=== PATIENT | female | born 1965 | race Caucasian/White ===

== ENCOUNTER 2020-09-04 15:30 | Outpatient (RCR) | payer BC, SELFPAY ==
--- NOTE | 2020-08-20 17:59 | HP.OTEVAL_ITS ---
Patient's Visit Information JO VALENCIA is a 55 year old F, referred to Occupational Therapy by Bud Finch PA-C, with a diagnosis of left distal phalanx fx. Date of Evaluation: 08/20/20 Occupational Therapist: Bindu Orlando, SHIRA/Dm, CHT - Subjective This 55-year-old female was seen for OT eval with dx of left thumb displaced fx of distal phalanx of left thumb. pt states she broke it while opening a container in February 2020, pt states she found a thumb brace- for three weeks- pt states she was in cast for three weeks- and was released to use it. 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 pt states the limited ROM and strength has decreased her IND. with work and other daily tasks. pt would like to know what she can do to return her strength and ROM. 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 Pt will demo an increase in lateral and tripod pinch by 2# to increase pts independent with opening baggies, containers at PLOF by D/C. Goal:: Pt will demo an increase in left IP ROM equal to unaffected right IP to return pt to PLOF with grooming, dressing and home mtg tasks by D/C. Goal:: pt will report the ability to use left thumb for pinch/grasp objects with pain no greater than 1/10 by d/c - Rehabilitation General Assessment: pt demo a decline in right IP flex of right thumb and pain with use. this has limited pt with her ADLS, IADLs and work tasks- pt would benefit from skilled OT services 1x week for 3-4 weeks to return pt to PLOF. To day therapist ed. pt on IP blocking ex, PROM and pinch strengthening- pt demo understanding of ex and agree to POC. Rehabilitation Potential: Good - Anticipated Interventions A/AAROM/PROM, Strengthening, Triggerpoint Release, Modalities, Orthoses, Joint Protection/Energy Conservation, Ergonomic Education - Visit Plan Frequency: 1x/Week Duration: 4 Weeks TEXT: Thank you for the opportunity to evaluate your patient. For Medicare and Medicare HMO plans, please review the plan of care and approve it. It will need to be FAXED BACK to us at [phone] for Medicare purposes. Please let me know if there are questions or concerns regarding this plan of care. Physician Signature: Date:
--- NOTE | 2020-12-11 14:54 | HP.OT.NRP ---
JO VALENCIA was seen in my office for initial evaluation on 08/20/20. The following Plan of Care was established for this patient: Initial Frequency: 1x/Week Initial Duration: 4 Weeks Plan: cont POC , 1 more visit Anticipated Interventions: A/AAROM/PROM, Strengthening, Triggerpoint Release, Modalities, Orthoses, Joint Protection/Energy Conservation, Ergonomic Education This patient was last seen in our office 09/04/20. Pertinent comments regarding their Occupational therapy will appear below: pt seen 3 OT visits making great gains with ROM and strength. pt was to return for one more visit but did not schedule that apt. due to time lapse in services pt d/c at this time. At this point I will be discontinuing this patient from occupational therapy. I would be happy to see this patient again in the future if found appropriate by the physician. Thank you! Bindu Orlando, OTR/L, CHT
== END 2020-09-04 19:00 | disposition home or self-care (01) ==
LOC: OT 15:30
PROVIDERS: PCP Internal Medicine; Referring Provider Physician Assistant Surgical; Visit Provider Physician Assistant Surgical
DX: S62.522D Displaced fracture of distal phalanx of left thumb, subsequent encounter for fracture with routine healing (principal)
CPT/HCPCS: 97110; 97166

== ENCOUNTER → 2022-08-12 | Outpatient (CLI) | payer BC, SELFPAY ==
[2022-08-12 12:42] LABS: Hemoglobin A1c 5.7 % (3.8-5.6)
[2022-08-12 12:54] LABS: Insulin 3.4 mU/L (2.6-37.6); T3 Total - Triiodothyronine 1.29 ng/mL (0.6-1.81); Vitamin B12 644 pg/mL (211-911); Vitamin D,25 Hydroxy 49.2 ng/mL
[2022-08-12 13:14] LABS: Absolute Lymphocyte Count 1.38 X10^3/uL (0.83-4.51); Absolute Neutrophil Count 2.8 X10^3/uL (2.0-7.7); Basophil# 0.03 X10^3/uL; Basophil% 0.6 % (0-1); Eosinophil# 0.16 X10^3/uL; Eosinophils% 3.4 % (0-5); Hematocrit 40.9 % (37-47); Hemoglobin 13.6 g/dL (12.0-15.0); Lymphocyte # 1.38 X10^3/ul (0.83-4.51); Lymphocyte % 29.2 % (19-41); Mean Corp Hgb Conc 33.3 g/dL (32-36); Mean Corpuscular Hgb 31.2 pg (27.0-32.0); Mean Corpuscular Volume 93.8 fL (81-99); Mean Platelet Vol. 11.3 fl (6.2-12.0); Monocyte# 0.33 X10^3/uL; NRBC Flagged by Analyzer 0 % (0-5); Neutrophil # 2.81 X10^3/uL (2.7-7.7); Neutrophil % 59.6 % (47-70); Platelet Count 198 K/mm3 (150-450); RBC Distribution Width CV 12.4 % (11.6-14.6); RBC Distribution Width SD 42.9 fl (35.1-43.9); Red Blood Count 4.36 M/mm3 (4.2-5.4); White Blood Count 4.7 K/mm3 (4.4-11.0)
[2022-08-12 13:23] LABS: Erythrocyte Sedimentation Rate 7 mm/hr (0-30)
[2022-08-12 13:33] LABS: ALB/GLOB Ratio 1.2 RATIO (0.9-2.4); AST(SGOT) 14 U/L (15-37); Alanine Aminotransfer ALT/SGPT 21 U/L (13-56); Albumin, Serum 4.1 g/dL (3.2-5.0); Alkaline Phosphatase 52 U/L (45-117); Anion Gap 4 (5-15); BUN 19 mg/dL (7-18); BUN/Creat Ratio 19.1 RATIO (10-20); CRP < 2.90 mg/L (0.0-3.0); Calcium,Total 9.5 mg/dL (8.5-10.1); Chloride 105 mmol/L (98-107); Cholesterol 278 mg/dL (200); EST Glomerular Filtration Rate 61 mL/min (>60); Est Glom Filt Rate - Afr Amer 74 mL/min (>60); Ferritin 97 ng/mL (8-252); Free T3 3.1 pg/mL (2.18-3.98); Globulin 3.4 g/dL (2.2-4.2); Glucose 92 mg/dL (74-106); High Density Lipoprotein 101 mg/dL; Iron 106 ug/dL (50-170); Iron Binding Capacity,Total 321 ug/dL (250-450); LDH 156 U/L (84-246); Potassium 3.7 mmol/L (3.5-5.1); Protein, Total 7.5 g/dL (6.4-8.2); Sodium Level 139 mmol/L (136-145); T4 Free Direct 0.78 ng/dL (0.76-1.46); T4 Total, Thyroxin 6.3 ug/dL (4.8-13.9); Thyroid Stim Hormone (TSH) 5.59 uIU/mL (0.358-3.74); Triglycerides 40 mg/dL; Very Low Density Lipoprotein 8 mg/dL (5-40)
[2022-08-15 15:27] LABS: T3 Reverse 9.4 ng/dL (9.2-24.1); Thyroglobulin Antibody 2.6 IU/mL (0.0-0.9); Thyroid Peroxidase AB 381 IU/mL (0-34)
== END | disposition home or self-care (01) ==
PROVIDERS: PCP Internal Medicine
DX: E07.9 Disorder of thyroid, unspecified (principal); E55.9 Vitamin D deficiency, unspecified; R53.82 Chronic fatigue, unspecified; K90.9 Intestinal malabsorption, unspecified; F41.8 Other specified anxiety disorders; K58.0 Irritable bowel syndrome with diarrhea
CPT/HCPCS: 36415; 80053; 80061; 82306; 82607; 82728; 82746; 83036; 83525; 83540; 83550; 83615; 84436; 84439; 84443; 84480; 84481; 84482; 85025; 85652; 86038; 86140; 86376; 86800

== ENCOUNTER → 2023-01-05 | Outpatient (CLI) | payer BC, SELFPAY ==
[2023-01-05 15:49] LABS: ALB/GLOB Ratio 1.2 RATIO (0.9-2.4); AST(SGOT) 20 U/L (15-37); Alanine Aminotransfer ALT/SGPT 27 U/L (13-56); Alkaline Phosphatase 52 U/L (45-117); Anion Gap 4 (5-15); BUN 21 mg/dL (7-18); BUN/Creat Ratio 18.4 RATIO (10-20); Calcium,Total 8.9 mg/dL (8.5-10.1); Chloride 107 mmol/L (98-107); Cholesterol 210 mg/dL (200); Creatinine, Serum 1.14 mg/dL (0.55-1.02); EST Glomerular Filtration Rate 52 mL/min (>60); Est Glom Filt Rate - Afr Amer 63 mL/min (>60); Free T3 3.4 pg/mL (2.18-3.98); Globulin 3.4 g/dL (2.2-4.2); Glucose 89 mg/dL (74-106); High Density Lipoprotein 80 mg/dL; Potassium 4.3 mmol/L (3.5-5.1); Protein, Total 7.4 g/dL (6.4-8.2); Sodium Level 140 mmol/L (136-145); T4 Free Direct 0.77 ng/dL (0.76-1.46); T4 Total, Thyroxin 6.6 ug/dL (4.8-13.9); Triglycerides 115 mg/dL; Very Low Density Lipoprotein 23 mg/dL (5-40)
[2023-01-05 16:29] LABS: T3 Total - Triiodothyronine 1.19 ng/mL (0.6-1.81); Vitamin D,25 Hydroxy 50.6 ng/mL
[2023-01-07 15:08] LABS: Thyroid Peroxidase AB 451 IU/mL (0-34)
[2023-01-08 14:19] LABS: Thyroglobulin Antibody 2.6 IU/mL (0.0-0.9)
== END | disposition home or self-care (01) ==
LOC: MTLAB 11:40
PROVIDERS: PCP Internal Medicine
DX: R53.83 Other fatigue (principal); E55.9 Vitamin D deficiency, unspecified; E53.8 Deficiency of other specified B group vitamins; K58.0 Irritable bowel syndrome with diarrhea; F41.8 Other specified anxiety disorders; K59.00 Constipation, unspecified; E07.9 Disorder of thyroid, unspecified; E88.81 Metabolic syndrome and other insulin resistance
CPT/HCPCS: 36415; 80053; 80061; 82306; 84436; 84439; 84443; 84480; 84481; 86376; 86800

== ENCOUNTER → 2023-01-21 | Outpatient (CLI) | payer BC, SELFPAY ==
[2023-01-21 18:03] LABS: Vitamin B12 781 pg/mL (211-911)
[2023-01-21 18:04] LABS: Homocysteine 7.7 umol/L (3.2-10.7)
== END | disposition home or self-care (01) ==
LOC: MTLAB 16:20
PROVIDERS: PCP Internal Medicine
DX: E53.8 Deficiency of other specified B group vitamins (principal); R53.82 Chronic fatigue, unspecified
CPT/HCPCS: 36415; 82607; 82746; 83090

== ENCOUNTER → 2023-06-23 | Outpatient (CLI) | payer BC, SELFPAY ==
[2023-06-23 15:34] LABS: Absolute Lymphocyte Count 1.17 X10^3/uL (0.83-4.51); Absolute Neutrophil Count 2.5 X10^3/uL (2.0-7.7); Basophil# 0.02 X10^3/uL; Basophil% 0.5 % (0-1); Eosinophil# 0.16 X10^3/uL; Eosinophils% 3.8 % (0-5); Hematocrit 40.9 % (37-47); Lymphocyte # 1.17 X10^3/ul (0.83-4.51); Lymphocyte % 28.1 % (19-41); Mean Corp Hgb Conc 31.8 g/dL (32-36); Mean Corpuscular Hgb 30.1 pg (27.0-32.0); Mean Corpuscular Volume 94.7 fL (81-99); Mean Platelet Vol. 11.4 fl (6.2-12.0); Monocyte# 0.33 X10^3/uL; Monocyte% 7.9 % (0-10); NRBC Flagged by Analyzer 0 % (0-5); Neutrophil # 2.48 X10^3/uL (2.7-7.7); Neutrophil % 59.5 % (47-70); Platelet Count 167 K/mm3 (150-450); RBC Distribution Width CV 12.6 % (11.6-14.6); RBC Distribution Width SD 43.8 fl (35.1-43.9); Red Blood Count 4.32 M/mm3 (4.2-5.4); White Blood Count 4.2 K/mm3 (4.4-11.0)
[2023-06-23 16:03] LABS: T3 Total - Triiodothyronine 1.52 ng/mL (0.6-1.81); Vitamin D,25 Hydroxy 47.2 ng/mL
[2023-06-23 16:11] LABS: ALB/GLOB Ratio 1.1 RATIO (0.9-2.4); AST(SGOT) 17 U/L (15-37); Alanine Aminotransfer ALT/SGPT 21 U/L (13-56); Albumin, Serum 3.9 g/dL (3.2-5.0); Alkaline Phosphatase 51 U/L (45-117); Anion Gap 5 (5-15); BUN 17 mg/dL (7-18); BUN/Creat Ratio 12.8 RATIO (10-20); Calcium,Total 9.1 mg/dL (8.5-10.1); Chloride 106 mmol/L (98-107); Creatinine, Serum 1.33 mg/dL (0.55-1.02); EST Glomerular Filtration Rate 44 mL/min (>60); Est Glom Filt Rate - Afr Amer 53 mL/min (>60); Ferritin 126 ng/mL (8-252); Globulin 3.4 g/dL (2.2-4.2); Glucose 87 mg/dL (74-106); Iron 101 ug/dL (50-170); Iron Binding Capacity,Total 276 ug/dL (250-450); PERCENT IRON SATURATION 36.6 % (15.0-55.0); Potassium 3.9 mmol/L (3.5-5.1); Protein, Total 7.3 g/dL (6.4-8.2); Sodium Level 140 mmol/L (136-145); T4 Total, Thyroxin 7.3 ug/dL (4.8-13.9)
[2023-06-28 14:07] LABS: T3 Reverse 13.9 ng/dL (9.2-24.1); Thyroglobulin Antibody 6.2 IU/mL (0.0-0.9); Thyroid Peroxidase AB 397 IU/mL (0-34)
== END | disposition home or self-care (01) ==
PROVIDERS: PCP Internal Medicine
DX: R53.82 Chronic fatigue, unspecified (principal); E07.9 Disorder of thyroid, unspecified; F41.8 Other specified anxiety disorders
CPT/HCPCS: 36415; 80053; 82306; 82728; 83540; 83550; 84436; 84439; 84443; 84480; 84481; 84482; 85025; 86376; 86800

== ENCOUNTER 2023-07-08 10:21 | Outpatient (CLI) | payer BC, SELFPAY ==
[2023-07-08 10:24] LABS: Bacteria 0 SEEN /hpf (None Seen); Mucous, Urine 0 SEEN /hpf (<or=2+); Red Blood Cells-Urine 0 SEEN /hpf (0-5)
[2023-07-08 12:30] LABS: Color, Urine Yellow (Yellow); Glucose, Dipstick Normal (Normal); Ketone-Dipstick Negative (Negative); Leukocyte Esterase-Dipstick 25 /ul (Negative); Nitrite-Dipstick Negative (Negative); Occult Blood-Urine Negative /ul (Negative); Protein-Dipstick Negative (Negative); Specific Gravity, Urine 1.015 (1.002-1.030); Urine Bilirubin Dipstick Negative (Negative); Urine Clarity Sl. Cloudy (Clear); Urine Urobilinogen Normal (Normal); Urine pH 6.5 (5.0 - 8.0)
[2023-07-08 12:36] LABS: Squamous Epithelial Cells - UA 0-5 SEEN /hpf (5-10); White Blood Cells 0-5 SEEN /hpf (0-5)
== END 2023-07-08 23:59 | disposition home or self-care (01) ==
LOC: MTLAB 10:23
PROVIDERS: PCP Internal Medicine
DX: R94.4 Abnormal results of kidney function studies (principal)
CPT/HCPCS: 81001

== ENCOUNTER 2023-08-09 23:48 | Emergency (ER) | payer BC, SELFPAY ==
[2023-08-09 23:51] VITALS: PULSE 69; RESP 18; TEMP 36.8; O2SAT 99
--- NOTE | 2023-08-09 23:52 | EX.ED.DYSGE1 ---
HPI History of Present Illness Chief Complaint: Lower Extremity Injury PFSH PFSH Allergy/AdvReac Type Severity Reaction Status Date / Time almond oil Allergy Unknown Verified 08/09/23 23:49 clotrimazole Allergy Hives Verified 08/09/23 23:50 coconut Allergy NEEDS Verified 08/09/23 23:49 FOLLOW-UP egg Allergy Unknown Verified 08/09/23 23:49 gluten Allergy Unknown Verified 08/09/23 23:49 Milk Containing Products Allergy NEEDS Verified 08/09/23 23:49 (Dairy) FOLLOW-UP [Milk Containing Products] sesame seed Allergy Unknown Verified 08/09/23 23:49 Sugars, Metabolically Active Allergy NEEDS Verified 08/09/23 23:49 FOLLOW-UP Social History Smoking Status: Never smoker EXAM Physical Exam Const Vital Signs: 08/09/23 23:51 08/09/23 23:56 Temperature 98.3 F Temperature Source Oral Pulse Rate 69 Respiratory Rate 18 Blood Pressure 118/75 Blood Pressure Mean 89 Pulse Ox 99 Oxygen Delivery Method Room Air MDM MDM MDM Narrative Medical decision making narrative: HISTORY OF PRESENT ILLNESS: 57-year-old female here with concern for leg pain, left foot injury. The patient states she missed a step and now has pain with ambulation. Patient states she was walking to the doctor attempted to step down when she injured her left foot. REVIEW OF SYSTEMS: Pertinent positives: Left foot pain Pertinent negatives: Numbness, tingling PHYSICAL EXAM: Nursing triage notes reviewed, Vital signs reviewed Constitutional: please see mdm Extremities: No tenderness over either malleoli or fifth digit. There is slight swelling but no ecchymosis noted over the fourth metatarsal bone. Neuro: Intact sensation L1-S1 dermatomal distributions. Intact 5/5 strength in hip flexion (T12-L3). Knee extension (L2-L4). Ankle dorsiflexion (L4-L5). Ankle plantar flexion (S1). Great toe extension (L5). 2+ patellar and Achilles DTRs. Skin: No rash or lesions noted, no evidence of open fracture MEDICAL DECISION MAKING: Chief Complaint: Left foot pain External records reviewed: No recent advanced imaging of the involved extremity Factors affecting care:no documented past medical history MDM Narrative: Patient was hemodynamically stable, afebrile, nontoxic-appearing I considered the following differential diagnosis: Foot fracture, dislocation, contusion or sprain ALL IMAGES (IF OBTAINED) HAVE BEEN PERSONALLY REVIEWED AND INTERPRETED BY MYSELF. X-ray of the left foot (was read and reviewed personally by myself) was obtained and shows evidence of a fracture of the distal tip of the proximal phalanx of the left toe. Darnell taping applied. Postop shoe applied. Ortho instructions were given. Compartment syndrome return precautions were given. Pain instructions were given. Return to work instructions were given. The patient and/or family, caregivers express understanding. The patient and/or family, caregivers agrees with the plan. Shared decision making: I will have a discussion with the patient and or visitors regarding risk/benefits of further testing or admission. They will be made aware of of the risk/benefits inherent in this decision they will be given the opportunity to voice understanding. Total critical care time today provided was at least 0 minutes. This excludes separately billable procedures. Critical care time (if documented) is secondary to the patient having high probability of clinically significant/life threatening deterioration in the patient's condition which required my urgent intervention. Impression: 1. Acute displaced intra-articular fracture of the head of the proximal phalanx of the fourth digit Dispo: Discharge home Radiography Diagnostic Testing: Clinical Impression(s) from Imaging Studies Foot X-Ray 08/10/23 00:04 IMPRESSION: Minimally displaced intra-articular fracture of the head of the proximal phalanx of the fourth digit. Electronically Signed: Ryan Quintero MD at 0:22 EST , Discharge Plan Triage Chief Complaint: Lower Extremity Injury ED Provider: Tomer King Dx/Rx/DC Orders Instructions: ED Fracture, Toe, Closed Stand Alone Forms: ED Work / School Excuse Primary Care Provider: Rina De La Vega Referrals: Jorge Rose MD [Non-Staff] - Activity Restrictions/Additional Instructions: Thank you for trusting us with your care today! Please take Tylenol (2 pills, 650 mg), ibuprofen (2 pills, 400 mg) every 6 hours as needed for pain and fever control. Please return to the emergency department if your symptoms change or worsen. Please follow with your Orthopedic surgery (Dr. Rose) for further outpatient evaluation and management. Disposition Disposition: Home, Self Care Discharge Date/Time: 08/10/23 00:52
[2023-08-09 23:56] VITALS: BP 118/75
--- NOTE | 2023-08-10 00:04 | RAD_ITS ---
EXAM: XR Foot Min 3 Views INDICATION: Female, 57 years old. Left fourth digit pain TECHNIQUE: AP and lateral views COMPARISON: None FINDINGS: There is an acute fracture of the head of the proximal phalanx of the fourth digit with extension of the fracture lines into the proximal interphalangeal joint.. Minimal lateral distraction of the fracture fragment is noted joints are normal alignment. No periarticular degenerative or inflammatory change. There is mild soft tissue swelling of the fourth digit. RAD/Foot min 3 Views IMPRESSION: Minimally displaced intra-articular fracture of the head of the proximal phalanx of the fourth digit. Electronically Signed: Ryan Quintero MD at 0:22 EST ,
[2023-08-10 00:51] VITALS: PULSE 63; RESP 17; O2SAT 97
== END 2023-08-10 00:52 | disposition home or self-care (01) ==
PROVIDERS: Emergency Provider Emergency Medicine; PCP Internal Medicine; Visit Provider Emergency Medicine
DX: S92.512A Displaced fracture of proximal phalanx of left lesser toe(s), initial encounter for closed fracture (principal); X58.XXXA Exposure to other specified factors, initial encounter
CPT/HCPCS: 73630; 99283

== ENCOUNTER 2023-12-07 14:02 | Emergency (ER) | payer BC, SELFPAY ==
[2023-12-07] VITALS (10 sets, daily range): BP systolic 84–126; BP diastolic 54–95; PULSE 54–86; RESP 10–18; TEMP 36.4–36.5; O2SAT 98–100
--- NOTE | 2023-12-07 14:10 | EDS_ITS ---
HPI History of Present Illness Chief Complaint: Chest Pain PFSH PFSH Allergy/AdvReac Type Severity Reaction Status Date / Time almond oil Allergy Unknown Verified 12/07/23 14:05 clotrimazole Allergy Hives Verified 12/07/23 14:05 coconut Allergy NEEDS Verified 12/07/23 14:05 FOLLOW-UP egg Allergy Unknown Verified 12/07/23 14:05 gluten Allergy Unknown Verified 12/07/23 14:05 Milk Containing Products Allergy NEEDS Verified 12/07/23 14:05 (Dairy) FOLLOW-UP [Milk Containing Products] sesame seed Allergy Unknown Verified 12/07/23 14:05 Sugars, Metabolically Active Allergy NEEDS Verified 12/07/23 14:05 FOLLOW-UP Social History Smoking Status: Never smoker EXAM Physical Exam Const Vital Signs: 12/07/23 14:05 12/07/23 14:13 12/07/23 14:30 Temperature 97.6 F L Temperature Source Temporal Pulse Rate 58 L 54 L Respiratory Rate 18 11 L Blood Pressure 114/76 99/55 L Blood Pressure Mean 88 70 Pulse Ox 100 Oxygen Delivery Method Room Air Room Air 12/07/23 14:45 12/07/23 15:00 12/07/23 15:15 Temperature Temperature Source Pulse Rate 62 60 54 L Respiratory Rate 18 16 10 L Blood Pressure 100/63 84/55 L 90/57 L Blood Pressure Mean 75 65 68 Pulse Ox Oxygen Delivery Method 12/07/23 16:00 12/07/23 17:00 12/07/23 18:16 Temperature 97.7 F L Temperature Source Pulse Rate 81 75 76 Respiratory Rate 14 14 13 Blood Pressure 97/54 L 102/57 L 114/68 Blood Pressure Mean 67 71 83 Pulse Ox 98 Oxygen Delivery Method 12/07/23 17:15 12/07/23 18:00 Temperature 97.7 F L Temperature Source Temporal Pulse Rate 86 76 Respiratory Rate 17 13 Blood Pressure 126/95 H 114/68 Blood Pressure Mean 104 82 Pulse Ox Oxygen Delivery Method Room Air MDM MDM MDM Narrative Medical decision making narrative: HISTORY OF PRESENT ILLNESS: 58-year-old presents with chest pain. She states she developed acute midsternal chest pain radiating to the jaw prior to arrival as she was exerting herself. Denies history of heart attacks. Denies any recent bleeding diathesis. Denies any vomiting. Denies any cough fever or chills. Denies any lower extremity edema. Denies family history of early cardiac . Denies history of type 2 diabetes, hyperlipidemia or hypertension. Denies loss of consciousness Patient denies sudden onset of pain, no tearing sensation, no migratory symptoms, no new numbness, weakness or loss of sensation. Patient denies family history or personal history of Marfan syndrome or Kelly-Danlos. The patient denies recent surgery in the last 4 weeks or immobilization in the last 3 days, denies previous diagnosis of DVT or PE, hemoptysis, unilateral leg swelling or malignancy with treatment the last 6 months. No estrogen use noted. REVIEW OF SYSTEMS: All other systems reviewed and are negative except as noted in the history of present illness. At least 10 review of systems reviewed and are negative except as noted in history of present illness. PHYSICAL EXAM: Nursing triage notes reviewed, Vital signs reviewed Constitutional: please see [facility] HENT: MMM Eyes: Pupils equal round and reactive to light, Extraocular muscles intact Neck: No stridor, no JVD, full neck ROM Lungs: Clear to auscultation, No wheezing or rales. No increased work of breathing, no conversational dyspnea, no accessory muscle use, no nasal flaring. No respiratory distress noted Heart: Regular rate and rhythm, No murmurs, No rubs and No gallops, 2+ distal pulses (radial, femoral, posterior tibial) in all extremities Abdomen: Soft, there is no tenderness, rigidity, rebound or guarding, no obvious peritoneal signs, no palpable pulsatile abdominal masses, no auscultated abdominal bruit : No CVAT Extremities: No edema Neuro: No focal neurological deficits, cranial nerves II through XII intact, 5/5 strength in all extremities. Intact sensation to light touch in all extremities, 2+ reflexes bilateral patella tendons. Normal gait. No ataxia. Skin: No rash or lesions noted MEDICAL DECISION MAKING: Chief Complaint: Chest pain External records reviewed: No recent cardiac catheterizations, stress test or echocardiograms noted in the chart Factors affecting care:No reported past medical history in [facility] Social determinants of health: None History obtained from others: None Consults: none [facility] Narrative: Patient was hemodynamically stable, afebrile, nontoxic-appearing. Exam without focal cardiopulmonary normalities. During the patient's ED course he became hypotensive. She noted increasing pain with hypotension. This was resuscitated with 2 L normal saline. I considered the following differential diagnosis: ACS, arrhythmia, anemia, electrolyte abnormality, pneumonia, pneumothorax, GI etiology, PE ALL IMAGES (IF OBTAINED) HAVE BEEN PERSONALLY REVIEWED AND INTERPRETED BY MYSELF. EKG with sinus bradycardia, normal axis, normal intervals, no STEMI I have personally reviewed the patient's chest x-ray. Chest x-ray is unremarkable for pulmonary edema, pneumothorax, pneumonia or focal cardiopulmonary abnormality. Magnesium within normal limits CBC without leukocytosis, severe anemia, no thrombocytopenia. High-sensitivity troponin is negative, no evidence of myocardial ischemiax2 BMP with mild hypokalemia, no anion gap to suggest endorgan hypoperfusion, no evidence of metabolic acidosis, stable kidney function I also considered the following differential without there were less likely. PE less likely given low risk Wells score. Aortic dissection is thought to be less likely given no sudden ripping or tearing pain, migratory pain, palpable pulse inequalities, no focal neurologic deficits concurrent with chest pain. Chance of dissection less than 10/1999. Pericarditis less likely given no pathognomonic EKG changes (no diffuse ST elevations, CT depressions). GI etiology (i.e. Boerhaave syndrome) less likely given no chest or neck crepitus, no vomiting or forced retching. I completed a HEART Score to screen for Major Adverse Cardiac Event (MACE) in this patient. The evidence indicates that the patient is very low risk for MACE and this is consistent with my clinical intuition. The risk of further workup or hospitalization for MACE is likely higher than the risk of the patient having a MACE. It is, therefore, in the patient?s best interest not to do additional emergent testing or to be hospitalized for MACE at this time. Shared Decision-Making No hospitalization indicated I have discussed with the patient my clinical impression and the result of the HEART Score to screen for MACE, as well as the risks of further testing and hospitalization. The HEART Score shows that the risk for MACE is less than 1%. Although the risk of MACE has not been completely eliminated, the risks of further testing or hospitalization for MACE likely exceed any potential benefit, and the patient agrees with not pursuing further emergent evaluation or hospitalization for MACE at this time. The synthesis of the patient's history, physical exam, labs images suggest no acute life-limiting pathology. She is low risk heart score is appropriate discharge home with close outpatient follow-up. Suspect the patient was dehydrated given response to fluids. Complete resolution of symptoms. The patient and/or family, caregivers express understanding. The patient and/or family, caregivers agrees with the plan. Total critical care time today provided was at least 0 minutes. This excludes separately billable procedures. Critical care time (if documented) is secondary to the patient having high probability of clinically significant/life threatening deterioration in the patient's condition which required my urgent intervention. Impression: 1. Dehydration 2. Chest pain 3. Hypokalemia Disposition: Discharge home Tomer King, Lab Data Labs: Laboratory Results - last 24 hr 12/07/23 12/07/23 13:45 16:25 WBC 6.3 RBC 4.32 Hgb 12.7 Hct 39.7 MCV 91.9 MCH 29.4 MCHC 32.0 RDW Std Deviation 44.6 H RDW Coeff of Forrest 13.2 Plt Count 204 MPV 11.6 Immature Gran % (Auto) 0.300 Neut % (Auto) 54.0 Lymph % (Auto) 34.7 [place] % (Auto) 7.3 Eos % (Auto) 3.2 Baso % (Auto) 0.5 Absolute Neuts (auto) 3.4 Absolute Lymphs (auto) 2.18 Nucleated RBC % 0 Sodium 141 Potassium 3.4 L Chloride 109 H Carbon Dioxide 25.0 Anion Gap 7 BUN 17 Creatinine 1.31 H Est GFR (MDRD) Af Amer 54 L Est GFR (MDRD) Non-Af 44 L BUN/Creatinine Ratio 13.0 Glucose 151 H Calcium 8.9 Magnesium 2.2 Troponin I High Sens 5 4 Radiography Diagnostic Testing: Clinical Impression(s) from Imaging Studies Chest X-Ray 12/07/23 14:30 IMPRESSION: No radiographic evidence of acute cardiopulmonary disease. Electronically Signed: Subhash Curtis MD at 15:01 EST , Discharge Plan Triage Chief Complaint: Chest Pain ED Provider: Tomer King Dx/Rx/DC Orders Primary Care Provider: Rina De La Vega Referrals: Rina De La Vega MD [Primary Care Provider] -
--- NOTE | 2023-12-07 14:11 | EKG12_ITS ---
Test Reason : CP Blood Pressure : / mmHG Vent. Rate : 057 BPM Atrial Rate : 057 BPM P-R Int : 170 ms QRS Dur : 080 ms QT Int : 452 ms P-R-T Axes : 063 072 063 degrees QTc Int : 439 ms Sinus bradycardia Otherwise Normal Confirmed by Guy Roca ([id number]), video editor PAM ARENAS ([id number]) on 12/09/2023 9:34:07 AM Referred By: GRETA Confirmed By:Guy Roca
--- NOTE | 2023-12-07 14:30 | RAD_ITS ---
INDICATION: chest pain EXAMINATION/TECHNIQUE: X-RAY - XR Chest 1 View COMPARISON: No relevant prior comparison study available FINDINGS: LINES/DEVICES: None. LUNGS: No consolidation, edema or effusion. No pneumothorax. MEDIASTINUM AND CARDIOVASCULAR STRUCTURES: Cardiac silhouette not enlarged. Central airways and mediastinal contour are unremarkable. BONES AND SOFT TISSUES: Unremarkable. RAD/Chest 1 View (Portable) IMPRESSION: No radiographic evidence of acute cardiopulmonary disease. Electronically Signed: Subhash Curtis MD at 15:01 EST ,
[2023-12-07 14:37] LABS: Absolute Lymphocyte Count 2.18 X10^3/uL (0.83-4.51); Absolute Neutrophil Count 3.4 X10^3/uL (2.0-7.7); Basophil# 0.03 X10^3/uL; Basophil% 0.5 % (0-1); Eosinophils% 3.2 % (0-5); Hematocrit 39.7 % (37-47); Hemoglobin 12.7 g/dL (12.0-15.0); Lymphocyte # 2.18 X10^3/ul (0.83-4.51); Lymphocyte % 34.7 % (19-41); Mean Corpuscular Hgb 29.4 pg (27.0-32.0); Mean Corpuscular Volume 91.9 fL (81-99); Mean Platelet Vol. 11.6 fl (6.2-12.0); Monocyte# 0.46 X10^3/uL; Monocyte% 7.3 % (0-10); NRBC Flagged by Analyzer 0 % (0-5); Platelet Count 204 K/mm3 (150-450); RBC Distribution Width CV 13.2 % (11.6-14.6); RBC Distribution Width SD 44.6 fl (35.1-43.9); Red Blood Count 4.32 M/mm3 (4.2-5.4); White Blood Count 6.3 K/mm3 (4.4-11.0)
[2023-12-07 14:50] LABS: Anion Gap 7 (5-15); BUN 17 mg/dL (7-18); Calcium,Total 8.9 mg/dL (8.5-10.1); Chloride 109 mmol/L (98-107); Creatinine, Serum 1.31 mg/dL (0.55-1.02); EST Glomerular Filtration Rate 44 mL/min (>60); Est Glom Filt Rate - Afr Amer 54 mL/min (>60); Glucose 151 mg/dL (74-106); Potassium 3.4 mmol/L (3.5-5.1); Sodium Level 141 mmol/L (136-145); Troponin-I HS (w/2H Reflex) 5 pg/mL (3.0-54.0)
--- NOTE | 2023-12-07 14:58 | EKG12_ITS ---
Test Reason : REPREAT Blood Pressure : / mmHG Vent. Rate : 054 BPM Atrial Rate : 054 BPM P-R Int : 148 ms QRS Dur : 084 ms QT Int : 478 ms P-R-T Axes : 050 076 066 degrees QTc Int : 453 ms Sinus bradycardia Otherwise normal ECG Confirmed by Guy Roca ([id number]), school photograph editor PAM ARENAS ([id number]) on 12/09/2023 9:34:16 AM Referred By: Confirmed By:Guy Roca
[2023-12-07] MEDS: 0.9% Normal Saline (1000mL) 1,000 ML 999 ML IV ×2 (15:15→16:28)
[2023-12-07 15:50] LABS: Magnesium 2.2 mg/dL (1.6-2.6)
[2023-12-07 16:23] LABS: Reflex Troponin-HS? (from REC) Y
[2023-12-07 16:50] LABS: Troponin-I HS 4 pg/mL (3.0-54.0)
--- OUTSIDE RECORDS SUMMARY | 2023-12-07 17:43 | XMS RPT_ITS | CCD ---
Author Name Unknown Address [id number] [place] [address] Organization [facility] Care Team Providers Care Area Operations Manager Name Role Phone Ceferino FARRIS, Murphy D Primary Care Provider TALAMPAS, MURPHY D Referring Unavailable CECILY PERALTA Attending Unavailable TALAMPAS, MURPHY D Primary Care Unavailable TALAMPAS, MURPHY D Referring Unavailable TALAMPAS, MURPHY D Primary Care Unavailable TALAMPAS, MURPHY D Referring Unavailable TALAMPAS, MURPHY D Primary Care Unavailable TALAMPAS, MURPHY D Referring Unavailable TALAMPAS, MURPHY D Primary Care Unavailable TALAMPAS, MURPHY D Attending Unavailable TALAMPAS, MURPHY D Primary Care Unavailable TALAMPAS, MURPHY D Primary Care Unavailable TALAMPAS, MURPHY D Referring Unavailable TALAMPAS, MURPHY D Referring Unavailable TALAMPAS, MURPHY D Primary Care Unavailable TALAMPAS, MURPHY D Attending Unavailable TALAMPAS, MURPHY D Primary Care Unavailable CECILY PERALTA Referring Unavailable TALAMPAS, MURPHY D Primary Care Unavailable CECILY PERALTA Referring Unavailable TALAMPAS, MURPHY D Primary Care Unavailable Allergies Allergy Classification Reported Allergen(s) Allergy Type Date of Onset Reaction(s) Facility (20 sources) almond allergenic extract; Translations: [ALMOND] Drug Allergy 0 Other: See Comments [facility] (20 sources) ciclopirox; Translations: [CICLOPIROX] Drug Allergy [address] [facility] (20 sources) egg extract; Translations: [EGG] Drug Allergy 0 Other: See Comments [facility] (20 sources) sesame seed extract; Translations: [SESAME SEED] Drug Allergy 0 Other: See Comments [facility] (20 sources) Wheat gluten extract; Translations: [GLUTEN] Drug Allergy 0 Other: See Comments [facility] (19 sources) dairy products [Other] Propensity to adverse reactions 0 Other: See Comments [facility] (20 sources) Sugar Cane; Translations: [SUGAR CANE] Food Allergy 0 Other: See Comments [facility] (1 source) OTHER; Translations: [OTHER] Propensity to adverse reactions (disorder) 0 [facility] Medications Completed/Discontinued Medications Medication Drug Class(es) Dates Sig (Normalized) Sig (Original) ascorbic acid 500 mg oral tablet (9 sources) Vitamin C End: 10-03-2022 take 1 tablet by mouth once daily ascorbic acid (VITAMIN C) 500 mg tablet Take 500 mg by mouth once daily. 0 10/03/2022 Discontinued Problems Active Problems Problem Classification Problem Date Documented Da te Episodic/Chronic Anxiety disorders (19 sources) Mixed anxiety and depressive disorder; Translations: [Other specified anxiety disorders] Onset: 6 11-10-2015 Chronic Chronic kidney disease (7 sources) Chronic kidney disease stage 3A ; Translations: [Stage 3a chronic kidney disease (HCC)] Onset: 3 07-10-2023 Chronic Chronic kidney disease (1 source) Chronic kidney disease; Translations: [Stage 3a chronic kidney disease (HCC)] Onset: 3 Diseases of mouth; excluding dental (1 source) Disorder of lip; Translations: [Diseases of lips] Episodic Essential hypertension (1 source) Essential hypertension; Translations: [Essential (primary) hypertension] Chronic Headache; including migraine (19 sources) Migraine with aura; Translations: [Migraine with aura, not intractable, without status migrainosus] 11-04-2016 Chronic Immunizations and screening for infectious disease (1 source) Raised antinuclear antibody; Translations: [Other specified abnormal immunological findings in serum] 09-13-2022 Episodic Menopausal disorders (1 source) Vaginal dryness; Translations: [Menopausal and female climacteric states] Chronic Nutritional deficiencies (20 sources) Vitamin D deficiency; Translations: [Vitamin D deficiency, unspecified] Onset: 8 10-23-2015 Chronic Other aftercare (7 sources) Patient encounter status; Translations: [Other senior care (current) drug therapy] Episodic Other circulatory disease (19 sources) History of hypotension; Translations: [Personal history of other diseases of the circulatory system] 11-15-2020 Episodic Other connective tissue disease (1 source) Adhesive capsulitis of left shoulder; Translations: [Adhesive capsulitis of left shoulder] Episodic Other connective tissue disease (2 sources) Pain in right hand; Translations: [Pain in right hand] Episodic Other connective tissue disease (2 sources) Pain in left arm; Translations: [Pain in left arm] Episodic Other gastrointestinal disorders (20 sources) Celiac disease; Translations: [Celiac disease] 02-21-2008 Chronic Other nervous system disorders (2 sources) Carpal tunnel syndrome of left wrist; Translations: [Carpal tunnel syndrome, left upper limb] Chronic Other nervous system disorders (1 source) Carpal tunnel syndrome, left upper limb; Translations: [Carpal tunnel syndrome of left wrist] Onset: Chronic Other nervous system disorders (1 source) Paresthesia; Translations: [Paresthesia of skin] Episodic Other non-traumatic joint disorders (1 source) Chronic pain of left upper limb; Translations: [Pain in left shoulder] Episodic Other non-traumatic joint disorders (2 sources) Bilateral hand joint stiffness; Translations: [Stiffness of right hand, not elsewhere classified] Episodic Other nutritional; endocrine; and metabolic disorders (1 source) Hypervitaminosis D; Translations: [Hypervitaminosis D] Chronic Other upper respiratory disease (4 sources) Nasal congestion; Translations: [Nasal congestion] Episodic Spondylosis; intervertebral disc disorders; other back problems (1 source) Degeneration of cervical intervertebral disc; Translations: [Other cervical disc degeneration, unspecified cervical region] Chronic Thyroid disorders (20 sources) Acquired hypothyroidism; Translations: [Hypothyroidism, unspecified] Onset: 07-29-2015 Chronic Past or Other Problems Problem Classification Problem Date Documented Da te Episodic/Chronic Deficiency and other anemia (20 sources) Iron deficiency anemia; Translations: [Iron deficiency anemia, unspecified] Onset: 07-29-2015 07-29-2015 Episodic Deficiency and other anemia (1 source) Iron deficiency anemia, unspecified; Translations: [Iron deficiency anemia, unspecified iron deficiency anemia type] Onset: 07-29-2015 Episodic Other aftercare (1 source) Other senior care (current) drug therapy; Translations: [Encounter for long-term current use of medication] Onset: 10-27-2022 Episodic Other connective tissue disease (1 source) Pain in right hand; Translations: [Right hand pain] Onset: 04-10-2023 Episodic Other connective tissue disease (1 source) Pain in left arm; Translations: [Left arm pain] Onset: 04-10-2023 Episodic Other nervous system disorders (1 source) Paresthesia of skin; Translations: [Paresthesia of skin] Onset: 04-10-2023 Episodic Other non-traumatic joint disorders (1 source) Stiffness of right hand, not elsewhere classified; Translations: [Stiffness of joints of both hands] Onset: 04-10-2023 Episodic Other non-traumatic joint disorders (1 source) Stiffness of left hand, not elsewhere classified; Translations: [Stiffness of joints of both hands] Onset: 04-10-2023 Episodic Other screening for suspected conditions (not mental disorders or infectious disease) (5 sources) Serum creatinine raised; Translations: [Other specified abnormal findings of blood chemistry] Onset: 03-27-2023 Episodic Results Test Name Value Interpretation Reference Range Facil ity Vital Signs Date Time Vital Sign Value Performing Clinician Minnie cox branson 07-28-2023 07:50-0400 Body weight 65.36 kg Cecily Peralta PA-C Work Phone: [facility] 07-28-2023 07:50-0400 Diastolic blood pressure 70 mm[Hg] Cecily Yarbroughs PA-C Work Phone: [facility] 07-28-2023 07:50-0400 Heart rate 58 /min Cecily Peralta PA-C Work Phone: [facility] 07-28-2023 07:50-0400 Systolic blood pressure 111 mm[Hg] Cecily Yarbroughs PA-C Work Phone: [facility] 03-10-2023 16:20-0400 Body temperature 97.59 [degF] Murphy De La Vega MD Work Phone: [facility] 03-10-2023 16:20-0400 Body weight 63.96 kg Murphy De La Vega MD Work Phone: [facility] 03-10-2023 16:20-0400 Diastolic blood pressure 72 mm[Hg] Murphy De La Vega MD Work Phone: [facility] 03-10-2023 16:20-0400 Heart rate 77 /min Murphy De La Vega MD Work Phone: [facility] 03-10-2023 16:20-0400 Respiratory rate 18 /min Murphy De La Vega MD Work Phone: [facility] 03-10-2023 16:20-0400 SaO2% (BldA) [Mass fraction] 98 % Murphy De La Vega MD Work Phone: [facility] 03-10-2023 16:20-0400 Systolic blood pressure 126 mm[Hg] Murphy De La Vega MD Work Phone: [facility] 04-14-2022 16:15-0400 Body weight 62.14 kg Murphy De La Vega MD Work Phone: [facility] 04-14-2022 16:15-0400 Diastolic blood pressure 70 mm[Hg] Murphy De La Vega MD Work Phone: [facility] 04-14-2022 16:15-0400 Heart rate 65 /min Murphy De La Vega MD Work Phone: [facility] 04-14-2022 16:15-0400 SaO2% (BldA) [Mass fraction] 97 % Murphy De La Vega MD Work Phone: [facility] 04-14-2022 16:15-0400 Systolic blood pressure 104 mm[Hg] Murphy De La Vega MD Work Phone: [facility] 02-05-2022 09:04-0400 Body weight 63.5 kg Murphy De La Vega MD Work Phone: [facility] 02-05-2022 09:04-0400 Diastolic blood pressure 60 mm[Hg] Murphy De La Vega MD Work Phone: [facility] 02-05-2022 09:04-0400 Heart rate 76 /min Murphy De La Vega MD Work Phone: [facility] 02-05-2022 09:04-0400 Respiratory rate 16 /min Murphy De La Vega MD Work Phone: [facility] 02-05-2022 09:04-0400 Systolic blood pressure 94 mm[Hg] Murphy De La Vega MD Work Phone: [facility] Encounters Encounter Date Encounter Type Care Provider Facility Start: 09-01-2023 End: 09-02-2023 ambulatory MURPHY DE LA VEGA Facility:[facility] Start: 08-03-2023 End: 08-03-2023 ambulatory CECILY PERALTA Facility:[facility] Start: 08-03-2023 End: 08-03-2023 Subsequent hospital visit by physician [facility] Work Phone: Radiology Procedures Date Procedure Procedure Detail Performing Clinician Start: 08-03-2023 Us retroperitoneal r eal time w/image complete Cecily Peralta PA-C Work Phone: Start: 07-28-2023 Urnls dip stick/tabl et rgnt auto w/o microscopy Cecily Peralta PA-C Work Phone: Start: 04-10-2023 Nerve conduction niya dies 5-6 studies Murphy De La Vega MD Work Phone: Start: 03-27-2023 End: 03-27-2023 Mammography Murphy De La Vega MD Work Phone: Start: 01-05-2023 Lipid 1996 panel - S sherri or Plasma Murphy De La Vega MD Work Phone: Start: 02-17-2022 Mammography Murphy agrawal MD Work Phone: Start: 01-07-2021 Mammography Murphy agrawal MD Work Phone: Start: 11-19-2020 Colonoscopy Murphy agrawal MD Work Phone: Plan of Treatment Date Care Activity Detail Author Start: 01-06-2028 Lipid 1996 panel - S sherri or Plasma Lipid Screening [facility] Start: 01-06-2028 L[address]ID SCREEN LIPID SCREEN [facility] Start: 02-05-2027 L[address]ID SCREEN LIPID SCREEN [facility] Start: 11-19-[address] [facility] Start: 11-19-2025 COLORECTAL CANCER SCREENING COLORECTAL CANCER SCREENING [facility] Start: 10-01-2025 DIABETES SCREEN DIABETES SCREEN [facility] Start: 10-01-2025 Diabetes Screening Diabetes Screenin g [facility] Start: 08-12-2025 DIABETES SCREEN DIABETES SCREEN [facility] Start: 06-02-2025 DIABETES SCREEN DIABETES SCREEN [facility] Start: 02-05-2025 DIABETES SCREEN DIABETES SCREEN [facility] Start: 07-28-2024 Serum Creatinine Serum Creatinine Cl [facility] Start: 03-27-[address] [facility] Start: 03-18-2024 Hemoglobin/Hematocrit Hemoglobin/Hem atocrit 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 Start: 03-10-2024 COVID-19 VACCINE (#1) COVID-19 VACCI NE (#1) [facility] Payers Date Payer Category Payer Unknown [id number] 2021 Unknown [id number] 2012 Unknown [id number] Social History Date Type Detail [facility] Start: 09-13-2021 End: 03-10-2023 Alcohol intake Current non-drinker of alcohol (finding) [facility] Start: 09-12-2020 End: 09-26-2022 History SDOH Alcohol Binge 1 [facility] Start: 09-12-2020 End: 09-26-2022 History SDOH Social Connections Phone 3 [facility] Start: 09-12-2020 End: 09-26-2022 History SDOH Social Connections Get Together 2 [facility] Start: 09-12-2020 History SDOH Physica l Activity DPW 5 [facility] Start: 09-12-2020 End: 12-23-2022 History SDOH Physical Activity MPS 4 [facility] Start: 09-12-[address] [facility] Start: 1965 Sex Assigned At Female C [facility] Start: 01-03-2022 End: 04-14-2022 Exposure to SARS-CoV-2 (event) Not sure [facility] Start: 09-26-2022 History SDOH Alcohol Std Drinks 0 [facility] Start: 09-26-2022 End: 03-10-2023 History of Social function [facility] Start: 09-26-2022 End: 03-10-2023 Social connection and isolation panel [facility] Active Member of [facility] bs or Organizations Not on file [facility] Are you now , , , , never or living with a partner? [facility] How often do you hav e 6 or more drinks on 1 occasion? Never [facility] Do you feel stress - tense, restless, nervous, or anxious, or unable to sleep at night because your mind is troubled all the time - these days [OSQ] Only a little [facility] (I/We) worried wheth er (my/our) food would run out before (I/we) got money to buy more. Never true [facility] In the past 12 month s, was there a time when you were not able to pay the mortgage or rent on time? No [facility] Start: 09-12-2020 Gender identity Identifies as female gender (finding) [facility] Start: 09-12-2020 Sexual orientation Heterosexual (ernst negron) [facility] Clinical Notes 06-28-2013 to 09-01-2023 Note Date & Type Note Facility 09-01-2023 Note HNO ID: [id number] Author: Murphy De La Vega MD Service: ? Author Type: Physician Type: Progress Notes Filed: 10/03/2023 8:22 PM Note Text: This note was created using Keyprriter. Subjective Glo Valencia is a 58 year old female. HISTORY Glo Valencia is a 58 year old lady here for yearly exam and follow up appointment. Due for PAP. Stable overall. Drinking more water every day now. 72 ounces of water per day from jug. Fatigue is better if follows what her system tells her is enough and not too much. PAST MEDICAL HISTORY Diagnosis Date Anemia 02/03/2012 Bilateral carpal tunnel syndrome Chronic fatigue Fibromyalgia History of orthostatic hypotension Had work up for POTS; tilt test was negative. Had worse symptoms when was anemic.Symptoms responded to same measures as for treating POTS (fluids with electrolytes) Migraine with aura and without status migrainosus, not intractable Unspecified hypothyroidism Unspecified vitamin D deficiency 03/06/2008 Current Outpatient Medications Medication Sig thyroid, pork, (ARMOUR THYROID) 60 mg tablet Take 1 tablet by mouth once daily. Lactobac no.41/Bifidobact no.7 (PROBIOTIC-10 ORAL) Take by mouth once daily. Ipratropium [place] (ATROVENT) 21 mcg (0.03 %) nasal spray Use 2 Sprays in the nose every 12 hours as needed. Miscellaneous Medical Supply Khu-Kfj-Pvjcciy D capsules--takes several per day to get adequate calcium and magnesium dose high enough to control leg cramps clonazePAM orally disintegrating (KLONOPIN WAFER) 0.125 mg disintegrating tablet Take 1 tablet by mouth once daily as needed for up to 14 days. B Complex Vitamins capsule Take 1 capsule by mouth once daily. No current facility-administered medications for this visit. ALLERGIES Allergen Reactions [place] Other: See Comments migraine Ciclopirox Hives Hives Dairy Products [Oth* Other: See Comments Egg Other: See Comments Gluten Other: See Comments Sesame Seed Other: See Comments Sugar Cane Other: See Comments FAMILY HISTORY Problem Relation Age of Onset Heart Mother on coumidin,272.4 Heart Father other (Other) Sister chronic fatique syndrome,multiple chemical sensitivities Thyroid Sister other (Environmental Illiness) Sister Twin Colon Cancer Maternal Grandmother Social History Tobacco Use Smoking status: Never Smokeless tobacco: Never Substance Use Topics Alcohol use: No Drug use: No Review of Systems Objective BP 102/64 (BP Site: Left Arm, BP Position: Sitting, BP Cuff Size: Regular Adult) Pulse 68 Wt 64.9 kg (143 lb) LMP 07/03/2022 (Approximate) BMI 21.43 kg/m? Physical Exam Vitals reviewed. Constitutional: Appearance: She is well-developed. HENT: Head: Normocephalic and atraumatic. Right Ear: External ear normal. Left Ear: External ear normal. Nose: Nose normal. Eyes: Conjunctiva/sclera: Conjunctivae normal. Neck: Thyroid: No thyromegaly. Cardiovascular: Rate and Rhythm: Normal rate and regular rhythm. Pulses: Normal pulses. Heart sounds: Normal heart sounds. No murmur heard. No friction rub. No gallop. Pulmonary: Effort: Pulmonary effort is normal. Breath sounds: Normal breath sounds. Abdominal: General: Bowel sounds are normal. There is no distension. Palpations: Abdomen is soft. There is no mass. Tenderness: There is no abdominal tenderness. Genitourinary: General: Normal vulva. Pubic Area: No rash. Labia: Right: No rash, tenderness or lesion. Left: No rash, tenderness or lesion. Urethra: No prolapse. Vagina: No vaginal discharge. Comments: PAP done Musculoskeletal: General: No deformity. Normal range of motion. Lymphadenopathy: Cervical: No cervical adenopathy. Skin: General: Skin is warm and dry. Coloration: Skin is not jaundiced or pale. Findings: No rash. Neurological: General: No focal deficit present. Mental Status: She is alert and oriented to person, place, and time. Cranial Nerves: No cranial nerve deficit. Sensory: No sensory deficit. Motor: No abnormal muscle tone. Coordination: Coordination normal. Deep Tendon Reflexes: Reflexes normal. Psychiatric: Mood and Affect: Mood normal. Behavior: Behavior normal. Thought Content: Thought content normal. Judgment: Judgment normal. Component Latest Ref Rng AND Units 10/01/2022 03/18/2023 07/28/2023 Albumin 3.9 - 4.9 g/dL 4.7 Calcium 8.5 - 10.2 mg/dL 9.6 9.8 Phosphorus 2.7 - 4.8 mg/dL 3.7 Glucose 74 - 99 mg/dL 103 (H) 93 BUN 7 - 21 mg/dL 14 17 Creatinine 0.58 - 0.96 mg/dL 1.18 (H) 1.11 (H) Sodium 136 - 144 mmol/L 140 141 Potassium 3.7 - 5.1 mmol/L 4.3 4.2 Chloride 97 - 105 mmol/L 103 103 CO2 22 - 30 mmol/L 30 29 Anion Gap 9 - 18 mmol/L 7 (L) 9 eGFR >=60 mL/min/1.73mA? 54 (L) 58 (L) WBC 3.70 - 11.00 k/uL 6.00 4.84 RBC 3.90 - 5.20 m/uL 4.27 4.46 Hemoglobin 11.5 - 15.5 g/dL 12.9 13.5 Hematocrit 36.0 - 46.0 % 40.6 41.5 MCV 80.0 - 100.0 fL 95.1 93 (more content not included)... [facility] documented in this encounter [facility]11-05-2023 Reason for referral (narrative)* Diagnostic Procedure Only (Routine) - Closed Specialty Diagnoses / Procedures Referred By Contac t Referred To Contact US IMAGING Diagnoses Stage 3a chronic kidney disease (HCC) Procedures US KIDNEY/BLADDER US RETROPERITONEAL REAL TIME W/IMAGE COMPLETE Cecily Peralta PA-C [address] [place] [address] [place] [id number] Referral ID Status Reason Start Date Expiration Date V isits Requested Visits Authorized [id number] Closed Auto-Generate d Referral 07/28/2023 08/26/[address] [facility]10-30-2023 NoteHNO ID: [id number] Author: Padmaja Núñez RDMS Service: ? Author Type: Manager Ship Type: Progress Notes Filed: 08/03/2023 1:34 PM Note Text: Radiology Service Progress Note PATIENT NAME: Glo Valencia DATE OF SERVICE: August 03, 2023 TIME: 1:33 PM PATIENT IDENTITY VERIFICATION COMPLETED USING TWO (2) IDENTIFIERS: Name and Date of confirmed by patient verbally. FALL SCREENING: Has the patient had 2 falls in the last year or 1 fall with injury or currently using an Ambulatory Assistive Device (Walker, Cane, Wheelchair, Crutches, etc.)? No PATIENT GENDER DATA: Female. status: : No status: NO. PATIENT RELEVANT IMPLANT DATA REVIEWED: Not Applicable RADIOLOGY DEPARTMENT: Ultrasound PERIPHERAL IV DATA: Not applicable SIGNED BY: Padmaja Núñez RDMS August 03, 2023 1:33 [facility]10-30-2023 History of Present illness Narrative* Padmaja Núñez RDMS - 08/03/2023 10:00 AM EDT Radiology Service Progress Note PATIENT NAME: Glo Valencia DATE OF SERVICE: August 03, 2023 TIME: 1:33 PM PATIENT IDENTITY VERIFICATION COMPLETED USING TWO (2) IDENTIFIERS: Name and Date of confirmedby patient verbally. FALL SCREENING: Has the patient had 2 falls in the last year or 1 fall with injury or currently using an Ambulatory Assistive Device (Walker, Cane, Wheelchair, Crutches, etc.)? No PATIENT GENDER DATA: Female. status: : No status: NO. PATIENT RELEVANT IMPLANT DATA REVIEWED: Not Applicable RADIOLOGY DEPARTMENT: Ultrasound PERIPHERAL IV DATA: Not applicable SIGNED BY: Padmaja Núñez RDMS August 03, 2023 1:33 PM [facility] Evaluation note* Diagnosis Stage 3a chronic kidney disease (HCC)- Primary documented in this encounter [facility]10-24-2023 NoteHNO ID: [id number] Author: Cecily Peralta PA-C Service: ? Author Type: Physician Chaplaincy Type: Progress Notes Filed: 07/28/2023 9:59 AM Note Text: 57-yo woman seen in consultation at the request of Dr. De La Vega regarding CKD. My thoughts and recommendations will be communicated via the shared electronic medical record. HPI: Review of [facility] records which date back to 2012 indicates that her serum creatinine has fluctuated in the of 0.9 to 1.1mg/dl for the past 10+ years. On June 23 2023 her serum creatinine, performed at a non [facility] lab, was noted to be 1.3mg/dl. She denies having hypertension, diabetes, NSAID exposure, episodes of dehydration. Her alb/creat ratio in October 2022 indicated no albuminuria. Her urinalysis performed on July 09 was negative for blood and protein. Her urinalysis today is negative for protein and blood. There are no kidney imaging studies for review at this time. As of In December 2016 her serum creatinine increased to 1.4mg/dl. in setting of possible dehydration and hypotension. Her serum creatinine returned to baseline by repeat labs. CONCOMITANT MEDICAL PROBLEMS: Hypothyroidism, S/P Molly's thyroiditis. Currently taking thyroid replacement. Migraines. Degenerative disc disease Anxiety Hypoglycemia , not documented. Sinus and nasal congestion PAST MEDICAL HISTORY: She reports that for many years she did not feel well . Her symptoms were characterized by headaches, fatigue, weakness, dizziness, irritable bowel, decreased concentration, palpitations, and nausea (denies vomiting). She reports that she feels much better now that she is being followed in functional medicine and is receiving accupuncture. SURGERY: [place] teeth extraction FAMILY HISTORY: negative for kidney disease, diabetes. SOCIAL HISTORY: she is with 2 children. 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 ROS: SKIN: denies rash, lesions EYES: denies decreased, blurred vision HENT: see PI. Denies hearing loss RESPIRATORY: denies SOB, PND, orthopnea, cough CARDIAC: ECHO performed in 2017 - normal. See PMH GI: See PMH. Denies history of GI bleeding. : denies stones, gross hematuria ENDO: see PI. Denies diabetes MUSCULOSKELETAL: see PI NEURO: denies seizures, CVA EXAM: pleasant, thin, White woman in no distress BP 111/70 Pulse (!) 58 Wt 65.4 kg (144 lb 1.6 oz) LMP 07/03/2022 (Approximate) BMI 21.59 kg/m? SKIN: warm, dry, intact EYES: EOM, perrla NECK: No mass, no bruits THYROID: not enlarged LUNGS: clear HEART: RRR, no rub, no gallop ABDOMEN: soft, flat, non tender, no mass, no organomegaly LOWER EXTREMITIES: no edema MUSCULOSKELETAL: no deformities NEURO; no obvious abnormalities ASSESSMENT: The etiology of long standing, non proteinuric, (>10 years), stage 3 CKD is unclear. It is not clear at this time if the recent increase in her serum creatinine to 1.3mg/dl. indicates progression of her CKD vs. mild ABSSAM. RECOMMEND: Repeat renal function panel Random urine for prot/creat ratio and monoclonal protein. Kidney ultrasound Discussion regarding the importance of maintaining ideal BP control, ie, <130/80. Discussion regarding the importance of maintaining ideal glycemic control. Discussion regarding the importance of adherence to medications. Avoid NSAID's and other nephrotoxic medications. Maintain adequate hydration. Weight control encouraged. RTC prn. Once I review her test results, we will decide if additional tests or treatment is warranted.[facility]10-24-2023 History of Present illness Narrative* Cecily Peralta PA-C - 07/28/2023 8:00 AM EDT 57-yo woman seen in consultation at the request of Dr. De La Vega regarding CKD. My thoughts and recommendations will be communicated via the shared electronic medical record. HPI: Review of [facility] records which date back to 2012 indicates that her serum creatininehas fluctuated in the of 0.9 to 1.1mg/dl for the past 10+ years. On June 23 2023 her serum creatinine, performed at a non [facility] lab, was noted to be 1.3mg/dl. She denies having hypertension, diabetes, NSAID exposure, episodes of dehydration. Her alb/creat ratio in October 2022 indicated no albuminuria. Her urinalysis performed on July 09 was negative for blood and protein. Her urinalysis today is negative for protein and blood. There are no kidney imaging studies for review at this time. As of In December 2016 her serum creatinine increased to 1.4mg/dl. in setting of possible dehydration and hypotension. Her serum creatinine returned to baseline by repeat labs. CONCOMITANT MEDICAL PROBLEMS: Hypothyroidism, S/P Molly's thyroiditis. Currently taking thyroid replacement. Migraines. Degenerative disc disease Anxiety Hypoglycemia , not documented. Sinus and nasal congestion PAST MEDICAL HISTORY: She reports that for many years she did not feel well . Her symptoms were characterized by headaches, fatigue, weakness, dizziness, irritable bowel, decreased concentration, palpitations, and nausea(denies vomiting). She reports that she feels much better now that she is being followed in functional medicine and is receiving accupuncture. SURGERY: [place] teeth extraction FAMILY HISTORY: negative for kidney disease, diabetes. SOCIAL HISTORY: she is with 2 children. 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 Non smoker. ROS: SKIN: denies rash, lesions EYES: denies decreased, blurred vision HENT: see PI. Denies hearing loss RESPIRATORY: denies SOB, PND, orthopnea, cough CARDIAC: ECHO performed in 2017 - normal. See PMH GI: See PMH. Denies history of GI bleeding. : denies stones, gross hematuria ENDO: see PI. Denies diabetes MUSCULOSKELETAL: see PI NEURO: denies seizures, CVA EXAM: pleasant, thin, White woman in no distress BP 111/70 Pulse (!) 58 Wt 65.4 kg (144 lb 1.6 oz) LMP 07/03/2022 (Approximate) BMI 21.59 kg/m SKIN: warm, dry, intact EYES: EOM, perrla NECK: No mass, no bruits THYROID: not enlarged LUNGS: clear HEART: RRR, no rub, no gallop ABDOMEN: soft, flat, non tender, no mass, no organomegaly LOWER EXTREMITIES: no edema MUSCULOSKELETAL: no deformities NEURO; no obvious abnormalities ASSESSMENT: The etiology of long standing, non proteinuric, (>10 years), stage 3 CKD is unclear. It is not clear at this time if the recent increase in her serum creatinine to 1.3mg/dl. indicates progression of her CKD vs. mild BASSAM. RECOMMEND: Repeat renal function panel Random urine for prot/creat ratio and monoclonal protein. Kidney ultrasound Discussion regarding the importance of maintaining ideal BP control, ie, <130/80. Discussion regarding the importance of maintaining ideal glycemic control. Discussion regarding the importance of adherence to medications. Avoid NSAID's and other nephrotoxic medications. Maintain adequate hydration. Weight control encouraged. RTC prn. Once I review her test results, we will decide if additional tests or treatment is warranted. documented [facility]* Diagnosis Acquired hypothyroidism- Primary Unspecified hypothyroidism Stage 3a chronic kidney disease (HCC) documented in this encounter [facility]10-24-2023 Reason for referral (narrative)* Diagnostic Procedure Only (Routine) - Authorized Specialty Diagnoses / Procedures Referred By Harika t Referred To Contact US IMAGING Diagnoses Stage 3a chronic kidney disease (HCC) Procedures US KIDNEY/BLADDER US RETROPERITONEAL REAL TIME W/IMAGE COMPLETE Cecily Peralta PA-C [id number] [place] [address] [place] [id number] Referral ID Status Reason Start Date Expiration Date Visits Requested Visits Authorized [id number] Authorized Auto-Generat ed Referral 3 08/26/[address] [facility]10-11-2023 Miscellaneous Notes* Telephone Encounter - Murphy De La Vega MD - 07/15/2023 8:55 PM EDT Order filed. See if has a preferred site for seeing development officer Found the June labs she was referring to with the higher Cr and lower eGFR. * Telephone Encounter - Yolanda River MA - 07/09/2023 9:22 AM EDT Spoke to patient. Advised patient PCP was referring to previous labs completed on 01/05/23. Patient would like a referral for nephrology. Asking on any [facility] recommendations as she does not want to establish with any development officer locally. Patient would like PCP to review UA completed 07/08/23 & advise on results & if patient should see urology. Provided results below via blue link. Please review & advise. View External Labs - Cytology [ID [id number]] * Telephone Encounter - Murphy De La Vega MD - 07/05/2023 4:45 PM EDT Reviewed results of labs from [facility] and prior labs done here at [facility]. See MyChart reply Over the past years, eGFR has been up and down but most in CKD3 level. Sometimes would be over 60 but usually in CKD3 range. Will await her reply regarding which kidney specialist she wants to see. documented in this encounterSt[facility] Evaluation note* Diagnosis Stage 3a chronic kidney disease (HCC)- Primary documented in this [facility]10-06-2023 Miscellaneous Notes* Telephone Encounter - Romi Sterling RN - 07/10/2023 10:53 AM EDT Appt 07/28 with nephrology in [place]. * Telephone Encounter - Romi Sterling RN - 07/10/2023 8:51 AM EDT Pt given below information from Dr. De La Vega. Note to scheduling to set up appt for a development officer as close to [place] as possible. * Telephone Encounter - Murphy De La Vega MD - 07/10/2023 8:23 AM EDT Filed consult order. See if has a preference for site UA was unremarkable. Though leuk esterase was 25, there were no significant numbers of WBC on microscopic. Cloudy is a nonspecific finding. If develops symptoms, would repeat UAWMIC and do a culture. I reviewed her labs done here in [facility] lab over the past several years. * Telephone Encounter - Romi Sterling RN - 07/09/2023 8:37 AM EDT Pt calling to follow up with Dr. De La Vega on her recent lab results as well as update her on a urinalysis she had done yesterday ordered by her functional doctor. Pt states her leukocytes esterase was abnormal on the urinalysis and states her urine is cloudy and has an odor to it. Pt denies any symptoms of a UTI. States the doctor ordered the urinalysis because of pt's most recent CMP results of 06/23. Pt is also concerned as Dr. De La Vega sent pt a Clctin msg saying the following: Glo Lopez, Saw lab results--they were scanned in from [facility]. Noted BUN 21 and Cr 1.14 with eGFR 52. She is confused where Dr. De La Vega got those #'s. She states her results were BUN of 17, creatinine1.33 and GFR non AA was 44 (which matches labwork scanned in on 06/23) Pt would like a referral to a [facility] development officer and is aware she will have to go out of town for this. Unless Dr. De La Vega feels she should see a urologist instead of a development officer. documented in this encounterSt. [facility]07-[facility]-2023 NoteHNO ID: [id number] Author: Belen Peralta MD Service: ? Author Type: Physician Type: Progress Notes Filed: 04/10/2023 4:08 PM Note Text: UNIVERSAL PROTOCOL / SAFETY CHECKLIST Procedure to be Performed: EMG Sign In: A Moment of CARE was completed. Personnel directly involved with the procedure wore the appropriate PPE (Personal Protective Equipment). Patient/Surrogate Stated/Verified: PATIENT VERIFIED(optional for EMERGENT procedures): Patient name, Date of , Relevant allergies, and The intended procedure Time Out Communication: Intended patient and procedure match the source documents. Correct side/site marked and visible. Sign Out: Patient left without being seen by Physician. Laura Duarte c2 tactical analysis technician Belen Peralta MD Staff, [facility] Electronically signed April 10, 2023 4:07 [facility]07-07-2023 History of Present illness Narrative* Belen Peralta MD - 04/10/2023 4:04 PM EDT UNIVERSAL PROTOCOL / SAFETY CHECKLIST Procedure to be Performed: EMG Sign In: A Moment of CARE was completed. Personnel directly involved with the procedure wore the appropriate PPE (Personal Protective Equipment). Patient/Surrogate Stated/Verified: PATIENT VERIFIED(optional for EMERGENT procedures): Patient name, Date of , Relevant allergies, and The intended procedure Time Out Communication: Intended patient and procedure match the source documents. Correct side/site marked and visible. Sign Out: Patient left without being seen by Physician. Laura Duarte c2 tactical analysis technician Belen Peralta MD Staff, [facility] Electronically signed April 10, 2023 4:07 PM documented in this encounterSt. [facility]06-26-2023 Miscellaneous Notes* Letter - Mammography Coordinator - 03/30/2023 7:49 AM EDT March 30, 2023 PID: [id number] Glo Valencia [address] [place] [address] Dear Ms. Valencia, We are pleased to inform you that the results of your recent breast imaging exam on 03/27/2023 are normal. Your mammogram demonstrates that you have dense breast tissue, which could hide abnormalities. Dense breast tissue, in and of itself, is a relatively common condition. Therefore, this information is not provided to cause undue concern; rather, it is to raise your awareness and promote discussion with your health care provider regarding the presence of dense breast tissue in addition to other riskfactors. Early detection of cancer is very important. We also understand recommendations regarding breast cancer screening are controversial. Please discuss with your primary care provider which strategy is best for you and whether a mammogram is right for you. Your imaging studies and report will be kept on file at [facility] as part of your permanent medical record and are available for your continuing care. Thank you for allowing us to help in meeting your health care needs. Sincerely, Dr. Cr Interpreting Radiologist [facility] (Normal over 40) documented in this encounterSt. Mary'[facility]06-23-2023 Miscellaneous Notes* Result Encounter Note - Rosa Ponce APRN.CNS - 03/27/2023 1:30 PM EDT Negative. 1 year screening advised documented in this encounterSt. Mary[facility]06-06-2023 NoteHNO ID: [id number] Author: Murphy De La Vega MD Service: ? Author Type: Physician Type: Progress Notes Filed: 04/07/2023 11:09 PM Note Text: This note was created using Keyprriter. Subjective Glo Valencia is a 57 year old female. Patient presents with: Follow Up SUBJECTIVE: Glo Valencia is a 57 year old year old lady here today for follow up appointment for review of medical conditions. Hands hurting Worse in AM Left with CTS symptoms. Also radiculopathy symptoms. Right wakes up and is like a claw with stiffness. Has to use other hand to get fingers tostraighen. No CTS in right hand. Hands hurting for years. Comes and goes. Writing messy unless walks really slowly. Not triggering. Noted that continues to work with Functional Medicine provider . Last labs January--scanned in. Some IBS acting up. PAST MEDICAL HISTORY Diagnosis Date Anemia 02/03/2012 Bilateral carpal tunnel syndrome Chronic fatigue Fibromyalgia History of orthostatic hypotension Had work up for POTS; tilt test was negative. Had worse symptoms when was anemic.Symptoms responded to same measures as for treating POTS (fluids with electrolytes) Migraine with aura and without status migrainosus, not intractable Unspecified hypothyroidism Unspecified vitamin D deficiency 03/06/2008 Current Outpatient Medications Medication Sig thyroid, pork, (ARMOUR THYROID) 60 mg tablet Take 1 tablet by mouth once daily. Ipratropium [place] (ATROVENT) 21 mcg (0.03 %) nasal spray Use 2 Sprays in the nose every 12 hours as needed. Miscellaneous Medical Supply Gdy-Qmy-Tcapshf D capsules--takes several per day to get adequate calcium and magnesium dose high enough to control leg cramps B Complex Vitamins capsule Take 1 capsule by mouth once daily. estradiol (ESTRACE) 0.01 % (0.1 mg/gram) vaginal cream 0.5 g of cream intravaginally administered daily for 2 weeks, then reduce to twice weekly ketoconazole (NIZORAL) 2 % cream Apply 1 application to affected area once daily. Apply to corners of lips once daily (Patient not taking: Reported on 10/03/2022) clonazePAM orally disintegrating (KLONOPIN WAFER) 0.125 mg disintegrating tablet Take 1 tablet by mouth once daily as needed for up to 14 days. No current facility-administered medications for this visit. Review of Systems Objective BP 126/72 Pulse 77 Temp 36.4 ?C (97.6 ?F) Resp 18 Wt 64 kg (141 lb) LMP 07/03/2022 (Approximate) SpO2 98% BMI 21.13 kg/m? Physical Exam Constitutional: Appearance: Normal appearance. HENT: Head: Normocephalic. Eyes: Conjunctiva/sclera: Conjunctivae normal. Cardiovascular: Rate and Rhythm: Normal rate and regular rhythm. Heart sounds: Normal heart sounds. Pulmonary: Effort: Pulmonary effort is normal. Breath sounds: Normal breath sounds. Skin: General: Skin is warm and dry. Neurological: General: No focal deficit present. Mental Status: She is alert and oriented to person, place, and time. Psychiatric: Mood and Affect: Mood normal. Behavior: Behavior normal. Thought Content: Thought content normal. Judgment: Judgment normal. Prior labs reviewed. Assessment and Plan Encounter Diagnosis ICD-10-CM 1. Iron deficiency anemia, unspecified iron deficiency anemia type D50.9 CBC Last CBC in August at [facility] were good. 2. Carpal tunnel syndrome of left wrist G56.02 EMG(NEURO/NI) COCK-UP WRIST SPLINT 3. Right hand pain M79.641 EMG(NEURO/NI) 4. Left arm pain M79.602 EMG(NEURO/NI) 5. Stiffness of joints of both hands M25.641 EMG(NEURO/NI) M25.642 6. Breast cancer screening by mammogram Z12.31 LUANA SCREENING W MO 7. Dense breasts R92.2 LUANA SCREENING W MO Above issues addressed with patient. Patient involved in shared decision making for management of medical issues. History and medications reviewed. Epic updated as needed Refills and/or prescriptions taken care of and meds adjusted as indicated after reviewed history, exam and labs. Health Maintenance reviewed. Updated record and/or ordered tests as recorded. Encouraged on efforts at healthy diet and regular exercise and adequate sleep. Murphy De La Vega [facility]06-06-2023 History of Present illness Narrative* Murphy De La Vega MD - 03/10/2023 5:02 PM EDT This note was created using Keyprriter. Subjective Glo Valencia is a 57 year old female. Patient presents with: Follow Up SUBJECTIVE: Glo Valencia is a 57 year old year old lady here today for follow up appointment for review of medical conditions. Hands hurting Worse in AM Left with CTS symptoms. Also radiculopathy symptoms. Right wakes up and is like a claw with stiffness. Has to use other hand to get fingers tostraighen.No CTS in right hand. Hands hurting for years. Comes and goes. Writing messy unless walks really slowly. Not triggering. Noted that continues to work with Functional Medicine provider . Last labs January--scanned in. Some IBS acting up. PAST MEDICAL HISTORY Diagnosis Date Anemia 02/03/2012 Bilateral carpal tunnel syndrome Chronic fatigue Fibromyalgia History of orthostatic hypotension Had work up for POTS; tilt test was negative. Had worse symptoms when was anemic.Symptoms respondedto same measures as for treating POTS (fluids with electrolytes) Migraine with aura and without status migrainosus, not intractable Unspecified hypothyroidism Unspecified vitamin D deficiency 03/06/2008 Current Outpatient Medications Medication Sig thyroid, pork, (ARMOUR THYROID) 60 mg tablet Take 1 tablet by mouth once daily. Ipratropium [place] (ATROVENT) 21 mcg (0.03 %) nasal spray Use 2 Sprays in the nose every 12 hours as needed. Miscellaneous Medical Supply Rol-Nml-Depeith D capsules--takes several per day to get adequate calcium and magnesium dose high enough to control leg cramps B Complex Vitamins capsule Take 1 capsule by mouth once daily. estradiol (ESTRACE) 0.01 % (0.1 mg/gram) vaginal cream 0.5 g of cream intravaginally administered daily for 2 weeks, then reduce to twice weekly ketoconazole (NIZORAL) 2 % cream Apply 1 application to affected area once daily. Apply to corners of lips once daily (Patient not taking: Reported on 10/03/2022) clonazePAM orally disintegrating (KLONOPIN WAFER) 0.125 mg disintegrating tablet Take 1 tablet by mouth once daily as needed for up to 14 days. No current facility-administered medications for this visit. Review of Systems Objective BP 126/72 Pulse 77 Temp 36.4 C (97.6 F) Resp 18 Wt 64 kg (141 lb) LMP 07/03/2022 (Approximate) SpO2 98% BMI 21.13 kg/m Physical Exam Constitutional: Appearance: Normal appearance. HENT: Head: Normocephalic. Eyes: Conjunctiva/sclera: Conjunctivae normal. Cardiovascular: Rate and Rhythm: Normal rate and regular rhythm. Heart sounds: Normal heart sounds. Pulmonary: Effort: Pulmonary effort is normal. Breath sounds: Normal breath sounds. Skin: General: Skin is warm and dry. Neurological: General: No focal deficit present. Mental Status: She is alert and oriented to person, place, and time. Psychiatric: Mood and Affect: Mood normal. Behavior: Behavior normal. Thought Content: Thought content normal. Judgment: Judgment normal. Prior labs reviewed. Assessment and Plan Encounter Diagnosis ICD-10-CM 1. Iron deficiency anemia, unspecified iron deficiency anemia type D50.9 CBC Last CBC in August at [facility] were good. 2. Carpal tunnel syndrome of left wrist G56.02 EMG(NEURO/NI) COCK-UP WRIST SPLINT 3. Right hand pain M79.641 EMG(NEURO/NI) 4. Left arm pain M79.602 EMG(NEURO/NI) 5. Stiffness of joints of both hands M25.641 EMG(NEURO/NI) M25.642 6. Breast cancer screening by mammogram Z12.31 LUANA SCREENING W MO 7. Dense breasts R92.2 LUANA SCREENING W MO Above issues addressed with patient. Patient involved in shared decision making for management of medical issues. History and medications reviewed. Epic updated as needed Refills and/or prescriptions taken care of and meds adjusted as indicated after reviewed history, exam and labs. Health Maintenance reviewed. Updated record and/or ordered tests as recorded. Encouraged on efforts at healthy diet and regular exercise and adequate sleep. Murphy De La Vega MD documented in this encounterSt. [facility]05-15-2023 Miscellaneous Notes* Telephone Encounter - Murphy De La Vega MD - 02/16/2023 1:01 PM EDT The following approved medication requests have been transmitted electronically. Requested Prescriptions Signed Prescriptions Disp Refills thyroid, pork, (ARMOUR THYROID) 60 mg tablet 90 tablet 1 Sig: Take 1 tablet by mouth once daily. Authorizing Provider: MURPHY DE LA VEGA Ipratropium [place] (ATROVENT) 21 mcg (0.03 %) nasal spray 30 mL 2 Sig: Use 2 Sprays in the nose every 12 hours as needed. Authorizing Provider: MURPHY DE LA VEGA MD * Telephone Encounter - Martha Huitron LPN - 02/16/2023 12:12 PM EDT Patient has been identified by name and date of : Yes, Provider Ceferino Date 02/16/23 Time 12:13PM Patient phones for refill(s): Requested Prescriptions Pending Prescriptions Disp Refills thyroid, pork, (ARMOUR THYROID) 60 mg tablet 90 tablet 1 Sig: Take 1 tablet by mouth once daily. Ipratropium [place] (ATROVENT) 21 mcg (0.03 %) nasal spray 30 mL 2 Sig: Use 2 Sprays in the nose every 12 hours as needed. Date of last office visit in primary care: 10/03/22 Last 2 Encounter Wt Readings: Date: Wt: 10/03/2022 64.4 kg (142 lb) 04/14/2022 62.1 kg (137 lb) Previous labs/tests for medication: Thyroid: TSH Date Value 10/01/2022 2.590 mIU/L 08/05/2021 4.260 uU/mL Please advise. Thank you. Martha Huitron LPN documented in this encounterSt. [facility]12-10-2022 Miscellaneous Notes* Telephone Encounter - Murphy De La Vega MD - 09/13/2022 1:37 AM EST See MyChart reply Pended order for rheumatology evaluation Await reply to file if wants to pursue. documented in this encounterSt. [facility]07-11-2022 History of Present illness Narrative* Murphy De La Vega MD - 04/14/2022 4:10 PM EDT This note was created using Keyprriter. Subjective Glo Valencia is a 56 year old female. Patient presents with: F/U 6 months SUBJECTIVE: Glo Valencia is a 56 year old year old lady here today for follow up appointment for review of medical conditions. Doing better with staying hydrated Trouble with urinary incontinence so had cut back on fluids. Bladder issues addressed in the past. Found proper way to do Kegel's online--doing better so can drink more water. Urine looking better. Some nausea noted but better if drinks fluids. ?coconut oil for vaginal dryness? Still has not gone for a year without periods. 3 months without periods then will have a light period. Very light to scant amount of bleeding except more after son's wedding. Shoulder better with PT. Sleeping better. PAST MEDICAL HISTORY Diagnosis Date Anemia 02/03/2012 Bilateral carpal tunnel syndrome Chronic fatigue Fibromyalgia History of orthostatic hypotension Had work up for POTS; tilt test was negative. Had worse symptoms when was anemic.Symptoms respondedto same measures as for treating POTS (fluids with electrolytes) Migraine with aura and without status migrainosus, not intractable Unspecified hypothyroidism Unspecified vitamin D deficiency 03/06/2008 Current Outpatient Medications Medication Sig diclofenac (VOLTAREN) 1 % topical gel Apply 2 g to affected area four times daily as needed (shoulder and neck pain). Max 32 grams per 24 hours tiZANidine (ZANAFLEX) 4 mg tablet Take 1 tablet by mouth every 8 hours as needed (muscle spasms). Ipratropium [place] (ATROVENT) 21 mcg (0.03 %) nasal spray Use 2 Sprays in the nose every 12 hours as needed. ketoconazole (NIZORAL) 2 % cream Apply 1 application to affected area once daily. Apply to corners of lips once daily thyroid (ARMOUR THYROID) 30 mg tablet Take 1 tablet by mouth once daily. loperamide (IMODIUM A-D) 2 mg cap(s) Take 1 capsule by mouth as needed. thyroid (ARMOUR THYROID) 15 mg tablet Take one tablet by mouth Sat, Thu, Thu, , Thu. Take two tablets on & Thursday. peg 3350-Electrolytes (GAVILYTE-G) 236-22.74-6.74 -5.86 gram suspension As directed for colonoscopy. Lemon flavor clonazePAM orally disintegrating (KLONOPIN WAFER) 0.125 mg disintegrating tablet Take 1 tablet by mouth once daily as needed for up to 14 days. B Complex Vitamins capsule Take 1 capsule by mouth once daily. VITAMIN E ORAL Take by mouth. VITAMIN A ORAL Take by mouth. Cholecalciferol, Vitamin D3, 5,000 unit cap Take 1 capsule by mouth once daily. ascorbic acid (VITAMIN C) 500 mg tablet Take 500 mg by mouth once daily. ACIDOPHILUS-SPOROGENES 35 MILLION-25 MILLION CELL TAB states called probiotic diffent strains one capsule daily (Patient not taking: ) calcium/magnesium(CALCIUM AND MAGNESIUM 750 MG-465 MG TAB) dosage once a day at bedtime 1000mg/500mg No current facility-administered medications for this visit. Review of Systems Objective BP 104/70 Pulse 65 Wt 62.1 kg (137 lb) LMP 04/27/2018 SpO2 97% BMI 20.53 kg/m Last 5 Encounter Wt Readings: Date: Wt: 04/14/2022 62.1 kg (137 lb) 02/05/2022 63.5 kg (140 lb) 09/13/2021 65.8 kg (145 lb) 03/05/2021 69.4 kg (153 lb) 09/17/2020 69.4 kg (153 lb) No waist measurement recorded Estimated body mass index is 20.53 kg/m as calculated from the following: Height as of 09/13/21: 174 cm (5' 8.5 ). Weight as of this encounter: 62.1 kg (137 lb). Last 5 Encounter BP Readings: Date: BP: 04/14/2022 104/70 02/05/2022 94/60 09/13/2021 100/70 03/05/2021 132/82 09/17/2020 111/61 Physical Exam Component Latest Ref Rng & Units 02/05/2022 04/09/2022 Protein, Total 6.3 - 8.0 g/dL 7.2 Albumin 3.9 - 4.9 g/dL 4.7 Calcium 8.5 - 10.2 mg/dL 9.7 9.6 Bilirubin, Total 0.2 - 1.3 mg/dL 0.4 Alkaline Phosphatase 34 - 123 U/L 48 AST 13 - 35 U/L 21 ALT 7 - 38 U/L 13 Glucose 74 - 99 mg/dL 92 96 BUN 7 - 21 mg/dL 16 23 (H) Creatinine 0.58 - 0.96 mg/dL 1.14 (H) 1.11 (H) Sodium 136 - 144 mmol/L 138 141 Potassium 3.7 - 5.1 mmol/L 4.2 4.2 Chloride 97 - 105 mmol/L 101 101 CO2 22 - 30 mmol/L 30 26 Anion Gap 9 - 18 mmol/L 7 (L) 14 eGFR >=60 mL/min/1.73m 57 (L) 58 (L) WBC 3.70 - 11.00 k/uL 5.04 RBC 3.90 - 5.20 m/uL 4.40 Hemoglobin 11.5 - 15.5 g/dL 13.4 13.6 Hematocrit 36.0 - 46.0 % 42.1 MCV 80.0 - 100.0 fL 95.7 MCH 26.0 - 34.0 pg 30.5 MCHC 30.5 - 36.0 g/dL 31.8 RDW-CV 11.5 - 15.0 % 12.7 Platelet Count 150 - 400 k/uL 166 MPV 9.0 - 12.7 fL 11.3 Absolute nRBC <0.01 k/uL <0.01 Total Cholesterol, Nonfasting <200 mg/dL 225 (H) Triglycerides, Nonfasting <150 mg/dL 79 HDL Cholesterol, Nonfasting >39 mg/dL 82 LDL Cholesterol, Nonfasting <100 mg/dL 127 (H) Non HDL Cholesterol, Nonfasting <130 mg/dL 143 (H) VLDL Cholesterol, Nonfasting <30 mg/dL 16 Total Chol/HDL Ratio, Nonfasting <5.10 mg/dL 2.74 LDL/HDL Ratio, Nonfasting <2.54 mg/dL 1.55 Free T3 2.3 - 4.1 pg/mL 3.6 Vitamin D 25 Hydroxy 31.0 - 80.0 ng/mL 100.0 (H) 61.9 TSH 0.270 - 4.200 mIU/L 3.560 2.220 Free T4 0.9 - 1.7 ng/dL 0.9 T3 79 - 165 ng/dL 130 Assessment and Plan ASSESSMENT/PLAN: 1. Vitamin D deficiency - ICD9: 268.9, ICD10: E55.9 (primary diagnosis) Level back down to normal range. Adjust replacement as indicated - VITAMIN D 25 HYDROXY 2. Nasal congestion - ICD9: 478.19, ICD10: R09.81 - IPRATROPIUM BROMIDE 21 MCG (0.03 %) NASAL SPRAY 3. Acquired hypothyroidism - ICD9: 244.9, ICD10: E03.9 - Instructed patient on importance of taking on an empty stomach either first thing in the morning or at bedtime. Clinically euthyroid. TSH fine. Continue to adjust dose of replacement as indicated based on symptoms and labs. - TSH BLD - T4 FREE/FREE THYROX - T3 FREE BLD 4. Vaginal dryness, menopausal - ICD9: 627.2, ICD10: N95.1 Check if postmenopausal as wanted - FSH BLD 5. Encounter for long-term current use of medication - ICD9: V58.69, ICD10: Z79.899 - FSH BLD - BASIC METABOLIC PNL 6. Iron deficiency anemia, unspecified iron deficiency anemia type - ICD9: 280.9, ICD10: D50.9 Appears resolved. Continue present management. - CBC Murphy De La Vega MD documented in this encounterSt. [facility] Miscellaneous Notes* Telephone Encounter - Olinda Malcolm Ma - 04/09/2022 2:26 PM EDT Left detailed message on [employer]. * Telephone Encounter - Ricky He RN - 04/09/2022 10:10 AM EDT Patient asking pcp to add lab orders for TSH and hgb. Reports she is on a specialized diet and has noticed symptoms that may be related to overactive thyroid: weight loss- more than wanted and hot flashes, and her thyroid tends to fluctuate. Pended. Please advise patient. documented in this encounterSt. [facility]06-29-2022 Miscellaneous Notes* Telephone Encounter - Ana Paula Tavares APRN.CNP - 04/02/2022 3:02 PM EDT Answered in telephone encounter Ana Paula Tavares APRN.CNP documented in this encounterSt. [facility]06-[facility]-2022 Miscellaneous Notes* Telephone Encounter - Carolyn Packer Ma - 03/17/2022 1:37 PM EDT Addressed in 03/04 phone encounter documented in this encounterSt. [facility]06-[facility]-2022 Miscellaneous Notes* Telephone Encounter - Marla Ariza RN - 03/06/2022 8:25 AM EDT Pt reports she hadn't looked she was just looking at all the supplements she already had at home. She states if the provider reports it exists and she can find a good source she will get it, otherwise she will take what she already had at home with the Vit D no higher than 400 units. * Telephone Encounter - Murphy De La Vega MD - 03/05/2022 7:30 PM EDT Okay to take Calcium with Vitamin D at a low dose like 400 units if not able to find plain Vitamin D and needs the calcium supplement because not able to get enough calcium in diet.. I have seen plain calcium but wonder if she is having trouble finding a supplement that is gluten free. * Telephone Encounter - Carolyn Packer Ma - 03/05/2022 4:32 PM EDT Spoke to patient, she is not sure how much total vitamin D she was taking, she threw it out once she saw her level was elevated so she cannot say for sure how much. She is not able to find a calcium without vitamin D, current calcium supplement has 400 international unit(s) of vitamin D and asking if she needs to hold this or okay to take at a low dose? * Telephone Encounter - Murphy De La Vega MD - 03/05/2022 1:16 AM EDT I added a result note and should be visible on MyChart,. Make sure she can see it. Noted that even though Vitamin D level was high, calcium level was still within normal limits. Cr was up some but was this high in the past and improved to within normal limits. Should stay hydrated to keep creatinine down. Calcium intake total should still be 1000 to 1200 mg per day (diet and supplements combined--ideally if from diet) Should hold Vitamin D level till recheck in about 1 month. Reviewed that prior Vitamin D level was stable in 6 range but last check was 2019. Verify what her total dose of Vitamin D has been and for how long. Our med list only has plain Vitamin D 5000 units daily listed, but note below states she was taking a combination Vitamin D and calcium pill. Ordered BMP and Vitamin D level for about 1 month from now but could check sooner if wanted to check a month after holding Vitamin D. * Telephone Encounter - Sophia Hilton RN - 03/04/2022 3:55 PM EDT Patient calls and asking about lab results that were done on 02/05/2022. Patient's vitamin D level was 100. Patient had stopped taking Vitamin due to this, however now her muscles are starting to hurt because she is not taking the calcium as well due to vitamin D being in her calcium medication. Patient asking what would safe dosage of Vitamin D be? Patient also worried about kidney function and cholesterol results. Patient asking if related to vitamin D. Please review and advise, Sophia Hilton RN documented in this encounterSt. Mary[facility]05-05-2022 Miscellaneous Notes* Telephone Encounter - Marielle Yi LPN - 02/06/2022 2:17 PM EDT Electronic PA completed and denied. diclofenac (VOLTAREN) 1 % topical gel 200 g 1 02/05/2022 Sig: Apply 2 g to affected area four times daily as needed (shoulder and neck pain). Max 32 grams per 24 hours Sent to pharmacy as: diclofenac (VOLTAREN) 1 % topical gel Class: Normal Route: TOPICAL Order: [id number] E-Prescribing Status: Receipt confirmed by pharmacy (02/05/2022 10:10 AM EDT) Prior authorization: Denied Message left to pt with this info. documented in this encounterSt. Mary[facility]05-04-2022 History of Present illness Narrative* Murphy De La Vega MD - 02/05/2022 9:34 AM EDT This note was created using Keyprriter. Subjective Glo Valencia is a 56 year old female. Patient presents with: Recheck: Follow up, lab work SUBJECTIVE: Glo Valencia is a 56 year old year old lady here today for follow up appointment for review of medical conditions. Doing well on low FODMAP diet. Really helping bowels and anxiety associated symptoms. Did lose weight. Slowly trying to add another food. No problems IBS-D Wonders aout possiblity of SIBO. Bulging discs in cervical spine and left frozen shoulder. Doing better with stretching exercises. Went to chiropractor. Going to [facility]. Trying lidocaine and Icy Hot spray. Sleep had been bad. PAST MEDICAL HISTORY Diagnosis Date Anemia 02/03/2012 Bilateral carpal tunnel syndrome Chronic fatigue Fibromyalgia History of orthostatic hypotension Had work up for POTS; tilt test was negative. Had worse symptoms when was anemic.Symptoms respondedto same measures as for treating POTS (fluids with electrolytes) Migraine with aura and without status migrainosus, not intractable Unspecified hypothyroidism Unspecified vitamin D deficiency 03/06/2008 Current Outpatient Medications Medication Sig Ipratropium [place] (ATROVENT) 21 mcg (0.03 %) nasal spray Use 2 Sprays in the nose every 12 hours as needed. ketoconazole (NIZORAL) 2 % cream Apply 1 application to affected area once daily. Apply to corners of lips once daily thyroid (ARMOUR THYROID) 30 mg tablet Take 1 tablet by mouth once daily. loperamide (IMODIUM A-D) 2 mg cap(s) Take 1 capsule by mouth as needed. thyroid (ARMOUR THYROID) 15 mg tablet Take one tablet by mouth Sat, Sun, Mon, , Thu. Take two tablets on & Thursday. peg 3350-Electrolytes (GAVILYTE-G) 236-22.74-6.74 -5.86 gram suspension As directed for colonoscopy. Lemon flavor clonazePAM orally disintegrating (KLONOPIN WAFER) 0.125 mg disintegrating tablet Take 1 tablet by mouth once daily as needed for up to 14 days. B Complex Vitamins capsule Take 1 capsule by mouth once daily. VITAMIN E ORAL Take by mouth. VITAMIN A ORAL Take by mouth. Cholecalciferol, Vitamin D3, 5,000 unit cap Take 1 capsule by mouth once daily. ascorbic acid (VITAMIN C) 500 mg tablet Take 500 mg by mouth once daily. ACIDOPHILUS-SPOROGENES 35 MILLION-25 MILLION CELL TAB states called probiotic diffent strains one capsule daily (Patient not taking: ) calcium/magnesium(CALCIUM AND MAGNESIUM 750 MG-465 MG TAB) dosage once a day at bedtime 1000mg/500mg No current facility-administered medications for this visit. Review of Systems Objective BP 94/60 Pulse 76 Resp 16 Wt 63.5 kg (140 lb) LMP 04/27/2018 BMI 20.98 kg/m Physical Exam Assessment and Plan Encounter Diagnosis ICD-10-CM 1. Acquired hypothyroidism E03.9 TSH BLD T4 FREE/FREE THYROX T3 FREE BLD 2. Vitamin D deficiency E55.9 VITAMIN D 25 HYDROXY 3. Iron deficiency anemia, unspecified iron deficiency anemia type D50.9 4. Celiac disease K90.0 5. Screening for lipid disorders Z13.220 LIPID PANEL, NONFASTING 6. Encounter for screening for diabetes mellitus Z13.1 COMP METABOLIC PANEL 7. Encounter for long-term current use of medication Z79.899 COMP METABOLIC PANEL CBC 8. DDD (degenerative disc disease), cervical M50.30 9. Chronic left shoulder pain M25.512 G89.29 10. Adhesive capsulitis of left shoulder M75.02 ASSESSMENT/PLAN: 1. Acquired hypothyroidism - ICD9: 244.9, ICD10: E03.9 (primary diagnosis) - Instructed patient on importance of taking on an empty stomach either first thing in the morning or at bedtime.- TSH BLD - T4 FREE/FREE THYROX - T3 FREE BLD 2. Vitamin D deficiency - ICD9: 268.9, ICD10: E55.9 - VITAMIN D 25 HYDROXY 3. Iron deficiency anemia, unspecified iron deficiency anemia type - ICD9: 280.9, ICD10: D50.9 Continue present management. 4. Celiac disease - ICD9: 579.0, ICD10: K90.0 Continue present management. 5. Screening for lipid disorders - ICD9: V77.91, ICD10: Z13.220 - LIPID PANEL, NONFASTING 6. Encounter for screening for diabetes mellitus - ICD9: V77.1, ICD10: Z13.1 - COMP METABOLIC PANEL 7. Encounter for long-term current use of medication - ICD9: V58.69, ICD10: Z79.899 - COMP METABOLIC PANEL - CBC 8. DDD (degenerative disc disease), cervical - ICD9: 722.4, ICD10: M50.30 Continue present management. 9. Chronic left shoulder pain - ICD9: 719.41, 338.29, ICD10: M25.512, G89.29 Continue present management. 10. Adhesive capsulitis of left shoulder - ICD9: 726.0, ICD10: M75.02 Continue present management. Murphy De La Vega MD documented in this encounterSt. [facility]09-24-[facility] History of Past illness Narrative* Problem Noted Date Resolved Date POTS (postural orthostatic tachycardia syndrome) 06/28/2013 11/15/2020 Thickened endometrium 06/22/2012 08/19/2016 Menorrhagia 02/03/2012 08/19/2016 Orthostatic hypotension 09/14/2009 08/19/20 16 documented as of this encounter (statuses as of 12/23/2021) [facility] of [facility] Narrative* Problem Noted Date Resolved Date POTS (postural orthostatic tachycardia syndrome) 06/28/2013 11/15/2020 Thickened endometrium 06/22/2012 08/19/2016 Menorrhagia 02/03/2012 08/19/2016 Orthostatic hypotension 09/14/2009 08/19/20 16 documented as of this encounter (statuses as of 02/06/2022) [facility] Narrative* Problem Noted Date Resolved Date POTS (postural orthostatic tachycardia syndrome) 06/28/2013 11/15/2020 Thickened endometrium 06/22/2012 08/19/2016 Menorrhagia 02/03/2012 08/19/2016 Orthostatic hypotension 09/14/2009 08/19/20 16 documented as of this encounter (statuses as of 03/06/2022) [facility] Narrative* Problem Noted Date Resolved Date POTS (postural orthostatic tachycardia syndrome) 06/28/2013 11/15/2020 Thickened endometrium 06/22/2012 08/19/2016 Menorrhagia 02/03/2012 08/19/2016 Orthostatic hypotension 09/14/2009 08/19/20 16 documented as of this encounter (statuses as of 03/17/2022) [facility] Narrative* Problem Noted Date Resolved Date POTS (postural orthostatic tachycardia syndrome) 06/28/2013 11/15/2020 Thickened endometrium 06/22/2012 08/19/2016 Menorrhagia 02/03/2012 08/19/2016 Orthostatic hypotension 09/14/2009 08/19/20 16 documented as of this encounter (statuses as of 04/02/2022) [facility] Narrative* Problem Noted Date Resolved Date POTS (postural orthostatic tachycardia syndrome) 06/28/2013 11/15/2020 Thickened endometrium 06/22/2012 08/19/2016 Menorrhagia 02/03/2012 08/19/2016 Orthostatic hypotension 09/14/2009 08/19/20 16 documented as of this encounter (statuses as of 04/03/2022) [facility] Narrative* Problem Noted Date Resolved Date POTS (postural orthostatic tachycardia syndrome) 06/28/2013 11/15/2020 Thickened endometrium 06/22/2012 08/19/2016 Menorrhagia 02/03/2012 08/19/2016 Orthostatic hypotension 09/14/2009 08/19/20 16 documented as of this encounter (statuses as of 06/13/2022) [facility] Narrative* Problem Noted Date Resolved Date POTS (postural orthostatic tachycardia syndrome) 06/28/2013 11/15/2020 Thickened endometrium 06/22/2012 08/19/2016 Menorrhagia 02/03/2012 08/19/2016 Orthostatic hypotension 09/14/2009 08/19/20 16 documented as of this encounter (statuses as of 08/13/2022) [facility] Narrative* Problem Noted Date Resolved Date POTS (postural orthostatic tachycardia syndrome) 06/28/2013 11/15/2020 Thickened endometrium 06/22/2012 08/19/2016 Menorrhagia 02/03/2012 08/19/2016 Orthostatic hypotension 09/14/2009 08/19/20 16 documented as of this encounter (statuses as of 02/16/2023) [facility] Narrative* Problem Noted Date Resolved Date POTS (postural orthostatic tachycardia syndrome) 06/28/2013 11/15/2020 Thickened endometrium 06/22/2012 08/19/2016 Menorrhagia 02/03/2012 08/19/2016 Orthostatic hypotension 09/14/2009 08/19/20 16 documented as of this encounter (statuses as of 02/17/2023) [facility] N[facility]* Problem Noted Date Resolved Date POTS (postural orthostatic tachycardia syndrome) 06/28/2013 11/15/2020 Thickened endometrium 06/22/2012 08/19/2016 Menorrhagia 02/03/2012 08/19/2016 Orthostatic hypotension 09/14/2009 08/19/20 16 documented as of this encounter (statuses as of 04/01/2023) [facility]ative* Problem Noted Date Resolved Date POTS (postural orthostatic tachycardia syndrome) 06/28/2013 11/15/2020 Thickened endometrium 06/22/2012 08/19/2016 Menorrhagia 02/03/2012 08/19/2016 Orthostatic hypotension 09/14/2009 08/19/20 16 documented as of this encounter (statuses as of 04/08/2023) [facility] Narrative* Problem Noted Date Resolved Date POTS (postural orthostatic tachycardia syndrome) 06/28/2013 11/15/2020 Thickened endometrium 06/22/2012 08/19/2016 Menorrhagia 02/03/2012 08/19/2016 Orthostatic hypotension 09/14/2009 08/19/20 16 documented as of this encounter (statuses as of 04/11/2023) [facility]* Problem Noted Date Diagnosed Date Resolved Date POTS (postural orthostatic t achycardia syndrome) 06/28/2013 11/15/2020 Thickened endometrium 06/22/20122015 Menorrhagia 02/03/2012 08/19/2016 Orthostatic hypotension 09/14/200908/05 documented as of this encounter (statuses as of 04/27/2023) [facility]* Problem Noted Date Diagnosed Date Resolved Date POTS (postural orthostatic t achycardia syndrome) 06/28/2013 11/15/2020 Thickened endometrium 06/22/20122015 Menorrhagia 02/03/2012 08/19/2016 Orthostatic hypotension 09/14/200908/05 documented as of this encounter (statuses as of 07/11/2023) [facility]* Problem Noted Date Diagnosed Date Resolved Date POTS (postural orthostatic t achycardia syndrome) 06/28/2013 11/15/2020 Thickened endometrium 06/22/20122015 Menorrhagia 02/03/2012 08/19/2016 Orthostatic hypotension 09/14/200908/05 documented as of this encounter (statuses as of 07/28/2023) [facility]* Problem Noted Date Diagnosed Date Resolved Date POTS (postural orthostatic t achycardia syndrome) 06/28/2013 11/15/2020 Thickened endometrium 06/22/20122015 Menorrhagia 02/03/2012 08/19/2016 Orthostatic hypotension 09/14/200908/05 documented as of this encounter (statuses as of 08/02/2023) [facility]arrative* Problem Noted Date Diagnosed Date Resolved Date POTS (postural orthostatic t achycardia syndrome) 06/28/2013 11/15/2020 Thickened endometrium 06/22/20122015 Menorrhagia 02/03/2012 08/19/2016 Orthostatic hypotension 09/14/200908/05 documented as of this encounter (statuses as of 08/09/2023) [facility]arrative* Problem Noted Date Diagnosed Date Resolved Date POTS (postural orthostatic t achycardia syndrome) 06/28/2013 11/15/2020 Thickened endometrium 06/22/20122015 Menorrhagia 02/03/2012 08/19/2016 Orthostatic hypotension 09/14/200908/05 documented as of this encounter (statuses as of 08/09/2023) [facility] Diagnosis Nasal congestion Other diseases of nasal cavity and sinuses Angular cheilitis/perleche Diseases of lips documented in this encounter [facility] note* Diagnosis Vitamin D deficiency- Primary Unspecified vitamin D deficiency Hypervitaminosis D Elevated serum creatinine Other nonspecific findings on examination of blood Encounter for long-term current use of medication documented in this encounter [facility] note* Diagnosis Acquired hypothyroidism- Primary Unspecified hypothyroidism Vitamin D deficiency Unspecified vitamin D deficiency Iron deficiency anemia, unspecified iron deficiency anemia type Celiac disease Screening for lipid disorders Encounter for screening for diabetes mellitus Screening for diabetes mellitus Encounter for long-term current use of medication DDD (degenerative disc disease), cervical Degeneration of cervical intervertebral disc Chronic left shoulder pain Pain in joint, shoulder region Adhesive capsulitis of left shoulder Adhesive capsulitis of shoulder documented in this encounter [facility] note* Diagnosis Vitamin D deficiency- Primary Unspecified vitamin D deficiency Nasal congestion Other diseases of nasal cavity and sinuses Acquired hypothyroidism Unspecified hypothyroidism Vaginal dryness, menopausal Symptomatic menopausal or female climacteric states Encounter for long-term current use of medication Iron deficiency anemia, unspecified iron deficiency anemia type documented in this encounter [facility] note* Diagnosis Acquired hypothyroidism- Primary Unspecified hypothyroidism Primary hypertension Unspecified essential hypertension [facility] this [facility] Diagnosis Nasal congestion Other diseases of nasal cavity and sinuses documented in this [facility]* Diagnosis Acquired hypothyroidism Unspecified hypothyroidism Nasal congestion Other diseases of nasal cavity and sinuses documented in this encounter [facility] note* Diagnosis Iron deficiency anemia, unspecified iron deficiency anemia type- Primary Carpal tunnel syndrome of left wrist Carpal tunnel syndrome Right hand pain Pain in limb Left arm pain Pain in limb Stiffness of joints of both hands Breast cancer screening by mammogram Dense breasts Inconclusive mammogram documented in this encounter [facility] note* Diagnosis Paresthesia of skin- Primary Disturbance of skin sensation Carpal tunnel syndrome of left wrist Carpal tunnel syndrome Right hand pain Pain in limb Left arm pain Pain in limb Stiffness of joints of both hands [facility] this [facility]* Diagnosis Elevated antinuclear antibody (HARVINDER) level- Primary Other and unspecified nonspecific immunological findings [facility] Diagnosis Breast cancer screening by mammogram Dense breasts Inconclusive mammogram documented in this encounter [facility] for referral (narrative)* Diagnostic Procedure Only (Routine) - Closed Specialty Diagnoses / Procedures Referred By Harika t Referred To Contact [facility] Diagnoses Breast cancer screening by mammogram Dense breasts Procedures LUANA SCREENING W MO SCREENING DIGITAL BREAST TOMOSYNTHESIS BI SCREENING MAMMOGRAPHY BI 2-VIEW BREAST INC Murphy Massey MD [address] [place] [address] [facility] [address] [place] [address] Referral ID Status Reason Start Date Expiration Date V isits Requested Visits Authorized [id number] Closed Auto-Generate d Referral 03/10/2023 04/08/2024 1 1 * Outpatient Procedure (Routine) - Authorized Specialty Diagnoses / Procedures Referred By Harika taylor Referred To Contact [facility] Diagnoses Carpal tunnel syndrome of left wrist Right hand pain Left arm pain Stiffness of joints of both hands Procedures EMG(NEURO/NI) NERVE CONDUCTION STUDIES 9-10 STUDIES Murphy De La Vega MD [address] [place] [address] [facility] [place] [address] [place] [id number] Referral ID Status Reason Start Date Expiration Date Visits Requested Visits Authorized [id number] Authorized Auto-Generat ed Referral 04/01/2023 10/04/2023 1 1 [facility] for referral (narrative)* Diagnostic Procedure Only (Routine) - Closed Specialty Diagnoses / Procedures Referred By Harika taylor Referred To Contact [facility] Diagnoses Breast cancer screening by mammogram Dense breasts Procedures LUANA SCREENING W MO SCREENING DIGITAL BREAST TOMOSYNTHESIS BI SCREENING MAMMOGRAPHY BI 2-VIEW BREAST INC Murphy Massey MD [address] [place] [address] [facility] [address] [place] [address] Referral ID Status Reason Start Date Expiration Date V isits Requested Visits Authorized [id number] Closed Auto-Generate d Referral 03/10/2023 04/08/2024 1 1 [facility] for visit Narrative* Diagnostic Procedure Only (Routine) - Closed Specialty Diagnoses / Procedures Referred By Harika taylor Referred To Contact [facility] Diagnoses Breast cancer screening by mammogram Dense breasts Procedures LUANA SCREENING W MO SCREENING DIGITAL BREAST TOMOSYNTHESIS BI SCREENING MAMMOGRAPHY BI 2-VIEW BREAST INC CAD Murphy De La Vega MD [address] [place] [address] [facility] [address] [place] [address] Referral ID Status Reason Start Date Expiration Date V isits Requested Visits Authorized [id number] Closed Auto-Generate d Referral 03/10/2023 04/08/[address] 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 Advance Directive(s) 11/19/2020 7:50 AM Advance Directive(s) 10/24/2020 10:50 AM Reason for Referral Specialty Diagnoses / Procedures Referred By Harika taylor Referred To Contact Murphy De La Vega MD [address] [place] [address] Referral ID Status Reason Start Date Expiration Date Visits Re quested Visits Authorized [id number] Denied 1 1 Specialty Diagnoses / Procedures Referred By Harika t Referred To Contact Rheumatology Diagnoses Elevated antinuclear antibody (HARVINDER) level Procedures CONSULT TO RHEUM/IMMUN DISEASE OFFICE/OUTPATIENT [facility] 60-74 MINUTES Mara Escobedo APRN.MANAGER [employer] [address] [place] [address] [place] [address] [place] [address] Referral ID Status Reason Start Date Expiration Date Visits Requested Visits Authorized [id number] Authorized PCP Requested Referral 04/27/2023 09/13/2023 1 1 Specialty Diagnoses / Procedures Referred By Harika t Referred To Contact Nephrology Diagnoses Stage 3a chronic kidney disease (HCC) Procedures CONSULT TO NEPHROLOGY OFFICE/OUTPATIENT [facility] 60-74 MINUTES Murphy De La Vega MD [address] [place] [address] Referral ID Status Reason Start Date Expiration Date Visits Requested Visits Authorized [id number] Authorized PCP Requested Referral 07/10/2023 07/09/2024 1 1 Referral ID Status Reason Start Date Expiration Date Visits Requested Visits Authorized [id number] Authorized PCP Requested Referral 3 07/14/2024 1 1 Summary Purpose Family History No Family History Records Found Additional Source Comments Source Comments (unrecognize d section and content) In the event this informatio n is protected by the Federal Confidentiality of Alcohol and Drug Abuse Patient Records regulations: The Federal rules restrict any use of the information to criminally investigate or prosecute any alcohol or drug abuse patient.[facility] the event this information is protected by the Federal Confidentiality of Alcohol and Drug Abuse Patient Records regulations: The Federal rules restrict any use of the information to criminally investigate or prosecute any alcohol or drug abuse patient.[facility] the event this information is protected by the Federal Confidentiality of Alcohol and Drug Abuse Patient Records regulations: The Federal rules restrict any use of the information to criminally investigate or prosecute any alcohol or drug abuse patient.[facility] the event this information is protected by the Federal Confidentiality of Alcohol and Drug Abuse Patient Records regulations: The Federal rules restrict any use of the information to criminally investigate or prosecute any alcohol or drug abuse patient.[facility] the event this information is protected by the Federal Confidentiality of Alcohol and Drug Abuse Patient Records regulations: The Federal rules restrict any use of the information to criminally investigate or prosecute any alcohol or drug abuse patient.[facility] the event this information is protected by the Federal Confidentiality of Alcohol and Drug Abuse Patient Records regulations: The Federal rules restrict any use of the information to criminally investigate or prosecute any alcohol or drug abuse patient.[facility] the event this information is protected by the Federal Confidentiality of Alcohol and Drug Abuse Patient Records regulations: The Federal rules restrict any use of the information to criminally investigate or prosecute any alcohol or drug abuse patient.[facility] the event this information is protected by the Federal Confidentiality of Alcohol and Drug Abuse Patient Records regulations: The Federal rules restrict any use of the information to criminally investigate or prosecute any alcohol or drug abuse patient.[facility] the event this information is protected by the Federal Confidentiality of Alcohol and Drug Abuse Patient Records regulations: The Federal rules restrict any use of the information to criminally investigate or prosecute any alcohol or drug abuse patient.[facility] the event this information is protected by the Federal Confidentiality of Alcohol and Drug Abuse Patient Records regulations: The Federal rules restrict any use of the information to criminally investigate or prosecute any alcohol or drug abuse patient.[facility] the event this information is protected by the Federal Confidentiality of Alcohol and Drug Abuse Patient Records regulations: The Federal rules restrict any use of the information to criminally investigate or prosecute any alcohol or drug abuse patient.[facility] the event this information is protected by the Federal Confidentiality of Alcohol and Drug Abuse Patient Records regulations: The Federal rules restrict any use of the information to criminally investigate or prosecute any alcohol or drug abuse patient.[facility] the event this information is protected by the Federal Confidentiality of Alcohol and Drug Abuse Patient Records regulations: The Federal rules restrict any use of the information to criminally investigate or prosecute any alcohol or drug abuse patient.[facility] the event this information is protected by the Federal Confidentiality of Alcohol and Drug Abuse Patient Records regulations: The Federal rules restrict any use of the information to criminally investigate or prosecute any alcohol or drug abuse patient.[facility] Center[facility] the event this information is protected by the Federal Confidentiality of Alcohol and Drug Abuse Patient Records regulations: The Federal rules restrict any use of the information to criminally investigate or prosecute any alcohol or drug abuse patient.[facility] Center[facility] the event this information is protected by the Federal Confidentiality of Alcohol and Drug Abuse Patient Records regulations: The Federal rules restrict any use of the information to criminally investigate or prosecute any alcohol or drug abuse patient.[facility] Center[facility] the event this information is protected by the Federal Confidentiality of Alcohol and Drug Abuse Patient Records regulations: The Federal rules restrict any use of the information to criminally investigate or prosecute any alcohol or drug abuse patient.[facility] Center[facility] the event this information is protected by the Federal Confidentiality of Alcohol and Drug Abuse Patient Records regulations: The Federal rules restrict any use of the information to criminally investigate or prosecute any alcohol or drug abuse patient.[facility] Center[facility] the event this information is protected by the Federal Confidentiality of Alcohol and Drug Abuse Patient Records regulations: The Federal rules restrict any use of the information to criminally investigate or prosecute any alcohol or drug abuse patient.[facility] Care Teams (unrecognized sec tion and content) Area Operations Manager Relationship Specialty Start Date End Date Murphy De La Vega MD [address] [place] [address] PCP - General 02/21/08 Area Operations Manager Relationship Specialty Start Date End Date Murphy De La Vega MD [address] [place] [address] [place] [address] PCP - General 02/21/08 Area Operations Manager Relationship Specialty Start Date End Date Murphy De La Vega MD [address] [place] [address] [place] [address] PCP - General 02/21/08 Area Operations Manager Relationship Specialty Start Date End Date Murphy De La Vega MD [address] [place] [address] [place] [address] PCP - General 02/21/08 Area Operations Manager Relationship Specialty Start Date End Date Murphy De La Vega MD [address] [place] [address] [place] [address] PCP - General 02/21/08 Area Operations Manager Relationship Specialty Start Date End Date Murphy De La Vega MD [address] [place] [address], [place] [address] PCP - General 02/21/08 Area Operations Manager Relationship Specialty Start Date End Date Murphy De La Vega MD [address] [place] [address] [place] [address] PCP - General 02/21/08 Area Operations Manager Relationship Specialty Start Date End Date Murphy De La Vega MD [address] [place] [address] PCP - General 02/21/08 Area Operations Manager Relationship Specialty Start Date End Date Murphy De La Vega MD [address] [place] [address] PCP - General 02/21/08 Area Operations Manager Relationship Specialty Start Date End Date Murphy De La Vega MD [address] [place] [address] PCP - General 02/21/08 Area Operations Manager Relationship Specialty Start Date End Date Murphy De La Vega MD [address] [place] [address] PCP - General 02/21/08 Area Operations Manager Relationship Specialty Start Date End Date Murphy De La Vega MD [address] [place] [address] PCP - General 02/21/08 Area Operations Manager Relationship Specialty Start Date End Date Murphy De La Vega MD [address] [place] [address] PCP - General 02/21/08 Area Operations Manager Relationship Specialty Start Date End Date Murphy De La Vega MD [address] [place] [address] PCP - General 02/21/08 Area Operations Manager Relationship Specialty Start Date End Date Murphy De La Vega MD [address] [place] [address] PCP - General 02/21/08 Area Operations Manager Relationship Specialty Start Date End Date Murphy De La Vega MD [address] [place] [address] PCP - General 02/21/08 Area Operations Manager Relationship Specialty Start Date End Date Murphy De La Vega MD [address] [place], [place] [id number] PCP - General 02/21/08 Reason for Visit (unrecogniz ed section and content) Reason Comments Results Reason Comments Recheck Follow up, lab work Reason Comments F/U 6 months Reason Comments Lab order request Reason Onset Date Comments Refill Request 02/15/2023 Reason Comments Follow Up Reason Onset Date Comments EMG 04/10/2023 Specialty Diagnoses / Procedures Referred By Contac t Referred To Contact [facility] Diagnoses Carpal tunnel syndrome of left wrist Right hand pain Left arm pain Stiffness of joints of both hands Procedures EMG(NEURO/NI) NERVE CONDUCTION STUDIES 9-10 STUDIES Murphy De La Vega MD [address] [place] [address] [facility] [place] [address] [place] [address] Referral ID Status Reason Start Date Expiration Date V isits Requested Visits Authorized [id number] Closed Auto-Generate d Referral 04/01/2023 10/04/2023 1 1 Reason Comments Results Consult Reason Comments Consult Specialty Diagnoses / Procedures Referred By Contac t Referred To Contact Nephrology Diagnoses Stage 3a chronic kidney disease (HCC) Procedures CONSULT TO NEPHROLOGY OFFICE/OUTPATIENT [facility] 60-74 MINUTES Murphy De La Vega MD [address] [place] [address] Referral ID Status Reason Start Date Expiration Date V isits Requested Visits Authorized [id number] Closed PCP Requested Referral 07/10/2023 07/09/2024 1 1 Reason Comments Radiology US Specialty Diagnoses / Procedures Referred By Contac t Referred To Contact [facility] Diagnoses Stage 3a chronic kidney disease (HCC) Procedures US KIDNEY/BLADDER US RETROPERITONEAL REAL TIME W/IMAGE COMPLETE Cecily Peralta, RANDI [address] [place] [address] [place] [address] Referral ID Status Reason Start Date Expiration Date V isits Requested Visits Authorized [id number] Closed Auto-Generate d Referral 07/28/2023 08/26/2024 1 1 INFORMATION SOURCE (unrecogn ized section and content) FOR RECORDS PERTAINING TO PATIENTS WHO ARE OR HAVE BEEN ENROLLED IN A CHEMICAL DEPENDENCY/SUBSTANCEABUSE PROGRAM, SOME INFORMATION MAY BE OMITTED. This clinical summary was aggregated from multiple sources. Caution should be exercised in using it in the provision of clinical care. This summary normalizes information from multiple sources, and as a consequence, information in this document may materially change the coding, format and clinical context of patient data. In addition, data may be omitted in some cases. CLINICAL DECISIONS SHOULD BE BASED ON THE PRIMARY CLINICAL RECORDS. [employer] [facility]. provides no warranty or guarantee of the accuracy or completeness of information in this document.
== END 2023-12-07 19:17 | disposition home or self-care (01) ==
PROVIDERS: Emergency Provider Emergency Medicine; PCP Internal Medicine; Visit Provider Emergency Medicine
DX: R07.9 Chest pain, unspecified (principal); E86.0 Dehydration; I95.9 Hypotension, unspecified; E87.6 Hypokalemia
CPT/HCPCS: 71045; 80048; 83735; 84484; 85025; 93005; 96360; 96361; 99284; J7030; A4216

== ENCOUNTER → 2023-12-28 | Outpatient (CLI) | payer BC, SELFPAY ==
[2023-12-28 17:41] LABS: Absolute Lymphocyte Count 1.03 X10^3/uL (0.83-4.51); Basophil# 0.03 X10^3/uL; Basophil% 0.7 % (0-1); Eosinophil# 0.16 X10^3/uL; Eosinophils% 3.6 % (0-5); Hemoglobin 12.9 g/dL (12.0-15.0); Lymphocyte # 1.03 X10^3/ul (0.83-4.51); Lymphocyte % 22.9 % (19-41); Mean Corp Hgb Conc 33.1 g/dL (32-36); Mean Corpuscular Hgb 30.6 pg (27.0-32.0); Mean Corpuscular Volume 92.4 fL (81-99); Mean Platelet Vol. 11.7 fl (6.2-12.0); Monocyte# 0.31 X10^3/uL; Monocyte% 6.9 % (0-10); NRBC Flagged by Analyzer 0 % (0-5); Neutrophil # 2.96 X10^3/uL (2.7-7.7); Neutrophil % 65.9 % (47-70); Platelet Count 179 K/mm3 (150-450); RBC Distribution Width CV 12.8 % (11.6-14.6); RBC Distribution Width SD 43.3 fl (35.1-43.9); Red Blood Count 4.22 M/mm3 (4.2-5.4); White Blood Count 4.5 K/mm3 (4.4-11.0)
[2023-12-28 17:54] LABS: T3 Total - Triiodothyronine 1.11 ng/mL (0.6-1.81); Vitamin D,25 Hydroxy 49.7 ng/mL
[2023-12-28 18:10] LABS: ALB/GLOB Ratio 1.3 RATIO (0.9-2.4); AST(SGOT) 17 U/L (15-37); Alanine Aminotransfer ALT/SGPT 43 U/L (13-56); Alkaline Phosphatase 61 U/L (45-117); Anion Gap 5 (5-15); BUN 13 mg/dL (7-18); BUN/Creat Ratio 11.4 RATIO (10-20); Calcium,Total 8.6 mg/dL (8.5-10.1); Chloride 103 mmol/L (98-107); Cholesterol 220 mg/dL (200); Creatinine, Serum 1.14 mg/dL (0.55-1.02); EST Glomerular Filtration Rate 52 mL/min (>60); Est Glom Filt Rate - Afr Amer 63 mL/min (>60); Ferritin 107 ng/mL (8-252); Free T3 2.8 pg/mL (2.18-3.98); Globulin 3.1 g/dL (2.2-4.2); Glucose 113 mg/dL (74-106); High Density Lipoprotein 74 mg/dL; Iron 113 ug/dL (50-170); Iron Binding Capacity,Total 274 ug/dL (250-450); Potassium 3.7 mmol/L (3.5-5.1); Protein, Total 7.1 g/dL (6.4-8.2); Sodium Level 134 mmol/L (136-145); T4 Free Direct 0.84 ng/dL (0.76-1.46); T4 Total, Thyroxin 7.3 ug/dL (4.8-13.9); Thyroid Stim Hormone (TSH) 1.35 uIU/mL (0.358-3.74); Triglycerides 123 mg/dL; Very Low Density Lipoprotein 25 mg/dL (5-40)
[2023-12-31 08:11] LABS: Anti-Nuclear Antibody Test Positive (.)
[2023-12-31 17:07] LABS: Thyroglobulin Antibody 4.1 IU/mL (0.0-0.9); Thyroid Peroxidase AB 390 IU/mL (0-34)
== END | disposition home or self-care (01) ==
LOC: MTLAB 14:34
PROVIDERS: PCP Internal Medicine
DX: R53.83 Other fatigue (principal); F41.8 Other specified anxiety disorders; E07.9 Disorder of thyroid, unspecified
CPT/HCPCS: 36415; 80053; 80061; 82306; 82728; 83540; 83550; 84432; 84436; 84439; 84443; 84480; 84481; 85025; 86038; 86376; 86800

== ENCOUNTER → 2024-05-20 | Outpatient (CLI) | payer BC, SELFPAY ==
[2024-05-20 15:45] LABS: T3 Total - Triiodothyronine 1.27 ng/mL (0.6-1.81)
[2024-05-20 19:50] LABS: Cholesterol 240 mg/dL (200); Free T3 3.2 pg/mL (2.18-3.98); High Density Lipoprotein 90 mg/dL; T4 Free Direct 0.73 ng/dL (0.76-1.46); T4 Total, Thyroxin 7.4 ug/dL (4.8-13.9); Triglycerides 60 mg/dL; Very Low Density Lipoprotein 12 mg/dL (5-40)
[2024-05-30 04:07] LABS: Anti-Thyroglobulin AB 2.8 IU/mL (0.0-0.9); Thyroglobulin RIA 18 ng/mL (.); Thyroid Peroxidase AB 581 IU/mL (0-34)
== END | disposition home or self-care (01) ==
LOC: MTLAB 11:40
PROVIDERS: PCP Internal Medicine
DX: R53.82 Chronic fatigue, unspecified (principal); F41.8 Other specified anxiety disorders; E07.9 Disorder of thyroid, unspecified
CPT/HCPCS: 36415; 80061; 82306; 84432; 84436; 84439; 84443; 84480; 84481; 86376; 86800

== ENCOUNTER → 2025-02-22 | Outpatient (CLI) | payer BC, SELFPAY ==
[2025-02-22 15:50] LABS: Absolute Lymphocyte Count 1.37 X10^3/uL (0.83-4.51); Basophil# 0.02 X10^3/uL; Basophil% 0.4 % (0-1); Eosinophil# 0.09 X10^3/uL; Eosinophils% 1.8 % (0-5); Hematocrit 40.8 % (37-47); Hemoglobin 13.3 g/dL (12.0-15.0); Lymphocyte # 1.37 X10^3/ul (0.83-4.51); Lymphocyte % 28.1 % (19-41); Mean Corp Hgb Conc 32.6 g/dL (32-36); Mean Corpuscular Hgb 30.4 pg (27.0-32.0); Mean Corpuscular Volume 93.2 fL (81-99); Mean Platelet Vol. 11.2 fl (6.2-12.0); Monocyte# 0.39 X10^3/uL; NRBC Flagged by Analyzer 0 % (0-5); Neutrophil % 61.5 % (47-70); Platelet Count 192 K/mm3 (150-450); RBC Distribution Width CV 12.9 % (11.6-14.6); RBC Distribution Width SD 44.2 fl (35.1-43.9); Red Blood Count 4.38 M/mm3 (4.2-5.4); White Blood Count 4.9 K/mm3 (4.4-11.0)
[2025-02-23 11:12] LABS: Anion Gap 9 (5-15); BUN 16 mg/dL (4-19); BUN/Creat Ratio 13.5 RATIO (10-20); Calcium,Total 9.5 mg/dL (7.6-11.0); Carbon Dioxide 28.3 mmol/L (21.0-32.0); Chloride 101 mmol/L (98-108); EST Glomerular Filtration Rate 52 (>60); Glucose 103 mg/dL (70-99); Magnesium 2.4 mg/dL (1.5-2.2); Potassium 4.3 mmol/L (3.3-5.1); Sodium Level 139 mmol/L (133-145); Thyroid Stim Hormone (TSH) 0.976 uIU/mL (0.300-4.200)
== END | disposition home or self-care (01) ==
LOC: LAB 14:00
PROVIDERS: PCP Internal Medicine; Referring Provider Internal Medicine Cardiovascular Disease; Visit Provider Internal Medicine Cardiovascular Disease
DX: R00.2 Palpitations (principal)
CPT/HCPCS: 36415; 80048; 83735; 84443; 85025

== ENCOUNTER → 2025-03-17 | Outpatient (CLI) | payer BC, SELFPAY ==
--- OUTSIDE RECORDS SUMMARY | 2025-03-17 19:58 | XMS RPT_ITS | CCD ---
Author Organization [facility] Care Team Providers Care Cutter Machine Tender Name Role Phone Murphy Henley MD Primary Care Provider STUART PONCE Referring Unavailable ADEOLAAMPMICKEY, MURPHY D Primary Care Unavailable Murphy Henley MD Primary Care Provider Murphy Henley MD Primary Care Provider Kris SUPERVISORY TRAINING SPECIALIST.RESEARCH ENGINEER, Stuart Unavailable Diaz SUPERVISORY TRAINING SPECIALIST.CRAYON MOLDING MACHINE OPERATOR, Kevin Unavailable Diza SUPERVISORY TRAINING SPECIALIST.CRAYON MOLDING MACHINE OPERATOR, Kevin Unavailable Dr. Murphy Henley MD Primary Care Provider Dr. Murphy Henley MD Referring Provider Dr. Manan Brown MD Attending Provider Manan Brown MD Attending Provider Unavailable Dr. Manan Brown MD Referring Provider Kris SUPERVISORY TRAINING SPECIALIST.RESEARCH ENGINEER, Stuart Unavailable PONCE, STUART Referring Unavailable TALAMPAS, MURPHY D Primary Care Unavailable KEVIN PERALES Attending Unavailable TALAMPAS, MURPHY D Primary Care Unavailable PONCE, STUART Attending Unavailable TALAMPAS, MURPHY D Primary Care Unavailable TALAMPAS, MURPHY D Attending Unavailable TALAMPAS, MURPHY D Primary Care Unavailable PONCE, STUART Referring Unavailable VARUN JHAVERI Attending Unavailable TALAMPAS, MURPHY D Primary Care Unavailable PONCE, STUART Referring Unavailable TALAMPAS, MURPHY D Primary Care Unavailable TALAMPAS, MURPHY D Primary Care Unavailable TALAMPAS, MURPHY D Attending Unavailable TALAMPAS, MURPHY D Primary Care Unavailable TALAMPAS, MURPHY D Referring Unavailable TALAMPAS, MURPHY D Primary Care Unavailable PONCE, STUART Referring Unavailable PEUGH, BROOK Attending Unavailable PONCE, STUART Attending Unavailable TALAMPAS, MURPHY D Primary Care Unavailable PONCE, STUART Referring Unavailable TALAMPAS, MURPHY D Primary Care Unavailable TALAMPAS, MURPHY D Primary Care Unavailable CRISSY BOWSER Attending Unavailable PONCE, STUART Referring Unavailable PEUGH, BROOK Referring Unavailable TALAMPAS, MURPHY D Primary Care Unavailable PEUGH, BROOK Referring Unavailable TALAMPAS, MURPHY D Primary Care Unavailable PEUGH, BROOK Referring Unavailable TALAMPAS, MURPHY D Primary Care Unavailable PEUGH, BROOK Attending Unavailable TALAMPAS, MURPHY D Primary Care Unavailable TALAMPAS, MURPHY D Referring Unavailable TALAMPAS, MURPHY D Primary Care Unavailable Kevin, [place] Attending Unavailable Kevin, Manan Referring Unavailable Talampas, Murphy D Primary Care Unavailable Kevin, [place] Attending Unavailable Talampas, Murphy D Primary Care Unavailable Talampas, Murphy D Referring Unavailable OOTDR PULL Referring Unavailable Talampas, Murphy D Primary Care Unavailable OOTDR PULL Attending Unavailable Kevin, Manan Referring Unavailable Kevin OLS, Manan Attending Unavailable Talampas, Murphy D Primary Care Unavailable Kevin, Manan Referring Unavailable Kevin, Manan Attending Unavailable Talampas, Murphy D Primary Care Unavailable Kevin, Manan Attending Unavailable Kevin, Manan Referring Unavailable Talampas, Murphy D Primary Care Unavailable Allergies Allergy Classification Reported Allergen(s) Allergy Type Date of Onset Reaction(s) Facility (20 sources) almond allergenic extract; Translations: [ALMOND] Drug Allergy 0 Other: See Comments [facility] (20 sources) ciclopirox; Translations: [CICLOPIROX] Drug Allergy 6 Hives [facility] (20 sources) egg extract Drug Allergy 0 Other: See Comments [facility] (20 sources) sesame seed extract Drug Allergy 0 Other: See Comments [facility] (20 sources) Wheat gluten extract Drug Allergy 0 Other: See Comments [facility] (19 sources) dairy products [Other] Propensity to adverse reactions 0 Other: See Comments [facility] (19 sources) Sugar Cane Food Allergy 0 Other: See Comments [facility] (7 sources) Coconut extract Drug Allergy [address] [facility] (7 sources) almond oil Allergy to substance [address] [facility] (9 sources) Milk Containing Products Allergy to substance [address] [facility] (8 sources) Sugars, Metabolically Active; Translations: [Sugars, Metabolically Active] Allergy to substance [address] [facility] (5 sources) Clotrimazole Drug Allergy [address] [facility] (1 source) almond allergenic extract Drug Allergy 4 [facility] (1 source) Clotrimazole Drug Allergy 4 [facility] (1 source) Coconut extract Drug Allergy 4 [facility] (1 source) egg extract Drug Allergy 4 [facility] (1 source) Gluten Drug allergy (disorder) 4 [facility] (1 source) sesame seed extract Drug Allergy 4 [facility] (1 source) Milk Containing Products (Dairy) Drug allergy (disorder) 4 [facility] Medications Current Medications Medication Drug Class(es) Dates Sig (Normalized) Sig (Original) azelastine hydrochloride 0.137 mg/actuat metered dose nasal spray (9 sources) Histamine-1 Receptor Antagonist Start: 01-23-2025 take 1 spray(s) nasal route twice daily azelastine 0.1% nasal spray Use 1 spray in each nostril two times a day. 60 mL 3 01/23/2025 Active B Complex Vitamins capsule (20 sources) take 1 capsule by mouth once daily B Complex Vitamins capsule Take 1 capsule by mouth once daily. Active take 1 capsule by mouth once alivia ly B Complex Vitamins capsule Take 1 capsule by mouth once daily. 0 Active Comment on above: Take 1 capsule by [facility] once daily. cholecalciferol 0.025 mg oral capsule (10 sources) Vitamin D Start: 02-23-20 25 take 1 capsule by mouth once daily Cholecalciferol (Vitamin D3) 25 mcg (1,000 unit) capsule Active 25 ug PO daily February 22, 2025 12:00am Start: 03-12-2016 End: 04-14-2022 take 1 capsule by mouth once daily Cholecalciferol, Vitamin D3, 5,000 unit cap Indications: Vitamin D deficiency Take 1 capsule by mouth once daily. 03/12/2016 04/14/2022 Discontinued Comment on above: Take 1 capsule by mo [facility] once daily. clonazePAM 0.125 mg disintegrating oral tablet (20 sources) Benzodiazepine Start: 019 take 1 tablet by mouth once daily as needed clonazePAM orally disintegrating (KLONOPIN WAFER) 0.125 mg disintegrating tablet Indications: Anxiety attack Take 1 tablet by mouth once daily as needed for up to 14 days. 5 tablet 05/17/2019 Active Comment on above: Take 1 tablet by [facility] once daily as needed for up to 14 days. fluticasone propionate 0.05 mg/actuat metered dose nasal spray (9 sources) Corticosteroid Start: 025 take 1 spray(s) nasal route twice daily fluticasone (FLONASE) 50 mcg/actuation nasal spray Use 1 spray in each nostril two times a day. 48 g 3 01/23/2025 Active Lactobac no.41/Bifidobact no.7 (PROBIOTIC-10 ORAL) (20 sources) Lactobac no.41/Bifidobact no.7 (PROBIOTIC-10 ORAL) Take by mouth once daily. Active Lactobac no.41/B ifidobact no.7 (PROBIOTIC-10 ORAL) Take by mouth once daily. 0 Active Comment on above: Take by mouth once d aily. Lactobacillus Combination No.9 (Adult 50 Plus Probiotic) 4 billion cell capsule (2 sources) Start: 5 take 4 capsules by mouth once daily Lactobacillus Combination No.9 (Adult 50 Plus Probiotic) 4 billion cell capsule Active 4000 NMA PO daily January 27, 2025 12:00am administer with a meal linseed oil 1000 mg oral capsule (2 sources) Start: 5 take 1 capsule by mouth once daily Flaxseed Oil 1,000 mg capsule Active 1000 mg PO daily February 22, 2025 12:00am administer with a meal Magnesium (2 sources) Start: 5 take 1 tablet by mouth once daily Magnesium 200 mg tablet Active 200 mg PO daily February 22, 2025 12:00am Mecobalamin (Vitamin B12) 1,000 mcg lozenge (2 sources) Start: 5 take 1000 ug by mouth once daily Mecobalamin (Vitamin B12) 1,000 mcg lozenge Active 1000 ug PO daily January 27, 2025 12:00am allow to dissolve in mouth OR may chew lightly before swallowing 24 hr metoprolol succinate 25 mg extended release oral tablet (1 source) beta-Adrenergic Jolie Start: 5 take 1 tablet by mouth once daily Metoprolol Succinate (Toprol Xl) 25 mg tablet extended release 24 hr Active 25 mg PO daily February 22, 2025 12:00am Miscellaneous Medical Supply (20 sources) Start: Miscellaneous Medical Supply Lzm-Voj-Gybynly D capsules--takes several per day to get adequate calcium and magnesium dose high enough to control leg cramps 04/14/2022 Active Start: 04-14-2022 Miscellaneous Medical Supply Gcd-Hdl-Vitlkwe D capsules--takes several per day to get adequate calcium and magnesium dose high enough to control leg cramps 0 04/14/2022 Active Comment on above: Mng-Dsa-Dtjtnyt D ca psules--takes several per day to get adequate calcium and magnesium dose high enough to control leg cramps Nuun (2 sources) Start: 5 Nuun Active PO February 22, 2025 12:00am electolytes Thyroid (Pork) ([place] Thyroid) 15 mg tablet (4 sources) Start: 5 take 1 tablet by mouth once daily Thyroid (Pork) ([place] Thyroid) 15 mg tablet Active 15 mg PO daily February 22, 2025 1:07pm Start: 01-27-2025 End: 02-22-2025 take 1 tablet by mouth three times weekly Thyroid (Pork) ([place] Thyroid) 15 mg tablet Discontinued 15 mg PO 3 TIMES A WEEK January 27, 2025 12:00am February 22, 2025 1:10pm thyroid (fdc) 15 mg oral tablet (20 sources) Start: 03-22-2024 End: 03-09-2025 take 1 tablet by mouth three times weekly thyroid (ARMOUR THYROID) 15 mg tablet Take 1 tablet by mouth three times a week. Take this in additon to the 60 mg daily. 90 tablet 2 03/10/2025 Active Start: 01-12-2024 End: 03-22-2024 thyroid (ARMOUR THYROID) 15 mg tablet Take this once daily per week. Take this in additon to the 60 mg daily. Self decreased. 30 tablet 1 01/12/2024 03/22/2024 Discontinued Start: 12-22-2023 End: 10-07-2024 take 1 tablet by mouth once daily thyroid, pork, (ARMOUR THYROID) 60 mg tablet Indications: Acquired hypothyroidism Take 1 tablet by mouth once daily. 90 tablet 3 10/07/2024 Active Start: 12-22-2023 End: 01-12-2024 thyroid (ARMOUR THYROID) 15 mg tablet Take this once daily two days per week. Take this in additon to the 60 mg daily 30 tablet 1 12/22/2023 01/12/2024 Discontinued (Adjust Sig - Block E-Cancel) Start: 12-15-2023 End: 12-22-2023 take 1 tablet by mouth once daily Thyroid, Pork, 65 mg tab Indications: Acquired hypothyroidism Take 65 mg by mouth once daily. 90 tablet 3 12/15/2023 12/22/2023 Discontinued Start: 12-14-2023 End: 12-14-2023 thyroid, pork, 65 mg tab Ind ications: Acquired hypothyroidism Take 60 mg by mouth once daily. 90 tablet 3 12/14/2023 12/14/2023 Discontinued Start: 08-17-2023 End: 12-14-2023 take 1 tablet by mouth once daily thyroid, pork, (ARMOUR THYROID) 60 mg tablet Indications: Acquired hypothyroidism Take 1 tablet by mouth once daily. 90 tablet 1 08/17/2023 12/14/2023 Discontinued Start: 08-20-2022 End: 02-15-2023 take 1 tablet by mouth once daily thyroid, pork, (ARMOUR THYROID) 60 mg tablet Indications: Acquired hypothyroidism Take 1 tablet by mouth once daily. 90 tablet 1 02/16/2023 Active Start: 12-07-2020 End: 12-03-2021 take 1 tablet by mouth once daily thyroid (ARMOUR THYROID) 30 mg tablet Take 1 tablet by mouth once daily. 90 tablet 3 12/03/2021 Active Start: 08-01-2020 End: 08-26-2021 thyroid (ARMOUR THYROID) 15 mg tablet Indications: Acquired hypothyroidism Take one tablet by mouth Sat, Sun, Thu, , Thu. Take two tablets on & Thursday. 108 tablet 3 08/27/2021 Active Comment on above: Take one tablet by m outh Sat, Sun, Thu, , Thu. Take two tablets on & Thursday. Take 1 tablet by isabella th once daily. Take 60 mg by mouth once daily. Take 65 mg by mouth once daily. Take 1 tablet by isabella th once daily. 5 days per week, take one and one half tablet Thursday and Thursday Take this once daily two days per week. Take this in additon to the 60 mg daily Take this once daily per week. Take this in additon to the 60 mg daily. Self decreased. ubidecarenone 100 mg oral tablet (2 sources) Start: 01-27-2025 take 10 tablets by mouth once daily Coenzyme Q10 100 mg tablet Active 100 mg PO daily January 27, 2025 12:00am ubiquinol 100 mg oral capsule (12 sources) Start: 10-07-2024 coQ10, ubiquinol, (QUNOL GINI COQ10) 100 mg cap Taking CoQ10 200mg capsule one three times weekly 10/07/2024 Active End: 10-07-2024 take 1 capsule by mouth once daily coQ10, ubiquinol, (QUNOL GINI COQ10) 100 mg cap Take 1 capsule by mouth once daily. 10/07/2024 Discontinued Vitamin B Complex tablet (2 sources) Start: 02-22-2025 Vitamin B Comp robbie tablet Active 1 {tbl} PO daily February 22, 2025 12:00am vitamin e 90 mg oral capsule (2 sources) Start: 02-22-2025 take 1 capsule by mouth once daily Vitamin E (Dl, Acetate) 90 mg (200 unit) capsule Active 90 mg PO daily February 22, 2025 12:00am Completed/Discontinued Medications Medication Drug Class(es) Dates Sig (Normalized) Sig (Original) ascorbic acid 500 mg oral tablet (10 sources) Vitamin C End: 10-03-2022 take 1 tablet by mouth once daily ascorbic acid (VITAMIN C) 500 mg tablet Take 500 mg by mouth once daily. 10/03/2022 Discontinued Comment on above: Take 500 mg by mouth once daily. bacillus coagulans [id number] unt / lactobacillus acidophilus [id number] unt oral tablet (10 sources) Start: 02-21-2008 End: 10-03-2022 ACIDOPHILUS-SPOROG SARKIS 35 MILLION-25 MILLION CELL TAB Take by mouth. 0 02/21/2008 10/03/2022 Discontinued Start: 02-21-2008 ACIDOPHILUS-SP OROGENES 35 MILLION-25 MILLION CELL TAB states called probiotic diffent strains one capsule daily 0 02/21/2008 Active Comment on above: states called probio tic diffent strains one capsule daily Take by mouth. Zucbmkp-Mznchpvjb-Autli in D2 500-50-100 mg-mg-unit tablet,chewable (2 sources) Start: 01-27-2025 End: 02-22-2025 Lwwxocm-Folwuqmje-Ouzseqx D2 500-50-100 mg-mg-unit tablet,chewable Discontinued {tbl} PO January 27, 2025 12:00am February 22, 2025 1:08pm calcium/magnesium(CALCI UM AND MAGNESIUM 750 MG-465 MG TAB) (8 sources) Start: 02-21-2008 End: 04-14-2022 calcium/magnesium(CALCIUM AND MAGNESIUM 750 MG-465 MG TAB) dosage once a day at bedtime 1000mg/500mg 0 02/21/2008 04/14/2022 Discontinued Start: 02-21-2008 calcium/magnes ium(CALCIUM AND MAGNESIUM 750 MG-465 MG TAB) dosage once a day at bedtime 1000mg/500mg 0 02/21/2008 Active Comment on above: dosage once a day at bedtime 1000mg/500mg diclofenac sodium 0.01 mg/mg topical gel (8 sources) Nonsteroidal Anti-inflammatory Drug Start: End: apply 2 g topically every six hours as needed diclofenac (VOLTAREN) 1 % topical gel Apply 2 g to affected area four times daily as needed (shoulder and neck pain). Max 32 grams per 24 hours 200 g 1 02/05/2022 10/03/2022 Discontinued Comment on above: Apply 2 g to affecte d area four times daily as needed (shoulder and neck pain). Max 32 grams per 24 hours estradiol 0.1 mg/ml vaginal cream (6 sources) Estrogen Start: End: 023 estradiol (ESTRACE) 0.01 % (0.1 mg/gram) vaginal cream 0.5 g of cream intravaginally administered daily for 2 weeks, then reduce to twice weekly 42.5 g 1 04/14/2022 04/07/2023 Discontinued Comment on above: 0.5 g of cream intra vaginally administered daily for 2 weeks, then reduce to twice weekly ipratropium bromide 0.021 mg/actuat metered dose nasal spray (20 sources) Anticholinergic Start: 025 End: 025 Ipratropium [place] 21 mcg (0.03 %) spray,non-aerosol Discontinued 2 NMA INTRANASAL 2 to 3 times per day as needed January 27, 2025 12:00am February 22, 2025 1:18pm administer into each nostril Start: 12-23-2021 End: 02-16-2023 Ipratropium [place] (ATROVEN T) 21 mcg (0.03 %) nasal spray Indications: Nasal congestion Use 2 Sprays in the nose every 12 hours as needed. 30 mL 2 02/16/2023 Active Start: 06-22-2019 End: 12-23-2021 Ipratropium [place] (ATROVEN T) 0.03 % nasal spray Indications: Nasal congestion Use 2 Sprays in the nose every 12 hours as needed. 3 Bottle 1 06/22/2019 12/23/2021 Discontinued Comment on above: Use 2 Sprays in the nose every 12 hours as needed. ketoconazole 20 mg/ml topical cream (15 sources) Azole Antifungal Start: 04-22-20 End: 04-07-20 ketoconazole (NIZORAL) 2 % cream Indications: Diseases of lips Apply 1 application to affected area once daily. Apply to corners of lips once daily 30 g 1 04/22/2018 12/23/2021 Discontinued Comment on above: Apply 1 application to affected area once daily. Apply to corners of lips once daily loperamide hydrochloride 2 mg oral capsule (7 sources) Opioid Agonist Start: 09-19-20 End: 10-03-20 take 1 capsule by mouth once as needed loperamide (IMODIUM A-D) 2 mg cap(s) Take 1 capsule by mouth as needed. 30 capsule 0 09/19/2021 10/03/2022 Discontinued Comment on above: Take 1 capsule by mo [facility] as needed. OMEGA-3/DHA/EPA/FISH OIL (OMEGA-3 FISH OIL ORAL) (1 source) End: 09-13-20 OMEGA-3/DHA/EPA/FISH OIL (OMEGA-3 FISH OIL ORAL) Take by mouth. 09/13/2021 Discontinued polyethylene glycol 3350 [id number] mg / potassium chloride 2970 mg / sodium bicarbonate 6740 mg / sodium chloride 5860 mg / sodium sulfate 82634 mg powder for oral solution (10 sources) Osmotic Laxative Start: 10-26-19 End: 10-03-20 peg 3350-Electrolytes (GAVILYTE-G) 236-22.74-6.74 -5.86 gram suspension As directed for colonoscopy. Lemon flavor 4000 mL 10/26/2020 10/03/2022 Discontinued Comment on above: As directed for colo noscopy. Lemon flavor tiZANidine 4 mg oral tablet (8 sources) Central alpha-2 Adrenergic Agonist Start: 02-06-20 End: 10-03-20 take 1 tablet by mouth every eight hours as needed tiZANidine (ZANAFLEX) 4 mg tablet Take 1 tablet by mouth every 8 hours as needed (muscle spasms). 24 tablet 1 02/05/2022 10/03/2022 Discontinued Comment on above: Take 1 tablet by [facility] every 8 hours as needed (muscle spasms). VITAMIN A ORAL (10 sources) End: 10-03-20 VITAMIN A ORAL Take by mouth. 10/03/2022 Discontinued End: 10-03-2022 VITAMIN A ORAL Take by mouth . 0 10/03/2022 Discontinued VITAMIN A ORAL T hilario by mouth. 0 Active Comment on above: Take by mouth. VITAMIN E ORAL (10 sources) End: 10-03-2022 VITAMIN E ORAL Take by mouth . 10/03/2022 Discontinued End: 10-03-2022 VITAMIN E ORAL Take by mouth . 0 10/03/2022 Discontinued VITAMIN E ORAL T hilario by mouth. 0 Active Comment on above: Take by mouth. Problems Active Problems Problem Classification Problem Date Documented Da te Episodic/Chronic Anxiety disorders (20 sources) Mixed anxiety and depressive disorder; Translations: [Other specified anxiety disorders] Onset: 6 11-10-2015 Chronic Cardiac dysrhythmias (10 sources) Palpitations; Translations: [Palpitations] Onset: 5 01-04-2025 Episodic Chronic kidney disease (20 sources) Chronic kidney disease stage 3A ; Translations: [Stage 3a chronic kidney disease (HCC)] Onset: 3 07-10-2023 Chronic Diabetes mellitus without complication (1 source) Increased glucose level; Translations: [Other abnormal glucose] 12-10-2023 Episodic Diseases of mouth; excluding dental (1 source) Disorder of lip; Translations: [Diseases of lips] Episodic Essential hypertension (1 source) Essential hypertension; Translations: [Essential (primary) hypertension] Chronic Headache; including migraine (20 sources) Migraine with aura; Translations: [Migraine with aura, not intractable, without status migrainosus] 11-04-2016 Chronic Malaise and fatigue (1 source) Chronic fatigue, unspecified; Translations: [Chronic fatigue, unspecified] Onset: 4 Chronic Malaise and fatigue (15 sources) Malaise and fatigue; Translations: [Other malaise] Onset: 4 07-05-2024 Episodic Menopausal disorders (1 source) Vaginal dryness; Translations: [Menopausal and female climacteric states] Chronic Nonspecific chest pain (14 sources) Chest pain on exertion; Translations: [Chest pain, unspecified] Onset: 4 12-10-2023 Episodic Nutritional deficiencies (20 sources) Vitamin D deficiency; Translations: [Vitamin D deficiency, unspecified] Onset: 8 10-23-2015 Chronic Osteoarthritis (1 source) Bilateral osteoarthritis of feet; Translations: [Primary osteoarthritis, right ankle and foot] 11-13-2024 Chronic Other acquired deformities (1 source) Incompetence of nasal valve; Translations: [Nasal valve collapse] 01-23-2025 Episodic Other aftercare (11 sources) Patient encounter status; Translations: [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] Episodic Other circulatory disease (20 sources) History of hypotension; Translations: [Personal history [...] Translations: [Pain in left arm] Episodic Other connective tissue disease (4 sources) Pain of bilateral hands; Translations: [Pain in right hand] 01-12-2024 Episodic Other connective tissue disease (2 sources) Fibromyalgia; Translations: [Fibromyalgia] 01-27-2025 Episodic Other diseases of kidney and ureters (1 source) Renal insufficiency; Translations: [Disorder of kidney and ureter, unspecified] 11-13-2024 Episodic Other gastrointestinal disorders (20 sources) Celiac disease; Translations: [Celiac disease] 02-21-2008 Chronic Other lower respiratory disease (6 sources) Snoring; Translations: [Snoring] 01-13-2025 Episodic Other lower respiratory disease (1 source) Dyspnea on exertion; Translations: [Shortness of breath] 01-19-2025 Episodic Other lower respiratory disease (3 sources) Dyspnea; Translations: [Shortness of breath] 01-27-2025 Episodic Other lower respiratory disease (2 sources) Snoring; Translations: [Snoring] Onset: Episodic Other lower respiratory disease (2 sources) Shortness of breath; Translations: [SOBOE (shortness of breath on exertion)] Onset: Episodic Other male genital disorders (1 source) Postorgasmic illness syndrome; Translations: [Other specified disorders of the male genital organs] 11-13-2024 Episodic Other nervous system disorders (2 sources) Carpal tunnel syndrome of left wrist; Translations: [Carpal tunnel syndrome, left upper limb] Chronic Other nervous system disorders (2 sources) Carpal tunnel syndrome; Translations: [Carpal tunnel syndrome, bilateral upper limbs] 01-27-2025 Chronic Other nervous system disorders (1 source) Paresthesia; Translations: [Paresthesia of skin] Episodic Other non-traumatic joint disorders (1 source) Chronic pain of left upper limb; Translations: [Pain in left shoulder] Episodic Other non-traumatic joint disorders (2 sources) Bilateral hand joint stiffness; Translations: [Stiffness of right hand, not elsewhere classified] Episodic Other non-traumatic joint disorders (2 sources) Multiple joint pain; Translations: [Pain in unspecified joint] 05-13-2024 Episodic Other nutritional; endocrine; and metabolic disorders (1 source) Hypervitaminosis D; Translations: [Hypervitaminosis D] Chronic Other upper respiratory disease (1 source) Allergic disposition; Translations: [Other allergic rhinitis] 01-23-2025 Chronic Other upper respiratory disease (1 source) Other allergic rhinitis; Translations: [Environmental and seasonal allergies] Onset: 5 Chronic Other upper respiratory disease (8 sources) Nasal congestion; Translations: [Nasal congestion] Episodic Other upper respiratory disease (2 sources) Nasal congestion; Translations: [Nasal congestion] Onset: 5 Episodic Residual codes; unclassified (9 sources) Disturbance in sleep behavior; Translations: [Sleep disorder, unspecified] 01-13-2025 Episodic Residual codes; unclassified (1 source) At risk of apnea; Translations: [Other specified personal risk factors, not elsewhere classified] 02-07-2025 Episodic Residual codes; unclassified (1 source) Other specified personal risk factors, not elsewhere classified; Translations: [At risk for obstructive sleep apnea] Onset: 5 Episodic Residual codes; unclassified (1 source) Sleep disorder, unspecified; Translations: [Sleep disturbance] Onset: 5 Episodic Spondylosis; intervertebral disc disorders; other back problems (1 source) Degeneration of cervical intervertebral disc; Translations: [Other cervical disc degeneration, unspecified cervical region] Chronic Systemic lupus erythematosus and connective tissue disorders (3 sources) Mucous membrane dryness; Translations: [Sicca syndrome, unspecified] Onset: 4 05-13-2024 Chronic Thyroid disorders (20 sources) Acquired hypothyroidism; Translations: [Hypothyroidism, unspecified] Onset: 5 07-29-2015 Chronic Unclassified (1 source) Nasal valve collapse; Translations: [Nasal valve collapse] Onset: 5 Past or Other Problems Problem Classification Problem Date Documented Date Episodic/Chronic Cardiac dysrhythmias (20 sources) Postural orthostatic tachycardia syndrome ; Translations: [POTS (postural orthostatic tachycardia syndrome)] Onset: 06-28-2013 Resolved: 11-15-2020 11-15-2020 Chronic Deficiency and other anemia (20 sources) Iron deficiency anemia; Translations: [Iron deficiency anemia, unspecified] Onset: 07-29-2015 07-29-2015 Episodic Deficiency and other anemia (1 source) Iron deficiency anemia, unspecified; Translations: [Iron deficiency anemia, unspecified iron deficiency anemia type] Onset: 07-29-2015 Episodic Immunizations and screening for infectious disease (7 sources) Raised antinuclear antibody; Translations: [Other specified abnormal immunological findings in serum] Onset: 05-13-2024 09-13-2022 Episodic Menstrual disorders (20 sources) Menorrhagia; Translations: [Excessive and frequent menstruation with regular cycle] Onset: 02-03-2012 Resolved: 08-19-2016 08-19-2016 Chronic Other aftercare (1 source) 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; Translations: [Encounter for long-term current use of medication] Onset: 09-19-2024 Episodic Other circulatory disease (20 sources) Orthostatic hypotension; Translations: [Orthostatic hypotension] Onset: 09-14-2009 Resolved: 08-19-2016 08-19-2016 Episodic Other connective tissue disease (1 source) Pain in right hand; Translations: [Bilateral hand pain] Onset: 05-13-2024 Episodic Other connective tissue disease (1 source) Pain in left hand; Translations: [Bilateral hand pain] Onset: 05-13-2024 Episodic Other non-traumatic joint disorders (1 source) Pain in unspecified joint; Translations: [Polyarthralgia] Onset: 05-13-2024 Episodic Other screening for suspected conditions (not mental disorders or infectious disease) (20 sources) Endometrium thickened; Translations: [Abnormal findings on diagnostic imaging of other specified body structures] Onset: 06-22-2012 Resolved: 08-19-2016 08-19-2016 Chronic Other screening for suspected conditions (not mental disorders or infectious disease) (5 sources) Serum creatinine raised; Translations: [Other specified abnormal findings of blood chemistry] Onset: 05-05-2024 Episodic Spondylosis; intervertebral disc disorders; other back problems (3 sources) Backache; Translations: [Other dorsalgia] Onset: 07-05-2024 05-13-2024 Episodic Unclassified (1 source) Patient encounter status 11-13-2024 Results Test Name Value Interpretation Reference Range Facility [facility] 03-03-2025 [facility] Telephone ([facility]) JO VALENCIA ([id number]) 1965 F Date Time Provider Department 03/03/25 CRISSY BOWSER During your visit today, we recorded the following information about you: Ericka Blackmon 03/03/2025 1:05 PM Signed Received fax from [facility] requesting signature for split sleep study. Indexed to the chart Aria Carter RN 03/03/2025 4:36 PM Signed RN sent the form to the admin team for formatting for docusign. Allergies As of Date: 03/03/2025 Noted Allergy Reaction ALMOND 07/19/2010 14 - Other: See Comments Comments: migraine CICLOPIROX 03/12/2016 4 - Hives Comments: Hives Date Reviewed: 01/23/2025 Reviewed by: Carly Magallanes MA - Fully Assessed Reason for Visit: Received Outside Medical Records [[id number]] Prescriptions as of 03/03/2025 - fluticasone (FLONASE) 50 mcg/actuation nasal spray Use 1 spray in each nostril two times a day. - azelastine 0.1% nasal spray Use 1 spray in each nostril two times a day. - thyroid, pork, (ARMOUR THYROID) 60 mg tablet Take 1 tablet by mouth once daily. - coQ10, ubiquinol, (QUNOL GINI COQ10) 100 mg cap Taking CoQ10 200mg capsule one three times weekly - thyroid (ARMOUR THYROID) 15 mg tablet Take 1 tablet by mouth three times a week. Take this in additon to the 60 mg daily. - Lactobac no.41/Bifidobact no.7 (PROBIOTIC-10 ORAL) Take by mouth once daily. - Ipratropium [place] (ATROVENT) 21 mcg (0.03 %) nasal spray Use 2 Sprays in the nose every 12 hours as needed. - Miscellaneous Medical Supply Hve-Ljo-Wievmrj D capsules--takes several per day to get adequate calcium and magnesium dose high enough to control leg cramps - clonazePAM orally disintegrating (KLONOPIN WAFER) 0.125 mg disintegrating tablet Take 1 tablet by mouth once daily as needed for up to 14 days. - B Complex Vitamins capsule Take 1 capsule by mouth once daily. Problem List As Of Date 03/03/2025 Noted Resolved CELIAC DISEASE [K90.0] Vitamin D deficiency [E55.9] 03/06/2008 Orthostatic hypotension [I95.1] 09/14/2009 08/19/2016 Menorrhagia [N92.0] 02/03/2012 08/19/2016 Thickened endometrium [R93.89] 06/22/2012 08/19/2016 POTS (postural orthostatic tachycardia syndrome*06/28/2013 11/15/2020 Acquired hypothyroidism [E03.9] 07/29/2015 Iron deficiency anemia [D50.9] 07/29/2015 Depression with anxiety [F41.8] 11/10/2015 Migraine with aura and without status migrainos* History of orthostatic hypotension [Z86.79] Stage 3a chronic kidney disease (HCC) [N18.31] 07/28/2023 Encounter Status:Closed by ARIA CARTER on 03/03/25 [facility]20[facility] JO VALENCIA ([id number]) 1965 F Date Time Provider Department 03/02/25 [facility] H[facility] INTMWS During your visit today, we recorded the following information about you: Marla Ariza, RN 03/02/2025 9:57 AM Signed Marilia with [facility] Sleep Lab called in and reports she needed the Home sleep lab stiudy and the OV note for the faxed over. Faced OV note from 01/19/25 and home sleep lab to fax # [phone]. She will also be send a script to Dr Crissy Bowser for an order for Sonata as the Pt is not able to self medicate. She said this provider said the Pt could use this for the sleep lab test. DANIEL Monsalve Sunjeet, MD 03/06/2025 11:36 AM Signed Addended by: CRISSY BOWSER on: 03/06/2025 11:36 AM Modules accepted: Orders Aria Carter RN 03/10/2025 5:17 PM Signed DAYSI notes, HSAT results and signed order for sonata faxed to [facility] at [phone] via right fax. Allergies As of Date: 03/02/2025 Noted Allergy Reaction ALMOND 07/19/2010 14 - Other: See Comments Comments: migraine CICLOPIROX 03/12/2016 4 - Hives Comments: Hives Date Reviewed: 01/23/2025 Reviewed by: Carly Magallanes MA - Fully Assessed Reason for Visit: Fax over OV notes Home Sleep Test [Other] Primary Visit Diagnosis:Insomnia, unspecified type [G47.00] Order(s):[] zaleplon (SONATA) 5 mg capsuleTake 1 capsule by mouth at bedtime as needed (For trouble sleeping on night of sleep study) for up to 1 day.Disp: 1 capsuleRfl: 0 Prescriptions as of 03/10/2025 - thyroid (ARMOUR THYROID) 15 mg tablet Take 1 tablet by mouth three times a week. Take this in additon to the 60 mg daily. - fluticasone (FLONASE) 50 mcg/actuation nasal spray Use 1 spray in each nostril two times a day. - azelastine 0.1% nasal spray Use 1 spray in each nostril two times a day. - thyroid, pork, (ARMOUR THYROID) 60 mg tablet Take 1 tablet by mouth once daily. - coQ10, ubiquinol, (QUNOL GINI COQ10) 100 mg cap Taking CoQ10 200mg capsule one three times weekly - Lactobac no.41/Bifidobact no.7 (PROBIOTIC-10 ORAL) Take by mouth once daily. - Ipratropium [place] (ATROVENT) 21 mcg (0.03 %) nasal spray Use 2 Sprays in the nose every 12 hours as needed. - Miscellaneous Medical Supply Kqf-Ozm-Mcbmtch D capsules--takes several per day to get adequate calcium and magnesium dose high enough to control leg cramps - clonazePAM orally disintegrating (KLONOPIN WAFER) 0.125 mg disintegrating tablet Take 1 tablet by mouth once daily as needed for up to 14 days. - B Complex Vitamins capsule Take 1 capsule by mouth once daily. Problem List As Of Date 03/02/2025 Noted Resolved CELIAC DISEASE [K90.0] Vitamin D deficiency [E55.9] 03/06/2008 Orthostatic hypotension [I95.1] 09/14/2009 08/19/2016 Menorrhagia [N92.0] 02/03/2012 08/19/2016 Thickened endometrium [R93.89] 06/22/2012 08/19/2016 POTS (postural orthostatic tachycardia syndrome*06/28/2013 11/15/2020 Acquired hypothyroidism [E03.9] 07/29/2015 Iron deficiency anemia [D50.9] 07/29/2015 Depression with anxiety [F41.8] 11/10/2015 Migraine with aura and without status migrainos* History of orthostatic hypotension [Z86.79] Stage 3a chronic kidney disease (HCC) [N18.31] 07/28/2023 Prescriptions ordered this encounter Disp Refills Start End ZALEPLON 5 MG CAPSULE 1 ca* 0 03/06/2025 03/07/2025 Route: PO Sig: Take 1 capsule by mouth at bedtime as needed (For trouble sleeping on night of sleep study) for up to 1 day. Encounter Status:Closed by MARLA ARIZA on 03/02/25 Normal [facility] Basic Metabolic Profile (BMP )on 02-23-2025 BUN/CRE 13.5 RATIO Normal 10-20 [facility] Comment on above: Performed By: #### L 100.0100, L501.9520, L500.2500, L501.5200 #### [facility] [address] [place], [place], [id number] Calcium [Mass/Vol] 9.5 mg/dL Normal 7.6-11.0 [facility] Comment on above: Performed By: #### L 100.0100, L501.9520, L500.2500, L501.5200 #### [facility] [address] [place], [address] Chloride [Moles/Vol] 101 mmol/L Normal 98-108 [facility] Comment on above: Performed By: #### L 100.0100, L501.9520, L500.2500, L501.5200 #### [facility] [address] [place], [address] CO2 [Moles/Vol] 28.3 mmol/L Normal 21.0-32.0 [facility] Comment on above: Performed By: #### L 100.0100, L501.9520, L500.2500, L501.5200 #### [facility] [address] [place], [address] Creatinine [Mass/Vol] 1.20 mg/dL Normal 0.70-1.20 [facility] Comment on above: Performed By: #### L 100.0100, L501.9520, L500.2500, L501.5200 #### [facility] [address] [place], [address] GAP 9 Normal 5-15 [facility] Comment on above: Performed By: #### L 100.0100, L501.9520, L500.2500, L501.5200 #### [facility] [address] [place], [address] GFR/1.73 sq M.predicted among non-blacks MDRD (S/P/Bld) [Vol rate/Area] 52 mL/min/{1.73_m2} Low >60 [facility] Comment on above: Result Comment: mL/m in/1.73m2 CKD-EPI Creatinine Equation (2020) Performed By: #### L 100.0100, L501.9520, L500.2500, L501.5200 #### [facility] [address] [place], [address] Glucose [Mass/Vol] 103 mg/dL High 70-99 [facility] Comment on above: Performed By: #### L 100.0100, L501.9520, L500.2500, L501.5200 #### [facility] [address] [place], [address] Potassium [Moles/Vol] 4.3 mmol/L Normal 3.3-5.1 [facility] Comment on above: Performed By: #### L 100.0100, L501.9520, L500.2500, L501.5200 #### [facility] [address] [place], [address] Sodium [Moles/Vol] 139 mmol/L Normal 133-145 [facility] Comment on above: Performed By: #### L 100.0100, L501.9520, L500.2500, L501.5200 #### [facility] [address] [place], [address] Urea nitrogen [Mass/Vol] 16 mg/dL Normal 4-19 [facility] Comment on above: Performed By: #### L 100.0100, L501.9520, L500.2500, L501.5200 #### [facility] [address] [place], [address] [facility] Telephone ([facility]) JO VALENCIA ([id number]) 1965 F Date Time Provider Department 02/23/25 [facility] INTWS During your visit today, we recorded the following information about you: Destiny Mcintyre RN 02/23/2025 4:32 PM Signed Patient requesting recent OV note from ordering provider of polysomnogram to be faxed to [facility] for insurance purposes. Faxed to [facility] Sleep Lab and to [facility] Central Scheduling. Pt aware request has been completed and she will follow up with [facility]. Destiny Mcintyre RN Allergies As of Date: 02/23/2025 Noted Allergy Reaction ALMOND 07/19/2010 14 - Other: See Comments Comments: migraine CICLOPIROX 03/12/2016 4 - Hives Comments: Hives Date Reviewed: 01/23/2025 Reviewed by: Carly Magallanes MA - Fully Assessed Reason for Visit: Patient Request [0262] Prescriptions as of 02/23/2025 - fluticasone (FLONASE) 50 mcg/actuation nasal spray Use 1 spray in each nostril two times a day. - azelastine 0.1% nasal spray Use 1 spray in each nostril two times a day. - thyroid, pork, (ARMOUR THYROID) 60 mg tablet Take 1 tablet by mouth once daily. - coQ10, ubiquinol, (QUNOL GINI COQ10) 100 mg cap Taking CoQ10 200mg capsule one three times weekly - thyroid (ARMOUR THYROID) 15 mg tablet Take 1 tablet by mouth three times a week. Take this in additon to the 60 mg daily. - Lactobac no.41/Bifidobact no.7 (PROBIOTIC-10 ORAL) Take by mouth once daily. - Ipratropium [place] (ATROVENT) 21 mcg (0.03 %) nasal spray Use 2 Sprays in the nose every 12 hours as needed. - Miscellaneous Medical Supply Xvb-Wfc-Jvndxhs D capsules--takes several per day to get adequate calcium and magnesium dose high enough to control leg cramps - clonazePAM orally disintegrating (KLONOPIN WAFER) 0.125 mg disintegrating tablet Take 1 tablet by mouth once daily as needed for up to 14 days. - B Complex Vitamins capsule Take 1 capsule by mouth once daily. Problem List As Of Date 02/23/2025 Noted Resolved CELIAC DISEASE [K90.0] Vitamin D deficiency [E55.9] 03/06/2008 Orthostatic hypotension [I95.1] 09/14/2009 08/19/2016 Menorrhagia [N92.0] 02/03/2012 08/19/2016 Thickened endometrium [R93.89] 06/22/2012 08/19/2016 POTS (postural orthostatic tachycardia syndrome*06/28/2013 11/15/2020 Acquired hypothyroidism [E03.9] 07/29/2015 Iron deficiency anemia [D50.9] 07/29/2015 Depression with anxiety [F41.8] 11/10/2015 Migraine with aura and without status migrainos* History of orthostatic hypotension [Z86.79] Stage 3a chronic kidney disease (HCC) [N18.31] 07/28/2023 Encounter Status:Closed by DESTINY MCINTYRE on 02/23/25 Normal [facility] Magnesiumon 02-23-2025 Magnesium [Mass/Vol] 2.4 mg/dL High 1.5-2.2 [facility] Comment on above: Performed By: #### L 100.0100, L501.9520, L500.2500, L501.5200 #### [facility] [address] [place], [address] Thyroid Stim Hormone (TSH)on 02-23-2025 TSH 0.976 uIU/mL Normal 0.300-4.200 [facility] Comment on above: Performed By: #### L 100.0100, L501.9520, L500.2500, L501.5200 #### [facility] [address] [place], [address] 12 Lead EKG performed by [facility] [place] [place] on 02-22-2025 12 Lead EKG performed by [facility] [address] [place] [address] 12 Lead EKG performed by [facility] [place] 02/22/25 1256 MR#: [id number] Acct: [id number] Name: JO VALENCIA TRAVIS Rep #: [id number] : 1965 59 From: Manan Brown MD Attending Dr: Dr. Manan Brown MD Status: DEP A ELDER Ordering Dr: Manan Brown MD Date: 02/22/25 Location: [facility] Sex: F C Admitted: BMS/12 Lead EKG performed by [facility] [place] ECG Report Interpretation Si nus Rhythm -RSR(V1) -nondiagnostic. PROBABLY NORMALElectronically signed on 02/22/2025 at 16:08 by Manan Brownwood Software Version [id number] 02/22/25 1613 Date Manan Brown MD CC: Dr. Murphy Henley MD Date Dictated: 02/22/25 1256 Date Transcribed: 02/22/25 125 Medical Artist: CO Signed Normal [facility] Absolute lymphocyte countOrd ered By: Manan Brown on 02-22-2025 Lymphocytes Auto (Unsp spec) [#/Vol] 1.37 10*3/uL 0.83-4.51 [facility] Absolute neutrophil countOrd ered By: Manan Brown on 02-22-2025 Neutrophils (Bld) [#/Vol] 3.0 10*3/uL 2.0-7.7 [facility] Anion gap in Serum or Plasma Ordered By: Manan Brown on 02-22-2025 Anion gap [Moles/Vol] 9 mmol/L 5-15 [facility] Automated lymphocyte count a s percentage of total leukocytesOrdered By: Manan Brown on 02-22-2025 Lymphocytes/100 WBC Auto (Unsp spec) 28.1 % - [facility] BUN/creatinine ratioOrdered By: Manan Brown on 02-22-2025 Urea nitrogen/Creatinine [Mass ratio] 13.5 mg/mg 10-20 [facility] Basophil percentageOrdered B y: Manan Brown on 02-22-2025 Basophils/100 WBC (Bld) 0.4 % 0-1 [facility] CBC W/Diff, Automatedon 02-03 Absolute Lymph 1.37 X10 3/uL Normal 0.83-4.51 [facility] Comment on above: Performed By: #### L 100.0100, L501.9520, L500.2500, L501.5200 #### [facility] [address] [place], [address] Absolute Neut 3.0 X10 3/uL Normal 2.0-7.7 [facility] Comment on above: Performed By: #### L 100.0100, L501.9520, L500.2500, L501.5200 #### [facility] [address] [place], [address] Basophils/100 WBC (Bld) 0.4 % Normal 0-1 [facility] Comment on above: Performed By: #### L 100.0100, L501.9520, L500.2500, L501.5200 #### [facility] [address] [place], [address] Eosinophils/100 WBC (Bld) 1.8 % Normal 0-5 [facility] Comment on above: Performed By: #### L 100.0100, L501.9520, L500.2500, L501.5200 #### [facility] [address] [place], [address] Erythrocyte distribution width (RBC) [Ratio] 12.9 % Normal 11.6-14.6 [facility] Comment on above: Performed By: #### L 100.0100, L501.9520, L500.2500, L501.5200 #### [facility] [address] [place], [address] Hematocrit (Bld) [Volume fraction] 40.8 % Normal 37-47 [facility] Comment on above: Performed By: #### L 100.0100, L501.9520, L500.2500, L501.5200 #### [facility] [address] [place], [address] Hemoglobin (Bld) [Mass/Vol] 13.3 g/dL Normal 12.0-15.0 [facility] Comment on above: Performed By: #### L 100.0100, L501.9520, L500.2500, L501.5200 #### [facility] [address] [place], [address] IG% 0.200 Normal 0.0-0.9 [facility] Comment on above: Result Comment: IG% - Immature Granulocytes (promyelocytes, myelocytes and metamyelocytes) > 1% indicates that a LEFT SHIFT is Present. Performed By: #### L 100.0100, L501.9520, L500.2500, L501.5200 #### [facility] [address] [place], [address] Lymphocytes/100 WBC (Bld) 28.1 % Normal 19-41 [facility] Comment on above: Performed By: #### L 100.0100, L501.9520, L500.2500, L501.5200 #### [facility] [address] [place], [address] MCH (RBC) [Entitic mass] 30.4 pg Normal 27.0-32.0 [facility] Comment on above: Performed By: #### L 100.0100, L501.9520, L500.2500, L501.5200 #### [facility] [address] [place], [address] MCHC (RBC) [Mass/Vol] 32.6 g/dL Normal 32-36 [facility] Comment on above: Performed By: #### L 100.0100, L501.9520, L500.2500, L501.5200 #### [facility] [address] [place], [address] MCV (RBC) [Entitic vol] 93.2 fL Normal 81-99 [facility] Comment on above: Performed By: #### L 100.0100, L501.9520, L500.2500, L501.5200 #### [facility] [address] [place], [address] Monocytes/100 WBC (Bld) 8.0 % Normal 0-10 [facility] Comment on above: Performed By: #### L 100.0100, L501.9520, L500.2500, L501.5200 #### [facility] [address] [place], [address] Neutrophils/100 WBC (Bld) 61.5 % Normal 47-70 [facility] Comment on above: Performed By: #### L 100.0100, L501.9520, L500.2500, L501.5200 #### [facility] [address] [place], [address] Nucleated RBC (Bld) [#/Vol] 0 10*3/uL Normal 0-5 [facility] Comment on above: Performed By: #### L 100.0100, L501.9520, L500.2500, L501.5200 #### [facility] [address] [place], [address] Platelet mean volume (Bld) [Entitic vol] 11.2 fL Normal 6.2-12.0 [facility] Comment on above: Performed By: #### L 100.0100, L501.9520, L500.2500, L501.5200 #### [facility] [address] [place], [address] Platelets (Bld) [#/Vol] 192 10*3/uL Normal 150-450 [facility] Comment on above: Performed By: #### L 100.0100, L501.9520, L500.2500, L501.5200 #### [facility] [address] [place], [address] RBC (Bld) [#/Vol] 4.38 10*6/uL Normal 4.2-5.4 [facility] Comment on above: Performed By: #### L 100.0100, L501.9520, L500.2500, L501.5200 #### [facility] [address] [place], [address] RDW SD 44.2 fl High 35.1-43.9 [facility] Comment on above: Performed By: #### L 100.0100, L501.9520, L500.2500, L501.5200 #### [facility] [address] [place], [address] WBC (Bld) [#/Vol] 4.9 10*3/uL Normal 4.4-11.0 [facility] Comment on above: Performed By: #### L 100.0100, L501.9520, L500.2500, L501.5200 #### [facility] [address] [place], [address] Carbon dioxide, total [Moles /volume] in Central venous bloodOrdered By: Manan Brown on 02-22-2025 CO2 [Moles/Vol] 28.3 mmol/L 21.0-32.0 [facility] Cardiology Visit Reporton Cardiology Visit Report [facility] [address] [place] [address] OFFICE VISIT Date of Service: 02/22/25 MR#: [id number] Acct: [id number] Name: JO VALENCIA TRAVIS Rep #: [id number] : 1965 Provider: Dr. Manan Brown MD Age/Sex: 59/F Location: [facility] Status: Signed HPI HPI History of Present Illness Details: 59-year-old lady who presents for evaluation of palpitations. 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 She says that she has been having some palpitations as well as chest tightness and shoulder discomfort and shortness of breath in the morning as well as palpitations and fatigue. She started taking electrolyte water and this improved some of her symptomatology. She also thinks that she got some relief from coenzyme Q 10. As part of her workup she had a lipid profile performed with demonstrated total cholesterol 240 HDL of 90 LDL of 138. Stress echo performed a year ago demonstrated no evidence of ischemia at 8.3 metabolic equivalents. More importantly she had a 13-day Zio patch which demonstrated a minimum heart rate of 47 bpm and average of 71 bpm predominantly sinus rhythm occasional runs of supraventricular tachyarrhythmia the fastest lasting 6 beats at 138 bpm and the longest was an average rate of 99 bpm. Rare supraventricular and ventricular ectopic beats were noted. I did review the tracings with the patient and her . I did assure her that all the necessary beats were captured. Her physical exam was unremarkable her electrocardiogram demonstrates sinus rhythm with a rate of 75 bpm. Intake Vital Signs 12/07/23 14:05 02/22/25 12:56 Height 5 ft 8 in 5 ft 8 in Weight: 139 lb BMI 21.1 BP 107/63 Blood Pressure Location Lt brachial Position Sitting Respiration 16 Pulse 72 Pulse Source Monitor Intake Visit Reasons: CP/PALPS (DIAZ) Neonatal Doctor Required: No Accompanied by: Significant Other Is patient in pain?: No Allergies clotrimazole Allergy (Verified 12/07/23 14:05) Hives gluten Allergy (Verified 12/07/23 14:05) Unknown Milk Containing Products (Dairy) (Milk Containing Products) Allergy (Verified 12/07/23 14:05) NEEDS FOLLOW-UP Medications ???Medication ???Instructions ???Recorded ???Confirmed ???Type coenzyme Q10 100 mg tablet 100 mg PO QDAY 01/27/25 02/22/25 H istory lactobacillus combination no.9 4 4,000 mmu cells PO QDAY 01/27/25 0 02/22/25 History billion cell capsule (Adult 50 Plus Probiotic) mecobalamin (vitamin B12) 1,000 1,000 mcg PO QDAY 01/27/25 5 History mcg lozenges thyroid (pork) 60 mg tablet 60 mg PO QDAY 01/27/25 02/22/25 Hi story ([place] Thyroid) Nuun PO 02/22/25 History azelastine 137 mcg (0.1 %) nasal intranasal 02/22/25 02/22/25 Histo ry spray cholecalciferol (vitamin D3) 25 25 mcg PO QDAY 02/22/25 02/22/25 H istory mcg (1,000 unit) capsule flaxseed oil 1,000 mg capsule 1,000 mg PO QDAY 02/22/25 02/22/25 History fluticasone propionate 50 1 spray intranasal BID 02/22/25 History mcg/actuation nasal spray,suspension magnesium 200 mg tablet 200 mg PO QDAY 02/22/25 02/22/25 H istory metoprolol succinate 25 mg 25 mg PO QDAY #90 tabs 02/22/25 Rx tablet,extended release 24 hr (Toprol XL) thyroid (pork) 15 mg tablet 15 mg PO QDAY 02/22/25 02/22/25 Hi story ([place] Thyroid) vitamin B complex 1 tab PO QDAY 02/22/25 02/22/25 Hi story vitamin E (dl, acetate) 90 mg (200 90 mg PO QDAY 02/22/25 02/22/25 History unit) capsule PFSH Medical History Fibromyalgia Bilateral carpal tunnel syndrome Sleep disturbances SOB (shortness of breath) Stage 3a chronic kidney disease (CKD) Migraines Depression with anxiety Iron deficiency anemia Hypothyroidism Vitamin D deficiency Celiac disease Chest tightness Fatigue Palpitations Chest pain Surgical History Hx of wisdom tooth extraction Family History Mother Afib Father CHF (congestive heart failure) Social History Smoking Status: Never smoker alcohol intake: never substance use type: does not use ROS Const Const: Positive for fatigue; Negative for weakness, headache(s), daytime sleepiness or difficulty sleeping ENT ENT: Negative for headache(s), dizziness or Nosebleed/epistaxis Cardio Chest Pain: Yes Character: tightness Location: mid sternal and left chest Palpitations: Yes feels like its: fast and pounding Edema: None Resp Respiratory: Positive for SOB with activity (gordon in the AM); Negative for SOB at rest, SOB orthopne (more content not included)... Normal [facility] Chloride assayOrdered By: Justin Brown on 02-22-2025 Chloride [Moles/Vol] 101 mmol/L 98-108 [facility] Eosinophil percentageOrdered By: Manan Brown on 02-22-2025 Eosinophils/100 WBC (Bld) 1.8 % 0-5 [facility] Erythrocyte distribution wid th ratioOrdered By: Manan Brown on 02-22-2025 Erythrocyte distribution width (RBC) [Ratio] 12.9 % 11.6-14.6 [facility] Erythrocyte distribution wid th standard deviationOrdered By: Manan Brown on 02-22-2025 Erythrocyte distribution width (RBC) [Ratio] 44.2 fl High 35.1-43.9 [facility] Glomerular filtration rate ( GFR) estimation/1.73 sq m using serum, plasma, or whole bOrdered By: Manan Brown on 02-22-2025 GFR/1.73 sq M.predicted among non-blacks MDRD (S/P/Bld) [Vol rate/Area] 52 mL/min/{1.73_m2} Low >60 [facility] Comment on above: mL/min/1.73m2 CKD-EP I Creatinine Equation (2020) Hematocrit Auto (Bld) [Volum e fraction]Ordered By: Manan Brown on 02-22-2025 Hematocrit (Bld) [Volume fraction] 40.8 % 37-47 [facility] Hemoglobin measurementOrdere d By: Manan Brown on 02-22-2025 Hemoglobin (Bld) [Mass/Vol] 13.3 g/dL 12.0-15.0 [facility] Immature granulocytes/100 WB C Auto (Bld)Ordered By: Manan Brown on 02-22-2025 Immature granulocytes/100 WBC (Bld) 0.200 % 0.0-0.9 [facility] Comment on above: IG% - Immature Granu locytes (promyelocytes, myelocytes and metamyelocytes) > 1% indicates that a LEFT SHIFT is Present. MCV (mean corpuscular volume ) determinationOrdered By: Manan Kevni on 02-22-2025 MCV (RBC) [Entitic vol] 93.2 fL 81-99 [facility] Magnesium measurement (mass/ volume)Ordered By: [place] Kevin on 02-22-2025 Magnesium (Unsp spec) [Mass/Vol] 2.4 mg/dL High 1.5-2.2 [facility] Mean corpuscular hemoglobin (MCH) determinationOrdered By: Manan Kevin on 02-22-2025 MCH (RBC) [Entitic mass] 30.4 pg 27.0-32.0 [facility] Mean corpuscular hemoglobin concentration (MCHC) determinationOrdered By: [place] Kevin on 02-22-2025 MCHC (RBC) [Mass/Vol] 32.6 g/dL 32-36 [facility] Mean platelet volume determi nationOrdered By: Manan Kevin on 02-22-2025 Platelet mean volume (Bld) [Entitic vol] 11.2 fL 6.2-12.0 [facility] Monocyte percentageOrdered B y: Manan Kevin on 02-22-2025 Monocytes/100 WBC (Bld) 8.0 % 0-10 [facility] Neutrophil percentageOrdered By: Manan Kevin on 02-22-2025 Neutrophils/100 WBC (Bld) 61.5 % 47-70 [facility] Nucleated red blood cell per centageOrdered By: Manan Kevin on 02-22-2025 Nucleated RBC/100 WBC (Bld) [Ratio] 0 % 0-5 [facility] Platelet countOrdered By: Cy ril Kevin on 02-22-2025 Platelets (Bld) [#/Vol] 192 10*3/uL 150-450 [facility] Potassium measurement (mass/ volume)Ordered By: Manan Kevin on 02-22-2025 Potassium (Unsp spec) [Mass/Vol] 4.3 mmol/L 3.3-5.1 [facility] RBC Auto (Bld) [#/Vol]Ordere d By: [place] Kevin on 02-22-2025 RBC (Bld) [#/Vol] 4.38 10*6/uL 4.2-5.4 [facility] Serum creatinine measurement (mass/volume)Ordered By: Manan Brown on 02-22-2025 Creatinine [Mass/Vol] 1.20 mg/dL 0.70-1.20 [facility] Serum glucose measurement (m ass/volume)Ordered By: Manan Brown on 02-22-2025 Glucose [Mass/Vol] 103 mg/dL High 70-99 [facility] Serum or plasma calcium latonya urement (mass/volume)Ordered By: Manan Brown on 02-22-2025 Calcium [Mass/Vol] 9.5 mg/dL 7.6-11.0 [facility] Serum or plasma urea nitroge n measurement (mass/volume)Ordered By: Manan Brown on 02-22-2025 Urea nitrogen [Mass/Vol] 16 mg/dL 4-19 [facility] Sodium levelOrdered By: Cora Brown on 02-22-2025 Sodium [Moles/Vol] 139 mmol/L 133-145 [facility] TSH DL <= 0.005 mIU/L QnOrde red By: Manan Brown on 02-22-2025 TSH Qn 0.976 uIU/mL 0.300-4.200 [facility] White blood cell (WBC) count Ordered By: Manan Brown on 02-22-2025 WBC (Bld) [#/Vol] 4.9 10*3/uL 4.4-11.0 [facility] POLYSOMNOGRAM (PSG)/HOME SLE EP APNEA TEST (HSAT)on 02-01-2025 POLYSOMNOGRAM (PSG)/HOME SLEEP APNEA TEST (HSAT) [facility] at [address], [address], [place] [address] ; Home Sleep Apnea Test (HSAT) Study Report Name: JO VALENCIA Date of Study: 02/01/2025 CCF#: [id number] Age: 59 (: 1965) ESS: 07/28 Neck Circ. (cm): 32.0 Height (cm): 172.0 Weight (kg): 65.0 BMI: 22.0 Referring Provider: STUART PONCE Mailcode: Sleep history: The patient is a 59 year old female with a history of daytime sleepiness, fatigue, snoring, gasping, waking up with dry mouth/sore throat, difficulty maintaining sleep, and mouth breathing. The patient is here for assessment of obstructive sleep apnea. The patient is a side sleeper. Pertinent medical history: Allergies, Anxiety, Depression, Headaches, Hypothyroidism Medications: [place] thyroid, Azelastine, Fluticasone Sleep procedure: PSG unattended Type III, minimum of 4 parameters (28504) Procedure: This study was performed using a Type III ambulatory PSG device and was unattended. The patient was instructed on proper use of the device by a registered nuclear technologist. The monitored parameters included heart rate, oxygen saturation, continuous airflow with thermistor and nasal pressure transducer, snoring via nasal pressure transducer, chest and abdominal effort, and body position. ARMEN definition: Respiratory event index (ARMEN), calculated as respiratory events x 60 / TRT (total recording time in minutes). Note: the apnea hypopnea index has been replaced by the respiratory event index for home sleep apnea test. Since the home sleep apnea test does not measure sleep, the ARMEN is most accurate index of respiratory events. The ARMEN is a surrogate of the AHI per the AASM Manual for Scoring of Sleep and Associated Events version 3. Apnea definition: The peak signal excursions drop by >90% of pre-event baseline using an oronasal thermal sensor (diagnostic study), PAP device flow (titration study) or an alternative apnea sensor (diagnostic study). The duration of the >90% drop in signal excursion is >=10 seconds. Hypopnea definition: The peak signal excursions drop by >= 30% of pre-event baseline using nasal pressure (diagnostic study), PAP device flow (titration study) or an alternative hypopnea sensor (diagnostic study). The duration of the >= 30% drop in signal excursion is >=10 seconds. There is a greater than or equal to 3% oxygen desaturation from pre-event baseline. RESPIRATORY DATA: The study started at 22:23:57 and ended at 05:05:33 and the total recording time was 401 minutes. By convention, sleep is assumed for the whole recording. Snoring was noted. There was a total of 28 respiratory events. Of these events, the total number of apneas was 19 (14 obstructive, 0 mixed, and 5 central (17.9%)) and 9 hypopneas. The central apnea index (RAINE) was 0.7. The respiratory event index (ARMEN) was 4.2 events per hour of study time. The mean oxygen saturation during the study was 96.0%, with a minimum oxygen saturation of 92.0%. The patient spent 0.5 minutes at oxygen saturation measured less than 90% (0.2% of recording time) and 0.5 minutes at oxygen saturation measured at or less than 88% (0.1% of recording time). Time ARMEN/AHI Supine 104.5 min 4.0 Off-Supine 297.0 min 4.2 Total 401.5 min 4.2 ECG DATA: The average heart rate was 61 bpm with a range of 51 bpm to 91 bpm. ICSD DIAGNOSIS: Primary Snoring [R06.83] Sleep Disorder, Unspecified [G47.9] IMPRESSION/RECOMMENDATIONS: 1. This study neither confirms nor refutes a diagnosis of obstructive sleep apnea as HSAT does not measure certain types of respiratory events that can only be measured on an in-laboratory polysomnogram 2. Recommend an in-laboratory polysomnogram if sleep apnea remains highly suspected. INTERPRETING PHYSICIAN: Nory Weiss MD,[facility] I attest that I have performed epoch by epoch review of the entire raw data and find this study to be technically adequate. Report Digitally Signed By: NORY WEISS (02/07/2025 10:31:43 PM) Normal [facility] CNOVon 01-23-2025 CNOV Office Visit (OTOLST ) JO VALENCIA ([id number]) 1965 F Date Time Provider Department 01/23/25 10:55 AM VARUN JHAVERI During your visit today, we recorded the following information about you: Varun Jhaveri PA-C 01/23/2025 11:59 AM Signed [facility] NOTE CC: Jo Valencia is a 59 year old female who is seen at the request of Stuart Ponce APRN, CNP for evaluation of Nasal congestion. My findings and recommendations will be communicated to the referring provider via the shared electronic medical record. ASSESSMENT: Nasal congestion Environmental and seasonal allergies Nasal valve collapse Chronic nasal congestion (primary encounter diagnosis) PLAN: - Trial of Flonase, add Astelin and nasal saline irrigations; instructed patient on appropriate use, side effects and need for daily adherence to realize benefits - Aggressive allergy management, avoidance of allergic triggers, daily oral antihistamine, nasal saline rinses - HSAT ordered by PCP team scheduled 02/01/2025 and Sleep Medicine 02/07/2025; will follow results - Discussed consult to ENT physician for nasal valve, sleep anatomy evaluation and procedure-based options; patient wishes to trial nasal sprays at this time - Advised patient on red flag warning signs, symptoms that warrant immediate evaluation in ER - Follow up in 6-8 weeks; sooner if clinically indicated Varun Jhaveri PA-C [facility] HPI: 59 year old female presents to clinic for evaluation of Nasal congestion. Patient endorses longstanding sinus issues characterized by nasal congestion, rhinitis which has worsened since onset of menopause. Patient reports she does not feel like she can breathe well through her nose, reports mouth breathing and sensation of throat closing when she cannot breathe through nose. Patient endorses ipratropium bromide and nasal strips for a year with relief of migraines. Patient endorses mouth-breathing, fatigue, snoring which worsens when laying supine, endorses witnessed apneic episodes feels like I can't breath. Other patient-reported interventions include Benadryl. Patient endorses history of seasonal and environmental allergies, no interventions at this time due to side effects. Patient endorses bilateral tinnitus, masks with sound generator. Patient denies history of sinus disease, sinus surgery. Patient denies history of nasal or facial trauma. Patient accompanied by spouse during duration of visit today. Past medical history: PAST MEDICAL HISTORY Diagnosis Date Anemia 02/03/2012 Bilateral carpal tunnel syndrome Chronic fatigue Fibromyalgia History of orthostatic hypotension Had work up for POTS; tilt test was negative. Had worse symptoms when was anemic.Symptoms responded to same measures as for treating POTS (fluids with electrolytes) Migraine with aura and without status migrainosus, not intractable Unspecified hypothyroidism Unspecified vitamin D deficiency 03/06/2008 Past surgical history: PAST SURGICAL HISTORY Procedure Laterality Date COLONOSCOPY FLX DX W/COLLJ SPEC WHEN PFRMD 08/17/2013 Colonoscopy COLONOSCOPY GEN ANES 11/19/2020 Repeat in 5 years ESOPHAGOGASTRODUODENOSCOPY TRANSORAL DIAGNOSTIC 08/17/2013 EGD PAST SURGICAL HISTORY OF wisdom teeth SKIN BX, 1 LESION Mole removed from chest Current medication(s): Current Outpatient Medications Medication Sig thyroid, pork, (ARMOUR THYROID) 60 mg tablet Take 1 tablet by mouth once daily. coQ10, ubiquinol, (QUNOL GINI COQ10) 100 mg cap Taking CoQ10 200mg capsule one three times weekly thyroid (ARMOUR THYROID) 15 mg tablet Take 1 tablet by mouth three times a week. Take this in additon to the 60 mg daily. Lactobac no.41/Bifidobact no.7 (PROBIOTIC-10 ORAL) Take by mouth once daily. Ipratropium [place] (ATROVENT) 21 mcg (0.03 %) nasal spray Use 2 Sprays in the nose every 12 hours as needed. M[employer]ellaneous [employer] Hti-Jbe-Stpdlzg D capsules--takes several per day to get adequate calcium and magnesium dose high enough to control leg cramps clonazePAM orally disintegrating (KLONOPIN WAFER) 0.125 mg disintegrating tablet Take 1 tablet by mouth once daily as needed for up to 14 days. B Complex Vitamins capsule Take 1 capsule by mouth once daily. fluticasone (FLONASE) 50 mcg/actuation nasal spray Use 1 spray in each nostril two times a day. azelastine 0.1% nasal spray Use 1 spray in each nostril two times a day. No current facility-administered medications for this visit. Allergies: ALLERGIES Allergen Reactions Flat Top Other: See Comments migraine Ciclopirox Hives Hives Social history: Social History Tobacco Use Smoking status: Never Smokeless tobacco: Never Substance Use Topics Alcohol use: No Drug use: No Family history: FAMILY HISTORY Problem Relation Age (more content not included)... Normal [facility] CBC W Auto Differential pane l (Bld)on 01-19-2025 Basophils (Bld) [#/Vol] 0.03 10*3/uL NINF [facility] Basophils/100 WBC (Bld) 0.6 % [facility] Differential cell count method Nom (Bld) Auto [facility] Eosinophils (Bld) [#/Vol] 0.12 10*3/uL [facility] Eosinophils/100 WBC (Bld) 2.3 % [facility] Erythrocyte distribution width (RBC) [Ratio] 13.1 % 11.5 - 15.0 % [facility] Hematocrit (Bld) [Volume fraction] 43 % 36.0 - 46.0 % [facility] Hemoglobin (Bld) [Mass/Vol] 14 g/dL 11.5 - 15.5 g/dL [facility] Immature granulocytes (Bld) [#/Vol] [facility] Immature granulocytes/100 WBC (Bld) 0 % [facility] Lymphocytes (Bld) [#/Vol] 1.42 10*3/uL [facility] Lymphocytes/100 WBC (Bld) 27.5 % [facility] MCH (RBC) [Entitic mass] 30.4 pg 26.0 - 34.0 pg [facility] MCHC (RBC) [Mass/Vol] 32.6 g/dL 30.5 - 36.0 g/dL [facility] MCV (RBC) [Entitic vol] 93.5 fL 80.0 - 100.0 fL [facility] Monocytes (Bld) [#/Vol] 0.36 10*3/uL [facility] Monocytes/100 WBC (Bld) 7 % [facility] Neutrophils (Bld) [#/Vol] 3.24 10*3/uL [facility] Neutrophils/100 WBC (Bld) 62.6 % [facility] Nucleated RBC (Bld) [#/Vol] [facility] Nucleated RBC/100 WBC (Bld) [Ratio] 0 % /100 WBC [facility] Platelet mean volume (Bld) [Entitic vol] 10.8 fL 9.0 - 12.7 fL [facility] Platelets (Bld) [#/Vol] 172 10*3/uL [facility] RBC (Bld) [#/Vol] 4.6 10*6/uL 3.90 - 5.2 0 m/uL [facility] WBC (Bld) [#/Vol] 5.17 10*3/uL [facility] Basophils (Bld) [#/Vol] 0.03 10*3/uL Normal <0.11 [facility] Comment on above: Order Comment: Speci men Type: BLOOD SPECIMEN Ordering Facility: [facility] Address: [address] [place] [address] Performed By: #### 1 989-3 #### [facility] CLIA [id number] [address] [place] [address] [place] Basophils/100 WBC (Bld) 0.6 % Normal [facility] Comment on above: Order Comment: Speci men Type: BLOOD SPECIMEN Ordering Facility: [facility] Address: [address] [place] [address] Performed By: #### 1 989-3 #### [facility] CLIA [id number] [address] [place] [address] [place] Differential cell count method Nom (Bld) Auto Normal [facility] Comment on above: Order Comment: Speci men Type: BLOOD SPECIMEN Ordering Facility: [facility] Address: [address] [place] [address] Performed By: #### 1 989-3 #### [facility] CLIA [id number] [address] [place] [address] [place] Eosinophils (Bld) [#/Vol] 0.12 10*3/uL Normal <0.46 [facility] Comment on above: Order Comment: Speci men Type: BLOOD SPECIMEN Ordering Facility: [facility] Address: [address] [place] [address] Performed By: #### 1 989-3 #### [facility] CLIA [id number] [address] [place] [address] [place] Eosinophils/100 WBC (Bld) 2.3 % Normal [facility] Comment on above: Order Comment: Speci men Type: BLOOD SPECIMEN Ordering Facility: [facility] Address: [address] [place] [address] Performed By: #### 1 989-3 #### [facility] CLIA [id number] [address] [place] [address] [place] Erythrocyte distribution width (RBC) [Ratio] 13.1 % Normal 11.5-15.0 [facility] Comment on above: Order Comment: Speci men Type: BLOOD SPECIMEN Ordering Facility: [facility] Address: [address] [place] [address] Performed By: #### 1 989-3 #### [facility] CLIA [id number] [address] [place] [address] [place] Hematocrit (Bld) [Volume fraction] 43.0 % Normal 36.0-46.0 [facility] Comment on above: Order Comment: Speci men Type: BLOOD SPECIMEN Ordering Facility: [facility] Address: [address] [place] [address] Performed By: #### 1 989-3 #### [facility] CLIA [id number] [address] [place] [address] [place] Hemoglobin (Bld) [Mass/Vol] 14.0 g/dL Normal 11.5-15.5 [facility] Comment on above: Order Comment: Speci men Type: BLOOD SPECIMEN Ordering Facility: [facility] Address: [address] [place] [address] Performed By: #### 1 989-3 #### [facility] CLIA [id number] [address] [place] [address] [place] Immature granulocytes (Bld) [#/Vol] 10*3/uL Normal <0.10 [facility] Comment on above: Order Comment: Speci men Type: BLOOD SPECIMEN Ordering Facility: [facility] Address: [address] [place] [address] Performed By: #### 1 989-3 #### [facility] CLIA [id number] [address] [place] [address] [place] Immature granulocytes/100 WBC (Bld) 0.0 % Normal [facility] Comment on above: Order Comment: Speci men Type: BLOOD SPECIMEN Ordering Facility: [facility] Address: [address] [place] [address] Performed By: #### 1 989-3 #### [facility] CLIA [id number] [address] [place] [address] [place] Lymphocytes (Bld) [#/Vol] 1.42 10*3/uL Normal 1.00-4.00 [facility] Comment on above: Order Comment: Speci men Type: BLOOD SPECIMEN Ordering Facility: [facility] Address: [address] [place] [address] Performed By: #### 1 989-3 #### [facility] CLIA [id number] [address] [place] [address] [place] Lymphocytes/100 WBC (Bld) 27.5 % Normal [facility] Comment on above: Order Comment: Speci men Type: BLOOD SPECIMEN Ordering Facility: [facility] Address: [address] [place] [address] Performed By: #### 1 989-3 #### [facility] CLIA [id number] [address] [place] [address] [place] MCH (RBC) [Entitic mass] 30.4 pg Normal 26.0-34.0 [facility] Comment on above: Order Comment: Speci men Type: BLOOD SPECIMEN Ordering Facility: [facility] Address: [address] [place] [address] Performed By: #### 1 989-3 #### [facility] CLIA [id number] [address] [place] [address] [place] MCHC (RBC) [Mass/Vol] 32.6 g/dL Normal 30.5-36.0 [facility] Comment on above: Order Comment: Speci men Type: BLOOD SPECIMEN Ordering Facility: [facility] Address: [address] [place] [address] Performed By: #### 1 989-3 #### [facility] CLIA [id number] [address] [place] [address] [place] MCV (RBC) [Entitic vol] 93.5 fL Normal 80.0-100.0 [facility] Comment on above: Order Comment: Speci men Type: BLOOD SPECIMEN Ordering Facility: [facility] Address: [address] [place] [address] Performed By: #### 1 989-3 #### [facility] CLIA [id number] [address] [place] [address] [place] Monocytes (Bld) [#/Vol] 0.36 10*3/uL Normal <0.87 [facility] Comment on above: Order Comment: Speci men Type: BLOOD SPECIMEN Ordering Facility: [facility] Address: [address] [place] [address] Performed By: #### 1 989-3 #### [facility] CLIA [id number] [address] [place] [address] [place] Monocytes/100 WBC (Bld) 7.0 % Normal [facility] Comment on above: Order Comment: Speci men Type: BLOOD SPECIMEN Ordering Facility: [facility] Address: [address] [place] [address] Performed By: #### 1 989-3 #### [facility] CLIA [id number] [address] [place] [address] [place] Neutrophils (Bld) [#/Vol] 3.24 10*3/uL Normal 1.45-7.50 [facility] Comment on above: Order Comment: Speci men Type: BLOOD SPECIMEN Ordering Facility: [facility] Address: [address] [place] [address] Performed By: #### 1 989-3 #### [facility] CLIA [id number] [address] [place] [address] [place] Neutrophils/100 WBC (Bld) 62.6 % Normal [facility] Comment on above: Order Comment: Speci men Type: BLOOD SPECIMEN Ordering Facility: [facility] Address: [address] [place] [address] Performed By: #### 1 989-3 #### [facility] CLIA [id number] [address] [place] [address] [place] Nucleated RBC (Bld) [#/Vol] 10*3/uL Normal <0.01 [facility] Comment on above: Order Comment: Speci men Type: BLOOD SPECIMEN Ordering Facility: [facility] Address: [address] [place] [address] Performed By: #### 1 989-3 #### [facility] CLIA [id number] [address] [place] [address] [place] Nucleated RBC/100 WBC (Bld) [Ratio] 0.0 /100 WBC Normal [facility] Comment on above: Order Comment: Speci men Type: BLOOD SPECIMEN Ordering Facility: [facility] Address: [address] [place] [address] Performed By: #### 1 989-3 #### [facility] CLIA [id number] [address] [place] [address] [place] Platelet mean volume (Bld) [Entitic vol] 10.8 fL Normal 9.0-12.7 [facility] Comment on above: Order Comment: Speci men Type: BLOOD SPECIMEN Ordering Facility: [facility] Address: [address] [place] [address] Performed By: #### 1 989-3 #### [facility] CLIA [id number] [address] [place] [address] [place] Platelets (Bld) [#/Vol] 172 10*3/uL Normal 150-400 [facility] Comment on above: Order Comment: Speci men Type: BLOOD SPECIMEN Ordering Facility: [facility] Address: [address] [place] [address] Performed By: #### 1 989-3 #### [facility] CLIA [id number] [address] [place] [address] [place] RBC (Bld) [#/Vol] 4.60 10*6/uL Normal 3.90-5.20 [facility] Comment on above: Order Comment: Speci men Type: BLOOD SPECIMEN Ordering Facility: [facility] Address: [address] [place] [address] Performed By: #### 1 989-3 #### [facility] CLIA [id number] [address] [place] [address] [place] WBC (Bld) [#/Vol] 5.17 10*3/uL Normal 3.70-11.00 [facility] Comment on above: Order Comment: Speci men Type: BLOOD SPECIMEN Ordering Facility: [facility] Address: [address] [place] [address] Performed By: #### 1 989-3 #### [facility] CLIA [id number] [address] [place] [address] [place] CNOVon 01-19-2025 CNOV Office Visit (INTMWS ) JO VALENCIA ([id number]) 1965 F Date Time Provider Department 01/19/25 9:40 AM STUART PONCE INTMWS During your visit today, we recorded the following information about you: Pulse Respiration Blood pressure Weight 67/minute 16/minute 110/70 65 kg Stuart Ponce APRN.RESEARCH ENGINEER 01/19/2025 10:22 AM Signed SUBJECTIVE: Mammogram Screening due on 05/05/2025 HPI Jo Valencia is a 59 year old female. PMH significant for ACTIVE PROBLEM LIST Celiac Disease (Hcc) Vitamin D Deficiency Acquired Hypothyroidism Iron Deficiency Anemia Depression With Anxiety Migraine With Aura and Without Status Migrainosus, Not Intractable History of Orthostatic Hypotension Stage 3a Chronic Kidney Disease (Hcc) Dyspnea and Palpitations: - Dyspnea and palpitations, described as heart racing and squeezing sensation, worsening over time, present at night awakening her from sleep and also noting at work with stress. - Symptoms exacerbated by physical exertion and stress, particularly at work. - Denies known trauma or injury. - Drinking electrolyte water provides some relief. - Scheduled to see cardiology on February 22. Sleep Disturbances: - Chronic sleep disturbances, with frequent awakenings due to dyspnea and palpitations. - Reports waking up gasping for air and unable to breathe through mouth due to throat obstruction. - Longstanding difficulty breathing through nose; uses nasal strips and spray. - Scheduled for home sleep apnea test on February 01 and sleep specialist appointment on February 06 or . - Experiencing fatigue due to poor sleep quality. Allergies: - Reports sinus stuff and allergies, particularly severe in spring. - Uses nasal spray to manage symptoms and prevent migraines. Migraines: - Migraines triggered by various factors, including certain foods, sinus issues, and weather changes. - Improved with dietary modifications and nasal spray use. Anxiety: - Experiences anxiety, particularly in stressful work situations, leading to nausea, lightheadedness, and feeling sick. - Describes anxiety as rational due to perceived lack of safety at work. - Denies anxiety at home. Work-Related Stress: - Significant stress at work, contributing to worsening symptoms. - Describes job as killing me due to high-stress environment and lack of safety measures. - Considering leaving current job; has been looking for new employment opportunities. - Requests medical leave until March 13 to manage symptoms and complete medical evaluations. ROS Constitutional: (+) fatigue, (+) chills, (+) sleep disturbance Ears/Nose/Mouth/Throat: (+) congestion Cardiovascular: (+) chest pain, (+) chest tightness, (+) palpitations Respiratory: (+) shortness of breath Gastrointestinal: (+) nausea Neurological: (+) lightheadedness Psychiatric: (+) anxiety Objective BP 110/70 Pulse 67 Resp 16 Wt 65 kg (143 lb 4.8 oz) LMP 07/03/2022 (Approximate) BMI 21.79 kg/m? Physical Exam Vitals and nursing note reviewed. Constitutional: Appearance: Normal appearance. HENT: Head: Normocephalic and atraumatic. Nose: Mucosal edema (mild left nares) and rhinorrhea present. Eyes: Conjunctiva/sclera: Conjunctivae normal. Cardiovascular: Rate and Rhythm: Normal rate and regular rhythm. Heart sounds: Normal heart sounds. Pulmonary: Effort: Pulmonary effort is normal. Breath sounds: Normal breath sounds. Abdominal: General: Bowel sounds are normal. Palpations: Abdomen is soft. Musculoskeletal: Right lower leg: Edema (scant swelling at ankles) present. Left lower leg: Edema (scant swelling at ankles) present. Skin: General: Skin is warm. Neurological: General: No focal deficit present. Mental Status: She is alert and oriented to person, place, and time. ALLERGIES Allergen Reactions Flat Top Other: See Comments migraine Ciclopirox Hives Hives MEDICATIONS thyroid, pork, (ARMOUR THYROID) 60 mg tablet Take 1 tablet by mouth once daily. coQ10, ubiquinol, (QUNOL GINI COQ10) 100 mg cap Taking CoQ10 200mg capsule one three times weekly thyroid (ARMOUR THYROID) 15 mg tablet Take 1 tablet by mouth three times a week. Take this in additon to the 60 mg daily. Lactobac no.41/Bifidobact no.7 (PROBIOTIC-10 ORAL) Take by mouth once daily. Ipratropium [place] (ATROVENT) 21 mcg (0.03 %) nasal spray Use 2 Sprays in the nose every 12 hours as needed. Miscellaneous Medical Supply Kyy-Onj-Jamncfz D capsules--takes several per day to get adequate calcium and magnesium dose high enough to control leg cramps B Complex Vitamins capsule Take 1 capsule by mouth once daily. clonazePAM orally disintegrating (KLONOPIN WAFER) 0.125 mg disintegrating tablet Take 1 tablet by mouth once daily as needed for up to 14 days. PAST MEDICAL HISTORY Diagnosis Date Anemia 02/03/2012 Bi (more content not included)... Normal [facility] Comprehensive metabolic 2000 panelon 01-19-2025 Albumin [Mass/Vol] 4.8 g/dL Normal 3.9-4.9 [facility] Comment on above: Order Comment: Speci men Type: BLOOD SPECIMENOrdering Facility: [facility] Address: [address] [place], [place] [address] Performed By: #### T TOR, 3024-04, ####[facility] [id number] [address] [address] [place] ALP [Catalytic activity/Vol] 59 U/L Normal 34-123 [facility] Comment on above: Order Comment: Speci men Type: BLOOD SPECIMENOrdering Facility: [facility] Address: [address] [place] [address] Performed By: #### T TOR, 3024-04, ####[facility] [id number] [place] [id number] [place] ALT [Catalytic activity/Vol] 19 U/L Normal 7-38 [facility] Comment on above: Order Comment: Speci men Type: BLOOD SPECIMENOrdering Facility: [facility] Address: [address] [place] [address] Performed By: #### T TOR, 3024-04, ####[facility]IA [id number] [place] [id number] [place] Anion gap [Moles/Vol] 12 mmol/L Normal 8-15 [facility] Comment on above: Order Comment: Speci men Type: BLOOD SPECIMENOrdering Facility: [facility] Address: [address] [place] [address] Performed By: #### T TOR, 3024-04, ####[facility]IA [id number] [address] [address] [place] AST [Catalytic activity/Vol] 26 U/L Normal 13-35 [facility] Comment on above: Order Comment: Speci men Type: BLOOD SPECIMENOrdering Facility: [facility] Address: [address] [place], [place] [address] Performed By: #### T TOR, 3024-04, ####[facility] [id number] [address] [place] [address] [place] Bilirubin [Mass/Vol] 0.5 mg/dL Normal 0.2-1.3 [facility] Comment on above: Order Comment: Speci men Type: BLOOD SPECIMENOrdering Facility: [facility] Address: [address] [place] [address] Performed By: #### T TOR, 3024-04, ####[facility] [id number] [address] [place] [address] [place] Calcium [Mass/Vol] 9.9 mg/dL Normal 8.5-10.2 [facility] Comment on above: Order Comment: Speci men Type: BLOOD SPECIMENOrdering Facility: [facility] Address: [address] [place] [address] Performed By: #### T TOR, 3024-04, ####[facility] [id number] [address] [address] [place] Chloride [Moles/Vol] 103 mmol/L Normal 98-107 [facility] Comment on above: Order Comment: Speci men Type: BLOOD SPECIMENOrdering Facility: [facility] Address: [address] [place] [address] Performed By: #### T TOR, 3024-04, ####[facility] [id number] [address] [place] [address] [place] CO2 [Moles/Vol] 26 mmol/L Normal 22-30 [facility] Comment on above: Order Comment: Speci men Type: BLOOD SPECIMENOrdering Facility: [facility] Address: [address] [place] [address] Performed By: #### T TOR, 3024-04, ####[facility] [id number] [address] [address] [place] Creatinine [Mass/Vol] 1.32 mg/dL High 0.58-0.96 [facility] Comment on above: Order Comment: Dominick cowan Type: BLOOD SPECIMENOrdering Facility: [facility] Address: [address] [place] [address] Performed By: #### T [facility], 3024-7, 79167-8 ####[facility]IA [id number] [address] [facility] Creatinine and Glomerular filtration rate.predicted panel (S/P/Bld) 47 mL/min/1.73m??? Low >=60 [facility] Comment on above: Order Comment: Dominick cowan Type: BLOOD SPECIMENOrdering Facility: [facility] Address: [address] [place] [address] Result Comment: Britta mated Glomerular Filtration Rate (eGFR) is calculated using the 2020 CKD-EPI creatinine equation. This equation utilizes serum creatinine, sex, and age as parameters. The creatinine assay has traceable calibration to isotope dilution-mass spectrometry. Refer to KDIGO guidelines for clinical interpretation. In patients with unstable renal function, e.g. those with acute kidney injury, the eGFR may not accurately reflect actual GFR. Performed By: #### T [facility], 3024-7, 83725-2 ####[facility]IA [id number] [place] [id number] [place] Glucose [Mass/Vol] 78 mg/dL Normal 74-99 [facility] Comment on above: Order Comment: Dominick cowan Type: BLOOD SPECIMENOrdering Facility: [facility] Address: [address] [place] [address] Result Comment: The [place] Diabetes Association (ADA) provides guidance for cutoff values for fasting glucose and random glucose. The ADA defines fasting as no caloric intake for at least 8 hours. Fasting plasma glucose results between 100 to 125 mg/dL indicate increased risk for diabetes (prediabetes). Fasting plasma glucose results greater than or equal to 126 mg/dL meet the criteria for diagnosis of diabetes. In the absence of unequivocal hyperglycemia, results should be confirmed by repeat testing. In a patient with classic symptoms of hyperglycemia or hyperglycemic crisis, random plasma glucose results greater than or equal to 200 mg/dL meet the criteria for diagnosis of diabetes. Reference: Standards of Medical Care in Diabetes 2016, [place] [employer]. Diabetes Care. 2016.39(Suppl 1). Performed By: #### T TOR, 3024-04, ####[facility] [id number] [address] [address] [place] Potassium [Moles/Vol] 4.2 mmol/L Normal 3.7-5.1 [facility] Comment on above: Order Comment: Speci men Type: BLOOD SPECIMENOrdering Facility: [facility] Address: [address] [place] [address] Performed By: #### T TOR, 3024-04, ####[facility] [id number] [address] [address] [place] Protein [Mass/Vol] 7.6 g/dL Normal 6.3-8.0 [facility] Comment on above: Order Comment: Speci men Type: BLOOD SPECIMENOrdering Facility: [facility] Address: [address] [place] [address] Performed By: #### T TOR, 3024-04, ####[facility] [id number] [address] [address] [place] Sodium [Moles/Vol] 141 mmol/L Normal 136-144 [facility] Comment on above: Order Comment: Speci men Type: BLOOD SPECIMENOrdering Facility: [facility] Address: [address] [place], [place] [address] Performed By: #### T TOR, 3024-04, ####[facility] [id number] [address] [address] [place] Urea nitrogen [Mass/Vol] 19 mg/dL Normal 7-21 [facility] Comment on above: Order Comment: Speci men Type: BLOOD SPECIMENOrdering Facility: [facility] Address: [address] [place] [address] Performed By: #### T TOR, 7, 58951-9 ####[facility] [id number] [address] [place] T4 Free SerPl-mCncon 025 Free T4 [Mass/Vol] 0.9 ng/dL Normal 0.9-1.7 [facility] Comment on above: Order Comment: Speci men Type: BLOOD SPECIMENOrdering Facility: [facility] Address: [address] [place] [address] Performed By: #### T TOR, 3024-04, ####[facility]IA [id number] [address] [place] TSH W/REFLEX FT4on 5 TSH Qn 4.390 m[IU]/L High 0.270-4.200 [facility] Comment on above: Order Comment: Speci men Type: BLOOD SPECIMENOrdering Facility: [facility] Address: [address] [place] [address] Performed By: #### Leticia LENTZ, 3024, 99[address]-6 ####[facility]IA [id number] [address] [place] CNOVon 01-13-2025 CNOV Office Visit (INTMWS ) JO VALENCIA ([id number]) 1965 F Date Time Provider Department 01/13/25 2:00 PM STUART PONCE INTMWS During your visit today, we recorded the following information about you: Pulse Respiration Blood pressure Weight 78/minute 16/minute 112/70 64.9 kg Stuart Ponce APRN.RESEARCH ENGINEER 01/13/2025 2:33 PM Signed SUBJECTIVE: Mammogram Screening due on 05/05/2025 HPI Jo Valencia is a 58 year old female. PMH significant for ACTIVE PROBLEM LIST Celiac Disease (Hcc) Vitamin D Deficiency Acquired Hypothyroidism Iron Deficiency Anemia Depression With Anxiety Migraine With Aura and Without Status Migrainosus, Not Intractable History of Orthostatic Hypotension Stage 3a Chronic Kidney Disease (Hcc) Presents today regarding a sleep problem, concern for sleep apnea.Incomplete sleep study 2016. Reports feeling short of breath at night, wears strips on her nose. Notes sinus congestion. Uses nose spray. Dyspnea: - Chronic dyspnea, worsening over time. - Experiences dyspnea at night and in the mornings, often accompanied by palpitations. - Uses nasal strips and bromide nasal spray nightly for relief. - Denies known asthma or wheezing. - Denies use of supplemental oxygen. Palpitations: - Reports episodes of tachycardia, particularly at night and upon waking. - No known history of arrhythmias. - Denies use of a smartwatch or other heart rate monitoring devices. Sleep Disturbances: - Chronic difficulty breathing at night, feels blocked when lying on back. - Wakes up multiple times per night due to dyspnea and palpitations. - Reports snoring, but has not observed apneic episodes. - Feels exhausted every morning; sleep described as an ordeal. - Previous sleep studies were inconclusive due to insufficient sleep duration. - Denies current use of sleep aids; occasional difficulty falling asleep due to anxiety. Chest Pain: - History of severe chest pain approximately one year ago, with symptoms mimicking a myocardial infarction. - Symptoms included chest pain, neck pain, nausea, back pain, jaw pain, arm pain, diaphoresis, and lightheadedness. - Blood tests in the ER were negative for myocardial infarction. - Blood pressure dropped to 88/50 mmHg during the episode; resolved after two bags of saline. - Recommended to undergo an echocardiogram and stress test, which showed no abnormalities. - Two additional episodes of chest pain managed at home with electrolyte tablets and water. - Currently taking CoQ10 as recommended by a functional medicine doctor, reports improvement in symptoms. Lifestyle: - Follows a functional medicine diet, drinks 8+ cups of spring water daily. - Exercises regularly. - Denies caffeine consumption. STOP BANG Questionnaire 1. Snoring Do you snore loudly (louder than talking or loud enough to be heard through closed doors)? YES 2. Tired Do you often feel tired, fatigued, or sleepy during daytime? YES 3. Observed Has anyone observed you stop breathing during your sleep? NO 4. Blood Pressure Do you have or are you being treated for high blood pressure? NO 5. BMI BMI more than 35 kg/m2? NO 6. Age Age over 50 yr old? YES 7. Neck circumference Neck circumference greater than 40 cm? NO 8. Gender Gender male? NO * Neck circumference is measured by staff High risk of JUNIOR: answering yes to three or more items Low risk of JUNIOR: answering yes to less than three items ROS Constitutional: (+) fatigue, (+) sleep disturbance Ears/Nose/Mouth/Throat: (+) tinnitus, (+) nasal congestion, (+) snoring Cardiovascular: (+) palpitations, (-) chest pain, (-) edema Respiratory: (+) dyspnea, (-) wheezing Objective BP 112/70 Pulse 78 Resp 16 Wt 64.9 kg (143 lb 1.3 oz) LMP 07/03/2022 (Approximate) BMI 21.76 kg/m? Physical Exam Vitals and nursing note reviewed. Constitutional: Appearance: Normal appearance. HENT: Head: Normocephalic and atraumatic. Nose: Mucosal edema (mild left nares) and rhinorrhea present. Eyes: Conjunctiva/sclera: Conjunctivae normal. Cardiovascular: Rate and Rhythm: Normal rate and regular rhythm. Heart sounds: Normal heart sounds. Pulmonary: Effort: Pulmonary effort is normal. Breath sounds: Normal breath sounds. Abdominal: General: Bowel sounds are normal. Palpations: Abdomen is soft. Musculoskeletal: Right lower leg: Edema (scant swelling at ankles) present. Left lower leg: Edema (scant swelling at ankles) present. Skin: General: Skin is warm. Neurological: General: No focal deficit present. Mental Status: She is alert and oriented to person, place, and time. ALLERGIES Allergen Reactions Flat Top Other: See Comments migraine Ciclopirox Hives Hives MEDICATIONS thyroid, pork, (ARMOUR THYROID) 60 mg tablet Take 1 tablet by mouth once daily. c (more content not included)... [facility] JO VALENCIA ([id number]) 1965 F Date Time Provider Department 01/04/25 11:00 AM KEVIN PERALES INTMWS During your visit today, we recorded the following information about you: Pulse Blood pressure Weight 76/minute 111/69 64.4 kg Kevin Perales APRN.CRAYON MOLDING MACHINE OPERATOR 01/04/2025 12:52 PM Signed SUBJECTIVE Jo Valencia is a 59 year old female here today for a check up on her medical problems. Chief Complaint Patient presents with: chest tightness: has had 3 episodes the first episode did go to [facility] ER and cardiac was ruled out states she does drink about 8 or more glasses of water a day and did take two electrolyte tablet and glasses of water which did help Not sure if symptoms are related to thyroid or muscle strain from working out with weight twice a week. HPI Jo Valencia is a 59 year old female.She is an established patient of Murphy Henley MD. Here today for some concerns of chest tightness. Started post-menopausal. Issues with a chest pain/tightness. Had some prior anemia and had chest pains with that. Onset was about a year ago. She was out hiking and had chest pain, back pain, nausea. Concerned about cardiac event. Seen in [facility], blood pressure was low, cardiac workup was negative. She was given x2 L and improved. She had a stress ECHO about a year ago, mild tricuspid regurg. Since she has tried to stay well hydrated, pushing fluids and taking an electrolyte tablet daily. CoQ10 has been helpful. Still getting intermittent chest tightness, shortness of breath, palpitations. Prior EKG stable, prior tilt table test stable. Dealing too with tiredness and fatigue. Also follows with rheumatology. She has had extensive labs with them. Does not recall ever feeling her heart jump, skip or miss a beat, feels bounding of her heart at times. Her medications were reviewed today and her list is now up to date. Medications Current Outpatient Medications Medication Sig thyroid, pork, (ARMOUR THYROID) 60 mg tablet Take 1 tablet by mouth once daily. coQ10, ubiquinol, (QUNOL GINI COQ10) 100 mg cap Taking CoQ10 200mg capsule one three times weekly thyroid (ARMOUR THYROID) 15 mg tablet Take 1 tablet by mouth three times a week. Take this in additon to the 60 mg daily. Lactobac no.41/Bifidobact no.7 (PROBIOTIC-10 ORAL) Take by mouth once daily. Ipratropium [place] (ATROVENT) 21 mcg (0.03 %) nasal spray Use 2 Sprays in the nose every 12 hours as needed. B Complex Vitamins capsule Take 1 capsule by mouth once daily. Miscellaneous Medical Supply Nqy-Qtr-Xwgscgt D capsules--takes several per day to get adequate calcium and magnesium dose high enough to control leg cramps clonazePAM orally disintegrating (KLONOPIN WAFER) 0.125 mg disintegrating tablet Take 1 tablet by mouth once daily as needed for up to 14 days. No current facility-administered medications for this visit. ALLERGIES Allergen Reactions Flat Top Other: See Comments migraine Ciclopirox Hives Hives ACTIVE PROBLEM LIST Stage 3a Chronic Kidney Disease (Hcc) - 07/28/2023 History of Orthostatic Hypotension Comment: Had work up for POTS; tilt test was negative. Had worse symptoms when was anemic.Symptoms responded to same measures as for treating POTS (fluids with electrolytes) Migraine With Aura and Without Status Migrainosus, Not Intractable Depression With Anxiety - 11/10/2015 Acquired Hypothyroidism - 07/29/2015 Iron Deficiency Anemia - 07/29/2015 Vitamin D Deficiency - 03/06/2008 Celiac Disease ([facility]) Social History Tobacco Use Smoking status: Never Smokeless tobacco: Never Substance Use Topics Alcohol use: No Drug use: No Review of Systems Constitutional: Positive for fatigue. Respiratory: Positive for chest tightness and shortness of breath. Negative for cough, choking and wheezing. Cardiovascular: Positive for chest pain. Negative for leg swelling. OBJECTIVE BP 111/69 Pulse 76 Wt 141 lb 15.6 oz (64.4kg) SpO2 97% LMP 07/03/2022 Physical Exam Vitals and nursing note reviewed. Constitutional: General: She is awake. She is not in acute distress. Appearance: Normal appearance. She is well-developed and well-groomed. She is not ill-appearing, toxic-appearing or diaphoretic. HENT: Head: Normocephalic. Right Ear: External ear normal. Left Ear: External ear normal. Nose: Nose normal. Eyes: General: Vision grossly intact. Conjunctiva/sclera: Conjunctivae normal. Pupils: Pupils are equal, round, and reactive to light. Neck: Vascular: No carotid bruit or JVD. Trachea: Trachea normal. Cardiovascular: Rate and Rhythm: Normal rate and regular rhythm. Pulses: Normal pulses. Heart sounds: Normal heart sounds. No murmur heard. Pulmonary: Effort: Pulmonary effort is normal. No accessory muscle usage, prolonged expiration or respiratory distress. Breath sounds: No (more content not included)... Normal [facility] CNOVon 10-07-2024 CNOV Office Visit (INTMWS ) JO VALENCIA ([id number]) 1965 F Date Time Provider Department 10/07/24 3:00 PM MURPHY HENLEY INTMWS During your visit today, we recorded the following information about you: Temperature Pulse Respiration Blood pressure 98.1 degrees 61/minute 16/minute 106/66 Weight 64.9 kg Murphy Henley MD 11/13/2024 12:28 AM Signed This note was created using Tucker Blair[employer]. Subjective Jo Valencia is a 59 year old female. Patient presents with: F/U 6 months: Labs prior SUBJECTIVE: Jo Valencia is a 59 year old year old lady here today for 6 month follow up appointment for review of medical conditions. Jo Valencia is a 59-year-old female with a history of hypothyroidism, arthritis, and post-orgasmic illness syndrome (POIS), presenting for a 6-month follow-up. Jo reports that her recent lab results were generally good, except for concerns regarding kidney function. Her creatinine level was 1.16 mg/dL, and she acknowledges not drinking enough water before the test, which she did while fasting. She has been trying to increase her water intake. She requests a refill for her [place] Thyroid 60 mg, which is due to run out by January. She has enough of her 15 mg dose and does not need a refill for that. She denies needing a refill for Atrovent nasal spray, as she has a backup supply. She mentions that her recent rheumatology workup was unremarkable, except for an elevated light chain ratio, which was attributed to her elevated thyroid antibodies. She was also diagnosed with arthritis in her feet and hands based on recent x-rays. She inquires about a bone density test, noting that her last one was quite a while ago. She has gone through menopause and is unsure about her family history of osteoporosis, but mentions that her mother was on hormone replacement therapy (HRT) for a long time. Jo continues to experience symptoms of POIS, which have improved with the use of CoQ10 200 mg, taken three times a week or every other day. She initially took it daily but experienced side effects, including hypertension and dizziness, which led her to reduce the dosage. She also takes an electrolyte tablet daily to prevent symptoms. She reports that her POIS symptoms, including chest pain, back pain, nausea, neck pain, and headaches, are triggered after orgasm and are alleviated by saline or electrolyte tablets. She has had two episodes of chest pain and other symptoms after orgasm, one of which required hospitalization and treatment with saline. She notes that her blood pressure was very low during these episodes, and her thyroid function was slightly low at the time. She has been trying to balance her thyroid medication and CoQ10 dosage to manage her symptoms and improve her sleep. She inquires about HRT, noting that her symptoms started after menopause and wondering if they are related to low testosterone levels. She mentions that her functional medicine doctor had previously tested her testosterone levels, which were low. She is interested in exploring HRT but is concerned about the cost and insurance coverage. She also reports memory issues and forgetfulness since menopause, which she attributes to hormonal changes. Jo follows a healthy diet, including protein and bone broth, and engages in regular exercise, including hiking and light weightlifting. She takes vitamin D but has stopped taking calcium supplements, as her calcium levels are now normal. She is not interested in vaccines due to concerns about side effects. She gets regular mammograms and is up to date on colon cancer screening. PAST MEDICAL HISTORY Diagnosis Date Anemia 02/03/2012 [...] deficiency 03/06/2008 Current Outpatient Medications Medication Sig coQ10, ubiquinol, (QUNOL GINI COQ10) 100 mg cap Take 1 capsule by mouth once daily. thyroid (ARMOUR THYROID) 15 mg tablet Take 1 tablet by mouth three times a week. Take this in additon to the 60 mg daily. thyroid, pork, (ARMOUR THYROID) 60 mg tablet Take 1 tablet by mouth once daily. Lactobac no.41/Bifidobact no.7 (PROBIOTIC-10 ORAL) Take by mouth once daily. Ipratropium [place] (ATROVENT) 21 mcg (0.03 %) nasal spray Use 2 Sprays in the nose every 12 hours as needed. [employer] Vdo-Rkr-Kgjdisd D capsules--takes several per day to get adequate calcium and magnesium dose high enough to control leg cramps B Complex Vitamins capsule Take 1 capsule by mouth once daily. (more content not included)... Normal [facility] 25(OH)D3 [facility] 25-hydroxyvitamin D3 [Mass/Vol] 37.0 ng/mL Normal 31.0-80.0 [facility] Comment on above: Order Comment: Dominick cowan Type: BLOOD SPECIMEN Ordering Facility: [facility] Address: [address] [place] [address] Performed By: #### 1 989-3 #### [facility] CLIA [id number] [address] [place] [address] [place] [address] [place] CBC panel Auto (Bld)on 09-19 Erythrocyte distribution width (RBC) [Ratio] 12.9 % Normal 11.5-15.0 [facility] Comment on above: Order Comment: Dominick cowan Type: BLOOD SPECIMENOrdering Facility: [facility] Address: [address] [place] [address] Performed By: #### 5 8410-2 ####[facility] [id number] [place] [address] [place] Hematocrit (Bld) [Volume fraction] 41.7 % Normal 36.0-46.0 [facility] Comment on above: Order Comment: Speci men Type: BLOOD SPECIMENOrdering Facility: [facility] Address: [address] [place] [address] Performed By: #### 5 8410-2 ####[facility] [id number] [place] [address] [place] Hemoglobin (Bld) [Mass/Vol] 13.6 g/dL Normal 11.5-15.5 [facility] Comment on above: Order Comment: Speci men Type: BLOOD SPECIMENOrdering Facility: [facility] Address: [address] [place] [address] Performed By: #### 5 8410-2 ####[facility] [id number] [place] [address] [place] MCH (RBC) [Entitic mass] 30.6 pg Normal 26.0-34.0 [facility] Comment on above: Order Comment: Speci men Type: BLOOD SPECIMENOrdering Facility: [facility] Address: [address] [place] [address] Performed By: #### 5 8410-2 ####[facility] [id number] [place] [address] [place] MCHC (RBC) [Mass/Vol] 32.6 g/dL Normal 30.5-36.0 [facility] Comment on above: Order Comment: Speci men Type: BLOOD SPECIMENOrdering Facility: [facility] Address: [address] [place] [address] Performed By: #### 5 8410-2 ####[facility] [id number] [place] [address] [place] MCV (RBC) [Entitic vol] 93.7 fL Normal 80.0-100.0 [facility] Comment on above: Order Comment: Speci men Type: BLOOD SPECIMENOrdering Facility: [facility] Address: [address] [place] [address] Performed By: #### 5 8410-2 ####[facility]IA [id number] [place] [address] [place] Nucleated RBC (Bld) [#/Vol] 10*3/uL Normal <0.01 [facility] Comment on above: Order Comment: Speci men Type: BLOOD SPECIMENOrdering Facility: [facility] Address: [address] [place] [address] Performed By: #### 5 8410-2 ####[facility]IA [id number] [place] [address] [place] Platelet mean volume (Bld) [Entitic vol] 11.4 fL Normal 9.0-12.7 [facility] Comment on above: Order Comment: Speci men Type: BLOOD SPECIMENOrdering Facility: [facility] Address: [address] [place] [address] Performed By: #### 5 8410-2 ####[facility]IA [id number] [place] [address] [place] Platelets (Bld) [#/Vol] 191 10*3/uL Normal 150-400 [facility] Comment on above: Order Comment: Speci men Type: BLOOD SPECIMENOrdering Facility: [facility] Address: [address] [place] [address] Performed By: #### 5 8410-2 ####[facility] [id number] [place] [address] [place] RBC (Bld) [#/Vol] 4.45 10*6/uL Normal 3.90-5.20 [facility] Comment on above: Order Comment: Speci men Type: BLOOD SPECIMENOrdering Facility: [facility] Address: [address] [place] [address] Performed By: #### 5 8410-2 ####[facility] [id number] [address] [address] [place] WBC (Bld) [#/Vol] 4.56 10*3/uL Normal 3.70-11.00 [facility] Comment on above: Order Comment: Speci men Type: BLOOD SPECIMENOrdering Facility: [facility] Address: [address] [place] [address] Performed By: #### 5 8410-2 ####[facility] [id number] [place] [id number] [place] Comprehensive metabolic 2000 panelon 09-19-2024 Albumin [Mass/Vol] 4.6 g/dL Normal 3.9-4.9 [facility] Comment on above: Order Comment: Speci men Type: BLOOD SPECIMENOrdering Facility: [facility] Address: [address] [place] [address] Performed By: #### 2 4323-8, 3051-0, 3016-3, 3024-7 ####[facility] [id number] [place] [id number] [place] ALP [Catalytic activity/Vol] 56 U/L Normal 34-123 [facility] Comment on above: Order Comment: Speci men Type: BLOOD SPECIMENOrdering Facility: [facility] Address: [address] [place] [address] Performed By: #### 2 4323-8, 3051-0, 3016-3, 3024-7 ####[facility] [id number] [address] [address] [place] ALT [Catalytic activity/Vol] 11 U/L Normal 7-38 [facility] Comment on above: Order Comment: Speci men Type: BLOOD SPECIMENOrdering Facility: [facility] Address: [address] [place] [address] Performed By: #### 2 4323-8, 3051-0, 3016-3, 3024-7 ####[facility] [id number] [place] [id number] [place] Anion gap [Moles/Vol] 12 mmol/L Normal 8-15 [facility] Comment on above: Order Comment: Speci men Type: BLOOD SPECIMENOrdering Facility: [facility] Address: [address] [place] [address] [place] [address] Performed By: #### 2 4323-8, 3051-0, 3015-3, 302-7 ####[facility] [id number] [place] [address] [place] AST [Catalytic activity/Vol] 22 U/L Normal 13-35 [facility] Comment on above: Order Comment: Speci men Type: BLOOD SPECIMENOrdering Facility: [facility] Address: [facility] [place] [address] Performed By: #### 2 4323-8, 3051-0, 6-3, 3024-7 ####[facility] [id number] [place] [address] [place] Bilirubin [Mass/Vol] 0.5 mg/dL Normal 0.2-1.3 [facility] Comment on above: Order Comment: Speci men Type: BLOOD SPECIMENOrdering Facility: [facility] Address: [address] [place] [address] Performed By: #### 2 4323-8, 305-0, 3015-3, 302-7 ####[facility] [id number] [place] [id number] [place] Calcium [Mass/Vol] 9.8 mg/dL Normal 8.5-10.2 [facility] Comment on above: Order Comment: Speci men Type: BLOOD SPECIMENOrdering Facility: [facility] Address: [facility] [place] [address] Performed By: #### 2 4323-8, 3051-0, 3016-3, 3024-7 ####[facility] [id number] [place] [address] [place] Chloride [Moles/Vol] 103 mmol/L Normal 98-107 [facility] Comment on above: Order Comment: Speci men Type: BLOOD SPECIMENOrdering Facility: [facility] Address: [address] [place] [address] Performed By: #### 2 4323-8, 3051-0, 3015-3, 7 ####[facility] [id number] [place] [address] [place] CO2 [Moles/Vol] 26 mmol/L Normal 22-30 [facility] Comment on above: Order Comment: Speci men Type: BLOOD SPECIMENOrdering Facility: [facility] Address: [facility] [place] [address] Performed By: #### 2 4323-8, 3051-0, 3015-3, 30247 ####[facility]IA [id number] [place] [address] [place] Creatinine [Mass/Vol] 1.16 mg/dL High 0.58-0.96 [facility] Comment on above: Order Comment: Speci men Type: BLOOD SPECIMENOrdering Facility: [facility] Address: [address] [place] [address] [place] [address] Performed By: #### 2 4323-8, 3051-0, 3015-3, 3027 ####[facility] [id number] [place] [address] [place] Creatinine and Glomerular filtration rate.predicted panel (S/P/Bld) 54 mL/min/1.73m??? Low >=60 [facility] Comment on above: Order Comment: Dominick cowan Type: BLOOD SPECIMENOrdering Facility: [facility] Address: [address] [place] [address] Result Comment: Britta mated Glomerular Filtration Rate (eGFR) is calculated using the 2020 CKD-EPI creatinine equation. This equation utilizes serum creatinine, sex, and age as parameters. The creatinine assay has traceable calibration to isotope dilution-mass spectrometry. Refer to KDIGO guidelines for clinical interpretation. In patients with unstable renal function, e.g. those with acute kidney injury, the eGFR may not accurately reflect actual GFR. Performed By: #### 2 4323-8, 3051-0, 6-3, 3023-7 ####[facility] [id number] [place] [address] [place] Glucose [Mass/Vol] 91 mg/dL Normal 74-99 [facility] Comment on above: Order Comment: Dominick cowan Type: BLOOD SPECIMENOrdering Facility: [facility] Address: [address] [place] [address] Result Comment: The [place] Diabetes Association (ADA) provides guidance for cutoff values for fasting glucose and random glucose. The ADA defines fasting as no caloric intake for at least 8 hours. Fasting plasma glucose results between 100 to 125 mg/dL indicate increased risk for diabetes (prediabetes). Fasting plasma glucose results greater than or equal to 126 mg/dL meet the criteria for diagnosis of diabetes. In the absence of unequivocal hyperglycemia, results should be confirmed by repeat testing. In a patient with classic symptoms of hyperglycemia or hyperglycemic crisis, random plasma glucose results greater than or equal to 200 mg/dL meet the criteria for diagnosis of diabetes. Reference: Standards of Medical Care in Diabetes 2016, [place] Diabetes Association. Diabetes Care. 2016.39(Suppl 1). Performed By: #### 2 4323-8, 3051-0, 3016-3, 3024-7 ####[facility] [id number] [address] [address] [place] Potassium [Moles/Vol] 3.9 mmol/L Normal 3.7-5.1 [facility] Comment on above: Order Comment: Speci men Type: BLOOD SPECIMENOrdering Facility: [facility] Address: [address] [place] [address] Performed By: #### 2 4323-8, 3051-0, 3016-3, 302-7 ####[facility] [id number] [place] [id number] [place] Protein [Mass/Vol] 7.0 g/dL Normal 6.3-8.0 [facility] Comment on above: Order Comment: Speci men Type: BLOOD SPECIMENOrdering Facility: [facility] Address: [address] [place] [address] Performed By: #### 2 4323-8, 3051-0, 3015-3, 7 ####[facility] [id number] [place] [address] [place] Sodium [Moles/Vol] 141 mmol/L Normal 136-144 [facility] Comment on above: Order Comment: Speci men Type: BLOOD SPECIMENOrdering Facility: [facility] Address: [address] [place] [address] Performed By: #### 2 4323-8, 3051-0, 3015-3, 7 ####[facility] [id number] [place] [id number] [place] Urea nitrogen [Mass/Vol] 20 mg/dL Normal 7-21 [facility] Comment on above: Order Comment: Speci men Type: BLOOD SPECIMENOrdering Facility: [facility] Address: [address] [place] [address] Performed By: #### 2 4323-8, 3051-0, 3016-3, 302-7 ####[facility] [id number] [address] [address] [place] T3Free SerPl-mCncon 09-19-20 24 Free T3 [Mass/Vol] 2.9 pg/mL Normal 2.3-4.1 [facility] Comment on above: Order Comment: Speci men Type: BLOOD SPECIMENOrdering Facility: [facility] Address: [address] [place] [address] Performed By: #### 2 4323-8, 3051-0, 3016-3, 3024-7 ####[facility]IA [id number] [place] [address] [place] T4 Free SerPl-mCncon 024 Free T4 [Mass/Vol] 0.8 ng/dL Low 0.9-1.7 [facility] Comment on above: Order Comment: Speci men Type: BLOOD SPECIMENOrdering Facility: [facility] Address: [address] [place] [address] Performed By: #### 2 4323-8, 3051-0, 3016-3, 3024-7 ####[facility] [id number] [place] [address] [place] TSH SerPl-aCncon 09-19-2024 TSH Qn 3.990 m[IU]/L Normal 0.270-4.200 [facility] Comment on above: Order Comment: Speci men Type: BLOOD SPECIMENOrdering Facility: [facility] Address: [address] [place] [address] Performed By: #### 2 4323-8, 3051-0, 3016-3, 3024-7 ####[facility] [id number] [place] [address] [place] Cortis SerPl-mCncon 07-05-20 24 Cortisol [Mass/Vol] 17.7 ug/dL Normal 4.8-19.5 [facility] Comment on above: Order Comment: Speci men Type: BLOOD SPECIMENOrdering Facility: [facility] Address: [address] [place] [address] Result Comment: Prov ided reference range is from 6-10 AM sample collection time. Cortisol Reference Range: 6-10 AM = 4.8-19.5 ug/dL, 4-8 PM = 2.5-11.9 ug/dL Performed By: #### 2 284-8, 2132-06, 2143-03 ####[facility] [id number] [place] [address] [place] Folate [facility]Pl[facility]20 24 Folate [Mass/Vol] 11.3 ng/mL Normal >4.7 [facility] Comment on above: Order Comment: Speci men Type: BLOOD SPECIMENOrdering Facility: [facility] Address: [address] [place] [address] Performed By: #### 2 284-8, 2132-06, 2143-03 ####[facility] [id number] [place] [address] [place] Vit B12 SerP-[facility] 024 Cobalamin (Vitamin B12) [Mass/Vol] 683 pg/mL Normal 232-1245 [facility] Comment on above: Order Comment: Speci men Type: BLOOD SPECIMENOrdering Facility: [facility] Address: [address] [place] [address] Performed By: #### 2 284-8, 2132-06, 2143-03 ####[facility] [id number] [place] [address] [place] Zinc SerPl-ncon 07-05-2024 Zinc [Mass/Vol] 61 ug/dL Normal 60-120 [facility] Comment on above: Order Comment: Speci men Type: BLOOD SPECIMENOrdering Facility: [facility] Address: [address] [place] [address] Result Comment: This test was developed, and its performance characteristics determined by the [facility] Department of Pathology and Laboratory Medicine. It has not been cleared or approved by the FDA. The [facility] Department of Pathology and Laboratory Medicine is regulated under CLIA as qualified to perform high-complexity testing. This test is used for clinical purposes. It should not be regarded as investigational or for research. Performed By: #### 5 763-8 ####[facility] [id number] [facility] [id number] [place] [address] [place] Thyroglobulin w/Anti-TG ABon 05-30-2024 Anti-TG AB 2.8 IU/mL High 0.0-0.9 [facility] Comment on above: Order Comment: PT DE CLINED IBC/FERRFAX RESULTS TO [phone] Result Comment: Thyr oglobulin Antibody measured by [employer] It should be noted that the presence of thyroglobulin antibodies may not be pathogenic nor diagnostic, especially at very low levels. The assay meteorology professor has found that four percent of individuals without evidence of thyroid disease or autoimmunity will have positive TgAb levels up to 4 IU/mL. Performed By: #### L 100.0100, L501.9520, L500.2500, L501.5200 #### [facility] [address] [place], [address] TG-ALEXEY 18 ng/mL Normal . [facility] Comment on above: Order Comment: PT DE CLINED IBC/FERRFAX RESULTS TO [phone] Result Comment: This test was developed and its performance characteristics determined by [employer]. It has not been cleared or approved by the Food and Drug Administration. Reference Range: Pubertal Children and Adults: <40 According to the National Academy of Clinical Biochemistry, the reference interval for Thyroglobulin (TG) should be related to euthyroid patients and not for patients who underwent thyroidectomy. TG reference intervals for these patients depend on the residual mass of the thyroid tissue left after surgery. Establishing a post-operative baseline is recommended. The assay quantitation limit is 2.0 ng/mL. Performed By: #### L 100.0100, L501.9520, L500.2500, L501.5200 #### [facility] [address] [place], [address] Thyroid Peroxidase ABon 05-06 THYR PEROX AB 581 IU/mL High 0-34 [facility] Comment on above: Order Comment: PT DE CLINED IBC/FERRFAX RESULTS TO [phone] Result Comment: Perf ormed at: CB - [facility] 91 [address] [id number] [employer] Operator: Man Lombardo PhD, Phone: [phone] Performed at: [facility] [address] [place] [id number] [employer] Operator: Abram Thurston MD, Phone: [phone] Performed By: #### L 100.0100, L501.9520, L500.2500, L501.5200 #### [facility] [address] [place], [place], [id number] Free T3on 05-20-2024 Free T3 [Mass/Vol] 3.2 pg/mL Normal 2.18-3.98 [facility] Comment on above: Order Comment: PT DE CLINED IBC/FERR Performed By: #### L 501.51077, L3300.6900, L500.4100, L506.0400, L3300.6820, L506.1000, L501.9520, L501.9310, L501.9186 #### [facility] [address] [place], [place], [id number] Lipid Profileon 05-20-2024 Cholesterol [Mass/Vol] 240 mg/dL High 200 [facility] Comment on above: Order Comment: PT DE CLINED IBC/FERR Result Comment: <200 mg/dL Desirable 200-240 mg/dL Borderline >240 mg/dL High Risk Performed By: #### L 501.81649, L3300.6900, L500.4100, L506.0400, L3300.6820, L506.1000, L501.9520, L501.9310, L501.9186 #### [facility] [address] [place], [place], [id number] Cholesterol in HDL [Mass/Vol] 90 mg/dL Normal [facility] Comment on above: Order Comment: PT DE CLINED IBC/FERR Result Comment: The drugs N-Acetylcysteine and Metamizole may falsely depress this assay. Reference Range HDL <40 mg/dL Low HDL Cholesterol HDL >or= 60 mg/dL High HDL Cholesterol Performed By: #### L 501.24546, L3300.6900, L500.4100, L506.0400, L3300.6820, L506.1000, L501.9520, L501.9310, L501.9186 #### [facility] [address] [place], [address] Cholesterol in LDL [Mass/Vol] 138 mg/dL High 0-130 [facility] Comment on above: Order Comment: PT DE CLINED IBC/FERR Performed By: #### L 501.96659, L3300.6900, L500.4100, L506.0400, L3300.6820, L506.1000, L501.9520, L501.9310, L501.9186 #### [facility] [address] [place], [place], [id number] (474) Cholesterol in VLDL [Mass/Vol] 12 mg/dL Normal 5-40 [facility] Comment on above: Order Comment: PT DE CLINED IBC/FERR Performed By: #### L 501.43888, L3300.6900, L500.4100, L506.0400, L3300.6820, L506.1000, L501.9520, L501.9310, L501.9186 #### [facility] [address] [place], [place], [id number] (575) Triglyceride [Mass/Vol] 60 mg/dL Normal [facility] Comment on above: Order Comment: PT DE CLINED IBC/FERR Result Comment: The drugs N-Acetylcysteine and Metamizole may falsely depress this assay. Serum Triglycerides Reference Interval Normal <150 mg/dL Borderline high 150 - 199 mg/dL High 200 - 499 mg/dL Very High > or = 500 mg/dL Performed By: #### L 501.04574, L3300.6900, L500.4100, L506.0400, L3300.6820, L506.1000, L501.9520, L501.9310, L501.9186 #### [facility] [address] [place], [address] T3 Total - Triiodothyronineo n 05-20-2024 T3 Total 1.27 ng/mL Normal 0.6-1.81 [facility] Comment on above: Order Comment: PT DE CLINED IBC/FERR Performed By: #### L 501.34054, L3300.6900, L500.4100, L506.0400, L3300.6820, L506.1000, L501.9520, L501.9310, L501.9186 #### [facility] [address] [place], [address] T4 Free Directon 05-20-2024 T4 FREE DIRECT 0.73 ng/dL Low 0.76-1.46 [facility] Comment on above: Order Comment: PT DE CLINED IBC/FERR Performed By: #### L 100.0100, L501.9520, L500.2500, L501.5200 #### [facility] [address] [place], [address] T4 Total, Thyroxinon 024 T4 [Mass/Vol] 7.4 ug/dL Normal 4.8-13.9 [facility] Comment on above: Order Comment: PT DE CLINED IBC/FERR Performed By: #### L 100.0100, L501.9520, L500.2500, L501.5200 #### [facility] [address] [place], [address] Thyroid Stim Hormone (TSH)on 05-20-2024 TSH 1.830 uIU/mL Normal 0.358-3.740 [facility] Comment on above: Order Comment: PT DE CLINED IBC/FERR Performed By: #### L 100.0100, L501.9520, L500.2500, L501.5200 #### [facility] [address] [place], [address] Vitamin D,25 Hydroxyon 05-20 Vitamin D 25-OH 49.0 ng/mL Normal [facility] Comment on above: Order Comment: PT DE CLINED IBC/FERR Result Comment: Lindy min D 25(OH) Status Range Deficiency <20 ng/mL (50nmol/L) Insufficiency 20 - 30 ng/mL (50 - 75 nmol/L) Sufficiency 30 - 100 ng/mL (75 - 250 nmol/L) Toxicity >100 ng/mL (>250 nmol/L) Performed By: #### L 501.21116, L3300.6900, L500.4100, L506.0400, L3300.6820, L506.1000, L501.9520, L501.9310, L501.9186 #### [facility] [address] [place], [address] XR Foot - bilateral AP and L ateral and obliqueon 05-16-2024 IMPRESSION: 1. 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 Medical Artist: [facility] Transcribe Date/Time: May 16 2024 7:39A Dictated by : VARUN NUGENT MD This examination was interpreted and the report reviewed and electronically signed by: VARUN NUGENT MD on May 16 2024 7:40AM [facility] DIVISION OF RADIOLOGY * * *Final Report* * * DATE OF EXAM: May 13 2024 4:04PM STX 5555 - XR FOOT 3V AP/LAT/OBL LIAM / PROCEDURE REASON: multiple diagnoses * * * * Physician Interpretation * * * * Bilateral foot x-rays: HISTORY: Pain TECHNIQUE: 3 views of both feet are reviewed. COMPARISON: None RESULT: Osseous structures are intact, without evidence of an acute fracture. On the RIGHT, hallux valgus deformity is present. Mild osteophyte formation is present at the first metatarsal head. The remaining joint spaces are preserved. No osseous erosions are demonstrated. On the LEFT, mild hallux valgus deformity is present. Mild osteophytosis is present at the first metatarsophalangeal joint. The remaining joint spaces are preserved. No osseous erosions are demonstrated. DIVISION OF RADIOLOGY Provider, [facility] - 05/16/2024 * * *Final Report* * * DATE OF EXAM: May 13 2024 4:04PM STX 5555 - XR FOOT 3V AP/LAT/OBL LIAM / PROCEDURE REASON: multiple diagnoses * * * * Physician Interpretation * * * * Bilateral foot x-rays: HISTORY: Pain TECHNIQUE: 3 views of both feet are reviewed. COMPARISON: None RESULT: Osseous structures are intact, without evidence of an acute fracture. On the RIGHT, hallux valgus deformity is present. Mild osteophyte formation is present at the first metatarsal head. The remaining joint spaces are preserved. No osseous erosions are demonstrated. On the LEFT, mild hallux valgus deformity is present. Mild osteophytosis is present at the first metatarsophalangeal joint. The remaining joint spaces are preserved. No osseous erosions are demonstrated. IMPRESSION IMPRESSION: 1. 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 Medical Artist: [facility] Transcribe Date/Time: May 16 2024 7:39A Dictated by : VARUN NUGENT MD This examination was interpreted and the report reviewed and electronically signed by: VARUN NUGENT MD on May 16 2024 7:40AM EST [facility] XR Hand - bilateral PA and L ateral and Obliqueon 05-16-2024 IMPRESSION: 1. No significant arthropathy demonstrated. Medical Artist: [facility] Transcribe Date/Time: May 16 2024 7:38A Dictated by : VARUN NUGENT MD This examination was interpreted and the report reviewed and electronically signed by: VARUN NUGENT MD on May 16 2024 7:39AM EST DIVISION OF RADIOLOGY * * *Final Report* * * DATE OF EXAM: May 13 2024 4:05PM STX 5556 - XR HAND 3V PA/LAT/OBL LIAM / PROCEDURE REASON: multiple diagnoses * * * * Physician Interpretation * * * * Bilateral hand x-rays: HISTORY: Pain TECHNIQUE: 3 views of both hands were performed. RESULT: Osseous structures are intact, without evidence of an acute fracture. On the RIGHT, joint spaces are preserved. No osseous erosions are demonstrated. On the LEFT, joint spaces are preserved. No osseous erosions are demonstrated. DIVISION OF RADIOLOGY Provider, [facility] - 05/16/2024 * * *Final Report* * * DATE OF EXAM: May 13 2024 4:05PM STX 5556 - XR HAND 3V PA/LAT/OBL LIAM / PROCEDURE REASON: multiple diagnoses * * * * Physician Interpretation * * * * Bilateral hand x-rays: HISTORY: Pain TECHNIQUE: 3 views of both hands were performed. RESULT: Osseous structures are intact, without evidence of an acute fracture. On the RIGHT, joint spaces are preserved. No osseous erosions are demonstrated. On the LEFT, joint spaces are preserved. No osseous erosions are demonstrated. IMPRESSION IMPRESSION: 1. No significant arthropathy demonstrated. Medical Artist: [facility] Transcribe Date/Time: May 16 2024 7:38A Dictated by : VARUN NUGENT MD This examination was interpreted and the report reviewed and electronically signed by: VARUN NUGENT MD on May 16 2024 7:39AM EST [facility] XR Knee - bilateral 4 Viewso n 05-16-2024 IMPRESSION: 1. No significant arthropathy demonstrated. Medical Artist: [employer] Transcribe Date/Time: May 16 2024 7:41A Dictated by : VARUN NUGENT MD This examination was interpreted and the report reviewed and electronically signed by: VARUN NUGENT MD on May 16 2024 7:42AM [facility] DIVISION OF RADIOLOGY * * *Final Report* * * DATE OF EXAM: May 13 2024 4:04PM STX 5618 - XR KNEE 4V AP/PA/LAT/MERCH LIAM / PROCEDURE REASON: Polyarthralgia * * * * Physician Interpretation * * * * Bilateral knee x-rays: HISTORY: Pain TECHNIQUE: 4 views of both knees were performed. COMPARISON: None RESULT: Osseous structures are intact, without evidence of an acute fracture. On the RIGHT, joint spaces are preserved. There is no evidence of a joint effusion. On the LEFT, joint spaces are preserved. There is no evidence of a joint effusion. DIVISION OF RADIOLOGY Provider, [facility] - 05/16/2024 * * *Final Report* * * DATE OF EXAM: May 13 2024 4:04PM STX 5618 - XR KNEE 4V AP/PA/LAT/MERCH LIAM / PROCEDURE REASON: Polyarthralgia * * * * Physician Interpretation * * * * Bilateral knee x-rays: HISTORY: Pain TECHNIQUE: 4 views of both knees were performed. COMPARISON: None RESULT: Osseous structures are intact, without evidence of an acute fracture. On the RIGHT, joint spaces are preserved. There is no evidence of a joint effusion. On the LEFT, joint spaces are preserved. There is no evidence of a joint effusion. IMPRESSION IMPRESSION: 1. No significant arthropathy demonstrated. Medical Artist: [facility] Transcribe Date/Time: May 16 2024 7:41A Dictated by : VARUN NUGENT MD This examination was interpreted and the report reviewed and electronically signed by: VARUN NUGENT MD on May 16 2024 7:42AM EST [facility] XR Knee - bilateral 4 ViewsO rdered By: [facility] Provider on 05-16-2024 [facility] XR Sacroiliac Joint Viewson 05-16-2024 IMPRESSION: 1. No evidence of sacroiliitis. Medical Artist: [facility] Transcribe Date/Time: May 16 2024 7:38A Dictated by : VARUN NUGENT MD This examination was interpreted and the report reviewed and electronically signed by: VARUN NUGENT MD on May 16 2024 7:38AM EST DIVISION OF RADIOLOGY * * *Final Report* * * DATE OF EXAM: May 13 2024 4:05PM STX 5245 - XR SI JTS 2V AP PELV/MAGALLANES / PROCEDURE REASON: multiple diagnoses * * * * Physician Interpretation * * * * Sacroiliac joint x-rays: HISTORY: Pain. TECHNIQUE: AP and Magallanes views were obtained. RESULT: Osseous structures are intact, without evidence of an acute fracture. The sacroiliac joint spaces are maintained. DIVISION OF RADIOLOGY Provider, [facility] - 05/16/2024 * * *Final Report* * * DATE OF EXAM: May 13 2024 4:05PM STX 5245 - XR SI JTS 2V AP PELV/MAGALLANES / PROCEDURE REASON: multiple diagnoses * * * * Physician Interpretation * * * * Sacroiliac joint x-rays: HISTORY: Pain. TECHNIQUE: AP and Magallanes views were obtained. RESULT: Osseous structures are intact, without evidence of an acute fracture. The sacroiliac joint spaces are maintained. IMPRESSION IMPRESSION: 1. No evidence of sacroiliitis. Medical Artist: [employer] Transcribe Date/Time: May 16 2024 7:38A Dictated by : VARUN NUGENT MD This examination was interpreted and the report reviewed and electronically signed by: VARUN NUGENT MD on May 16 2024 7:38AM EST [facility] HARVINDER BY IFA SCREENon 05-13-20 24 Nuclear Ab Ql (S) Negative Normal Negative [facility] Comment on above: Order Comment: Speci camryn Type: BLOOD SPECIMENOrdering Facility: [facility] Address: [address] [place] [address] Result Comment: Anti -nuclear antibody test is used as an aid in diagnosis of systemic autoimmune diseases. Where positive and clinically warranted, follow-up using disease-specific testing is recommended. Low positive titers are not uncommon with advanced age, certain chronic infections, and malignancies among others. Test methodology: Indirect fluorescence immunoassay (IFA) using HEp-2 cells. Performed By: #### A NAIFS ####[facility] [id number] [place] [address] [place] B. burgdorferi IgG and IgM p irineo (S)on 05-13-2024 B. burgdorferi IgG+IgM Qn (S) Negative Normal Negative [facility] Comment on above: Order Comment: Dominick cowan Type: BLOOD SPECIMENOrdering Facility: [facility] Address: [address] [place] [address] Result Comment: Rece nt infection with B. burgdorferi sensu lato cannot be excluded if the specimen collected within four weeks after the onset of signs and symptoms or within six weeks after a known tick exposure. Clinical and epidemiological correlation is required. Performed By: #### 3 4942-3 ####[facility] [id number] [place] [address] [place] BETA 2 GLYCOPROTEIN, IGGon 0 05-13-2024 Beta 2 glycoprotein 1 IgG IA Qn <9 Normal <20 [facility] Comment on above: Order Comment: Dominick cowan Type: BLOOD SPECIMENOrdering Facility: [facility] Address: [address] [place] [address] Result Comment: <20 SGU Negative 20-80 SGU Low Positive >80 SGU High Positive These results were obtained with the [employer]ova QUANTA Lite B2 GPI IgG RAHUL. B2 GPI IgG values obtained with different manufacturers' assay methods may not be used interchangeably. The magnitude of the reported IgG levels cannot be correlated to an endpoint titer. Performed By: #### B ETA2M, 5076-5, [facility], 10642-9, BETA2G ####[facility]CL[facility] [id number] [place] [address] [place] BETA 2 GLYCOPROTEIN, IGMon 0 05-13-2024 Beta 2 glycoprotein 1 IgM IA Qn <9 Normal <20 [facility] Comment on above: Order Comment: Dominick [facility] Type: BLOOD SPECIMENOrdering Facility: [facility] Address: [address] [place] [address] Result Comment: <20 SMU Negative 20-80 SMU Low Positive >80 SMU High positive These results were obtained with the Inova QUANTA Lite B2 GPI IgM RAHUL. B2 GPI IgM values obtained with different manufacturers' assay methods may not be used interchangeably. The magnitude of the reported IgM levels cannot be correlated to an endpoint titer. Performed By: #### B ETA2M, 5076-5, CLAIR, 37361-8, BETA2G ####[facility]CL[facility] [id number] [place] [address] [place] C3 SerPl-mCncon 05-13-2024 Complement C3 [Mass/Vol] 100 mg/dL Normal 86-166 [facility] Comment on above: Order Comment: Dominick [facility] Type: BLOOD SPECIMENOrdering Facility: [facility] Address: [address] [place] [address] Performed By: #### 4 485-9, 70988-1, 1988-5, 61954-4 ####[facility]CLIA [id number] [place] [id number] [place] C4 SerPl-mCncon 05-13-2024 Complement C4 [Mass/Vol] 22 mg/dL Normal 13-46 [facility] Comment on above: Order Comment: Speci men Type: BLOOD SPECIMENOrdering Facility: [facility] Address: [address] [place] [address] Performed By: #### 2 276-4, 07421-2, 4498-2, 31440-4, 2777-1 ####[facility] [id number] [place] [address] [place] CARDIOLIPIN IGG ABSon 2023 Cardiolipin IgG IA Qn (S) <9.0 Normal <15.0 [facility] Comment on above: Order Comment: Speci camryn Type: BLOOD SPECIMENOrdering Facility: [facility] Address: [address] [place] [address] Result Comment: <15 GPL Negative 15-20 GPL Indeterminate >20 GPL Positive The following results were obtained with the Inova QUANTA Lite ZOILA IgG III RAHUL. Cardiolipin IgG values obtained with the different manufacturers' assay methods may not be used interchangeably. The magnitude of the reported IgG levels cannot be correlated to an endpoint titer. Performed By: #### B ETA2M, 5076-5, CARDIG, 59119-0, BETA2G ####[facility] [id number] [place] [address] [place] CARDIOLIPIN IGM ABSon 2023 Cardiolipin IgM IA Qn (S) <9.0 Normal <12.5 [facility] Comment on above: Order Comment: Speci men Type: BLOOD SPECIMENOrdering Facility: [facility] Address: [address] [place] [address] Result Comment: <12. 5 MPL Negative 12.5-20 MPL Indeterminate >20 MPL Positive The following results were obtained with the Inova QUANTA Lite ZOILA IgM III RAHUL. Cardiolipin IgM values obtained with the different manufacturers' assay methods may not be used interchangeably. The magnitude of the reported IgM levels cannot be correlated to an endpoint titer. ??? Performed By: #### C ARDIM ####[facility]CL[facility] [id number] [place] [address] [place] CBC W Auto Differential pane l (Bld)on 05-13-2024 Basophils (Bld) [#/Vol] [facility] Basophils/100 WBC (Bld) 0.4 % [facility] Differential cell count method Nom (Bld) Auto [facility] Eosinophils (Bld) [#/Vol] 0.16 10*3/uL [facility] Eosinophils/100 WBC (Bld) 2.9 % [facility] Erythrocyte distribution width (RBC) [Ratio] 12.7 % 11.5 - 15.0 % [facility] Hematocrit (Bld) [Volume fraction] 40.4 % 36.0 - 46.0 % [facility] Hemoglobin (Bld) [Mass/Vol] 13.3 g/dL 11.5 - 15.5 g/dL [facility] Immature granulocytes (Bld) [#/Vol] [facility] Immature granulocytes/100 WBC (Bld) 0.2 % [facility] Lymphocytes (Bld) [#/Vol] 1.41 10*3/uL [facility] Lymphocytes/100 WBC (Bld) 25.4 % [facility] MCH (RBC) [Entitic mass] 30.7 pg 26.0 - 34.0 pg [facility] MCHC (RBC) [Mass/Vol] 32.9 g/dL 30.5 - 36.0 g/dL [facility] MCV (RBC) [Entitic vol] 93.3 fL 80.0 - 100.0 fL [facility] Monocytes (Bld) [#/Vol] 0.39 10*3/uL [facility] Monocytes/100 WBC (Bld) 7.0 % [facility] Neutrophils (Bld) [#/Vol] 3.57 10*3/uL [facility] Neutrophils/100 WBC (Bld) 64.1 % [facility] Nucleated RBC (Bld) [#/Vol] [facility] Nucleated RBC/100 WBC (Bld) [Ratio] 0.0 % /100 WBC [facility] Platelet mean volume (Bld) [Entitic vol] 10.4 fL 9.0 - 12.7 fL [facility] Platelets (Bld) [#/Vol] 175 10*3/uL [facility] RBC (Bld) [#/Vol] 4.33 10*6/uL 3.90 - 5.2 0 m/uL [facility] WBC (Bld) [#/Vol] 5.56 10*3/uL [facility] Basophils (Bld) [#/Vol] 10*3/uL Normal <0.11 [facility] Comment on above: Order Comment: Speci men Type: BLOOD SPECIMENOrdering Facility: [facility] Address: [address] [place] [address] Performed By: #### 5 7021-8 ####[facility]CLIA [id number] [place] [address] [place] Basophils/100 WBC (Bld) 0.4 % Normal [facility] Comment on above: Order Comment: Speci men Type: BLOOD SPECIMENOrdering Facility: [facility] Address: [address] [place] [address] Performed By: #### 5 7021-8 ####[facility] [id number] [place] [address] [place] Differential cell count method Nom (Bld) Auto Normal [facility] Comment on above: Order Comment: Speci men Type: BLOOD SPECIMENOrdering Facility: [facility] Address: [address] [place] [address] Performed By: #### 5 7021-8 ####[facility] [id number] [place] [address] [place] Eosinophils (Bld) [#/Vol] 0.16 10*3/uL Normal <0.46 [facility] Comment on above: Order Comment: Speci men Type: BLOOD SPECIMENOrdering Facility: [facility] Address: [address] [place] [address] Performed By: #### 5 7021-8 ####[facility] [id number] [place] [address] [place] Eosinophils/100 WBC (Bld) 2.9 % Normal [facility] Comment on above: Order Comment: Speci men Type: BLOOD SPECIMENOrdering Facility: [facility] Address: [address] [place] [address] Performed By: #### 5 7021-8 ####[facility] [id number] [place] [address] [place] Erythrocyte distribution width (RBC) [Ratio] 12.7 % Normal 11.5-15.0 [facility] Comment on above: Order Comment: Speci men Type: BLOOD SPECIMENOrdering Facility: [facility] Address: [address] [place] [address] Performed By: #### 5 7021-8 ####[facility] [id number] [address] [place] Hematocrit (Bld) [Volume fraction] 40.4 % Normal 36.0-46.0 [facility] Comment on above: Order Comment: Speci men Type: BLOOD SPECIMENOrdering Facility: [facility] Address: [address] [place] [address] Performed By: #### 5 7021-8 ####[facility] [id number] [place] [address] [place] Hemoglobin (Bld) [Mass/Vol] 13.3 g/dL Normal 11.5-15.5 [facility] Comment on above: Order Comment: Speci men Type: BLOOD SPECIMENOrdering Facility: [facility] Address: [address] [place] [address] Performed By: #### 5 7021-8 ####[facility] [id number] [address] [place] Immature granulocytes (Bld) [#/Vol] 10*3/uL Normal <0.10 [facility] Comment on above: Order Comment: Speci men Type: BLOOD SPECIMENOrdering Facility: [facility] Address: [address] [place] [address] Performed By: #### 5 7021-8 ####[facility] [id number] [address] Immature granulocytes/100 WBC (Bld) 0.2 % Normal [facility] Comment on above: Order Comment: Speci men Type: BLOOD SPECIMENOrdering Facility: [facility] Address: [address] [place] [address] Performed By: #### 5 7021-8 ####[facility] [id number] [place] [address] [place] Lymphocytes (Bld) [#/Vol] 1.41 10*3/uL Normal 1.00-4.00 [facility] Comment on above: Order Comment: Speci men Type: BLOOD SPECIMENOrdering Facility: [facility] Address: [address] [place] [address] Performed By: #### 5 7021-8 ####[facility] [id number] [address] Lymphocytes/100 WBC (Bld) 25.4 % Normal [facility] Comment on above: Order Comment: Speci men Type: BLOOD SPECIMENOrdering Facility: [facility] Address: [address] [place] [address] Performed By: #### 5 7021-8 ####WENDYONESIMO [facility] LABCLIA [id number] [address] [place] MCH (RBC) [Entitic mass] 30.7 pg Normal 26.0-34.0 [facility] Comment on above: Order Comment: Speci men Type: BLOOD SPECIMENOrdering Facility: [facility] Address: [address] [place] [address] Performed By: #### 5 7021-8 ####TONY [facility] LABCLIA [id number] [address] [place] MCHC (RBC) [Mass/Vol] 32.9 g/dL Normal 30.5-36.0 [facility] Comment on above: Order Comment: Speci men Type: BLOOD SPECIMENOrdering Facility: [facility] Address: [address] [place] [address] Performed By: #### 5 7021-8 ####TONY [facility] LABCLIA [id number] [place] [address] [place] MCV (RBC) [Entitic vol] 93.3 fL Normal 80.0-100.0 [facility] Comment on above: Order Comment: Speci men Type: BLOOD SPECIMENOrdering Facility: [facility] Address: [address] [place] [address] Performed By: #### 5 7021-8 ####TONY [facility]CLIA [id number] [place] [address] [place] Monocytes (Bld) [#/Vol] 0.39 10*3/uL Normal <0.87 [facility] Comment on above: Order Comment: Speci men Type: BLOOD SPECIMENOrdering Facility: [facility] Address: [address] [place] [address] Performed By: #### 5 7021-8 ####TONY [facility]CLIA [id number] [place] [address] [place] Monocytes/100 WBC (Bld) 7.0 % Normal [facility] Comment on above: Order Comment: Speci men Type: BLOOD SPECIMENOrdering Facility: [facility] Address: [address] [place] [address] Performed By: #### 5 7021-8 ####WENDYONESIMO [facility] LABCLIA [id number] [place] [address] [place] Neutrophils (Bld) [#/Vol] 3.57 10*3/uL Normal 1.45-7.50 [facility] Comment on above: Order Comment: Speci men Type: BLOOD SPECIMENOrdering Facility: [facility] Address: [address] [place] [address] Performed By: #### 5 7021-8 ####TONY [facility]CLIA [id number] [place] [address] [place] Neutrophils/100 WBC (Bld) 64.1 % Normal [facility] Comment on above: Order Comment: Speci men Type: BLOOD SPECIMENOrdering Facility: [facility] Address: [address] [place] [address] Performed By: #### 5 7021-8 ####TONY [facility]CLIA [id number] [place] [address] [place] Nucleated RBC (Bld) [#/Vol] 10*3/uL Normal <0.01 [facility] Comment on above: Order Comment: Speci men Type: BLOOD SPECIMENOrdering Facility: [facility] Address: [address] [place] [address] Performed By: #### 5 7021-8 ####TONY [facility] LABIA [id number] [place] [address] [place] Nucleated RBC/100 WBC (Bld) [Ratio] 0.0 /100 WBC Normal [facility] Comment on above: Order Comment: Speci men Type: BLOOD SPECIMENOrdering Facility: [facility] Address: [address] [place] [address] Performed By: #### 5 7021-8 ####TONY [facility] LABCLIA [id number] [place] [address] [place] Platelet mean volume (Bld) [Entitic vol] 10.4 fL Normal 9.0-12.7 [facility] Comment on above: Order Comment: Speci men Type: BLOOD SPECIMENOrdering Facility: [facility] Address: [address] [place] [address] Performed By: #### 5 7021-8 ####TONY [facility]CLIA [id number] [place] [address] [place] Platelets (Bld) [#/Vol] 175 10*3/uL Normal 150-400 [facility] Comment on above: Order Comment: Speci men Type: BLOOD SPECIMENOrdering Facility: [facility] Address: [address] [place] [address] Performed By: #### 5 7021-8 ####STRONGNIKA [facility] LABCLIA [id number] [place] [address] [place] [facility] RBC (Bld) [#/Vol] 4.33 10*6/uL Normal 3.90-5.20 [facility] Comment on above: Order Comment: Speci men Type: BLOOD SPECIMENOrdering Facility: [facility] Address: [address] [place] [address] Performed By: #### 5 7021-8 ####TONY [facility]CLIA [id number] [place] [address] [place] WBC (Bld) [#/Vol] 5.56 10*3/uL Normal 3.70-11.00 [facility] Comment on above: Order Comment: Speci men Type: BLOOD SPECIMENOrdering Facility: [facility] Address: [address] [place] [address] Performed By: #### 5 7021-8 ####STRONGAnatolyONESIMO [facility] LABIA [id number] [place] [id number] [facility] CNOVon 05-13-2024 CNOV Office Visit (ISABEL ) JO VALENCIA ([id number]) 1965 F Date Time Provider Department 05/13/24 2:20 PM BROOK PABLO During your visit today, we recorded the following information about you: Temperature Pulse Blood pressure Weight 97.6 degrees 71/minute 107/72 65 kg Height 1.727 m Brook Pablo MD 05/13/2024 3:41 PM Signed Rheumatology CONSULTATION Date of Service: 05/13/2024 Patient: Jo Valencia Medical Record: [id number] Primary Care Physician: Murphy Henley MD Last Rheumatology visit: None at [facility] Referring Provider: Stuart Ponce [address] [facility] [address] Chief Complaint: Patient presents with: New Patient Jo Valencia is here today at request of EVELIA Ponce specifically for consultation of my opinion in regards to the chief complaint listed above. Correspondence will be shared today via the [employer] electronic health record or through regular mail, where applicable. HISTORY OF PRESENT ILLNESS Jo Valencia is a 58 year old White female with a history of previous iron deficiency anemia, anxiety/depression, CKD 3A, celiac, vitamin D deficiency who presents to rheumatology clinic for evaluation of positive HARVINDER. Today she presents to clinic with her Montse who assists with history. 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 She had her HARVINDER tested a few times which was consistently positive so rheumatology referral was requested. She notes a long history throughout her life of ups and downs with her health including episode of moderate to severe iron deficiency anemia of unknown etiology requiring wheelchair use for 6 months. Long history of hurting all over all the time and myofascial tissues. She notes hand pain particularly in DIPs and PIPs with morning stiffness which has somewhat improved since wearing wrist braces for carpal tunnel with associated numbness tingling. She has foot pain in the MTPs and in her arches which is worse at the end of the day, she does hike regularly. She began developing back pain in her 40s which is worse when standing for a long time. She does not trial medication due to multiple medication and sensitivities. More recently she has had about 3 episodes of chest pain that radiates to the neck which she wonders if it could be an electrolyte issue as she got better with saline in the ER and with an electrolyte solution prepared by her . Rheumatologic review of systems notable for subjective low-grade fevers with activity, weight fluctuations related to diet, dry eyes for decades, new onset dry mouth, sinus congestion with difficulty breathing requiring regular nasal spray, angular cheilitis, postexertional malaise, constipation. She notes she has been on a specialized diet for many years to help with inflammation and something related to histamine. She denies history of uveitis, photosensitivity, malar rash, sores in her nose or mouth, dysphagia, cough, nausea, vomiting, abdominal pain, diarrhea, blood in the urine or stool, red hot swollen joints, history of aspirations, Raynaud's. She has had 2 pregnancies, 2 children, no miscarriages, no history of blood clots. Pain Evaluation 03/03/2023 03/10/2023 07/21/2023 03/15/2024 05/13/2024 Pain Evaluation Pain Score 4 4 3 3 4 Location Neck Neck-Posterior Back-Lower Knee-Left Location Comment joints Description Aching;Sore;Stiffness Aching;Sore Aching Aching;Stiffness Duration (#) 6 Duration (Timeframe) Months Years Weeks Minutes Years Frequency Continuous Intermittent Continuous Intermittent Continuous Intervention Relaxation;Exercise;Heat;Mas rick;Pillow support;Positioning;Therapeu tic techniques-CPRP Reposition;Distractions;Exer cise;Heat;Music;Pillow support;Positioning Reposition;Exercise;Position ing PATIENT-ENTERED DATA PROMIS Assessments 12/08/2023 03/15/2024 05/06/2024 PROMIS Assessments Physical Health Percentile 31 53 Mental Health Percentile 34 53 Pain Score 4 4 Pain Interference Percentile 18 Fatigue Percentile 14 Physical Function Percentile 42 RAPID 3 Casey Activities of Daily Living 05/06/2024 10:04 PM Dress self? Without ANY difficulty Get in and out of bed? Without ANY difficulty Walk outdoors? Without ANY difficulty Wash and dry body? Without ANY difficulty Get in and out of car? Without ANY difficulty RAPID 3 Disease Activity Weighed Score Levels: 0 - 1: Near Remission 1.3 - 2.0: Low Severity 2.3 - 4.0: Moderate Severity 4.3 - 10.0: High Severity 05/06/2024 RAPID-3 Weighed Score RAPID 3 Weighed Score 3.11 (Moderate severity ) Review of Systems CONSTITUTION: Positive for: Fever Negative for: Recent weight change HEENT: Negative for: Nosebleeds, Mouth sores, Trouble swallowing and Dry mouth RESPIRATORY: Negative for: Cough, Shortness (more content not included)... Normal [facility] CRP SerPl-mCncon 05-13-2024 CRP [Mass/Vol] mg/L Normal <0.9 [facility] Comment on above: Order Comment: Speci men Type: BLOOD SPECIMENOrdering Facility: [facility] Address: [address] [place] [address] Performed By: #### 4 485-9, 05801-7, 1988-5, 02753-0 ####[facility] LABCLIA [id number] [place] [address] [place] Cardiolipin IgA Ser IA-aCnco n 05-13-2024 Cardiolipin IgA IA Qn (S) <9.0 Normal <12.0 [facility] Comment on above: Order Comment: Dominick camryn Type: BLOOD SPECIMENOrdering Facility: [facility] Address: [address] [place] [address] Result Comment: <12 APL Negative 12-20 APL Indeterminate >20 APL Positive The following results were obtained with the [employer] QUANTA Lite ZOILA IgA III RAHUL. Cardiolipin IgA values obtained with the different manufacturers' assay methods may not be used interchangeably. The magnitude of the reported IgA levels cannot be correlated to an endpoint titer. Performed By: #### B ETA2M, 5076-5, CARDIG, 99843-9, BETA2G ####[facility] LABIA [id number] [place] [address] [place] Centromere Ab IF Ql (S)on Centromere Ab Qn (S) <0.2 Normal <1.0 [facility] Comment on above: Order Comment: Dominick camryn Type: BLOOD SPECIMENOrdering Facility: [facility] Address: [address] [place] [address] Result Comment: Anti -centromere antibody is used as in aid in diagnosis of systemic sclerosis. Clinical correlation is required. Test Methodology: Multiplex flow immunoassay. Performed By: #### 5 1775-5, 75642-4, 87791-3, 56357-1, 71596-3, 41076-7, 29019-3, 99319-9 ####[facility] LABCLIA [id number] [place] [id number] [place] CENTROMERE AB QUAL Negative Normal Negative [facility] Comment on above: Order Comment: Speci men Type: BLOOD SPECIMENOrdering Facility: [facility] Address: [address] [place] [address] Performed By: #### 5 1775-5, 10929-8, 73525-8, 47419-4, 43966-7, 15011-7, 16731-4, 95283-3 ####[facility] LABCLIA [id number] [place] [address] [place] Chromatin Ab Qnon 05-13-2024 CHROMATIN AB QUAL Negative Normal Negative [facility] Comment on above: Order Comment: Speci men Type: BLOOD SPECIMENOrdering Facility: [facility] Address: [address] [place] [address] Performed By: #### 5 1775-5, 35431-9, 50096-9, 52619-5, 09816-4, 78193-6, 01020-6, 04523-7 ####[facility] LABCLIA [id number] [place] [address] [place] Chromatin Ab SerPl-aCncon Chromatin Ab Qn <0.2 Normal <1.0 [facility] Comment on above: Order Comment: Speci men Type: BLOOD SPECIMENOrdering Facility: [facility] Address: [address] [place] [address] Result Comment: Test Methodology: Multiplex flow immunoassay. Performed By: #### 5 1775-5, 41288-3, 16181-2, 94302-9, 46643-3, 59701-9, 72844-9, 03600-1 ####[facility] LABCLIA [id number] [place] [id number] [place] Comprehensive metabolic 2000 panelon 05-13-2024 Albumin [Mass/Vol] 4.7 g/dL Normal 3.9-4.9 [facility] Comment on above: Order Comment: Speci men Type: BLOOD SPECIMENOrdering Facility: [facility] Address: [address] [place] [address] Performed By: #### 4 485-9, 09731-1, 1988-02, ####[facility] LABIA [id number] [place] [address] [place] ALP [Catalytic activity/Vol] 58 U/L Normal 34-123 [facility] Comment on above: Order Comment: Speci men Type: BLOOD SPECIMENOrdering Facility: [facility] Address: [address] [place] [address] Performed By: #### 4 485-9, 04640-0, 1988-02, ####[facility] LABIA [id number] [place] [address] [place] ALT [Catalytic activity/Vol] 24 U/L Normal 7-38 [facility] Comment on above: Order Comment: Speci men Type: BLOOD SPECIMENOrdering Facility: [facility] Address: [address] [place] [address] Performed By: #### 4 485-9, 68693-5, 1988-02, ####[facility] LABIA [id number] [place] [address] [place] Anion gap [Moles/Vol] 12 mmol/L Normal 8-15 [facility] Comment on above: Order Comment: Speci men Type: BLOOD SPECIMENOrdering Facility: [facility] Address: [address] [place] [address] Performed By: #### 4 485-9, 20221-3, 1988-02, ####[facility] LABIA [id number] [place] [id number] [place] AST [Catalytic activity/Vol] 30 U/L Normal 13-35 [facility] Comment on above: Order Comment: Speci men Type: BLOOD SPECIMENOrdering Facility: [facility] Address: [address] [place] [address] Performed By: #### 4 485-9, 37640-1, 1988-02, ####[facility] LABCLIA [id number] [address] [address] [place] Bilirubin [Mass/Vol] 0.2 mg/dL Normal 0.2-1.3 [facility] Comment on above: Order Comment: Speci men Type: BLOOD SPECIMENOrdering Facility: [facility] Address: [address] [place] [address] Performed By: #### 4 485-9, 79449-3, 1988-02, ####[facility] LABCLIA [id number] [place] [id number] [place] Calcium [Mass/Vol] 9.5 mg/dL Normal 8.5-10.2 [facility] Comment on above: Order Comment: Speci men Type: BLOOD SPECIMENOrdering Facility: [facility] Address: [address] [place] [address] Performed By: #### 4 485-9, 73835-7, 1988-02, ####[facility] LABIA [id number] [place] [address] [place] Chloride [Moles/Vol] 104 mmol/L Normal 98-107 [facility] Comment on above: Order Comment: Speci men Type: BLOOD SPECIMENOrdering Facility: [facility] Address: [address] [place] [address] Performed By: #### 4 485-9, 73079-0, 1988-02, ####[facility] LABCLIA [id number] [place] [id number] [place] CO2 [Moles/Vol] 25 mmol/L Normal 22-30 [facility] Comment on above: Order Comment: Speci men Type: BLOOD SPECIMENOrdering Facility: [facility] Address: [address] [place] [address] Performed By: #### 4 485-9, 08775-6, ####[facility] LABIA [id number] [place] [id number] [place] Creatinine [Mass/Vol] 1.01 mg/dL High 0.58-0.96 [facility] Comment on above: Order Comment: Speci men Type: BLOOD SPECIMENOrdering Facility: [facility] Address: [address] [place] [address] Performed By: #### 4 485-9, 79236-0, ####[facility] [id number] [place] [address] [place] Creatinine and Glomerular filtration rate.predicted panel (S/P/Bld) 65 mL/min/1.73m??? Normal >=60 [facility] Comment on above: Order Comment: Dominick cowan Type: BLOOD SPECIMENOrdering Facility: [facility] Address: [address] [place] [address] Result Comment: Britta mated Glomerular Filtration Rate (eGFR) is calculated using the 2020 CKD-EPI creatinine equation. This equation utilizes serum creatinine, sex, and age as parameters. The creatinine assay has traceable calibration to isotope dilution-mass spectrometry. Refer to KDIGO guidelines for clinical interpretation. In patients with unstable renal function, e.g. those with acute kidney injury, the eGFR may not accurately reflect actual GFR. Performed By: #### 4 485-9, 17535-0, ####[facility] LABIA [id number] [address] [address] [place] Glucose [Mass/Vol] 98 mg/dL Normal 74-99 [facility] Comment on above: Order Comment: Prateeki men Type: BLOOD SPECIMENOrdering Facility: [facility] Address: [address] [place] [address] Result Comment: The [place] Diabetes Association (ADA) provides guidance for cutoff values for fasting glucose and random glucose. The ADA defines fasting as no caloric intake for at least 8 hours. Fasting plasma glucose results between 100 to 125 mg/dL indicate increased risk for diabetes (prediabetes). Fasting plasma glucose results greater than or equal to 126 mg/dL meet the criteria for diagnosis of diabetes. In the absence of unequivocal hyperglycemia, results should be confirmed by repeat testing. In a patient with classic symptoms of hyperglycemia or hyperglycemic crisis, random plasma glucose results greater than or equal to 200 mg/dL meet the criteria for diagnosis of diabetes. Reference: Standards of Medical Care in Diabetes 2016, [place] [employer]. Diabetes Care. 2016.39(Suppl 1). Performed By: #### 4 485-9, 46507-2, ####[facility] LABIA [id number] [place] [address] [place] Potassium [Moles/Vol] 4.2 mmol/L Normal 3.7-5.1 [facility] Comment on above: Order Comment: Speci men Type: BLOOD SPECIMENOrdering Facility: [facility] Address: [address] [place] [address] Performed By: #### 4 485-9, , 1988-02, ####[facility] LABIA [id number] [place] [address] [place] Protein [Mass/Vol] 7.5 g/dL Normal 6.3-8.0 [facility] Comment on above: Order Comment: Speci men Type: BLOOD SPECIMENOrdering Facility: [facility] Address: [address] [place] [address] Performed By: #### 4 485-9, , ####[facility] LABIA [id number] [place] [id number] [place] Sodium [Moles/Vol] 141 mmol/L Normal 136-144 [facility] Comment on above: Order Comment: Speci men Type: BLOOD SPECIMENOrdering Facility: [facility] Address: [address] [place] [address] Performed By: #### 4 485-9, 19691-5, 1988-02, ####[facility] LABCLIA [id number] [place] [address] [place] Urea nitrogen [Mass/Vol] 17 mg/dL Normal 7-21 [facility] Comment on above: Order Comment: Speci men Type: BLOOD SPECIMENOrdering Facility: [facility] Address: [address] [place] [address] Performed By: #### 4 485-9, 54176-4, 1988-02, ####[facility] LABCLIA [id number] [place] [address] [place] Cyclic citrullinated peptide IgG Qnon 05-13-2024 CCP ANTIBODY IGG QUALITATIVE Negative Normal Negative [facility] Comment on above: Order Comment: Speci men Type: BLOOD SPECIMENOrdering Facility: [facility] Address: [address] [place] [address] Performed By: #### B ETA2M, 5076-5, CARDIG, 68803-4, BETA2G ####[facility] LABCLIA [id number] [place] [address] [place] DNA double strand Ab IA Qn ( S)on 05-13-2024 DNA ANTIBODY 27 IU/mL Normal <=200 [facility] Comment on above: Order Comment: Speci men Type: BLOOD SPECIMENOrdering Facility: [facility] Address: [address] [place] [address] Result Comment: Nega tive: <200 IU/mL Equivocal: 201-300 IU/mL Moderate Positive: 301-800 IU/mL Strong Positive: >801 IU/mL Performed By: #### H ISTN, 70578-4 ####[facility] LABCLIA [id number] [place] [address] [place] DNA ANTIBODY QUALITATIVE INTERPRETATION Negative Normal Negative [facility] Comment on above: Order Comment: Speci men Type: BLOOD SPECIMENOrdering Facility: [facility] Address: [address] [place] [address] Performed By: #### H ISTN, 97684-6 ####[facility] LABIA [id number] [place] [address] [place] MICHAEL Jo1 Ab Ser-aCncon 2023 Adry-1 extractable nuclear Ab Qn (S) <0.2 Normal <1.0 [facility] Comment on above: Order Comment: Speci men Type: BLOOD SPECIMENOrdering Facility: [facility] Address: [address] [place] [address] Performed By: #### 5 5-5, 36201-7, 68953-5, 91639-0, 16314-2, 00801-0, 26072-5, 78931-5 ####[facility] LABIA [id number] [place] [address] [place] MICHAEL ENROLLMENT NURSE Ab Ser-aCncon 2023 Ribonucleoprotein extractable nuclear Ab Qn (S) <0.2 Normal <1.0 [facility] Comment on above: Order Comment: Speci men Type: BLOOD SPECIMENOrdering Facility: [facility] Address: [address] [place] [address] Performed By: #### 5 5-5, 69639-7, 75656-4, 62589-4, 48620-3, 31553-0, 85914-6, 61903-1 ####[facility] LABIA [id number] [place] [address] [place] MICHAEL SM IgG Ser-aCncon 2023 An extractable nuclear IgG Qn (S) <0.2 Normal <1.0 [facility] Comment on above: Order Comment: Speci men Type: BLOOD SPECIMENOrdering Facility: [facility] Address: [address] [place] [address] Performed By: #### 5 1775-5, 91010-8, 42200-7, 16567-9, 51712-5, 35741-1, 98356-9, 41079-2 ####[facility] LABIA [id number] [address] [place] MICHAEL SS-A Ab Ser-aCncon 05-13 Sjogrens syndrome-A extractable nuclear Ab Qn (S) <0.2 Normal <1.0 [facility] Comment on above: Order Comment: Speci men Type: BLOOD SPECIMENOrdering Facility: [facility] Address: [address] [place] [address] Result Comment: Test Methodology: Multiplex flow immunoassay. Performed By: #### 5 1775-5, 18985-5, 18143-7, 21363-1, 56634-0, 07277-5, 31594-3, 45817-3 ####[facility] [id number] [address] [place] MICHAEL SS-B Ab Ser-aCncon 05-13 Sjogrens syndrome-B extractable nuclear Ab Qn (S) <0.2 Normal <1.0 [facility] Comment on above: Order Comment: Speci men Type: BLOOD SPECIMENOrdering Facility: [facility] Address: [address] [place] [address] Result Comment: Anti -SSB (anti-La) antibody is used as an aid in diagnosis of a variety of systemic autoimmune diseases, especially for Sjogren's syndrome and systemic lupus erythematosus. Clinical correlation is required. Test Methodology: Multiplex flow immunoassay. Performed By: #### 5 1775-5, 52326-9, 03380-8, 16005-3, 82098-4, 59187-8, 66319-4, 65735-2 ####[facility] [id number] [place] [address] [place] ESR Westergren method (Bld) [Velocity]on 05-13-2024 ESR (Bld) [Velocity] 2 mm/h Normal 0-20 [facility] Comment on above: Order Comment: Speci men Type: BLOOD SPECIMENOrdering Facility: [facility] Address: [address] [place] [address] Performed By: #### 4 537-7 ####[facility] [id number] [place] [address] [place] Ferritin SerPl-mCncon 2023 Ferritin [Mass/Vol] 149.0 ng/mL Normal 14.7-205.1 [facility] Comment on above: Order Comment: Speci men Type: BLOOD SPECIMENOrdering Facility: [facility] Address: [address] [place] [address] Performed By: #### 2 276-4, 67961-3, 4498-2, 78165-7, 2777-1 ####[facility] [id number] [place] [address] [place] HISTONE IGG ABYon 05-13-2024 HISTONE 0.2 Units Normal <1.0 [facility] Comment on above: Order Comment: Speci camryn Type: BLOOD SPECIMENOrdering Facility: [facility] Address: [address] [place] [address] Performed By: #### Helen MEDINA, 24384-0 ####[facility] [id number] [place] [address] [place] HISTONE IGG QUALITATIVE Negative Normal [facility] Comment on above: Order Comment: Dominick cowan Type: BLOOD SPECIMENOrdering Facility: [facility] Address: [address] [place] [address] Result Comment: Anti -histone IgG antibody test is used as an aid in diagnosis of idiopathic and drug-induced systemic lupus erythematosus. It may be positive in other systemic autoimmune diseases. Clinical Correlation is required. Performed By: #### Helen MEDINA, 91774-5 ####[facility] [id number] [place] [address] [place] IMMUNOFIXATION SCREEN, SERUM on 05-13-2024 MPA RESULT No M protein is identified. Normal No M protein is identified. [facility] Comment on above: Order Comment: Speci men Type: BLOOD SPECIMENOrdering Facility: [facility] Address: [address] [place] [address] Performed By: #### I FESC ####[facility] [id number] [place] [id number] [facility] [place] STAFF REVIEW (MPA) Reviewed by Luciana vazquez MD [facility] Comment on above: Order Comment: Speci men Type: BLOOD SPECIMENOrdering Facility: [facility] Address: [address] [place] [address] Performed By: #### I FESC ####[facility] [id number] [place] [address] [place] Iron and Iron binding capaci ty panelon 05-13-2024 Iron [Mass/Vol] 96 ug/dL Normal 41-186 [facility] Comment on above: Order Comment: Speci men Type: BLOOD SPECIMENOrdering Facility: [facility] Address: [address] [place] [address] Performed By: #### 4 485-9, 91977-0, ####[facility] [id number] [place] [address] [place] Iron binding capacity [Mass/Vol] 305 ug/dL Normal 232-386 [facility] Comment on above: Order Comment: Speci men Type: BLOOD SPECIMENOrdering Facility: [facility] Address: [address] [place] [address] Performed By: #### 4 485-9, 63160-5, ####[facility] [id number] [place] [id number] [place] Iron/TIBC [Molar ratio] 31.5 % Normal 15.0-57.0 [facility] Comment on above: Order Comment: Speci men Type: BLOOD SPECIMENOrdering Facility: [facility] Address: [address] [place] [address] Performed By: #### 4 485-9, 81495-3, 1988-5, 89689-1 ####[facility] [id number] [place] [address] [place] Adry-1 extractable nuclear Ab Qn (S)on 05-13-2024 ADRY 1 ANTIBODY QUAL Negative Normal Negative [facility] Comment on above: Order Comment: Dominick cowan Type: BLOOD SPECIMENOrdering Facility: [facility] Address: [address] [place] [address] Result Comment: Anti -ADRY-1 antibody is used as an aid in diagnosis of polymyositis and dermatomyositis especially with pulmonary involvement. A negative result cannot rule out polymyositis or dermatomyositis. Clinical correlation is required. Test Methodology: Multiplex flow immunoassay. Performed By: #### 5 1775-5, 50822-7, 83897-7, 79869-6, 45938-2, 96525-0, 17765-5, 89794-5 ####[facility] [id number] [place] [address] [place] KAPPA/AMADOR,FREE,SERon 2023 Immunoglobulin light chains.kappa.free (S) [Mass/Vol] 14.1 mg/L Normal 3.3-19.4 [facility] Comment on above: Order Comment: Dominick cowan Type: BLOOD SPECIMEN [facility] Address: [address] [place] [address] Result Comment: Rare ly, increased serum free light chains levels may not be detected or accurately quantified due to prozone phenomenon or in high viscosity samples using this immunoturbidimetric assay. Correlation with other laboratory results and clinical findings is recommended. The [place] Free Light Chain was performed using the Binding Site Optilite immunoturbidimetric method. Result obtained with different assay methods or kits cannot be used interchangeably. Performed By: #### 1 989-3 #### [facility] CLIA [id number] [address] [place] [address] [place] Immunoglobulin light chains.kappa/Immunogl obulin light chains.lambda (S) [Mass ratio] 1.72 High 0.26-1.65 [facility] Comment on above: Order Comment: Speci men Type: BLOOD SPECIMEN [facility] Address: [address] [place] [address] Performed By: #### 1 989-3 #### [facility] CLIA [id number] [address] [place] [address] [place] Immunoglobulin light chains.lambda.free [Mass/Vol] 8.2 mg/L Normal 5.7-26.3 [facility] Comment on above: Order Comment: Speci men Type: BLOOD SPECIMEN [facility]ing [facility] Address: [address] [place] [address] Result Comment: Rare ly, increased serum free light chains levels may not be detected or accurately quantified due to prozone phenomenon or in high viscosity samples using this immunoturbidimetric assay. Correlation with other laboratory results and clinical findings is recommended. The [place] Free Light Chain was performed using the Binding Site Optilite immunoturbidimetric method. Result obtained with different assay methods or kits cannot be used interchangeably. Performed By: #### 1 989-3 #### [facility] CLIA [id number] [address] [place] [address] [place] LUPUS PANELon 05-13-2024 aPTT Coag (Bld) [Time] 33.8 s Normal 30.2-43.0 [facility] Comment on above: Order Comment: Speci men Type: BLOOD SPECIMEN [facility] Address: [address] [place] [address] Performed By: #### 1 989-3 #### [facility] CLIA [id number] [address] [place] [address] [place] aPTT Coag (Bld) [Time] 34.2 s Normal 31.5-38.3 [facility] Comment on above: Order Comment: Speci men Type: BLOOD SPECIMEN [facility] Address: [address] [place] [address] Performed By: #### 1 989-3 #### [facility] CLIA [id number] [address] [place] [address] [place] aPTT Coag (Bld) [Time] 27.9 s Normal 24.0-35.1 [facility] Comment on above: Order Comment: Speci men Type: BLOOD SPECIMEN [facility] Address: [address] [place] [address] Performed By: #### 1 989-3 #### [facility] CLIA [id number] [address] [place] [address] [place] aPTT W excess hexagonal phase phospholipid Coag (PPP) [Time] 47.9 seconds Normal 34.0-51.8 [facility] Comment on above: Order Comment: Speci men Type: BLOOD SPECIMEN [facility] Address: [address] [place] [address] Performed By: #### 1 989-3 #### [facility] CLIA [id number] [address] [place] [address] [place] Coagulation factor X activated act Coag Qn (PPP) <0.10 Normal <0.10 [facility] Comment on above: Order Comment: Speci men Type: BLOOD SPECIMEN [facility]ing [facility] Address: [address] [place] [address] Result Comment: This test was developed and its performance characteristics determined by [facility]'s Tee JKelsey [facility] [place] ([facility]). It has not been cleared or approved by the FDA. [facility] is regulated under CLIA as qualified to perform high-complexity testing. This test is used for clinical purposes. It should not be regarded as investigational or for research. Performed By: #### 1 989-3 #### [facility] CLIA [id number] [address] [place] [address] [place] Delta dRVVT Coag (PPP) [Time diff] 2.6 delta seconds Normal <7.1 [facility] Comment on above: Order Comment: Speci men Type: BLOOD SPECIMEN [facility] Address: [address] [place] [address] Performed By: #### 1 989-3 #### [facility] CLIA [id number] [address] [place] [address] [place] dRVVT Coag (PPP) [Time] 30.6 s Low 32.0-45.7 [facility] Comment on above: Order Comment: Speci men Type: BLOOD SPECIMEN [facility]ing [facility] Address: [address] [place] [address] Performed By: #### 1 989-3 #### [facility] CLIA [id number] [address] [place] [address] [place] dRVVT factor substitution immediately after 1:2 addition of normal plasma Coag (PPP) [Time] 31.9 seconds Low 32.0-45.7 [facility] Comment on above: Order Comment: Speci men Type: BLOOD SPECIMEN [facility] Address: [address] [place] [address] Performed By: #### 1 989-3 #### [facility] CLIA [id number] [address] [place] [address] [place] dRVVT W excess hexagonal phase phospholipid actual/normal Coag (PPP) [Relative time] 45.2 seconds Normal 34.2-47.9 [facility] Comment on above: Order Comment: Speci men Type: BLOOD SPECIMEN [facility] Address: [address] [place] [address] Performed By: #### 1 989-3 #### [facility] CLIA [id number] [address] [place] [address] [place] dRVVT/dRVVT.excess phospholipid Coag (PPP) [Ratio] 0.98 Normal <1.32 [facility] Comment on above: Order Comment: Speci men Type: BLOOD SPECIMEN [facility] Address: [address] [place] [address] Performed By: #### 1 989-3 #### [facility] CLIA [id number] [address] [place] [address] [place] PLATELET NEUT 0.0 Seconds Normal <1.9 [facility] Comment on above: Order Comment: Speci men Type: BLOOD SPECIMEN [facility] Address: [address] [place] [address] Performed By: #### 1 989-3 #### [facility] CLIA [id number] [address] [place] [address] [place] Thrombin time Coag (PPP) [Time] 17.7 seconds Normal <18.6 [facility] Comment on above: Order Comment: Speci men Type: BLOOD SPECIMEN [facility] Address: [address] [place] [address] Performed By: #### 1 989-3 #### [facility] CLIA [id number] [address] [place] [address] [place] MONOCLONAL PROT UR W/INTERPo n 05-13-2024 STAFF REVIEW (UMPA) Reviewed by Luciana vazquez MD Normal [facility] Comment on above: Order Comment: Speci men Type: URINE SPECIMENOrdering Facility: [facility] Address: [address] [place] [address] Performed By: #### U RMPA ####[facility] [id number] [place] [address] [place] UMPA RESULT No M protein is identified. Normal No M protein is identified. [facility] Comment on above: Order Comment: Speci men Type: URINE SPECIMENOrdering Facility: [facility] Address: [address] [place] [address] Performed By: #### U RMPA ####[facility] [id number] [place] [address] [place] Magnesium SerPl-mCncon 05-13 Magnesium [Mass/Vol] 2.1 mg/dL Normal 1.7-2.3 [facility] Comment on above: Order Comment: Speci men Type: BLOOD SPECIMENOrdering Facility: [facility] Address: [address] [place] [address] Performed By: #### 2 276-4, 62890-3, 4498-2, 15886-3, 2777-1 ####[facility] [id number] [place] [address] [place] No Panel Informationon 05-13 Radiology Study observation (narrative) [facility] PROTEIN ELECTROPHORESIS SERU M (P)on 05-13-2024 Albumin [Mass/Vol] 4.97 g/dL Normal 3.43-5.41 [facility] Comment on above: Order Comment: Speci men Type: BLOOD SPECIMENOrdering Facility: [facility] Address: [address] [place] [address] Performed By: #### L [id number] ####[facility] [id number] [place] [address] [place] Alpha 1 globulin Elph [Mass/Vol] 0.26 g/dL Normal 0.18-0.43 [facility] Comment on above: Order Comment: Speci men Type: BLOOD SPECIMENOrdering Facility: [facility] Address: [address] [place] [address] Performed By: #### L [id number] ####[facility] [id number] [place] [id number] [place] Alpha 2 globulin Elph [Mass/Vol] 0.49 g/dL Normal 0.42-0.98 [facility] Comment on above: Order Comment: Speci men Type: BLOOD SPECIMENOrdering Facility: [facility] Address: [address] [place] [address] Performed By: #### L [id number] ####[facility] [id number] [place] [address] [place] Beta globulin Elph [Mass/Vol] 0.62 g/dL Normal 0.61-1.17 [facility] Comment on above: Order Comment: Speci men Type: BLOOD SPECIMENOrdering Facility: [facility] Address: [address] [place] [address] Performed By: #### L [id number] ####[facility] [id number] [place] [address] [place] Gamma globulin Elph [Mass/Vol] 1.07 g/dL Normal 0.53-1.51 [facility] Comment on above: Order Comment: Speci men Type: BLOOD SPECIMENOrdering Facility: [facility] Address: [address] [place] [address] Performed By: #### L [id number] ####[facility] [id number] [place] [address] [place] M-PROTEIN LOCATION Normal [facility] Comment on above: Order Comment: Speci men Type: BLOOD SPECIMENOrdering Facility: [facility] Address: [address] [place] [address] Result Comment: Not Applicable. Performed By: #### L [id number] ####[facility] [id number] [place] [address] [place] Protein Fractions [Interp] No definitive M protein is identified on protein electrophoresis. Normal No definitive M protein is identified on protein electrophor esis. [facility] Comment on above: Order Comment: Speci men Type: BLOOD SPECIMENOrdering Facility: [facility] Address: [address] [place] [address] Performed By: #### L [id number] ####[facility] [id number] [address] STATES [facility] Protein.monoclonal Elph [Mass/Vol] 0.00 g/dL Normal <=0.00 [facility] Comment on above: Order Comment: Dominick cowan Type: BLOOD SPECIMENOrdering Facility: [facility] Address: [address] [place] [address] Performed By: #### L [id number] ####[facility] [id number] [address] SPE STAFF REVIEW Reviewed by Luciana vazquez MD [facility] Comment on above: Order Comment: Dominick cowan Type: BLOOD SPECIMENOrdering Facility: [facility] Address: [address] [place] [address] Performed By: #### L [id number] ####[facility] [id number] PT panel Coag (PPP)on 2023 INR Coag (PPP) [Relative time] 1.0 {INR} Normal 0.9-1.3 [facility] Comment on above: Order Comment: Dominick cowan Type: BLOOD SPECIMENOrdering Facility: [facility] Address: [address] [place] [address] Result Comment: Lindy min K Antagonist (VKA) Therapeutic Range: INR 2 to 3 (Target INR of 2.5) Note: For patients treated with VKA drugs, such as warfarin, the [place] [employer] 2012 Guideline recommends a therapeutic INR range of 2 to 3 (target INR of 2.5). This recommendation includes high-risk patients with antiphospholipid syndrome with previous arterial or venous thromboembolism, current-generation mechanical or bioprosthetic aortic heart valve replacement. Note: Patients with mechanical aortic valve replacement and additional risk factors for thromboembolic events (atrial fibrillation, previous thromboembolism, LV dysfunction, hypercoagulable conditions) or an older generation mechanical AVR (i.e., ball in-Cage) or any mechanical MVR should have a INR therapeutic range of 2.5 to 3.5 (target INR of 3). Guyatt GH, et al. Chest 2012, 141:7S-47S Roxanne RA, et al. [facility] 2017, 70: 252-289 Performed By: #### 3 4528-0, 51063-2 ####[facility] [id number] [place] [id number] [place] PT Coag (PPP) [Time] 10.9 s Normal 9.7-13.0 [facility] Comment on above: Order Comment: Speci men Type: BLOOD SPECIMENOrdering Facility: [facility] Address: [address] [place] [address] Performed By: #### 3 4528-0, 30005-7 ####[facility] [id number] [place] [address] [place] Phosphate SerPl-mCncon 05-13 Phosphate [Mass/Vol] 4.5 mg/dL Normal 2.7-4.8 [facility] Comment on above: Order Comment: Speci men Type: BLOOD SPECIMENOrdering Facility: [facility] Address: [address] [place] [address] Performed By: #### 2 276-4, 36054-7, 4498-2, 88296-5, 2777-1 ####[facility] [id number] [place] [address] [place] Prot SerPl-mCncon 05-13-2024 Protein [Mass/Vol] 7.4 g/dL Normal 6.3-8.0 [facility] Comment on above: Order Comment: Speci men Type: BLOOD SPECIMENOrdering Facility: [facility] Address: [address] [place] [address] Performed By: #### 2 885-2 ####[facility] [id number] [place] [id number] [place] Prot Ur-mCncon 05-13-2024 Protein (U) [Mass/Vol] mg/dL Normal 0-20 [facility] Comment on above: Order Comment: Speci men Type: URINE SPECIMENOrdering Facility: [facility] Address: [address] [place] [address] Performed By: #### 2 890-2, 2888-6 ####[facility] [id number] [place] [address] [place] Prot/Creat Uron 05-13-2024 Protein/Creatinine (U) [Mass ratio] mg/g Normal <0.15 [facility] Comment on above: Order Comment: Speci men Type: URINE SPECIMENOrdering Facility: [facility] Address: [address] [place] [address] Result Comment: Adul t Proteinuria Categories: <0.15 mg/mg is considered normal to mildly increased 0.15 - 0.50 mg/mg is considered moderately increased >0.50 mg/mg is considered severely increased KDIGO. (2013). KDIGO 2012 Clinical Practice Guideline for the Evaluation and Management of Chronic Kidney Disease. Official Journal of the International Society of Nephrology, 3(1), 1-150. Performed By: #### 2 890-2, 2888-6 ####[facility] [id number] [place] [address] [place] Protein/Creatinine (U) [Mass ratio]on 05-13-2024 Creatinine (U) [Mass/Vol] 34.3 mg/dL Normal 20.0-300.0 [facility] Comment on above: Order Comment: Speci men Type: URINE SPECIMENOrdering Facility: [facility] Address: [address] [place] [address] Performed By: #### 2 890-2, 2888-6 ####[facility] [id number] [place] [address] [place] Rheumatoid fact SerPl-aCncon 05-13-2024 Rheumatoid factor Qn [IU]/mL Normal <16 [facility] Comment on above: Order Comment: Speci men Type: BLOOD SPECIMENOrdering Facility: [facility] Address: [address] [place] [address] Performed By: #### 2 276-4, 22003-3, 4498-2, 28109-3, 2777-1 ####[facility] [id number] [place] [address] [place] Ribonucleoprotein extractabl e nuclear Ab Qn (S)on 05-13-2024 ANTI-ENROLLMENT NURSE QUAL Negative Normal Negative [facility] Comment on above: Order Comment: Speci men Type: BLOOD SPECIMENOrdering Facility: [facility] Address: [address] [place] [address] Performed By: #### 5 1775-5, 26965-9, 27876-5, 62745-6, 93744-9, 18316-2, 66230-9, 34088-2 ####[facility] [id number] [place] [address] [place] RIBOSOMAL ENROLLMENT NURSE QUAL Negative Normal Negative [facility] Comment on above: Order Comment: Speci [facility] Type: BLOOD SPECIMENOrdering Facility: [facility] Address: [address] [place] [address] Result Comment: Anti -Ribosomal RNA (Ribosomal P) antibody is used as an aid in diagnosis of systemic autoimmune diseases especially systemic lupus erythematosus and mixed connective tissue disease. Cross-reactivity with Anti-an antibody is not uncommon. Clinical correlation is required. Test Methodology: Multiplex flow immunoassay. Performed By: #### 5 1775-5, 05031-3, 22192-8, 26504-2, 58367-4, 46956-3, 99272-4, 23798-7 ####[facility] [id number] [place] [id number] [place] SCL-70 extractable nuclear I gG IA Qn (S)on 05-13-2024 SCLERODERMA AB QUAL Negative Normal Negative [facility] Comment on above: Order Comment: Speci men Type: BLOOD SPECIMENOrdering Facility: [facility] Address: [address] [place] [address] Performed By: #### 5 1775-5, 50140-0, 64067-6, 02239-2, 79580-9, 94227-9, 36102-4, 65741-1 ####[facility] [id number] [place] [address] [place] SCLERODERMA IGG AB 0.3 AI Normal <1.0 [facility] Comment on above: Order Comment: Speci men Type: BLOOD SPECIMENOrdering Facility: [facility] Address: [address] [place] [address] Result Comment: Scl- 70/Scleroderma antibody test is used as an aid in diagnosis of systemic sclerosis especially the diffuse cutaneous form. A negative result cannot rule out systemic sclerosis. The final interpretation should consider clinical picture and other test results such as anti-centromere antibody. Test Methodology: Multiplex flow immunoassay. Performed By: #### 5 1775-5, 74785-7, 60323-2, 78199-5, 70541-2, 06867-7, 08030-7, 64495-7 ####[facility] LABIA [id number] [place] [address] [place] Sjogrens syndrome-A extracta ble nuclear Ab Qn (S)on 05-13-2024 SSA ANTIBODY QUAL Negative Normal Negative [facility] Comment on above: Order Comment: Speci men Type: BLOOD SPECIMENOrdering Facility: [facility] Address: [address] [place] [address] Performed By: #### 5 1775-5, 42899-8, 88705-4, 38094-5, 80022-4, 84450-9, 87414-9, 59213-2 ####[facility] LABIA [id number] [place] [address] [place] Sjogrens syndrome-B extracta ble nuclear Ab Qn (S)on 05-13-2024 SSB ANTIBODY QUAL Negative Normal Negative [facility] Comment on above: Order Comment: Speci men Type: BLOOD SPECIMENOrdering Facility: [facility] Address: [address] [place] [address] Performed By: #### 5 1775-5, 62647-7, 48557-5, 78875-8, 10215-6, 58779-2, 01631-5, 49022-5 ####[facility]CLIA [id number] [place] [address] [place] An extractable nuclear Ig G Qn (S)on 05-13-2024 SM ANTIBODY QUAL Negative Normal Negative [facility] Comment on above: Order Comment: Speci men Type: BLOOD SPECIMENOrdering Facility: [facility] Address: [address] [place] [address] Result Comment: Anti -Sm (An) antibody is used as an aid in diagnosis of systemic lupus erythematosus and its presence is associated with renal disease. A negative result cannot rule out systemic lupus erythematosus. Clinical correlation is required. Test Methodology: Multiplex flow immunoassay. Performed By: #### 5 1775-5, 77950-7, 62532-4, 96121-4, 55092-6, 90598-1, 64498-6, 49978-3 ####[facility] LABIA [id number] [place] [address] [place] TRYPTASE BLOODon 05-13-2024 Tryptase [Mass/Vol] 4.7 ug/L Normal <8.4 [facility] Comment on above: Order Comment: Speci men Type: BLOOD SPECIMENOrdering Facility: [facility] Address: [address] [place] [address] Performed By: #### T RYPT ####[facility]IA [id number] [place] [address] [place] URINE PROTEIN ELECTROPHORESI S RANDOM (P)on 05-13-2024 Albumin Elph (U) [Mass fraction] 42.28 % Normal [facility] Comment on above: Order Comment: Speci men Type: URINE SPECIMEN Ordering Facility[facility] Address: [address] [place] [address] Performed By: #### L [id number] #### [facility] CLIA [id number] [address] [place] [address] [place] Alpha 1 globulin Elph (U) [Mass fraction] 6.86 % Normal [facility] Comment on above: Order Comment: Speci men Type: URINE SPECIMEN [facility]ing [facility] Address: [address] [place] [address] Performed By: #### L [id number] #### [facility] CLIA [id number] [address] [place] [address] [place] Alpha 2 globulin Elph (U) [Mass fraction] 15.60 % Normal [facility] Comment on above: Order Comment: Speci men Type: URINE SPECIMEN Ordering Facility: [facility] Address: [address] [place] [address] Performed By: #### L [id number] #### [facility] CLIA [id number] [address] [place] [address] [place] Beta globulin Elph (U) [Mass fraction] 20.90 % Normal [facility] Comment on above: Order Comment: Speci men Type: URINE SPECIMEN [facility]ing [facility] Address: [address] [place] [address] Performed By: #### L [id number] #### [facility] CLIA [id number] [address] [place] [address] [place] Gamma globulin Elph (U) [Mass fraction] 14.35 % Normal [facility] Comment on above: Order Comment: Speci men Type: URINE SPECIMEN Ordering [facility]: [facility] Address: [address] [place] [address] Performed By: #### L [id number] #### [facility] CLIA [id number] [address] [place] [address] [place] Protein Fractions Elph Jorge (U) [Interp] No definitive M protein is identified on protein electrophoresis. Normal No definitive M protein is identified on protein electrophor esis. [facility] Comment on above: Order Comment: Speci men Type: URINE SPECIMEN Ordering Facility: [facility] Address: [address] [place] [address] Performed By: #### L [id number] #### [facility] CLIA [id number] [address] [place] [address] [place] STAFF REVIEW (URINE ELECTRO) Reviewed by Luciana Daniel MD Normal [facility] Comment on above: Order Comment: Speci men Type: URINE SPECIMEN Ordering [facility] Address: [address] [place] [address] Performed By: #### L [id number] #### [facility] CLIA [id number] [address] [place] [address] [place] Urinalysis complete panel (U )on 05-13-2024 Bacteria LM.HPF (Urine sed) [#/Area] Negative Normal Negative [facility] Comment on above: Order Comment: Speci men Type: BLOOD SPECIMEN Ordering [facility] Address: [address] [place] [address] Performed By: #### 1 989-3 #### [facility] CLIA [id number] [address] [place] [address] [place] Bilirubin Ql (U) Negative Normal Negative [facility] Comment on above: Order Comment: Speci men Type: BLOOD SPECIMEN [facility]ing [facility] Address: [address] [place] [address] Performed By: #### 1 989-3 #### [facility] CLIA [id number] [address] [place] [address] [place] Clarity (Unsp spec) Clear Normal Clear [facility] Comment on above: Order Comment: Speci men Type: BLOOD SPECIMEN [facility]ing [facility] Address: [address] [place] [address] Performed By: #### 1 989-3 #### [facility] CLIA [id number] [facility] [place] [address] [place] Color (U) Yellow Normal Yellow [facility] Comment on above: Order Comment: Speci men Type: BLOOD SPECIMEN Ordering [facility] Address: [address] [place] [address] Performed By: #### 1 989-3 #### [facility] CLIA [id number] [address] [place] [address] [place] Epithelial cells LM.HPF (Urine sed) [#/Area] None Seen Normal [facility] Comment on above: Order Comment: Speci men Type: BLOOD SPECIMEN Ordering [facility]: [facility] Address: [address] [place] [address] Performed By: #### 1 989-3 #### [facility] CLIA [id number] [address] [place] [address] [place] Glucose Test strip (U) [Mass/Vol] Negative Normal Negative [facility] Comment on above: Order Comment: Speci men Type: BLOOD SPECIMEN Ordering [facility] Address: [address] [place] [address] Performed By: #### 1 989-3 #### [facility] CLIA [id number] [address] [place] [address] [place] Hemoglobin Ql (U) Negative Normal Negative [facility] Comment on above: Order Comment: Speci men Type: BLOOD SPECIMEN Ordering Facility: [facility] Address: [address] [place], [place] [address] Performed By: #### 1 989-3 #### [facility] CLIA [id number] [address] [place] [address] [place] Hyaline casts (Urine sed) [#/Area] 0 /[LPF] Normal 0 /LPF [facility] Comment on above: Order Comment: Speci men Type: BLOOD SPECIMEN Ordering Facility: [facility] Address: [address] [place] [address] Performed By: #### 1 989-3 #### [facility] CLIA [id number] [address] [place] [address] [place] Ketones Ql (U) Negative Normal Negative [facility] Comment on above: Order Comment: Speci men Type: BLOOD SPECIMEN Ordering [facility]: [facility] Address: [address] [place] [address] Performed By: #### 1 989-3 #### [facility] CLIA [id number] [address] [place] [address] [place] Leukocyte esterase Test strip Ql (U) Negative Normal Negative [facility] Comment on above: Order Comment: Speci men Type: BLOOD SPECIMEN Ordering [facility]: [facility] Address: [address] [place] [address] Performed By: #### 1 989-3 #### [facility] CLIA [id number] [address] [place] [address] [place] Nitrite Ql (U) Negative Normal Negative [facility] Comment on above: Order Comment: Speci men Type: BLOOD SPECIMEN Ordering [facility]: [facility] Address: [address] [place] [address] Performed By: #### 1 989-3 #### [facility] CLIA [id number] [address] [place] [address] [place] pH (U) 7.5 [pH] Normal <8.5 [facility] Comment on above: Order Comment: Speci men Type: BLOOD SPECIMEN Ordering [facility]: [facility] Address: [address] [place] [address] Performed By: #### 1 989-3 #### [facility] CLIA [id number] [address] [place] [address] [place] Protein (U) [Mass/Vol] Negative Normal Negative [facility] Comment on above: Order Comment: Speci men Type: BLOOD SPECIMEN [facility]ing [facility] Address: [address] [place] [address] Performed By: #### 1 989-3 #### [facility] CLIA [id number] [address] [place] [address] [place] RBC LM.HPF (Urine sed) [#/Area] 0-2 /HPF Normal 0-2 /HPF [facility] Comment on above: Order Comment: Speci men Type: BLOOD SPECIMEN Ordering [facility]: [facility] Address: [address] [place] [address] Performed By: #### 1 989-3 #### [facility] CLIA [id number] [address] [place] [address] [place] Specific gravity (U) [Rel density] 1.008 Normal 1.005-1.030 [facility] Comment on above: Order Comment: Speci men Type: BLOOD SPECIMEN Ordering [facility]: [facility] Address: [address] [place] [address] Performed By: #### 1 989-3 #### [facility] CLIA [id number] [address] [place] [address] [place] Urobilinogen Ql (U) 0.2 EU/dL Normal 0.2-1.0 EU/dL [facility] Comment on above: Order Comment: Speci men Type: BLOOD SPECIMEN [facility] Address: [address] [place] [address] Performed By: #### 1 989-3 #### [facility] CLIA [id number] [address] [place] [address] [place] WBC LM.HPF (Urine sed) [#/Area] 0-5 /HPF Normal 0-5 /HPF [facility] Comment on above: Order Comment: Speci men Type: BLOOD SPECIMEN [facility]ing [facility]: [facility] Address: [address] [place] [address] Performed By: #### 1 989-3 #### [facility] CLIA [id number] [address] [place] [id number] [place], [place] [id number] [place] XR FOOT 3V AP/LAT/OBL BILon 05-13-2024 XR FOOT 3V AP/LAT/OBL LIAM * * *Final Report* * * DATE OF EXAM: May 13 2024 4:04PM STX 5555 - XR FOOT 3V AP/LAT/OBL LIAM / PROCEDURE REASON: multiple diagnoses * * * * Physician Interpretation * * * * Bilateral foot x-rays: HISTORY: Pain TECHNIQUE: 3 views of both feet are reviewed. COMPARISON: None RESULT: Osseous structures are intact, without evidence of an acute fracture. On the RIGHT, hallux valgus deformity is present. Mild osteophyte formation is present at the first metatarsal head. The remaining joint spaces are preserved. No osseous erosions are demonstrated. On the LEFT, mild hallux valgus deformity is present. Mild osteophytosis is present at the first metatarsophalangeal joint. The remaining joint spaces are preserved. No osseous erosions are demonstrated. IMPRESSION: 1. 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 Medical Artist: PSCB Transcribe Date/Time: May 16 2024 7:39A Dictated by : VARUN NUGENT MD This examination was interpreted and the report reviewed and electronically signed by: VARUN NUGENT MD on May 16 2024 7:40AM EST [id number] Normal [facility] XR HAND 3V PA/LAT/OBL BILon 05-13-2024 XR HAND 3V PA/LAT/OBL LIAM * * *Final Report* * * DATE OF EXAM: May 13 2024 4:05PM STX 5556 - XR HAND 3V PA/LAT/OBL LIAM / PROCEDURE REASON: multiple diagnoses * * * * Physician Interpretation * * * * Bilateral hand x-rays: HISTORY: Pain TECHNIQUE: 3 views of both hands were performed. RESULT: Osseous structures are intact, without evidence of an acute fracture. On the RIGHT, joint spaces are preserved. No osseous erosions are demonstrated. On the LEFT, joint spaces are preserved. No osseous erosions are demonstrated. IMPRESSION: 1. No significant arthropathy demonstrated. Medical Artist: [facility] Transcribe Date/Time: May 16 2024 7:38A Dictated by : VARUN NUGENT MD This examination was interpreted and the report reviewed and electronically signed by: VARUN NUGENT MD on May 16 2024 7:39AM EST [id number] Normal [facility] XR KNEE 4V AP/PA/LAT/MERCH B ILon 05-13-2024 XR KNEE 4V AP/PA/LAT/MERCH LIAM * * *Final Report* * * DATE OF EXAM: May 13 2024 4:04PM STX 5618 - XR KNEE 4V AP/PA/LAT/MERCH LIAM / PROCEDURE REASON: Polyarthralgia * * * * Physician Interpretation * * * * Bilateral knee x-rays: HISTORY: Pain TECHNIQUE: 4 views of both knees were performed. COMPARISON: None RESULT: Osseous structures are intact, without evidence of an acute fracture. On the RIGHT, joint spaces are preserved. There is no evidence of a joint effusion. On the LEFT, joint spaces are preserved. There is no evidence of a joint effusion. IMPRESSION: 1. No significant arthropathy demonstrated. Medical Artist: [facility] Transcribe Date/Time: May 16 2024 7:41A Dictated by : VARUN NUGENT MD This examination was interpreted and the report reviewed and electronically signed by: VARUN NUGENT MD on May 16 2024 7:42AM EST [id number] Normal [facility] XR SI JTS 2V AP PELV/FERGUSO Non 05-13-2024 XR SI JTS 2V AP PELV/MAGALLANES * * *Final Report* * * DATE OF EXAM: May 13 2024 4:05PM STX 5245 - XR SI JTS 2V AP PELV/MAGALLANES / PROCEDURE REASON: multiple diagnoses * * * * Physician Interpretation * * * * Sacroiliac joint x-rays: HISTORY: Pain. TECHNIQUE: AP and Magallanes views were obtained. RESULT: Osseous structures are intact, without evidence of an acute fracture. The sacroiliac joint spaces are maintained. IMPRESSION: 1. No evidence of sacroiliitis. Medical Artist: [facility] Transcribe Date/Time: May 16 2024 7:38A Dictated by : VARUN NUGENT MD This examination was interpreted and the report reviewed and electronically signed by: VARUN NUGENT MD on May 16 2024 7:38AM EST [id number] Normal [facility] aPTT PPPon 05-13-2024 aPTT Coag (PPP) [Time] 27.5 s Normal 23.0-32.4 [facility] Comment on above: Order Comment: Speci men Type: BLOOD SPECIMENOrdering Facility: [facility] Address: [address] [place] [address] Performed By: #### 3 4528-0, 09634-4 ####[facility] [id number] [place] [address] [place] cCP IgG SerPl-aCncon 024 Cyclic citrullinated peptide IgG Qn <15 Normal <20 [facility] Comment on above: Order Comment: Speci men Type: BLOOD SPECIMENOrdering Facility: [facility] Address: [address] [place] [address] Performed By: #### B ETA2M, 5076-5, CARDIG, 72143-4, BETA2G ####[facility] [id number] [place] [address] [place] CNCOon 05-06-2024 CNCO HNO ID: [id number] Author: COORDINATOR, MAMMOGRAPHY, ? Service: ? Author Type: Physician Type: Letter Filed: 05/06/2024 14:18 Note Text: May 09, 2024 PID: [id number] oJ [address] [place] [address] Dear Ms. Valencia, We are pleased to inform you that the results of your recent breast imaging exam on 05/05/2024 are normal. Breast tissue can be either dense or not dense. Dense tissue makes it harder to find breast cancer on a mammogram and also raises the risk of developing breast cancer. Your breast tissue is dense. In some people with dense tissue, other imaging tests in addition to a mammogram may help find cancers. Talk to your healthcare provider about breast density, risks for breast cancer, and your individual situation. Early detection of cancer is very important. We also understand recommendations regarding breast cancer screening are controversial. Please discuss with your primary care provider which strategy is best for you and whether a mammogram is right for you. Your imaging studies and report will be kept on file at [facility] as part of your permanent medical record and are available for your continuing care. Thank you for allowing us to help in meeting your health care needs. Sincerely, Dr. Monet Interpreting Radiologist [facility] (Normal over 40) Normal [facility] GEOVANNI SCREENING W TOMOon 05-05 GEOVANNI SCREENING W MO * * *Final Report* * * DATE OF EXAM: May 05 2024 1:21PM WRW 0582 - GEOVANNI SCREENING W [place] / PROCEDURE REASON: Screening mammogram for breast cancer * * * * Physician Interpretation * * * * RESULT: #[id number] - [facility] SCREENING W [place] BILATERAL DIGITAL SCREENING MAMMOGRAM TOMOSYNTHESIS WITH CAD: 05/05/2024 HISTORY: Screening Mammogram For Breast Cancer /Screening Mammogram with MO - patient reports NO breast symptoms /priors available for comparison. RESULT: TECHNIQUE: The study was acquired using full field digital technology and interpreted from soft copy. Digital Breast Tomosynthesis (DBT) images were obtained and used to assist in the interpretation of this examination. Current study was also evaluated with a Computer Aided Detection (CAD). Comparison is made to exams dated: 03/27/2023 mammogram, 02/17/2022 mammogram, and 01/07/2021 mammogram - [facility]. The breasts are extremely dense, which lowers the sensitivity of mammography. No significant masses, calcifications, or other findings are seen in either breast. There has been no significant interval change. IMPRESSION: NEGATIVE There is no mammographic evidence of malignancy. A 1 year screening mammogram is recommended. Mansoor ruvalcaba/minerva:05/06/2024 14:18:52 Press Set Up Person(s): RT Lauren(Jaimee)(M), [facility] letter sent: Normal over 40 Mammogram BI-RADS: Category 1: Negative Multiple national specialty organizations have released breast cancer screening guidelines for women at average risk for developing breast cancer - guidelines that are based on both evidence and opinion, yet differ on when to start and how often to screen for breast cancer. With representation from Breast Imaging, Internal Medicine, Women's Health, Family Medicine, and Medical/Surgical Oncology, the [facility] has carefully reviewed the data and reached the following consensus: 1) All women should engage in shared decision-making with their providers to decide when to start and how often to screen; 2) All women should have the opportunity to start screening mammography at age 40; 3) For women ages 45-55, we recommend annual screening mammograms; 4) For women ages 55 and over, we support both the transition from an annual to a biennial interval if this aligns more with patient's values and preferences, or continuation with annual screening; 5) All women should discuss with their providers when to stop screening mammograms. Medical Artist: Minerva Transcribe Date/Time: May 05 2024 11:19A Dictated by: MANSOOR MONET MD This examination was interpreted and the report reviewed and electronically signed by: MANSOOR MONET MD on May 06 2024 2:18PM EST [id number] Normal [facility] CNOVon 03-22-2024 CNOV Office Visit (INTMWS ) JO VALENCIA ([id number]) 1965 F Date Time Provider Department 03/22/24 3:40 PM MURPHY HENLEY INTMWS During your visit today, we recorded the following information about you: Temperature Pulse Respiration Blood pressure 97.5 degrees 68/minute 18/minute 112/62 Weight 64 kg Murphy Henley MD 04/28/2024 12:16 PM Signed This note was created using [employer] Blair[employer]. Subjective Jo Valencia is a 58 year old female. Patient presents with: F/U 6 months: Labs prior SUBJECTIVE: Jo Valencia is a 58 year old year old lady here today for 6 month follow up appointment for review of medical conditions. Discussed derm for screening. Mother had basal cell cancer. Clinically euthyroid. Taking extra 15mg some days had helped but pharmacy would not fill the way it was written (probably since RX said self adjusts). Some weeks might need 3 days and other days one per week. Takes 60 mg daily. Noted felt better with getting TSH closer to 2 range. Will see rheumatology in May. Follow up on elevated HARVINDER. Doing acupuncture--has helped with renal function. 64 ounces of water at least. Knee pain. After in uncomfortable position for a while. PAST MEDICAL HISTORY Diagnosis Date Anemia 02/03/2012 [...] ORAL) Take by mouth once daily. Ipratropium [place] (ATROVENT) 21 mcg (0.03 %) nasal spray Use 2 Sprays in the nose every 12 hours as needed. Miscellaneous Medical Supply Yfq-Hnf-Chificj D capsules--takes several per day to get adequate calcium and magnesium dose high enough to control leg cramps B Complex Vitamins capsule Take 1 capsule by mouth once daily. thyroid (ARMOUR THYROID) 15 mg tablet Take this once daily per week. Take this in additon to the 60 mg daily. Self decreased. clonazePAM orally disintegrating (KLONOPIN WAFER) 0.125 mg disintegrating tablet Take 1 tablet by mouth once daily as needed for up to 14 days. No current facility-administered medications for this visit. Review of Systems Objective BP 112/62 Pulse 68 Temp 36.4 ?C (97.5 ?F) Resp 18 Wt 64 kg (141 lb) LMP 07/03/2022 (Approximate) SpO2 98% BMI 21.13 kg/m? Physical Exam Constitutional: Appearance: Normal appearance. HENT: Head: Normocephalic. Eyes: Conjunctiva/sclera: Conjunctivae normal. Cardiovascular: Rate and Rhythm: Normal rate and regular rhythm. Heart sounds: Normal heart sounds. Pulmonary: Effort: Pulmonary effort is normal. Breath sounds: Normal breath sounds. Musculoskeletal: Right lower leg: No edema. Left lower leg: No edema. Skin: General: Skin is warm and dry. Neurological: General: No focal deficit present. Mental Status: She is alert and oriented to person, place, and time. Psychiatric: Mood and Affect: Mood normal. Behavior: Behavior normal. Thought Content: Thought content normal. Judgment: Judgment normal. Latest Ref Rng 03/14/2024 TSH 0.270 - 4.200 mIU/L 2.990 Free T4 0.9 - 1.7 ng/dL 0.9 Free T3 2.3 - 4.1 pg/mL 3.6 Review[address] labs done at [facility] for other provider. eGFR 52 Latest Ref Rng 05/30/2019 03/27/2020 02/05/2022 04/09/2022 06/02/2022 10/01/2022 09/01/2023 12/10/2023 Protein, Total 6.3 - 8.0 g/dL 7.2 7.2 7.1 Albumin 3.9 - 4.9 g/dL 4.5 4.7 4.6 Calcium 8.5 - 10.2 mg/dL 9.6 9.3 9.7 9.6 9.5 9.6 9.4 9.7 Bilirubin, Total 0.2 - 1.3 mg/dL 0.4 0.4 0.2 Alkaline Phosphatase 34 - 123 U/L 42 48 56 AST 13 - 35 U/L 22 21 19 Glucose 74 - 99 mg/dL 76 97 92 96 91 103 (H) 88 88 BUN 7 - 21 mg/dL 13 12 16 23 (H) 18 14 15 16 Creatinine 0.58 - 0.96 mg/dL 0.98 (H) 0.91 1.14 (H) 1.11 (H) 1.12 (H) 1.18 (H) 1.06 (H) 0.96 Sodium 136 - 144 mmol/L 139 140 138 141 138 140 141 139 Potassium 3.7 - 5.1 mmol/L 4.0 4.3 4.2 4.2 4.5 4.3 4.0 3.9 Chloride 97 - 105 mmol/L 103 101 101 101 103 103 103 101 CO2 22 - 30 mmol/L 25 26 30 26 27 30 29 27 Anion Gap 9 - 18 mmol/L 11 13 7 (L) 14 8 (L) 7 (L) 9 11 ALT 7 - 38 U/L 14 13 14 eGFR- >60 >60 eGFR-All Other Races . 59 >60 eGFR >=60 mL/min/1.73m? 57 (L) 58 (L) 58 (L) 54 (L) 61 69 Legend: (H) High (L) Low Assessment and Plan Encounter Diagnosis ICD-10-CM 1. Acquired hypothyroidism E03.9 THYROID STIMULATING HORMONE T4 FREE/FREE THYROXINE T3, FREE Continue present management. Noted felt ronit (more content not included)... Normal [facility] T3Free SerPl-mCncon 03-14-20 24 Free T3 [Mass/Vol] 3.6 pg/mL Normal 2.3-4.1 [facility] Comment on above: Order Comment: Speci men Type: BLOOD SPECIMENOrdering Facility: [facility] Address: [address] [place] [address] Performed By: #### 3 024-7, 3016-3, 3051-0 ####[facility] [id number] [place] [address] [place] T4 Free SerPl-mCncon 024 Free T4 [Mass/Vol] 0.9 ng/dL Normal 0.9-1.7 [facility] Comment on above: Order Comment: Speci men Type: BLOOD SPECIMENOrdering Facility: [facility] Address: [address] [place] [address] Performed By: #### 3 024-7, 3016-3, 3051-0 ####[facility] [id number] [place] [address] [place] TSH SerPl-aCncon 03-14-2024 TSH Qn 2.990 m[IU]/L Normal 0.270-4.200 [facility] Comment on above: Order Comment: Speci men Type: BLOOD SPECIMENOrdering Facility: [facility] Address: [address] [place] [address] Performed By: #### 3 024-7, 3016-3, 3051-0 ####[facility] [id number] [facility] [id number] [id number] [place] STRESS ECHO TREADMILLon 04-0 STRESS ECHO TREADMILL Stress Hot Molder Report: Stress [facility] Date of service: 01/07/2024 10:17:03 AM Supervising physician: Unique Moreno MD PATIENT: Name: MRS. JO VALENCIA Age: 58 years Gender: F The supervising physician was in the department and immediately available. Final Echocardiography Report: Stress [facility] Date of service: 01/07/2024 10:17:03 AM Ordering physician: STUART PONCE Indication: CP, Detection of CAD Technologist: Oscar Arriola [facility] Interpreting physician: Roxanne Zuniga MD PATIENT: Name: MRS. JO VALENCIA : 1965 Age: 58 years Gender: F Primary rhythm: sinus. Height: 172.72 cm BSA: 1.77 m Weight: 65.32 kg BMI: 21.9 kg/m Heart rate 62 bpm Blood pressure 116/75 mmHg Color Doppler was utilized to interrogate the cardiac valves assessed and spectral Doppler was utilized to determine the flow velocities and pressure gradients reported in this exam. MEASUREMENTS: Value Indexed Normal Left atrium diameter 2.5 cm (2D) Left atrial volume 39 ml (biplane A-L) 22 ml/m Andrade <= 34 LV ID (diastole) 4.0 cm (2D) 2.25 cm/m LV ID (systole) 2.8 cm (2D) 1.58 cm/m IVS, leaflet tips 0.5 cm (2D) Posterior wall thickness 0.8 cm (2D) Left ventricular mass 72 g (2D) 41 g/m LV stroke volume 58 ml (2D biplane) LV end diastolic volume 89 ml (2D biplane) 50.5 ml/m 29<=EDVi<62 LV end systolic volume 31 ml (2D biplane) 17.7 ml/m Ejection Fraction 65 % (2D biplane) EF > 54 FINDINGS: LEFT VENTRICLE The left ventricle is normal in size. Left ventricular systolic function is normal. Normal left ventricular diastolic function. Mitral annular lateral E/e': 8.6. Mitral annular septal E/e': 9.7. Wall Motion: Rest: All scored segments are normal. Stress: All scored segments are normal. RIGHT VENTRICLE The right ventricle is normal in size. Right ventricular systolic function is normal. LEFT ATRIUM The left atrial cavity is normal in size. RIGHT ATRIUM The right atrial cavity is normal in size. MITRAL VALVE The mitral valve leaflets are structurally normal. There is trace mitral valve regurgitation. The pressure half time is 54 msec. The peak mitral E/A ratio is 1.59. The average mitral E/e' ratio is 9.1. The mitral flow deceleration time is 186 msec. TRICUSPID VALVE The tricuspid valve leaflets are structurally normal. There is mild (1+) tricuspid valve regurgitation. AORTIC VALVE The aortic valve cusps are structurally normal. There is no aortic valve stenosis. There is no aortic valve regurgitation. Tricuspid aortic valve. PULMONIC VALVE The pulmonic valve cusps are structurally normal. PULMONARY ARTERIES The pulmonary arteries are unseen or not interrogated. STRESS ECHO Peak HR 169 bpm. (105 % MPHR) Peak BP 160 mmHg/78 mmHg. The left ventricular cavity size is decreased with stress. Rest Stress TR velocity 182.2 cm/s 199.0 cm/s E/e' average 9.11 10.11 CONCLUSIONS: - Exam indication: CP, Detection of CAD - The exercise stress echo was negative for ischemia at 105 % of MPHR (8.3 METS). No regional wall motion abnormality seen at heart rate achieved. - The left ventricle is normal in size. Left ventricular systolic function is normal. EF = 65 5% (2D biplane). Normal left ventricular diastolic function. - The right ventricle is normal in size. Right ventricular systolic function is normal. - Mild (1+) tricuspid valve regurgitation. - Exam was compared with the prior CC echocardiographic exam performed on 09/25/2009. There is no significant change. Final Stress ECG Report: Stress [facility] Date of service: 01/07/2024 10:17:03 AM Ordering physician: STUART PONCE criminal research specialist: Lola Clark [address] Stenographer: Samantha Lyle Interpreting physician: Roxanne Zuniga MD Patient name: MRS. JO VALENCIA Age: 58 years Gender: F Height: 172.72 cm BSA: 1.77 m Weight: 65.32 kg BMI: 21.9 kg/m Indication: Chest pressure / Chest tightness Stress ECG Conclusion: Conclusion: Normal with exception due to borderline ST changes Stress ECG Summary: The patient's resting heart rate was 62 bpm and blood pressure was 116/75 mmHg. The patient exercised according to the Geovanni protocol. The estimated end-exercise MET level achieved using the FRIEND equation was 8.3, which is within the 75th to 90th percentile for age and sex. The estimated end-exercise MET level achieved using the previous ACSM equation was 10.2. The test was terminated due to end of protocol and the total exercise ti (more content not included)... Normal [facility] 01-06-2024 [facility] Telephone (CDLBME) JO VALENCIA ([id number]) 1965 F Date Time Provider Department 01/06/24 SAMANTHA LYLE During your visit today, we recorded the following information about you: Samantha Lyle RN 01/06/2024 2:07 PM Signed Left message regarding reminder for stress test tomorrow and given instructions. Allergies As of Date: 01/06/2024 Noted Allergy Reaction ALMOND 07/19/2010 14 - Other: See Comments Comments: migraine CICLOPIROX 03/12/2016 4 - Hives Comments: Hives Date Reviewed: 12/10/2023 Reviewed by: Martha Longoria LPN - Fully Assessed Reason for Visit: Reminder Call [[id number]] Prescriptions as of 01/06/2024 - thyroid, pork, (ARMOUR THYROID) 60 mg tablet Take 1 tablet by mouth once daily. - thyroid (ARMOUR THYROID) 15 mg tablet Take this once daily two days per week. Take this in additon to the 60 mg daily - Lactobac no.41/Bifidobact no.7 (PROBIOTIC-10 ORAL) Take by mouth once daily. - Ipratropium [place] (ATROVENT) 21 mcg (0.03 %) nasal spray Use 2 Sprays in the nose every 12 hours as needed. - Miscellaneous Medical Supply Gup-Lrs-Ekhrsdq D capsules--takes several per day to get adequate calcium and magnesium dose high enough to control leg cramps - clonazePAM orally disintegrating (KLONOPIN WAFER) 0.125 mg disintegrating tablet Take 1 tablet by mouth once daily as needed for up to 14 days. - B Complex Vitamins capsule Take 1 capsule by mouth once daily. Problem List As Of Date 01/06/2024 Noted Resolved CELIAC DISEASE [K90.0] Vitamin D deficiency [E55.9] 03/06/2008 Orthostatic hypotension [I95.1] 09/14/2009 08/19/2016 Menorrhagia [N92.0] 02/03/2012 08/19/2016 Thickened endometrium [R93.89] 06/22/2012 08/19/2016 POTS (postural orthostatic tachycardia syndrome*06/28/2013 11/15/2020 Acquired hypothyroidism [E03.9] 07/29/2015 Iron deficiency anemia [D50.9] 07/29/2015 Depression with anxiety [F41.8] 11/10/2015 Migraine with aura and without status migrainos* History of orthostatic hypotension [Z86.79] Stage 3a chronic kidney disease (HCC) [N18.31] 07/28/2023 Encounter Status:Closed by SAMANTHA LYLE on 01/06/24 [facility] Absolute lymphocyte counton 12-28-2023 Lymphocytes Auto (Unsp spec) [#/Vol] 1.03 10*3/uL 0.83-4.51 [facility] Automated lymphocyte count a s percentage of total leukocyteson 12-28-2023 Lymphocytes/100 WBC Auto (Unsp spec) 22.9 % 19-41 [facility] Basophil percentageon 2023 Basophils/100 WBC (Bld) 0.7 % 0-1 [facility] Bilirubin [Mass/Vol] 0.40 mg/dL 0.20-1.00 [facility] Comment on above: For patients on eltr ombopag therapy, use of Dimension [place] TBIL is not recommended. Chloride [Moles/Vol] 103 mmol/L 98-107 [facility] Cholesterol [Mass/Vol] 220 mg/dL <200 [facility] Comment on above: <200 mg/dL Desirable 200-240 mg/dL Borderline >240 mg/dL High Risk Eosinophils/100 WBC (Bld) 3.6 % 0-5 [facility] Glucose [Mass/Vol] 113 mg/dL 74-106 [facility] Comment on above: Fasting Glucose resu lt from 100 to 125 mg/dL suggests IMPAIRED HOMEOSTASIS per A.D.A. criteria. Hemoglobin (Bld) [Mass/Vol] 12.9 g/dL 12.0-15.0 [facility] Monocytes/100 WBC (Bld) 6.9 % 0-10 [facility] Neutrophils (Bld) [#/Vol] 3.0 10*3/uL 2.0-7.7 [facility] Neutrophils/100 WBC (Bld) 65.9 % 47-70 [facility] Potassium [Moles/Vol] 3.7 mmol/L 3.5-5.1 [facility] Protein [Mass/Vol] 7.1 g/dL 6.4-8.2 [facility] Sodium [Moles/Vol] 134 mmol/L 136-145 [facility] Triglyceride [Mass/Vol] 123 mg/dL <199 [facility] Comment on above: The drugs N-Acetylcy steine and Metamizole may falsely depress this assay.Serum Triglycerides Reference Interval Normal <150 mg/dL Borderline high 150 - 199 mg/dL High 200 - 499 mg/dL Very High > or = 500 mg/dL WBC (Bld) [#/Vol] 4.5 10*3/uL 4.4-11.0 [facility] Determination of erythrocyte mean corpuscular volume (MCV)on 12-28-2023 MCV (RBC) [Entitic vol] 92.4 fL 81-99 [facility] Erythrocyte distribution wid th ratioon 12-28-2023 Erythrocyte distribution width (RBC) [Ratio] 12.8 % 11.6-14.6 [facility] Erythrocyte distribution wid th standard deviationon 12-28-2023 Erythrocyte distribution width (RBC) [Entitic vol] 43.3 fL 35.1-43.9 [facility] Hematocrit Auto (Bld) [Volum e fraction]on 12-28-2023 Hematocrit (Bld) [Volume fraction] 39.0 % 37-47 [facility] Immature granulocytes/100 WB C Auto (Bld)on 12-28-2023 Immature granulocytes/100 WBC (Bld) 0.000 % 0.0-0.9 [facility] Comment on above: IG% - Immature Granu locytes (promyelocytes, myelocytes and metamyelocytes) > 1% indicates that a LEFT SHIFT is Present. Iron measurement (mass/mass) on 12-28-2023 Iron (Unsp spec) [Mass/Mass] 113 ug/dL 50-170 [facility] Laboratory - Chemistry and C hemistry - challengeon 12-28-2023 Albumin/Globulin [Mass ratio] 1.3 {ratio} 0.9-2.4 [facility] ALP [Catalytic activity/Vol] 61 U/L 45-117 [facility] ALT [Catalytic activity/Vol] 43 U/L 13-56 [facility] Cholesterol in HDL [Mass/Vol] 74 mg/dL >40 [facility] Comment on above: The drugs N-Acetylcy steine and Metamizole may falsely depress this assay. Reference Range HDL <40 mg/dL Low HDL Cholesterol HDL >or= 60 mg/dL High HDL Cholesterol Cholesterol in LDL [Mass/Vol] 121 mg/dL 0-130 [facility] CO2 [Moles/Vol] 26.0 mmol/L 21.0-32.0 [facility] Ferritin [Mass/Vol] 107 ng/mL 8-252 [facility] Globulin (S) [Mass/Vol] 3.1 g/dL 2.2-4.2 [facility] Urea nitrogen/Creatinine [Mass ratio] 11.4 mg/mg 10-20 [facility] Laboratory - Hematology and Cell countson 12-28-2023 MCH (RBC) [Entitic mass] 30.6 pg 27.0-32.0 [facility] MCHC (RBC) [Mass/Vol] 33.1 g/dL 32-36 [facility] Nucleated RBC/100 WBC (Bld) [Ratio] 0 % 0-5 [facility] Platelet mean volume (Bld) [Entitic vol] 11.7 fL 6.2-12.0 [facility] Platelets (Bld) [#/Vol] 179 10*3/uL 150-450 [facility] Mitotic spindle apparatus Ab [Titer] in Serum or Plasmaon 12-28-2023 Mitotic spindle apparatus Ab [Titer] TNP [facility] Comment on above: Test not performed No Panel Informationon 12-27 Anti-Nuclear Antibody Comment [address] [facility] Comment on above: Pattern Potential Di sease Association Homogeneous Systemic Lupus Erythematosus, Drug Induced Systemic Lupus Erythematosus, Chronic Autoimmune hepatitis, Juvenile Idiopathic Arthritis Speckled Sjogren Syndrome, Systemic Lupus Erythematosus, Subacute Cutaneous Lupus, Lupus, Congenital Heart Block, Mixed Connective Tissue Disease, Scleroderma-diffuse, Scleroderma-Autoimmune Myositis Overlap Syndrome, Systemic Lupus Udksghsyeweym-Ojdzcbhipjf-Fucvtmpspk Myositis Overlap Syndrome, Systemic Autoimmune Rheumatic Disease, Undifferentiated Connective Tissue Disease Nucleolar Systemic Sclerosis, Scleroderma-Autoimmune Myositis Overlap Syndrome, Sjogren Syndrome, Raynaud phenomenon, Pulmonary Arterial Hypertension, Systemic Autoimmune Rheumatic Disease, Cancer Centromere Scleroderma-CREST, Limited Cutaneous SSc, Raynaud's Phenomenon, Primary Biliary Cholangitis Nuclear Dot Primary Biliary Cholangitis Nuclear Primary Biliary Cholangitis, AutoimmuneMembrane Hepatitis/Liver disease, Systemic Autoimmune Rheumatic Disease, Autoimmune Cytopenias, Linear Scleroderma, Antiphospholipid Syndrome Performed at: [facility] [address] [id number] Director: Man Lombardo PhD, Phone: [phone] Anti-Nuclear Antibody Screen Positive . [facility] Comment on above: Negative <1:80 Borde rline 1:80 Positive >1:80 Estimated GFR (MDRD) Amer 63 mL/min >60 [facility] Comment on above: GFR Calc Estimated GFR (MDRD) Non-Af Amer 52 mL/min >60 [facility] Comment on above: Non- GFR Calc Free Triiodothyronine (T3) pg/dL 2.8 pg/mL 2.18-3.98 [facility] Thyroglobulin Antibody 4.1 IU/mL 0.0-0.9 [facility] Comment on above: Thyroglobulin Antibo dy measured by Angel CoulterMethodologyIt should be noted that the presence of thyroglobulinantibodies may not be pathogenic nor diagnostic, especiallyat very low levels. The assay meteorology professor has found thatfour percent of individuals without evidence of thyroiddisease or autoimmunity will have positive TgAb levels upto 4 IU/mL. Total Iron Binding Capacity 274 ug/dL 250-450 [facility] Vitamin D 25-Hydroxy 49.7 ng/mL [facility] Comment on above: Vitamin D 25(OH) Sta tus Range Deficiency <20 ng/mL (50nmol/L) Insufficiency 20 - 30 ng/mL (50 - 75 nmol/L) Sufficiency 30 - 100 ng/mL (75 - 250 nmol/L) Toxicity >100 ng/mL (>250 nmol/L) VLDL Cholesterol 25 mg/dL 5-40 [facility] RBC Auto (Bld) [#/Vol]on RBC (Bld) [#/Vol] 4.22 10*6/uL 4.2-5.4 [facility] Serum antinuclear antibody ( HARVINDER) detection with nuclear membrane pores pattern by immon 12-28-2023 Nuclear membrane pores nuclear Ab pattern IF Ql (S) [facility] Comment on above: Test not performed Serum centrosomal pattern an tinuclear antibody (HARVINDER) detection by immunofluorescenceon 12-28-2023 Centrosomal nuclear Ab pattern IF Ql (S) [facility] Comment on above: Test not performed Serum midbody antibody titer by immunofluorescenceon 12-28-2023 Midbody Ab IF (S) [Titer] [facility] Comment on above: Test not performed Serum multiple nuclear dot p attern antinuclear IgG antibody (HARVINDER) titer by immunofluoon 12-28-2023 Multiple nuclear dots nuclear IgG pattern IF (S) [Titer] [facility] Comment on above: Test not performed Serum nucleolar nuclear anti body pattern titeron 12-28-2023 Nucleolar nuclear Ab pattern (S) [Titer] [facility] Comment on above: Test not performed Serum or plasma calcium latonya urement (mass/volume)on 12-28-2023 Calcium [Mass/Vol] 8.6 mg/dL 8.5-10.1 [facility] Serum or plasma creatinine m easurement (mass/volume)on 12-28-2023 Creatinine [Mass/Vol] 1.14 mg/dL 0.55-1.02 [facility] Comment on above: The validity of the calculated GFR & GFRAA in patients over 70 years has not been determined. Clinical correlation is essential. Serum or plasma thyroid stim ulating hormone (TSH) measurement (units/volume)on 12-28-2023 TSH Qn 1.35 uIU/mL 0.358-3.74 [facility] Serum or plasma thyroperoxid ase antibody assay (units/volume)on 12-28-2023 TPO Ab Qn 390 [IU]/mL 0-34 [facility] Comment on above: Performed at: [facility] Director: Man Lombardo PhD, Phone: [phone] Serum or plasma thyroxine (T 4) measurement (mass/volume)on 12-28-2023 T4 [Mass/Vol] 7.3 ug/dL 4.8-13.9 [facility] Serum or plasma triiodothyro nine measurement by immunoassay (mass/volume)on 12-28-2023 T3 IA [Mass/Vol] 1.11 ng/mL 0.6-1.81 [facility] Serum or plasma urea nitroge n measurement (mass/volume)on 12-28-2023 Urea nitrogen [Mass/Vol] 13 mg/dL 7-18 [facility] Serum proliferating cell nuc lear antigen (PCNA) antibody titer by immunofluorescenceon 12-28-2023 PCNA extractable nuclear Ab IF (S) [Titer] TNP [facility] Comment on above: Test not performed Serum smooth nuclear envelop e pattern antinuclear antibody (HARVINDER) titeron 12-28-2023 Rim nuclear Ab pattern (S) [Titer] 1:[address] [facility] Comment on above: ICAP nomenclature: A C-1 Serum speckled nuclear antib cheikh pattern titeron 12-28-2023 Speckled nuclear Ab pattern (S) [Titer] 1:[address] [facility] Comment on above: ICAP nomenclature: A C-2,4,5,29 Thin prep Papanicolaou smear with manual screeningon 12-28-2023 Thin prep Papanicolaou smear with manual screening 4.0 g/dL 3.2-5.0 [facility] Thin prep Papanicolaou smear with manual screening 17 U/L 15-37 [facility] Thin prep Papanicolaou smear with manual screening 5 5-15 [facility] Thin prep Papanicolaou smear with manual screening 0.84 ng/dL 0.76-1.46 [facility] Thin prep Papanicolaou smear with manual screening TNP [facility] Comment on above: Test not performed Basic metabolic 2000 panelon 12-10-2023 Anion gap [Moles/Vol] 11 mmol/L 9 - 18 mmol/L [facility] Calcium [Mass/Vol] 9.7 mg/dL 8.5 - 10. 2 mg/dL [facility] Chloride [Moles/Vol] 101 mmol/L 97 - 10 5 mmol/L [facility] CO2 [Moles/Vol] 27 mmol/L 22 - 30 mmol/L [facility] Creatinine [Mass/Vol] 0.96 mg/dL 0.58 - 0.96 mg/dL [facility] Estimated Glomerular Filtration Rate 69 mL/min/1.73m >=60 mL/min/1.73 m [facility] Glucose [Mass/Vol] 88 mg/dL 74 - 99 mg/dL [facility] Potassium [Moles/Vol] 3.9 mmol/L 3.7 - 5.1 mmol/L [facility] Sodium [Moles/Vol] 139 mmol/L 136 - 144 mmol/L [facility] Urea nitrogen [Mass/Vol] 16 mg/dL 7 - 21 mg/dL [facility] TSH BLDon 12-10-2023 TSH Qn 4.570 m[IU]/L High 0.270 - 4.200 mIU/L [facility] Absolute lymphocyte countOrd ered By: Tomer King on 12-07-2023 Lymphocytes Auto (Unsp spec) [#/Vol] 2.18 10*3/uL 0.83-4.51 [facility] Automated lymphocyte count a s percentage of total leukocytesOrdered By: Tomer King on 12-07-2023 Lymphocytes/100 WBC Auto (Unsp spec) 34.7 % 19-41 [facility] Basophil percentageOrdered B y: Tomer King on 12-07-2023 Basophils/100 WBC (Bld) 0.5 % 0-1 [facility] Chloride [Moles/Vol] 109 mmol/L 98-107 [facility] Eosinophils/100 WBC (Bld) 3.2 % 0-5 [facility] Glucose [Mass/Vol] 151 mg/dL 74-106 [facility] Comment on above: Fasting Glucose resu lt greater than or equal to 126 mg/dL suggests DIABETES MELLITUS per A.D.A. criteria. Hemoglobin (Bld) [Mass/Vol] 12.7 g/dL 12.0-15.0 [facility] Monocytes/100 WBC (Bld) 7.3 % 0-10 [facility] Neutrophils (Bld) [#/Vol] 3.4 10*3/uL 2.0-7.7 [facility] Neutrophils/100 WBC (Bld) 54.0 % 47-70 [facility] Potassium [Moles/Vol] 3.4 mmol/L 3.5-5.1 [facility] Sodium [Moles/Vol] 141 mmol/L 136-145 [facility] WBC (Bld) [#/Vol] 6.3 10*3/uL 4.4-11.0 [facility] Determination of erythrocyte mean corpuscular volume (MCV)Ordered By: Tomer King on 12-07-2023 MCV (RBC) [Entitic vol] 91.9 fL 81-99 [facility] Erythrocyte distribution wid th ratioOrdered By: Tomer King on 12-07-2023 Erythrocyte distribution width (RBC) [Ratio] 13.2 % 11.6-14.6 [facility] Erythrocyte distribution wid th standard deviationOrdered By: Tomer King on 12-07-2023 Erythrocyte distribution width (RBC) [Entitic vol] 44.6 fL 35.1-43.9 [facility] Hematocrit Auto (Bld) [Volum e fraction]Ordered By: Tomer King on 12-07-2023 Hematocrit (Bld) [Volume fraction] 39.7 % 37-47 [facility] Immature granulocytes/100 WB C Auto (Bld)Ordered By: Tomer King on 12-07-2023 Immature granulocytes/100 WBC (Bld) 0.300 % 0.0-0.9 [facility] Comment on above: IG% - Immature Granu locytes (promyelocytes, myelocytes and metamyelocytes) > 1% indicates that a LEFT SHIFT is Present. Laboratory - Chemistry and C hemistry - challengeOrdered By: Tomer King on 12-07-2023 CO2 [Moles/Vol] 25.0 mmol/L 21.0-32.0 [facility] Magnesium [Mass/Vol] 2.2 mg/dL 1.6-2.6 [facility] Urea nitrogen/Creatinine [Mass ratio] 13.0 mg/mg 10-20 [facility] Laboratory - Hematology and Cell countsOrdered By: Tomer King on 12-07-2023 MCH (RBC) [Entitic mass] 29.4 pg 27.0-32.0 [facility] MCHC (RBC) [Mass/Vol] 32.0 g/dL 32-36 [facility] [facility] Nucle[facility] RBC/100 WBC (Bld) [Ratio] 0 % 0-5 [facility] Platelet mean volume (Bld) [Entitic vol] 11.6 fL 6.2-12.0 [facility] Platelets (Bld) [#/Vol] 204 10*3/uL 150-450 [facility] No Panel InformationOrdered By: Tomer King on 12-07-2023 Troponin I High Sensitivity 4 pg/mL 3.0-54.0 [facility] Comment on above: Please Note: New Tiffany t Units and Gender Specific Reference Ranges. For more information see Policy Stat Procedure [place] High Sensitivity Troponin (TNIH) and attachments. Estimated GFR (MDRD) Amer 54 mL/min >60 [facility] Comment on above: GFR Calc Estimated GFR (MDRD) Non-Af Amer 44 mL/min >60 [facility] Comment on above: Non- GFR Calc RBC Auto (Bld) [#/Vol]Ordere d By: Tomer King on 12-07-2023 RBC (Bld) [#/Vol] 4.32 10*6/uL 4.2-5.4 [facility] Serum or plasma calcium latonya urement (mass/volume)Ordered By: Tomer King on 12-07-2023 Calcium [Mass/Vol] 8.9 mg/dL 8.5-10.1 [facility] Serum or plasma creatinine m easurement (mass/volume)Ordered By: Tomer King on 12-07-2023 Creatinine [Mass/Vol] 1.31 mg/dL 0.55-1.02 [facility] Comment on above: The validity of the calculated GFR & GFRAA in patients over 70 years has not been determined. Clinical correlation is essential. Serum or plasma urea nitroge n measurement (mass/volume)Ordered By: Tomer King on 12-07-2023 Urea nitrogen [Mass/Vol] 17 mg/dL 04-21 [facility] Thin prep Papanicolaou smear with manual screeningOrdered By: Tomer King on 12-07-2023 Thin prep Papanicolaou smear with manual screening 7 5-15 [facility] US KIDNEY/BLADDERon 08-03-20 [facility] Renal function 2000 panelon 07-28-2023 Albumin [Mass/Vol] 4.7 g/dL 3.9 - 4.9 g/dL [facility] Anion gap [Moles/Vol] 9 mmol/L 9 - 18 mmol/L [facility] Calcium [Mass/Vol] 9.8 mg/dL 8.5 - 10. 2 mg/dL [facility] Chloride [Moles/Vol] 103 mmol/L 97 - 10 5 mmol/L [facility] CO2 [Moles/Vol] 29 mmol/L 22 - 30 mmol/L [facility] Creatinine [Mass/Vol] 1.11 mg/dL High 0.58 - 0.96 mg/dL [facility] Glomerular Filtration Rate 58 mL/min/1.73m Low >=60 mL/min/1.73 m [facility] Glucose [Mass/Vol] 93 mg/dL 74 - 99 mg/dL [facility] Phosphate [Mass/Vol] 3.7 mg/dL 2.7 - 4 .8 mg/dL [facility] Potassium [Moles/Vol] 4.2 mmol/L 3.7 - 5.1 mmol/L [facility] Sodium [Moles/Vol] 141 mmol/L 136 - 144 mmol/L [facility] Urea nitrogen [Mass/Vol] 17 mg/dL 7 - 21 mg/dL [facility] UA DIP, URINE (POC)on 2022 BILIRUBIN UA (POCT) Negative Negative [facility] CLARITY UA (POCT) [facility] COLOR UA (POCT) Yellow [facility] GLUCOSE UA (POCT) Negative Negative mg/dL [facility] Hemoglobin Ql (U) Negative Negative [facility] KETONE UA (POCT) Negative Negative mg/dL [facility] LEUKOCYTES UA (POCT) Moderate Abnormal Negative [facility] NITRITE UA (POCT) Negative Negative [facility] PH UA (POCT) 7.5 4.5 - 8.0 [facility] Protein Ql (U) Negative Negative mg/dL [facility] SPECIFIC GRAVITY UA (POCT) 1.010 1.005 - 1.030 [facility] UROBILINOGEN UA (POCT) 0.2 E.U./dL Normal E.U./dL [facility] Basophil percentageon 2022 Basophil percentage 0-5 SEEN /hpf 0-5 [facility] Bilirubin Test strip Ql (U)o n 07-08-2023 Bilirubin Ql (U) Negative Negative [facility] Ketones Test strip Ql (U)on 07-08-2023 Ketones Ql (U) Negative Negative [facility] Mucus LM Ql (Urine sed)on Mucus Ql (Urine sed) 0 SEEN /hpf [facility] Nitrite Test strip Ql (U)on 07-08-2023 Nitrite Ql (U) Negative Negative [facility] Protein Test strip Ql (U)on 07-08-2023 Protein Ql (U) Negative Negative [facility] Squamous epithelial cells de tection in urine sediment by light microscopyon 07-08-2023 Epithelial cells.squamous LM Ql (Urine sed) 0-5 SEEN /hpf 5-10 [facility] Urine blood detectionon RBC Ql (U) Negative Negative [facility] RBC Ql (U) 0 SEEN /hpf 0-5 [facility] Urine clarityon 07-08-2023 Clarity (U) Sl. Cloudy Clear [facility] Urine color determinationon 07-08-2023 Color (U) Yellow Yellow [facility] Urine glucose detectionon Glucose Ql (U) Normal mg/dl Normal [facility] Urine leukocyte esterase det ection by dipstickon 07-08-2023 Leukocyte esterase Test strip Ql (U) 25 /ul Negative [facility] Urine pHon 07-08-2023 pH (U) 6.5 [pH] 5.0 - 8.0 [facility] Urine sediment bacteria coun t by microscopy (number/high power field)on 07-08-2023 Bacteria LM.HPF (Urine sed) [#/Area] 0 /[HPF] None Seen [facility] Urine specific gravity measu rementon 07-08-2023 Specific gravity (U) [Rel density] 1.015 1.002-1.030 [facility] Urobilinogen Auto test strip Ql (U)on 07-08-2023 Urobilinogen Ql (U) Normal mg/dl Normal [facility] Absolute lymphocyte counton 06-23-2023 Lymphocytes Auto (Unsp spec) [#/Vol] 1.17 10*3/uL 0.83-4.51 [facility] Basophil percentageon 2022 Basophils/100 WBC (Bld) 0.5 % 0-1 [facility] Bilirubin [Mass/Vol] 0.40 mg/dL 0.20-1.00 [facility] Comment on above: For patients on eltr ombopag therapy, use of Dimension [place] TBIL is not recommended. Chloride [Moles/Vol] 106 mmol/L 98-107 [facility] Eosinophils/100 WBC (Bld) 3.8 % 0-5 [facility] Glucose [Mass/Vol] 87 mg/dL 74-106 [facility] Neutrophils (Bld) [#/Vol] 2.5 10*3/uL 2.0-7.7 [facility] Neutrophils/100 WBC (Bld) 59.5 % 47-70 [facility] Potassium [Moles/Vol] 3.9 mmol/L 3.5-5.1 [facility] Protein [Mass/Vol] 7.3 g/dL 6.4-8.2 [facility] Sodium [Moles/Vol] 140 mmol/L 136-145 [facility] WBC (Bld) [#/Vol] 4.2 10*3/uL 4.4-11.0 [facility] Blood erythrocytes count (nu mber/volume)on 06-23-2023 RBC (Bld) [#/Vol] 4.32 10*6/uL 4.2-5.4 [facility] Blood hemoglobin measurement (mass/volume)on 06-23-2023 Hemoglobin (Bld) [Mass/Vol] 13.0 g/dL 12.0-15.0 [facility] Blood lymphocytes/100 leukoc yteson 06-23-2023 Lymphocytes/100 WBC (Bld) 28.1 % 19-41 [facility] Blood monocytes/100 leukocyt eson 06-23-2023 Monocytes/100 WBC (Bld) 7.9 % 0-10 [facility] Blood platelet mean volumeon 06-23-2023 Platelet mean volume (Bld) [Entitic vol] 11.4 fL 6.2-12.0 [facility] Determination of erythrocyte mean corpuscular volume (MCV)on 06-23-2023 MCV (RBC) [Entitic vol] 94.7 fL 81-99 [facility] Hematocrit Auto (Bld) [Volum e fraction]on 06-23-2023 Hematocrit (Bld) [Volume fraction] 40.9 % 37-47 [facility] Iron measurement (mass/mass) on 06-23-2023 Iron (Unsp spec) [Mass/Mass] 101 ug/dL 50-170 [facility] Laboratory - Chemistry and C hemistry - challengeon 06-23-2023 ALP [Catalytic activity/Vol] 51 U/L 45-117 [facility] ALT [Catalytic activity/Vol] 21 U/L 13-56 [facility] CO2 [Moles/Vol] 29.0 mmol/L 21.0-32.0 [facility] Free T4 [Mass/Vol] 0.80 ng/dL 0.76-1.46 [facility] Globulin (S) [Mass/Vol] 3.4 g/dL 2.2-4.2 [facility] T4 [Mass/Vol] 7.3 ug/dL 4.8-13.9 [facility] Urea nitrogen/Creatinine [Mass ratio] 12.8 mg/mg 10-20 [facility] Laboratory - Hematology and Cell countson 06-23-2023 Erythrocyte distribution width (RBC) [Entitic vol] 43.8 fL 35.1-43.9 [facility] Erythrocyte distribution width (RBC) [Ratio] 12.6 % 11.6-14.6 [facility] Immature granulocytes/100 WBC (Bld) 0.200 % 0.0-0.9 [facility] Comment on above: IG% - Immature Granu locytes (promyelocytes, myelocytes and metamyelocytes) > 1% indicates that a LEFT SHIFT is Present. MCH (RBC) [Entitic mass] 30.1 pg 27.0-32.0 [facility] Nucleated RBC/100 WBC (Bld) [Ratio] 0 % 0-5 [facility] MCHC Auto (RBC) [Mass/Vol]on 06-23-2023 MCHC (RBC) [Mass/Vol] 31.8 g/dL 32-36 [facility] No Panel Informationon 06-23 Estimated GFR (MDRD) Amer 53 mL/min >60 [facility] Comment on above: GFR Calc Estimated GFR (MDRD) Non-Af Amer 44 mL/min >60 [facility] Comment on above: Non- GFR Calc Free Triiodothyronine (T3) pg/dL 4.0 pg/mL 2.18-3.98 [facility] Reverse Triiodothyronine (T3) 13.9 ng/dL 9.2-24.1 [facility] Thyroglobulin Antibody 6.2 IU/mL 0.0-0.9 [facility] Comment on above: Thyroglobulin Antibo dy measured by Angel [employer] Thyroid Stimulating Hormone (TSH) 2.30 uIU/mL 0.358-3.74 [facility] Total Iron Binding Capacity 276 ug/dL 250-450 [facility] Total Triiodothyronine 1.52 ng/mL 0.6-1.81 [facility] Vitamin D 25-Hydroxy 47.2 ng/mL [facility] Comment on above: Vitamin D 25(OH) Sta tus Range Deficiency <20 ng/mL (50nmol/L) Insufficiency 20 - 30 ng/mL (50 - 75 nmol/L) Sufficiency 30 - 100 ng/mL (75 - 250 nmol/L) Toxicity >100 ng/mL (>250 nmol/L) Platelets bldon 06-23-2023 Platelets (Bld) [#/Vol] 167 10*3/uL 150-450 [facility] Serum or plasma albumin latonya urement (mass/volume)on 06-23-2023 Albumin [Mass/Vol] 3.9 g/dL 3.2-5.0 [facility] Serum or plasma albumin/glob ulin mass ratioon 06-23-2023 Albumin/Globulin [Mass ratio] 1.1 {ratio} 0.9-2.4 [facility] Serum or plasma calcium latonya urement (mass/volume)on 06-23-2023 Calcium [Mass/Vol] 9.1 mg/dL 8.5-10.1 [facility] Serum or plasma creatinine m easurement (mass/volume)on 06-23-2023 Creatinine [Mass/Vol] 1.33 mg/dL 0.55-1.02 [facility] Comment on above: The validity of the calculated GFR & GFRAA in patients over 70 years has not been determined. Clinical correlation is essential. Serum or plasma ferritin shilpa surement (mass/volume)on 06-23-2023 Ferritin [Mass/Vol] 126 ng/mL 8-252 [facility] Serum or plasma iron saturat ion measurement (mass fraction)on 06-23-2023 Iron saturation [Mass fraction] 36.6 % 15.0-55.0 [facility] Serum or plasma thyroperoxid ase antibody assay (units/volume)on 06-23-2023 TPO Ab Qn 397 [IU]/mL 0-34 [facility] Comment on above: Performed at: [facility] - [address] [id number] Director: Antonio Chao MD, Phone: [phone] at: - [facility] [id number] Director: Man Lombardo PhD, Phone: [phone] Serum or plasma urea nitroge n measurement (mass/volume)on 06-23-2023 Urea nitrogen [Mass/Vol] 17 mg/dL 7-18 [facility] Thin prep Papanicolaou smear with manual screeningon 06-23-2023 Thin prep Papanicolaou smear with manual screening 17 U/L 15-37 [facility] Thin prep Papanicolaou smear with manual screening 5 5-15 [facility] EMG(NEURO/NI)on 04-10-2023 [facility] No Panel Informationon 03-27 [facility] CBC panel Auto (Bld)on 03-18 Erythrocyte distribution width (RBC) [Ratio] 12.6 % 11.5 - 15.0 % [facility] Hematocrit (Bld) [Volume fraction] 41.5 % 36.0 - 46.0 % [facility] Hemoglobin (Bld) [Mass/Vol] 13.5 g/dL 11.5 - 15.5 g/dL [facility] MCH (RBC) [Entitic mass] 30.3 pg 26.0 - 34.0 pg [facility] MCHC (RBC) [Mass/Vol] 32.5 g/dL 30.5 - 36.0 g/dL [facility] MCV (RBC) [Entitic vol] 93.0 fL 80.0 - 100.0 fL [facility] Nucleated RBC (Bld) [#/Vol] <0.01 k/uL [facility] Platelet mean volume (Bld) [Entitic vol] 11.0 fL 9.0 - 12.7 fL [facility] Platelets (Bld) [#/Vol] 177 10*3/uL 150 - 400 k/uL [facility] RBC (Bld) [#/Vol] 4.46 10*6/uL 3.90 - 5.2 0 m/uL [facility] WBC (Bld) [#/Vol] 4.84 10*3/uL 3.70 - 11.00 k/uL [facility] Laboratory - Chemistry and C hemistry - challengeon 01-21-2023 Cobalamin (Vitamin B12) [Mass/Vol] 781 pg/mL 211-911 [facility] No Panel Informationon 01-21 Homocysteine 7.7 umol/L 3.2-10.7 [facility] Serum or plasma folate measu rement (mass/volume)on 01-21-2023 Folate [Mass/Vol] 38.80 ng/mL 3.1-55.4 [facility] Basophil percentageon 2022 Bilirubin [Mass/Vol] 0.30 mg/dL 0.20-1.00 [facility] Comment on above: For patients on eltr ombopag therapy, use of Dimension [place] TBIL is not recommended. Chloride [Moles/Vol] 107 mmol/L 98-107 [facility] Cholesterol [Mass/Vol] 210 mg/dL <200 [facility] Comment on above: <200 mg/dL Desirable 200-240 mg/dL Borderline >240 mg/dL High Risk Glucose [Mass/Vol] 89 mg/dL 74-106 [facility] Potassium [Moles/Vol] 4.3 mmol/L 3.5-5.1 [facility] Protein [Mass/Vol] 7.4 g/dL 6.4-8.2 [facility] Sodium [Moles/Vol] 140 mmol/L 136-145 [facility] Triglyceride [Mass/Vol] 115 mg/dL <199 [facility] Comment on above: The drugs N-Acetylcy steine and Metamizole may falsely depress this assay.Serum Triglycerides Reference Interval Normal <150 mg/dL Borderline high 150 - 199 mg/dL High 200 - 499 mg/dL Very High > or = 500 mg/dL Laboratory - Chemistry and C hemistry - challengeon 01-05-2023 ALP [Catalytic activity/Vol] 52 U/L 45-117 [facility] ALT [Catalytic activity/Vol] 27 U/L 13-56 [facility] CO2 [Moles/Vol] 29.0 mmol/L 21.0-32.0 [facility] Free T4 [Mass/Vol] 0.77 ng/dL 0.76-1.46 [facility] Globulin (S) [Mass/Vol] 3.4 g/dL 2.2-4.2 [facility] T4 [Mass/Vol] 6.6 ug/dL 4.8-13.9 [facility] Urea nitrogen/Creatinine [Mass ratio] 18.4 mg/mg 10-20 [facility] No Panel Informationon 01-05 Estimated GFR (MDRD) Amer 63 mL/min >60 [facility] Comment on above: GFR Calc Estimated GFR (MDRD) Non-Af Amer 52 mL/min >60 [facility] Comment on above: Non- GFR Calc Free Triiodothyronine (T3) pg/dL 3.4 pg/mL 2.18-3.98 [facility] Thyroglobulin Antibody 2.6 IU/mL 0.0-0.9 [facility] Comment on above: Thyroglobulin Antibo dy measured by Angel CoulterMethodologyPerformed at: - [facility] [id number] Director: Man Lombardo PhD, Phone: [phone] Thyroid Stimulating Hormone (TSH) 1.50 uIU/mL 0.358-3.74 [facility] Total Triiodothyronine 1.19 ng/mL 0.6-1.81 [facility] Vitamin D 25-Hydroxy 50.6 ng/mL [facility] Comment on above: Vitamin D 25(OH) Sta tus Range Deficiency <20 ng/mL (50nmol/L) Insufficiency 20 - 30 ng/mL (50 - 75 nmol/L) Sufficiency 30 - 100 ng/mL (75 - 250 nmol/L) Toxicity >100 ng/mL (>250 nmol/L) Serum or plasma albumin latonya urement (mass/volume)on 01-05-2023 Albumin [Mass/Vol] 4.0 g/dL 3.2-5.0 [facility] Serum or plasma albumin/glob ulin mass ratioon 01-05-2023 Albumin/Globulin [Mass ratio] 1.2 {ratio} 0.9-2.4 [facility] Serum or plasma calcium latonya urement (mass/volume)on 01-05-2023 Calcium [Mass/Vol] 8.9 mg/dL 8.5-10.1 [facility] Serum or plasma cholesterol in HDL measurement (mass/volume)on 01-05-2023 Cholesterol in HDL [Mass/Vol] 80 mg/dL >40 [facility] Comment on above: The drugs N-Acetylcy steine and Metamizole may falsely depress this assay. Reference Range HDL <40 mg/dL Low HDL Cholesterol HDL >or= 60 mg/dL High HDL Cholesterol Serum or plasma cholesterol in VLDL measurement (mass/volume)on 01-05-2023 Cholesterol in VLDL [Mass/Vol] 23 mg/dL 5-40 [facility] Serum or plasma creatinine m easurement (mass/volume)on 01-05-2023 Creatinine [Mass/Vol] 1.14 mg/dL 0.55-1.02 [facility] Comment on above: The validity of the calculated GFR & GFRAA in patients over 70 years has not been determined. Clinical correlation is essential. Serum or plasma low density lipoprotein (LDL) cholesterol measurement (mass/volume)on 01-05-2023 Cholesterol in LDL [Mass/Vol] 107 mg/dL 0-130 [facility] Serum or plasma thyroperoxid ase antibody assay (units/volume)on 01-05-2023 TPO Ab Qn 451 [IU]/mL 0-34 [facility] Serum or plasma urea nitroge n measurement (mass/volume)on 01-05-2023 Urea nitrogen [Mass/Vol] 21 mg/dL 7-18 [facility] Thin prep Papanicolaou smear with manual screeningon 01-05-2023 Thin prep Papanicolaou smear with manual screening 20 U/L 15-37 [facility] Thin prep Papanicolaou smear with manual screening 4 5-15 [facility] Absolute lymphocyte counton 08-12-2022 Lymphocytes Auto (Unsp spec) [#/Vol] 1.38 10*3/uL 0.83-4.51 [facility] Work Phone: Basophil percentageon 2021 Basophils/100 WBC (Bld) 0.6 % 0-1 [facility] Work Phone: Bilirubin [Mass/Vol] 0.50 mg/dL 0.20-1.00 [facility] Work Phone: Comment on above: For patients on eltr ombopag therapy, use of Dimension [place] TBIL is not recommended. Chloride [Moles/Vol] 105 mmol/L 98-107 [facility] Work Phone: Cholesterol [Mass/Vol] 278 mg/dL <200 [facility] Work Phone: Comment on above: <200 mg/dL Desirable 200-240 mg/dL Borderline >240 mg/dL High Risk Eosinophils/100 WBC (Bld) 3.4 % 0-5 [facility] Work Phone: Glucose [Mass/Vol] 92 mg/dL 74-106 [facility] Work Phone: [phone] Neutrophils (Bld) [#/Vol] 2.8 10*3/uL 2.0-7.7 [facility] Work Phone: [phone] Neutrophils/100 WBC (Bld) 59.6 % 47-70 [facility] Work Phone: Potassium [Moles/Vol] 3.7 mmol/L 3.5-5.1 [facility] Work Phone: Protein [Mass/Vol] 7.5 g/dL 6.4-8.2 [facility] Work Phone: Sodium [Moles/Vol] 139 mmol/L 136-145 [facility] Work Phone: [phone] Triglyceride [Mass/Vol] 40 mg/dL <199 [facility] Work Phone: [phone] Comment on above: The drugs N-Acetylcy steine and Metamizole may falsely depress this assay.Serum Triglycerides Reference Interval Normal <150 mg/dL Borderline high 150 - 199 mg/dL High 200 - 499 mg/dL Very High > or = 500 mg/dL WBC (Bld) [#/Vol] 4.7 10*3/uL 4.4-11.0 [facility] Work Phone: [phone] Blood erythrocytes count (nu mber/volume)on 08-12-2022 RBC (Bld) [#/Vol] 4.36 10*6/uL 4.2-5.4 [facility] Work Phone: Blood hemoglobin measurement (mass/volume)on 08-12-2022 Hemoglobin (Bld) [Mass/Vol] 13.6 g/dL 12.0-15.0 [facility] Work Phone: Blood lymphocytes/100 leukoc yteson 08-12-2022 Lymphocytes/100 WBC (Bld) 29.2 % 19-41 [facility] Work Phone: Blood monocytes/100 leukocyt eson 08-12-2022 Monocytes/100 WBC (Bld) 7.0 % 0-10 [facility] Work Phone: Blood platelet mean volumeon 08-12-2022 Platelet mean volume (Bld) [Entitic vol] 11.3 fL 6.2-12.0 [facility] Work Phone: Determination of erythrocyte mean corpuscular volume (MCV)on 08-12-2022 MCV (RBC) [Entitic vol] 93.8 fL 81-99 [facility] Work Phone: Erythrocyte sedimentation ra kitty 08-12-2022 ESR (Bld) [Velocity] 7 mm/h 0-30 [facility] Work Phone: Hematocrit Auto (Bld) [Volum e fraction]on 08-12-2022 Hematocrit (Bld) [Volume fraction] 40.9 % 37-47 [facility] Work Phone: [phone] Iron measurement (mass/mass) on 08-12-2022 Iron (Unsp spec) [Mass/Mass] 106 ug/dL 50-170 [facility] Work Phone: Laboratory - Chemistry and C hemistry - challengeon 08-12-2022 ALP [Catalytic activity/Vol] 52 U/L 45-117 [facility] Work Phone: ALT [Catalytic activity/Vol] 21 U/L 13-56 [facility] Work Phone: CO2 [Moles/Vol] 30.0 mmol/L 21.0-32.0 [facility] Work Phone: Cobalamin (Vitamin B12) [Mass/Vol] 644 pg/mL 211-911 [facility] Work Phone: Free T4 [Mass/Vol] 0.78 ng/dL 0.76-1.46 [facility] Work Phone: Globulin (S) [Mass/Vol] 3.4 g/dL 2.2-4.2 [facility] Work Phone: T4 [Mass/Vol] 6.3 ug/dL 4.8-13.9 [facility] Work Phone: Urea nitrogen/Creatinine [Mass ratio] 19.1 mg/mg 10-20 [facility] Work Phone: Laboratory - Hematology and Cell countson 08-12-2022 Erythrocyte distribution width (RBC) [Entitic vol] 42.9 fL 35.1-43.9 [facility] Work Phone: Erythrocyte distribution width (RBC) [Ratio] 12.4 % 11.6-14.6 [facility] Work Phone: Immature granulocytes/100 WBC (Bld) 0.200 % 0.0-0.9 [facility] Work Phone: Comment on above: IG% - Immature Granu locytes (promyelocytes, myelocytes and metamyelocytes) > 1% indicates that a LEFT SHIFT is Present. MCH (RBC) [Entitic mass] 31.2 pg 27.0-32.0 [facility] Work Phone: Nucleated RBC/100 WBC (Bld) [Ratio] 0 % 0-5 [facility] Work Phone: MCHC Auto (RBC) [Mass/Vol]on 08-12-2022 MCHC (RBC) [Mass/Vol] 33.3 g/dL 32-36 [facility] Work Phone: No Panel Informationon 08-12 Estimated GFR (MDRD) Amer 74 mL/min >60 [facility] Work Phone: Comment on above: GFR Calc Estimated GFR (MDRD) Non-Af Amer 61 mL/min >60 [facility] Work Phone: Comment on above: Non- GFR Calc Free Triiodothyronine (T3) pg/dL 3.1 pg/mL 2.18-3.98 [facility] Work Phone: Insulin Level 3.4 mU/L 2.6-37.6 [facility] Work Phone: Reverse Triiodothyronine (T3) 9.4 ng/dL 9.2-24.1 [facility] Work Phone: Comment on above: This test was develo ped and its performance characteristicsdetermined by [employer]. It has not been cleared orapproved by the Food and Drug Administration. Thyroglobulin Antibody 2.6 IU/mL 0.0-0.9 [facility] Work Phone: Comment on above: Thyroglobulin Antibo dy measured by Angel CoulterMethod[employer] Thyroid Stimulating Hormone (TSH) 5.59 uIU/mL 0.358-3.74 [facility] Work Phone: Total Iron Binding Capacity 321 ug/dL 250-450 [facility] Work Phone: Total Triiodothyronine 1.29 ng/mL 0.6-1.81 [facility] Work Phone: Vitamin D 25-Hydroxy 49.2 ng/mL [facility] Work Phone: Comment on above: Vitamin D 25(OH) Sta tus Range Deficiency <20 ng/mL (50nmol/L) Insufficiency 20 - 30 ng/mL (50 - 75 nmol/L) Sufficiency 30 - 100 ng/mL (75 - 250 nmol/L) Toxicity >100 ng/mL (>250 nmol/L) Platelets bldon 08-12-2022 Platelets (Bld) [#/Vol] 198 10*3/uL 150-450 [facility] Work Phone: Serum or plasma C reactive p rotein measurement (mass/volume)on 08-12-2022 CRP [Mass/Vol] mg/L 0.0-3.0 [facility] Work Phone: Comment on above: C-Reactive Protein ( CRP) provides useful information for thediagnosis, therapy and monitoring of inflammatory processesand associated diseases. For the evaluation of Relative Riskfor Cardiovascular Disease, a High Sensitivity CRP (HSCRP)should be ordered. Serum or plasma albumin latonya urement (mass/volume)on 08-12-2022 Albumin [Mass/Vol] 4.1 g/dL 3.2-5.0 [facility] Work Phone: Serum or plasma albumin/glob ulin mass ratioon 08-12-2022 Albumin/Globulin [Mass ratio] 1.2 {ratio} 0.9-2.4 [facility] Work Phone: Serum or plasma calcium latonya urement (mass/volume)on 08-12-2022 Calcium [Mass/Vol] 9.5 mg/dL 8.5-10.1 [facility] Work Phone: Serum or plasma cholesterol in HDL measurement (mass/volume)on 08-12-2022 Cholesterol in HDL [Mass/Vol] 101 mg/dL >40 [facility] Work Phone: Comment on above: The drugs N-Acetylcy steine and Metamizole may falsely depress this assay. Reference Range HDL <40 mg/dL Low HDL Cholesterol HDL >or= 60 mg/dL High HDL Cholesterol Serum or plasma cholesterol in VLDL measurement (mass/volume)on 08-12-2022 Cholesterol in VLDL [Mass/Vol] 8 mg/dL 5-40 [facility] Work Phone: Serum or plasma creatinine m easurement (mass/volume)on 08-12-2022 Creatinine [Mass/Vol] 1.00 mg/dL 0.55-1.02 [facility] Work Phone: Comment on above: The validity of the calculated GFR & GFRAA in patients over 70 years has not been determined. Clinical correlation is essential. Serum or plasma ferritin shilpa surement (mass/volume)on 08-12-2022 Ferritin [Mass/Vol] 97 ng/mL 8-252 [facility] Work Phone: Serum or plasma folate measu rement (mass/volume)on 08-12-2022 Folate [Mass/Vol] 51.30 ng/mL 3.1-55.4 [facility] Work Phone: Serum or plasma iron saturat ion measurement (mass fraction)on 08-12-2022 Iron saturation [Mass fraction] 33.0 % 15.0-55.0 [facility] Work Phone: Serum or plasma low density lipoprotein (LDL) cholesterol measurement (mass/volume)on 08-12-2022 Cholesterol in LDL [Mass/Vol] 169 mg/dL 0-130 [facility] Work Phone: Serum or plasma thyroperoxid ase antibody assay (units/volume)on 08-12-2022 TPO Ab Qn 381 [IU]/mL 0-34 [facility] Work Phone: Comment on above: Performed at: [facility] [address] [id number] Director: Antonio Chao MD, Phone: [phone] at: - [facility] [address] [id number] Director: Man Lombardo PhD, Phone: [phone] Serum or plasma urea nitroge n measurement (mass/volume)on 08-12-2022 Urea nitrogen [Mass/Vol] 19 mg/dL 7-18 [facility] Work Phone: Thin prep Papanicolaou smear with manual screeningon 08-12-2022 Thin prep Papanicolaou smear with manual screening 14 U/L 15-37 [facility] Work Phone: Thin prep Papanicolaou smear with manual screening 4 5-15 [facility] Work Phone: Thin prep Papanicolaou smear with manual screening 156 U/L 84-246 [facility] Work Phone: Whole blood hemoglobin A1c/t otal hemoglobin ratio (mass fraction)on 08-12-2022 HbA1c (Bld) [Mass fraction] 5.7 % 3.8-5.6 [facility] Work Phone: Comment on above: Normal < 5.7 % Predi abetic 5.7 - 6.4 % Diabetic >or= 6.5 % Please note range changes. VITAMIN D 25 HYDROXYon 06-03 25-hydroxyvitamin D3 [Mass/Vol] 52.5 ng/mL 31.0 - 80.0 ng/mL [facility] Basic metabolic 2000 panelon 06-02-2022 Anion gap [Moles/Vol] 8 mmol/L Low 9 - 18 mmol/L [facility] Calcium [Mass/Vol] 9.5 mg/dL 8.5 - 10. 2 mg/dL [facility] Chloride [Moles/Vol] 103 mmol/L 97 - 10 5 mmol/L [facility] CO2 [Moles/Vol] 27 mmol/L 22 - 30 mmol/L [facility] Creatinine [Mass/Vol] 1.12 mg/dL High 0.58 - 0.96 mg/dL [facility] Estimated Glomerular Filtration Rate 58 mL/min/1.73m Low >=60 mL/min/1.73 m [facility] Glucose [Mass/Vol] 91 mg/dL 74 - 99 mg/dL [facility] Potassium [Moles/Vol] 4.5 mmol/L 3.7 - 5.1 mmol/L [facility] Sodium [Moles/Vol] 138 mmol/L 136 - 144 mmol/L [facility] Urea nitrogen [Mass/Vol] 18 mg/dL 7 - 21 mg/dL [facility] CBC panel Auto (Bld)on 06-02 Erythrocyte distribution width (RBC) [Ratio] 12.5 % 11.5 - 15.0 % [facility] Hematocrit (Bld) [Volume fraction] 44.6 % 36.0 - 46.0 % [facility] Hemoglobin (Bld) [Mass/Vol] 14.1 g/dL 11.5 - 15.5 g/dL [facility] MCH (RBC) [Entitic mass] 30.3 pg 26.0 - 34.0 pg [facility] MCHC (RBC) [Mass/Vol] 31.6 g/dL 30.5 - 36.0 g/dL [facility] MCV (RBC) [Entitic vol] 95.9 fL 80.0 - 100.0 fL [facility] Nucleated RBC (Bld) [#/Vol] <0.01 k/uL [facility] Platelet mean volume (Bld) [Entitic vol] 11.6 fL 9.0 - 12.7 fL [facility] Platelets (Bld) [#/Vol] 188 10*3/uL 150 - 400 k/uL [facility] RBC (Bld) [#/Vol] 4.65 10*6/uL 3.90 - 5.2 0 m/uL [facility] WBC (Bld) [#/Vol] 5.99 10*3/uL 3.70 - 11.00 k/uL [facility] FSH Don 06-02-2022 Follitropin Qn 79.3 m[IU]/mL See comment mIU/mL [facility] T3 FREE BLDon 06-02-2022 Free T3 [Mass/Vol] 3.2 pg/mL 2.3 - 4.1 pg/mL [facility] T4 FREE/FREE THYROXon 2021 Free T4 [Mass/Vol] 0.9 ng/dL 0.9 - 1.7 ng/dL [facility] TSH Don 06-02-2022 TSH Qn 3.580 m[IU]/L 0.270 - 4.200 mIU/L [facility] TSH Don 04-10-2022 TSH Qn 2.220 m[IU]/L 0.270 - 4.200 mIU/L [facility] HEMOGLOBIN (HGB)on Hemoglobin (Bld) [Mass/Vol] 13.6 g/dL 11.5 - 15.5 g/dL [facility] VITAMIN D 25 HYDROXYon 02-07 25-hydroxyvitamin D3 [Mass/Vol] 100.0 ng/mL High 31.0 - 80.0 ng/mL [facility] CBC panel Auto (Bld)on 02-05 Erythrocyte distribution width (RBC) [Ratio] 12.7 % 11.5 - 15.0 % [facility] Hematocrit (Bld) [Volume fraction] 42.1 % 36.0 - 46.0 % [facility] Hemoglobin (Bld) [Mass/Vol] 13.4 g/dL 11.5 - 15.5 g/dL [facility] MCH (RBC) [Entitic mass] 30.5 pg 26.0 - 34.0 pg [facility] MCHC (RBC) [Mass/Vol] 31.8 g/dL 30.5 - 36.0 g/dL [facility] MCV (RBC) [Entitic vol] 95.7 fL 80.0 - 100.0 fL [facility] Nucleated RBC (Bld) [#/Vol] 10*3/uL <0.01 k/uL [facility] Platelet mean volume (Bld) [Entitic vol] 11.3 fL 9.0 - 12.7 fL [facility] Platelets (Bld) [#/Vol] 166 10*3/uL 150 - 400 k/uL [facility] RBC (Bld) [#/Vol] 4.40 10*6/uL 3.90 - 5.2 0 m/uL [facility] WBC (Bld) [#/Vol] 5.04 10*3/uL 3.70 - 11.00 k/uL [facility] Comprehensive metabolic 2000 panelon 02-05-2022 Albumin [Mass/Vol] 4.7 g/dL 3.9 - 4.9 g/dL [facility] ALP [Catalytic activity/Vol] 48 U/L 34 - 123 U/L [facility] ALT [Catalytic activity/Vol] 13 U/L 7 - 38 U/L [facility] Anion gap [Moles/Vol] 7 mmol/L Low 9 - 18 mmol/L [facility] AST [Catalytic activity/Vol] 21 U/L 13 - 35 U/L [facility] Bilirubin [Mass/Vol] 0.4 mg/dL 0.2 - 1 .3 mg/dL [facility] Calcium [Mass/Vol] 9.7 mg/dL 8.5 - 10. 2 mg/dL [facility] Chloride [Moles/Vol] 101 mmol/L 97 - 10 5 mmol/L [facility] CO2 [Moles/Vol] 30 mmol/L 22 - 30 mmol/L [facility] Creatinine [Mass/Vol] 1.14 mg/dL High 0.58 - 0.96 mg/dL [facility] Estimated Glomerular Filtration Rate 57 mL/min/1.73m Low >=60 mL/min/1.73 m [facility] Glucose [Mass/Vol] 92 mg/dL 74 - 99 mg/dL [facility] Potassium [Moles/Vol] 4.2 mmol/L 3.7 - 5.1 mmol/L [facility] Protein [Mass/Vol] 7.2 g/dL 6.3 - 8.0 g/dL [facility] Sodium [Moles/Vol] 138 mmol/L 136 - 144 mmol/L [facility] Urea nitrogen [Mass/Vol] 16 mg/dL 7 - 21 mg/dL [facility] LIPID PANEL, NONFASTINGon Cholesterol [Mass/Vol] 225 mg/dL High <200 mg/dL [facility] HDL Cholesterol, Nonfasting 82 mg/dL >39 mg/dL [facility] LDL Cholesterol, Nonfasting 127 mg/dL High <100 mg/dL [facility] LDL/HDL Ratio, Nonfasting 1.55 mg/dL <2.54 mg/dL [facility] Non HDL Cholesterol, Nonfasting 143 mg/dL High <130 mg/dL [facility] Total Chol/HDL Ratio, Nonfasting 2.74 mg/dL <5.10 mg/dL [facility] Triglycerides, Nonfasting 79 mg/dL <150 mg/dL [facility] VLDL Cholesterol, Nonfasting 16 mg/dL <30 mg/dL [facility] T3 FREE BLDon 02-05-2022 Free T3 [Mass/Vol] 3.6 pg/mL 2.3 - 4.1 pg/mL [facility] XR Foot - left AP and Latera l and obliqueon 03-05-2021 IMPRESSION: No radiographic evidence of acute osseous injury Medical Artist: SINA Transcribe Date/Time: Mar 05 2021 3:28P Dictated by : SARIAH THOMAS MD This examination was interpreted and the report reviewed and electronically signed by: SARIAH THOMAS MD on Mar 05 2021 3:29PM [facility] DIVISION OF RADIOLOGY * * *Final Report* * * DATE OF EXAM: Mar 05 2021 3:23PM [id number] - XR FOOT 3V AP/LAT/OBL LT / PROCEDURE REASON: Injury of left foot, initial encounter * * * * Physician Interpretation * * * * CLINICAL INDICATION: Foot injury TECHNIQUE: 3 view radiographic study of the left foot with inclusion of a single frontal view of the right foot for purposes of comparison/symmetry COMPARISON: None FINDINGS: Minimal hallux valgus deformity with minimal first metatarsal phalangeal joint degenerative changes. No acute fracture or dislocation. Dorsal calcaneal enthesophyte DIVISION OF RADIOLOGY [facility] * * *Final Report* * * DATE OF EXAM: Mar 05 2021 3:23PM [id number] - XR FOOT 3V AP/LAT/OBL LT / PROCEDURE REASON: Injury of left foot, initial encounter * * * * Physician Interpretation * * * * CLINICAL INDICATION: Foot injury TECHNIQUE: 3 view radiographic study of the left foot with inclusion of a single frontal view of the right foot for purposes of comparison/symmetry COMPARISON: None FINDINGS: Minimal hallux valgus deformity with minimal first metatarsal phalangeal joint degenerative changes. No acute fracture or dislocation. Dorsal calcaneal enthesophyte IMPRESSION IMPRESSION: No radiographic evidence of acute osseous injury Medical Artist: SINA Transcribe Date/Time: Mar 05 2021 3:28P Dictated by : SARIAH THOMAS MD This examination was interpreted and the report reviewed and electronically signed by: SARIAH THOMAS MD on Mar 05 2021 3:29PM EST [facility] Radiology Study observation (narrative) [facility] XR Foot - left AP and Latera l and obliqueOrdered By: [facility] Provider on 03-05-2021 [facility] Vital Signs Date Time Vital Sign Value Performing Clinician Facility 02-22-2025 12:56-0400 Body height 172.[address] Murphy Henley MD Work Phone: [phone] [place] [address] 02-22-2025 12:56-0400 Body mass index (BMI) [Ratio] 21.1 kg/m2 Dr. Murphy Henley MD Work Phone: [facility] 02-22-2025 12:56-0400 Body weight 63.[address] Murphy Henley MD Work Phone: [facility] 02-22-2025 12:56-0400 Diastolic blood pressure 63 mm[Hg] Dr. Murphy Henley MD Work Phone: [facility] 02-22-2025 12:56-0400 Heart rate 72 /min Dr. Murphy Henley MD Work Phone: [facility] 02-22-2025 12:56-0400 Respiratory rate 16 /min Dr. Murphy Henley MD Work Phone: [facility] 02-22-2025 12:56-0400 Systolic blood pressure 107 mm[Hg] Dr. Murphy Henley MD Work Phone: [facility] 01-19-2025 09:44-0400 Body mass index (BMI) [Ratio] 21.79 kg/m2 Stuart Ponce APRN.CNS Work Phone: [facility] 01-19-2025 09:44-0400 Body weight 65 kg Stuart Ponce SUPERVISORY TRAINING SPECIALIST.RESEARCH ENGINEER Work Phone: [facility] 01-19-2025 09:44-0400 Diastolic blood pressure 70 mm[Hg] Stuart Ponce SUPERVISORY TRAINING SPECIALIST.RESEARCH ENGINEER Work Phone: [facility] 01-19-2025 09:44-0400 Heart rate 67 /min Stuart Ponce SUPERVISORY TRAINING SPECIALIST.RESEARCH ENGINEER Work Phone: [facility] 01-19-2025 09:44-0400 Respiratory rate 16 /min Stuart Ponce SUPERVISORY TRAINING SPECIALIST.RESEARCH ENGINEER Work Phone: [facility] 01-19-2025 09:44-0400 Systolic blood pressure 110 mm[Hg] Stuart Ponce SUPERVISORY TRAINING SPECIALIST.RESEARCH ENGINEER Work Phone: [facility] 01-13-2025 13:50-0400 Body mass index (BMI) [Ratio] 21.76 kg/m2 Stuart Pnoce SUPERVISORY TRAINING SPECIALIST.RESEARCH ENGINEER Work Phone: [facility] 01-13-2025 13:50-0400 Body weight 64.9 kg Stuart Ponce SUPERVISORY TRAINING SPECIALIST.RESEARCH ENGINEER Work Phone: [facility] 01-13-2025 13:50-0400 Diastolic blood pressure 70 mm[Hg] Stuart Ponce SUPERVISORY TRAINING SPECIALIST.RESEARCH ENGINEER Work Phone: [facility] 01-13-2025 13:50-0400 Heart rate 78 /min Stuart Ponce SUPERVISORY TRAINING SPECIALIST.RESEARCH ENGINEER Work Phone: [facility] 01-13-2025 13:50-0400 Respiratory rate 16 /min Stuart Ponce SUPERVISORY TRAINING SPECIALIST.RESEARCH ENGINEER Work Phone: [facility] 01-13-2025 13:50-0400 Systolic blood pressure 112 mm[Hg] Stuart Ponce SUPERVISORY TRAINING SPECIALIST.RESEARCH ENGINEER Work Phone: [facility] 01-04-2025 11:26-0400 Body mass index (BMI) [Ratio] 21.59 kg/m2 Kevin Diaz SUPERVISORY TRAINING SPECIALIST.CRAYON MOLDING MACHINE OPERATOR Work Phone: [facility] 01-04-2025 11:26-0400 Body weight 64.4 kg Kevin Diaz SUPERVISORY TRAINING SPECIALIST.CRAYON MOLDING MACHINE OPERATOR Work Phone: [facility] 01-04-2025 11:26-0400 Diastolic blood pressure 69 mm[Hg] Kevin Diaz SUPERVISORY TRAINING SPECIALIST.CRAYON MOLDING MACHINE OPERATOR Work Phone: [facility] 01-04-2025 11:26-0400 Heart rate 76 /min Kevin Diaz SUPERVISORY TRAINING SPECIALIST.CRAYON MOLDING MACHINE OPERATOR Work Phone: [facility] 01-04-2025 11:26-0400 SaO2% (BldA) [Mass fraction] 97 % Kevin Diaz SUPERVISORY TRAINING SPECIALIST.CRAYON MOLDING MACHINE OPERATOR Work Phone: [facility] 01-04-2025 11:26-0400 Systolic blood pressure 111 mm[Hg] Kevin Diaz SUPERVISORY TRAINING SPECIALIST.CRAYON MOLDING MACHINE OPERATOR Work Phone: [facility] 10-07-2024 15:26-0500 Body mass index (BMI) [Ratio] 21.76 kg/m2 Murphy Henley MD Work Phone: [facility] 10-07-2024 15:26-0500 Body temperature 98.1 [degF] Murphy Henley MD Work Phone: [facility] 10-07-2024 15:26-0500 Body weight 64.9 kg Murphy Henley MD Work Phone: [facility] 10-07-2024 15:26-0500 Diastolic blood pressure 66 mm[Hg] Murphy Henley MD Work Phone: [facility] 10-07-2024 15:26-0500 Heart rate 61 /min Murphy Henley MD Work Phone: [facility] 10-07-2024 15:26-0500 Respiratory rate 16 /min Murphy Henley MD Work Phone: [facility] 10-07-2024 15:26-0500 SaO2% (BldA) [Mass fraction] 100 % Murphy Henley MD Work Phone: [facility] 10-07-2024 15:26-0500 Systolic blood pressure 106 mm[Hg] Murphy Henley MD Work Phone: [facility] 05-13-2024 14:23-0400 Body height 172.7 cm Brook Pablo MD Work Phone: [facility] 05-13-2024 14:23-0400 Body mass index (BMI) [Ratio] 21.77 kg/m2 Brook Pablo MD Work Phone: [facility] 05-13-2024 14:23-0400 Body temperature 97.59 [degF] Brook Pablo MD Work Phone: [facility] 05-13-2024 14:23-0400 Body weight 64.95 kg Brook Pablo MD Work Phone: [facility] 05-13-2024 14:23-0400 Diastolic blood pressure 72 mm[Hg] Brook Pablo MD Work Phone: [facility] 05-13-2024 14:23-0400 Heart rate 71 /min Brook Pablo MD Work Phone: [facility] 05-13-2024 14:23-0400 Systolic blood pressure 107 mm[Hg] Brook Pablo MD Work Phone: [facility] 03-22-2024 15:40-0400 Body mass index (BMI) [Ratio] 21.13 kg/m2 Murphy Henley MD Work Phone: [facility] 03-22-2024 15:40-0400 Body temperature 97.5 [degF] Murphy Henley MD Work Phone: [facility] 03-22-2024 15:40-0400 Body weight 63.96 kg Murphy Henley MD Work Phone: [facility] 03-22-2024 15:40-0400 Diastolic blood pressure 62 mm[Hg] Murphy Henley MD Work Phone: [facility] 03-22-2024 15:40-0400 Heart rate 68 /min Murphy Henley MD Work Phone: [facility] 03-22-2024 15:40-0400 Respiratory rate 18 /min Murphy Henley MD Work Phone: [facility] 03-22-2024 15:40-0400 SaO2% (BldA) [Mass fraction] 98 % Murphy Henley MD Work Phone: [facility] 03-22-2024 15:40-0400 Systolic blood pressure 112 mm[Hg] Murphy Henley MD Work Phone: [facility] 01-12-2024 13:33-0400 Body weight 65.32 kg Stuart Ponce SUPERVISORY TRAINING SPECIALIST.RESEARCH ENGINEER Work Phone: [facility] 01-12-2024 13:33-0400 Diastolic blood pressure 68 mm[Hg] Stuart Ponce SUPERVISORY TRAINING SPECIALIST.RESEARCH ENGINEER Work Phone: [facility] 01-12-2024 13:33-0400 Heart rate 69 /min Stuart Ponce SUPERVISORY TRAINING SPECIALIST.RESEARCH ENGINEER Work Phone: [facility] 01-12-2024 13:33-0400 Respiratory rate 16 /min Stuart Ponce SUPERVISORY TRAINING SPECIALIST.RESEARCH ENGINEER Work Phone: [facility] 01-12-2024 13:33-0400 SaO2% (BldA) [Mass fraction] 97 % Stuart Ponce SUPERVISORY TRAINING SPECIALIST.RESEARCH ENGINEER Work Phone: [facility] 01-12-2024 13:33-0400 Systolic blood pressure 110 mm[Hg] Stuart Ponce SUPERVISORY TRAINING SPECIALIST.RESEARCH ENGINEER Work Phone: [facility] 12-10-2023 10:03-0500 Body weight 65.32 kg Stuart Ponce SUPERVISORY TRAINING SPECIALIST.RESEARCH ENGINEER Work Phone: [facility] 12-10-2023 10:03-0500 Diastolic blood pressure 59 mm[Hg] Stuart Ponce SUPERVISORY TRAINING SPECIALIST.RESEARCH ENGINEER Work Phone: [facility] 12-10-2023 10:03-0500 Heart rate 79 /min Stuart Ponce SUPERVISORY TRAINING SPECIALIST.RESEARCH ENGINEER Work Phone: [facility] 12-10-2023 10:03-0500 Respiratory rate 16 /min Stuart Ponce SUPERVISORY TRAINING SPECIALIST.RESEARCH ENGINEER Work Phone: [facility] 12-10-2023 10:03-0500 SaO2% (BldA) [Mass fraction] 97 % Stuart Ponce SUPERVISORY TRAINING SPECIALIST.RESEARCH ENGINEER Work Phone: [facility] 12-10-2023 10:03-0500 Systolic blood pressure 90 mm[Hg] Stuart Ponce SUPERVISORY TRAINING SPECIALIST.RESEARCH ENGINEER Work Phone: [facility] 12-07-2023 18:16-0500 Body temperature 97.7 [degF] [facility] 12-07-2023 18:16-0500 Diastolic blood pressure 68 mm[Hg] [facility] 12-07-2023 18:16-0500 Heart rate 76 /min [facility] 12-07-2023 18:16-0500 Respiratory rate 13 /min [facility] 12-07-2023 18:16-0500 SaO2% (BldA) [Mass fraction] 98 % [facility] 12-07-2023 18:16-0500 Systolic blood pressure 114 mm[Hg] [facility] 12-07-2023 14:05-0500 Body height 172.72 cm [facility] 08-10-2023 00:51-0500 Heart rate 63 /min [facility] 08-10-2023 00:51-0500 Respiratory rate 17 /min [facility] 08-10-2023 00:51-0500 SaO2% (BldA) [Mass fraction] 97 % [facility] 08-09-2023 23:56-0500 Diastolic blood pressure 75 mm[Hg] [facility] 08-09-2023 23:56-0500 Systolic blood pressure 118 mm[Hg] [facility] 08-09-2023 23:51-0500 Body height 172.72 cm [facility] 08-09-2023 23:51-0500 Body temperature 98.3 [degF] [facility] 07-28-2023 07:50-0400 Body weight 65.36 kg Mariam Pham PA-C Work Phone: [facility] 07-28-2023 07:50-0400 Diastolic blood pressure 70 mm[Hg] Mariam Yarbroughs PA-C Work Phone: [facility] 07-28-2023 07:50-0400 Heart rate 58 /min Mariam Pham PA-C Work Phone: [facility] 07-28-2023 07:50-0400 Systolic blood pressure 111 mm[Hg] Mariam Yarbroughs PA-C Work Phone: [facility] 03-10-2023 16:20-0400 Body temperature 97.59 [degF] Murphy Henley MD Work Phone: [facility] 03-10-2023 16:20-0400 Body weight 63.96 kg Murphy Henley MD Work Phone: [facility] 03-10-2023 16:20-0400 Diastolic blood pressure 72 mm[Hg] Murphy Henley MD Work Phone: [facility] 03-10-2023 16:20-0400 Heart rate 77 /min Murphy Henley MD Work Phone: [facility] 03-10-2023 16:20-0400 Respiratory rate 18 /min Murphy Henley MD Work Phone: [facility] 03-10-2023 16:20-0400 SaO2% (BldA) [Mass fraction] 98 % Murphy Henley MD Work Phone: [facility] 03-10-2023 16:20-0400 Systolic blood pressure 126 mm[Hg] Murphy Henley MD Work Phone: [facility] 04-14-2022 16:15-0400 Body weight 62.14 kg Murphy Henley MD Work Phone: [facility] 04-14-2022 16:15-0400 Diastolic blood pressure 70 mm[Hg] Murphy Henley MD Work Phone: [facility] 04-14-2022 16:15-0400 Heart rate 65 /min Murphy Henley MD Work Phone: [facility] 04-14-2022 16:15-0400 SaO2% (BldA) [Mass fraction] 97 % Murphy Henley MD Work Phone: [facility] 04-14-2022 16:15-0400 Systolic blood pressure 104 mm[Hg] Murphy Henley MD Work Phone: [facility] 02-05-2022 09:04-0400 Body weight 63.5 kg Murphy Henley MD Work Phone: [facility] 02-05-2022 09:04-0400 Diastolic blood pressure 60 mm[Hg] Murphy Henley MD Work Phone: [facility] 02-05-2022 09:04-0400 Heart rate 76 /min Murphy Henley MD Work Phone: [facility] 02-05-2022 09:04-0400 Respiratory rate 16 /min Murphy Henley MD Work Phone: [facility] 02-05-2022 09:04-0400 Systolic blood pressure 94 mm[Hg] Murphy Henley MD Work Phone: [facility] Encounters Encounter Date Encounter Type Care Provider Facility [facility]: [facility] Start: 03-27-2025 [facility] Start: 03-23-2025 [facility] Start: 03-09-2025 End: 03-10-2025 Refill Murphy Henley MD Work Phone: [facility] [place] Comment on above: Refill Request Start: 03-03-2025 End: 03-03-2025 Telephone encounter Crissy Bowser MD Work Phone: Neurology Comment on above: Received Outside Med ical Records Start: 03-02-2025 End: 03-02-2025 Telephone encounter Murphy Henley MD Work Phone: [facility] [place] Comment on above: Fax over OV notes Ho me Sleep Test Start: 02-22-2025 End: 02-22-[address] Murphy Henley MD Work Phone: [facility] Work Phone: Start: 02-22-2025 End: 02-22-2025 Patient encounter procedure Manan Brown MD -Laboratory Work Phone: Start: 02-22-2025 End: 02-22-[address] Manan Brown MD -[place] [facility] Work Phone: Start: 02-22-2025 End: 02-22-[address] Murphy Henley MD Work Phone: [facility] Work Phone: Start: 02-22-2025 End: 02-22-2025 ambulatory Manan Brown Facility:[facility] Start: 02-13-2025 End: 02-14-2025 ambulatory Crissy Bowser MD Work Phone: Neurology Comment on above: Sleep apnea Start: 02-09-2025 End: 02-10-2025 Follow-up encounter Stuart Ponce APRN.RESEARCH ENGINEER Work Phone: Internal Medicine [place] Start: 02-07-2025 End: 02-07-2025 Telemedicine consultation with patient Crissy Bowser MD Work Phone: Neurology Start: 02-07-2025 End: 02-07-2025 ambulatory Crissy Bowser MD Work Phone: Neurology Comment on above: At risk for obstruct brian sleep apnea (Primary Dx); Snoring; Other fatigue; Sleep disturbance; Palpitation Start: 01-31-2025 End: 02-01-2025 ambulatory STUATR PONCE Facility:[facility] Start: 01-23-2025 End: 01-23-2025 Patient encounter procedure Varun Jhaveri PA-C Work Phone: Otolaryngology Comment on above: Chronic nasal conges tion (Primary Dx); Nasal congestion; Environmental and seasonal allergies; Nasal valve collapse Start: 01-23-2025 End: 01-23-2025 [facility] Facility:[facility] Start: 01-19-2025 End: 01-19-2025 Office outpatient visit 25 minutes Stuart Ponce SUPERVISORY TRAINING SPECIALIST.RESEARCH ENGINEER Work Phone: Internal Medicine [place] Comment on above: Palpitations (Primar y Dx); Chest tightness; SOBOE (shortness of breath on exertion); Nasal congestion; Sleep disturbance Start: 01-19-2025 End: 01-19-2025 [facility] Facility:[facility] Start: 01-13-2025 End: 01-13-2025 [facility] Facility:[facility] Start: 01-13-2025 End: 01-13-2025 Office outpatient visit 25 minutes Stuart Ponce SUPERVISORY TRAINING SPECIALIST.RESEARCH ENGINEER Work Phone: [facility] Medicine [place] Comment on above: Other fatigue (Prima ry Dx); Sleep disturbance; Loud snoring Start: 01-04-2025 End: 01-04-2025 ambulatory KEVIN PERALES Facility:[facility] Start: 01-04-2025 End: 01-04-2025 Patient encounter procedure Kevin Perales SUPERVISORY TRAINING SPECIALIST.CRAYON MOLDING MACHINE OPERATOR Work Phone: Internal Medicine [place] Comment on above: Chest tightness (Yanci oscar Dx); Chest pain, unspecified type; Palpitations; Fatigue, unspecified type Start: 10-07-2024 End: 10-07-2024 ambulatory MURPHY HENLEY Facility:[facility] Start: 10-07-2024 End: 10-07-2024 Office outpatient visit 25 minutes Murphy Henley MD Work Phone: Internal Medicine [place] Comment on above: Acquired hypothyroid ism (Primary Dx); Primary osteoarthritis of both feet; Vitamin D deficiency; Renal insufficiency, mild; Iron deficiency anemia, unspecified iron deficiency anemia type; Postorgasmic illness syndrome; Encounter for screening mammogram for breast cancer Start: 09-19-2024 End: 09-19-2024 ambulatory MURPHY HENLEY Facility:[facility] Start: 07-05-2024 End: 07-05-2024 ambulatory BROOK PABLO Facility:[facility] Start: 07-04-2024 End: 07-05-2024 ambulatory Brook Pablo MD Work Phone: Rheumatology Comment on above: Wondering about adre nal issues Start: 06-07-2024 End: 06-07-2024 ambulatory Brook Pablo MD Work Phone: Rheumatology Comment on above: Bilateral hand pain (Primary Dx); HARVINDER positive Start: 06-07-2024 End: 06-07-2024 Telemedicine consultation with patient Brook Pablo MD Work Phone: Rheumatology Start: 05-20-2024 End: 05-20-2024 ambulatory OOTDR PULL Facility:[facility] Start: 05-13-2024 End: 05-13-2024 Subsequent hospital visit by physician [facility] Work Phone: Radiology Comment on above: Polyarthralgia [M25. 50] Start: 05-13-2024 End: 05-13-2024 ambulatory BROOK PABLO Facility:[facility] Start: 05-13-2024 End: 05-13-2024 ambulatory MURPHY HENLEY Facility:[facility] Start: 05-13-2024 End: 05-13-2024 Patient encounter procedure Brook Pablo MD Work Phone: Rheumatology Comment on above: Sicca syndrome (HCC) (Primary Dx); HARVINDER positive; Bilateral hand pain; Inflammatory back pain; Molly's disease; Polyarthralgia Start: 05-06-2024 Documentation procedure Mammog armando Coordinator [facility] Start: 05-06-2024 Letter encounter Mammography Coordinator [facility] Start: 05-05-2024 End: 05-05-2024 ambulatory MURPHY HENLEY Facility:[facility] Start: 05-05-2024 End: 05-05-2024 Subsequent hospital visit by physician Screen Mammo [facility] Comment on above: Screening mammogram for breast cancer [Z12.31] Start: 04-01-2024 Get Medical Advice Murphy salinas MD Work Phone: Internal Medicine [place] Comment on above: Need order for 3D ma mmogram Start: 03-22-2024 End: 03-22-2024 ambulatory MURPHY HENLEY Facility:[facility] Start: 03-22-2024 End: 03-22-2024 Office outpatient visit 25 minutes Murphy Henley MD Work Phone: Internal Medicine [place] Comment on above: Acquired hypothyroid ism (Primary Dx); Vitamin D deficiency; Iron deficiency anemia, unspecified iron deficiency anemia type; HARVINDER positive; Encounter for long-term current use of medication Start: 03-14-2024 End: 03-14-2024 [facility] Facility:[facility] Start: 01-12-2024 End: 01-12-2024 Office outpatient visit 25 minutes Stuart Ponce SUPERVISORY TRAINING SPECIALIST.RESEARCH ENGINEER Work Phone: Internal Medicine [place] Comment on above: Exertional chest carmita n (Primary Dx); Acquired hypothyroidism; HARVINDER positive; Bilateral hand pain Start: 01-07-2024 [facility] Facility:[facility] Start: 01-07-2024 End: 01-07-2024 Subsequent hospital visit by physician [facility] Work Phone: Cardiology Lab Comment on above: Exertional chest camrita n [R07.9] Start: 01-06-2024 Telephone encounter Samantha conn RN Cardiology Lab Comment on above: Reminder Call Start: 12-28-2023 End: 12-28-[address] [facility] Work Phone: Start: 12-28-2023 End: 12-28-[address] [facility] [place] Work Phone: Start: 12-18-2023 ambulatory Stuart Ponce A PRN.RESEARCH ENGINEER Work Phone: Internal Medicine [place] Comment on above: [facility] Start: 12-14-2023 ambulatory Stuart Aguilars A PRN.RESEARCH ENGINEER Work Phone: Internal Medicine [place] Comment on above: TSH not normal TSH below normal Start: 12-14-2023 Telephone encounter Murphy manning MD Work Phone: Internal Medicine [place] Comment on above: Medication Problem Start: 12-10-2023 End: 12-10-2023 Office outpatient visit 25 minutes Stuart Ponce APRN.RESEARCH ENGINEER Work Phone: Internal Medicine [place] Comment on above: Exertional chest carmita n (Primary Dx); Elevated glucose; Acquired hypothyroidism; Stage 3a chronic kidney disease (HCC) Start: 12-07-2023 End: 12-07-2023 Emergency department patient visit [facility] Work Phone: Start: 08-09-2023 End: 08-10-2023 Emergency department patient visit [facility] Work Phone: Start: 08-03-2023 End: 08-03-2023 Subsequent hospital visit by physician [facility] Work Phone: Radiology Comment on above: Stage 3a chronic kid trenton disease (HCC) [N18.31] Start: 07-28-2023 End: 07-28-2023 Patient encounter procedure Mariam Pham PA-C Work Phone: Kidney Medicine Comment on above: Acquired hypothyroid ism (Primary Dx); Stage 3a chronic kidney disease (HCC) Start: 07-09-2023 Telephone encounter Murphy manning MD Work Phone: Internal Medicine [place] Comment on above: Results; Consult Start: 07-08-2023 End: 07-08-2023 Patient encounter procedure [facility] Work Phone: Start: 07-02-2023 ambulatory Murphy conn MD Work Phone: Internal Medicine [place] Comment on above: 06/23/13 lab 44gfr, 1 .33 creatinine Start: 06-23-2023 End: 06-23-[address] [facility] Work Phone: Start: 06-23-2023 End: 06-23-2023 Patient encounter procedure [facility] Work Phone: Start: 04-10-2023 End: 04-10-2023 ambulatory Emg 850) Neurology Comment on above: EMG Start: 04-10-2023 End: 04-10-2023 Patient encounter procedure Emg 1 Neur [facility] (Max Weight: 850) [facility] Start: 03-30-2023 Documentation procedure Mammog armando Coordinator [facility] Start: 03-30-2023 Letter encounter Mammography Coordinator [facility] Start: 03-27-2023 End: 03-27-2023 Subsequent hospital visit by physician Screen Mammo [facility] M[facility] Comment on above: Breast cancer screen ing by mammogram [Z12.31] Start: 03-10-2023 End: 03-10-2023 Office outpatient visit 25 minutes Murphy Henley MD Work Phone: Internal Medicine [place] Comment on above: Iron deficiency anem ia, unspecified iron deficiency anemia type (Primary Dx); Carpal tunnel syndrome of left wrist; Right hand pain; Left arm pain; Stiffness of joints of both hands; Breast cancer screening by mammogram; Dense breasts Start: 02-15-2023 Refill Murphy conn MD Work Phone: Internal Medicine [place] Comment on above: Refill Request Start: 01-21-2023 End: 01-21-[address] [facility] Work Phone: Start: 01-21-2023 End: 01-21-2023 Patient encounter procedure [facility] Start: 01-05-2023 End: 01-05-[address] [facility] Work Phone: Start: 01-05-2023 End: 01-05-2023 Patient encounter procedure [facility] Start: 09-10-2022 ambulatory Murphy conn MD Work Phone: Internal Medicine [place] Comment on above: Recent positive HARVINDER blood test Start: 08-12-2022 End: 08-12-[address] [facility] Work Phone: Start: 08-12-2022 End: 08-12-2022 Patient encounter procedure [facility] Start: 04-14-2022 End: 04-14-2022 Office outpatient visit 25 minutes Murphy Henley MD Work Phone: Internal Medicine [place] Comment on above: Vitamin D deficiency (Primary Dx); Nasal congestion; Acquired hypothyroidism; Vaginal dryness, menopausal; Encounter for long-term current use of medication; Iron deficiency anemia, unspecified iron deficiency anemia type Start: 04-09-2022 Telephone encounter Murphy manning MD Work Phone: Internal Medicine [place] Comment on above: Lab order request Start: 03-04-2022 Telephone encounter Murphy manning MD Work Phone: Internal Medicine [place] Comment on above: Results Start: 02-21-2022 ambulatory Murphy conn MD Work Phone: Internal Medicine [place] Comment on above: Blood test results a nd prior questions Start: 02-14-2022 ambulatory Murphy conn MD Work Phone: Internal Medicine [place] Comment on above: Blood test results Start: 02-06-2022 Telephone encounter Murphy manning MD Work Phone: Internal Medicine [place] Comment on above: Insurance Authorizat ion Start: 02-05-2022 End: 02-05-2022 Office outpatient visit 40 minutes Murphy Henley MD Work Phone: Internal Medicine [place] Comment on above: Acquired hypothyroid ism (Primary Dx); Vitamin D deficiency; Iron deficiency anemia, unspecified iron deficiency anemia type; Celiac disease; Screening for lipid disorders; Encounter for screening for diabetes mellitus; Encounter for long-term current use of medication; DDD (degenerative disc disease), cervical; Chronic left shoulder pain; Adhesive capsulitis of left shoulder Start: 12-23-2021 Get Medical Advice Murphy salinas MD Work Phone: Internal Medicine [place] Comment on above: Need refill on old p rescriptions- not sure if I have refills left. Start: 03-05-2021 End: 03-05-2021 Subsequent hospital visit by physician [facility] Work Phone: Radiology Comment on above: Injury of left foot, initial encounter [U29.912V] Procedures Date Procedure Procedure Detail Performing Clinician Start: 02-22-2025 Evaluation of diagno stic study results Dr. Murphy Henley MD Work Phone: Start: 05-20-2024 Lipid 1995 panel - S sherri or Plasma Brook Pablo MD Work Phone: Start: 05-13-2024 End: 05-13-2024 Radiologic examination sacroiliac jnts <3 views Brook Pablo MD Work Phone: Start: 01-07-2024 Echo tthrc r-t 2d w/ wo m-mode complete rest&st Stuart Ponce SUPERVISORY TRAINING SPECIALIST.RESEARCH ENGINEER Work Phone: Start: 12-07-2023 Plain chest X-ray Start: 08-10-2023 X-ray of both feet Start: 08-03-2023 Us retroperitoneal r eal time w/image complete Mariam Pham PA-C Work Phone: Start: 07-28-2023 Urnls dip stick/tabl et rgnt auto w/o microscopy Mariam Pham PA-C Work Phone: Start: 04-10-2023 Nerve conduction niya dies 5-6 studies Murphy Henley MD Work Phone: Start: 03-27-2023 End: 03-27-2023 Mammography Murphy Henley MD Work Phone: Start: 01-05-2023 Lipid 1996 panel - S sherri or Plasma Murphy Henley MD Work Phone: Start: 02-17-2022 Mammography Murphy agrawal MD Work Phone: Start: 03-05-2021 Radex foot complete minimum 3 views Torin Gastelum SUPERVISORY TRAINING SPECIALIST.CRAYON MOLDING MACHINE OPERATOR Work Phone: Start: 01-07-2021 Mammography Murphy agrawal MD Work Phone: Start: 11-19-2020 Colonoscopy Murphy agrawal MD Work Phone: Plan of Treatment Date Care Activity Detail Author Start: 05-20-2029 Lipid panel Lipid Screening [facility] Start: 09-01-2028 Screening for malignant neoplasm of cervix [facility] Start: 01-20-2028 Diabetes Screening Diabetes Screening [facility] Start: 01-06-2028 Lipid 1996 panel - Serum or Plasma Lipid Screening [facility] Start: 01-06-2028 Lipid panel Lipid Screening [facility] Start: 01-06-2028 LIPID SCREEN LIPID SCREEN [facility] Start: 09-19-2027 Diabetes Screening Diabetes Screening [facility] Start: 05-13-2027 Diabetes Screening Diabetes Screening [facility] Start: 02-05-2027 LIPID SCREEN LIPID SCREEN [facility] Start: 12-09-2026 Diabetes Screening Diabetes Screening [facility] Start: 01-19-2026 Complete blood count Hemoglobin/Hematocrit [facility] Start: 01-19-2026 Creatinine measurement Serum Creatinine [facility] Start: 01-04-2026 Annual PCP Team Chronic Disease Visit Annual PCP Team Chronic Disease Visit [facility] Start: 11-19-2025 Colonoscopy COLONOSCOPY [facility] Start: 11-19-2025 COLORECTAL CANCER SCREENING COLORECTAL CANCER SCREENING [facility] Start: 11-19-2025 Screening for malignant neoplasm of colon [facility] Start: 10-07-2025 Annual PCP Team Chronic Disease Visit Annual PCP Team Chronic Disease Visit [facility] Start: 10-01-2025 DIABETES SCREEN DIABETES SCREEN [facility] Start: 10-01-2025 Diabetes Screening Diabetes Screening [facility] Start: 09-19-2025 Complete blood count Hemoglobin/Hematocrit [facility] Start: 09-19-2025 Creatinine measurement Serum Creatinine [facility] Start: 08-12-2025 DIABETES SCREEN DIABETES SCREEN [facility] Start: 06-02-2025 DIABETES SCREEN DIABETES SCREEN [facility] Start: 05-13-2025 Creatinine measurement Serum Creatinine [facility] Start: 05-05-2025 Screening for malignant neoplasm of breast Mammogram Screening [facility] Start: 04-25-2025 End: 04-25-2025 Follow-up encounter 04/25/2025 11:40 AM EDT [facility] [address] [place] [address] Crissy Bowser MD [address] [place] [address] PSG follow up Neurology Comment on above: PSG follow up Start: 04-11-2025 End: 04-11-2025 Patient encounter procedure 04/11/2025 9:05 PM EDT Office Visit Neurology [address] [place], [place] [id number] At risk for obstructive sleep apnea [Z91.89] Neurology Comment on above: At risk for obstructive sleep apnea [Z91 .89] Start: 04-10-2025 End: 04-10-2025 Patient encounter procedure 04/10/2025 1:40 PM EDT Office Visit Internal [facility] [place] [address] [place] [address] Murphy Henley MD [address] [place] [address] 6 month follow up Internal Medicine [place] Comment on above: 6 month follow up Start: 03-22-2025 Annual PCP Team Chronic Disease Visit Annual PCP Team Chronic Disease Visit [facility] Start: 03-22-2025 Covid-19 Vaccine ( season) Covid-19 Vaccine () [facility] Comment on above: Postponed from 06/05/2023 (Declined at t his time) Start: 03-21-2025 End: 03-21-2025 Patient encounter procedure 03/21/2025 2:15 PM EDT Office Visit Otolaryngology [address] [id number] Varun Jhaveri PA-C [address] [id number] nasl congestion Otolaryngology Comment on above: nasl congestion Start: 02-22-2025 Evaluation of diagnostic study results 12 Lead EKG performed by [facility] Start: 02-07-2025 End: 02-07-2025 ambulatory 02/07/2025 1:00 PM EDT [facility] Neurology [address] [place] [address] Crissy Bowser MD [address] [place] [address] Other fatigue [R53.83] Neurology Comment on above: Other fatigue [R53.83] Start: 02-05-2025 DIABETES SCREEN DIABETES SCREEN [facility] Start: 02-01-2025 End: 02-01-2025 Patient encounter procedure 02/01/2025 2:00 PM EDT Office Visit Neurology [address] [place] [address] Other fatigue [R53.83] Neurology Comment on above: Other fatigue [R53.83] Start: 01-23-2025 End: 01-23-2025 Patient encounter procedure 01/23/2025 10:55 AM EDT Office Visit Otolaryngology [address] [place] [address] Varun Jhaveri PA-C [address] [place] [address] Nasal congestion [R09.81] Otolaryngology Comment on above: Nasal congestion [R09.81] Start: 01-19-2025 End: 04-20-2025 Comprehensive metabolic 2000 panel - Serum or Plasma [facility] Work Phone: Comment on above: Expected: 01/19/2025, Expires: Start: 01-19-2025 End: 04-20-2025 TSH W/REFLEX FT4 [facility] Comment on above: Expected: 01/19/2025, Expires: Start: 12-09-2024 Creatinine measurement Serum Creatinine [facility] Start: 10-07-2024 End: 10-07-2024 Patient encounter procedure 10/07/2024 3:00 PM EST Office Visit Internal Medicine [place] [address] [place], [place] [id number] Murphy Henley MD [address] [place], [place] [id number] 6 month follow up Internal Medicine [place] Comment on above: 6 month follow up Start: 09-01-2024 Annual PCP Team Chronic Disease Visit Annual PCP Team Chronic Disease Visit [facility] Start: 08-22-2024 End: 11-21-2024 25-hydroxyvitamin D3 [Mass/volume] in Serum or Plasma VITAMIN D 25 HYDROXY Lab Routine Vitamin D deficiency Expected: 08/22/2024 (Approximate), Expires: 11/21/2024 [facility] Comment on above: Expected: 08/22/2024 (Approximate), Expi res: 11/21/2024 Start: 08-22-2024 End: 11-21-2024 CBC panel - Blood by Automated count COMPLETE BLOOD COUNT Lab Routine Iron deficiency anemia, unspecified iron deficiency anemia type Encounter for long-term current use of medication Expected: 08/22/2024 (Approximate), Expires: 11/21/2024 [facility] Work Phone: Comment on above: Expected: 08/22/2024 (Approximate), Expi res: 11/21/2024 Start: 08-22-2024 End: 11-21-2024 Comprehensive metabolic 2000 panel - Serum or Plasma COMPREHENSIVE METABOLIC PANEL Lab Routine Encounter for long-term current use of medication Expected: 08/22/2024 (Approximate), Expires: 11/21/2024 [facility] Comment on above: Expected: 08/22/2024 (Approximate), Expi res: 11/21/2024 Start: 08-22-2024 End: 11-21-2024 Thyrotropin [Units/volume] in Serum or Plasma THYROID STIMULATING HORMONE Lab Routine Acquired hypothyroidism Encounter for long-term current use of medication Expected: 08/22/2024 (Approximate), Expires: 11/21/2024 [facility] Comment on above: Expected: 08/22/2024 (Approximate), Expi res: 11/21/2024 Start: 08-22-2024 End: 11-21-2024 Thyroxine (T4) free [Mass/volume] in Serum or Plasma T4 FREE/FREE THYROXINE Lab Routine Acquired hypothyroidism Encounter for long-term current use of medication Expected: 08/22/2024 (Approximate), Expires: 11/21/2024 [facility] Comment on above: Expected: 08/22/2024 (Approximate), Expi res: 11/21/2024 Start: 08-22-2024 End: 11-21-2024 Triiodothyronine (T3) Free [Mass/volume] in Serum or Plasma T3, FREE Lab Routine Acquired hypothyroidism Encounter for long-term current use of medication Expected: 08/22/2024 (Approximate), Expires: 11/21/2024 [facility] Comment on above: Expected: 08/22/2024 (Approximate), Expi res: 11/21/2024 Start: 07-28-2024 Serum Creatinine Serum Creatinine [facility] Start: 07-05-2024 End: 10-04-2024 Cortisol [Mass/volume] in Serum or Plasma [facility] Work Phone: Comment on above: Expected: 07/05/2024, Expires: Start: 06-07-2024 End: 06-07-2024 ambulatory 06/07/2024 10:30 AM [facility] Rheumatology [address] [address] [place] [address] [place] [address] Return in about 4 weeks (around 06/10/2024). Rheumatology Comment on above: Return in about 4 weeks (around 06/10/2024 ). Start: 06-05-2024 Covid-19 Vaccine () Covid-19 Vaccine () [facility] Start: 06-05-2024 Covid-19 Vaccine () Covid-19 Vaccine () [facility] Start: 05-13-2024 End: 05-13-2024 Patient encounter procedure Rheumatology Comment on above: HARVINDER positive [R76.8]; Bilateral hand carmita n [M79.641, M79.642] Start: 05-13-2024 End: 08-12-2024 HARVINDER BY IFA SCREEN [facility] Comment on above: Expected: 05/13/2024, Expires: Start: 05-13-2024 End: 08-12-2024 Borrelia burgdorferi IgG and IgM panel - Serum [facility] Comment on above: Expected: 05/13/2024, Expires: Start: 05-13-2024 End: 08-12-2024 C reactive protein [Mass/volume] in Serum or Plasma [facility] Comment on above: Expected: 05/13/2024, Expires: Start: 05-13-2024 End: 08-12-2024 Cobalamin (Vitamin B12) [Mass/volume] in Serum or Plasma VITAMIN B12 Lab Routine HARVINDER positive Bilateral hand pain 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 Expected: 05/13/2024, Expires: 08/12/2024 [facility] Comment on above: Expected: 05/13/2024, Expires: Start: 05-13-2024 End: 08-12-2024 Complement C3 [Mass/volume] in Serum or Plasma [facility] Comment on above: Expected: 05/13/2024, Expires: Start: 05-13-2024 End: 08-12-2024 Complement C4 [Mass/volume] in Serum or Plasma [facility] Comment on above: Expected: 05/13/2024, Expires: Start: 05-13-2024 End: 08-12-2024 Comprehensive metabolic 2000 panel - Serum or Plasma [facility] Comment on above: Expected: 05/13/2024, Expires: Start: 05-13-2024 End: 08-12-2024 Cyclic citrullinated peptide IgG Ab [Units/volume] in Serum or Plasma [facility] Comment on above: Expected: 05/13/2024, Expires: Start: 05-13-2024 End: 08-12-2024 DNA double strand Ab [Units/volume] in Serum by Immunoassay [facility] Comment on above: Expected: 05/13/2024, Expires: Start: 05-13-2024 End: 08-12-2024 Erythrocyte sedimentation rate [facility] Comment on above: Expected: 05/13/2024, Expires: Start: 05-13-2024 End: 08-12-2024 Extractable nuclear Ab panel - Serum [facility] Comment on above: Expected: 05/13/2024, Expires: Start: 05-13-2024 End: 08-12-2024 Ferritin [Mass/volume] in Serum or Plasma [facility] Comment on above: Expected: 05/13/2024, Expires: Start: 05-13-2024 End: 08-12-2024 Folate [Mass/volume] in Serum or Plasma FOLATE, SERUM Lab Routine HARVINDER positive Bilateral hand pain 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 Expected: 05/13/2024, Expires: 08/12/2024 [facility] [facility] Comment on above: Expected: 05/13/2024, Expires: Start: 05-13-2024 End: 08-12-2024 HISTONE IGG CRYSTAL [facility] Comment on above: Expected: 05/13/2024, Expires: 4 Start: 05-13-2024 End: 08-12-2024 IMMUNOFIXATION SCREEN, SERUM [facility] Comment on above: Expected: 05/13/2024, Expires: Start: 05-13-2024 End: 08-12-2024 Iron and Iron binding capacity panel - Serum or Plasma [facility] Comment on above: Expected: 05/13/2024, Expires: Start: 05-13-2024 End: 08-12-2024 KAPPA/AMADOR,FREE,SER [facility] Comment on above: Expected: 05/13/2024, Expires: Start: 05-13-2024 End: 08-12-[address] [facility] Comment on above: Expected: 05/13/2024, Expires: Start: 05-13-2024 End: 08-12-2024 Magnesium [Mass/volume] in Serum or Plasma [facility] Comment on above: Expected: 05/13/2024, Expires: Start: 05-13-2024 End: 08-12-2024 MONOCLONAL PROT UR W/INTERP [facility] Comment on above: Expected: 05/13/2024, Expires: Start: 05-13-2024 End: 08-12-2024 Phosphate [Mass/volume] in Serum or Plasma [facility] Comment on above: Expected: 05/13/2024, Expires: Start: 05-13-2024 End: 08-12-2024 PROTEIN ELECT RND UR W/[facility] Comment on above: Expected: 05/13/2024, Expires: Start: 05-13-2024 End: 08-12-2024 PROTEIN ELECTROPHORESIS SERUM W/[facility] Comment on above: Expected: 05/13/2024, Expires: Start: 05-13-2024 End: 08-12-2024 Protein/Creatinine [Mass Ratio] in Urine [facility] Comment on above: Expected: 05/13/2024, Expires: Start: 05-13-2024 End: 08-12-2024 Rheumatoid factor [Units/volume] in Serum or Plasma [facility] Comment on above: Expected: 05/13/2024, Expires: Start: 05-13-2024 End: 08-12-2024 TRYPTASE BLOOD [facility] Comment on above: Expected: 05/13/2024, Expires: Start: 05-13-2024 End: 08-12-2024 Urinalysis complete panel - Urine [facility] Comment on above: Expected: 05/13/2024, Expires: Start: 05-13-2024 End: 08-12-2024 Zinc [Mass/volume] in Serum or Plasma ZINC BLD Lab Routine HARVINDER positive Bilateral hand pain 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 Expected: 05/13/2024, Expires: 08/12/2024 [facility] Comment on above: Expected: 05/13/2024, Expires: Start: 05-05-2024 End: 05-05-2024 Patient encounter procedure 05/05/2024 11:10 AM EDT Appointment Mammogram [address] [place] [address] [facility] Comment on above: [facility] Start: 03-27-2024 Mammography [facility] Start: 03-27-2024 Screening for malignant neoplasm of breast Mammogram Screening [facility] Start: 03-18-2024 Hemoglobin/Hematocrit Hemoglobin/Hematocrit [facility] Start: 03-14-2024 End: 12-02-2024 Thyrotropin [Units/volume] in Serum or Plasma TSH BLD Lab Routine Acquired hypothyroidism Expected: 03/14/2024 (Approximate), Expires: 12/02/2024 [facility] Work Phone: Comment on above: Expected: 03/14/2024 (Approximate), Expi res: 12/02/2024 Start: 03-14-2024 End: 12-02-2024 Thyroxine (T4) free [Mass/volume] in Serum or Plasma T4 FREE/FREE THYROX Lab Routine Acquired hypothyroidism Expected: 03/14/2024 (Approximate), Expires: 12/02/2024 [facility] Work Phone: Comment on above: Expected: 03/14/2024 (Approximate), Expi res: 12/02/2024 Start: 03-14-2024 End: 12-02-2024 Triiodothyronine (T3) Free [Mass/volume] in Serum or Plasma T3 FREE BLD Lab Routine Acquired hypothyroidism Expected: 03/14/2024 (Approximate), Expires: 12/02/2024 [facility] Work Phone: Comment on above: Expected: 03/14/2024 (Approximate), Expi res: 12/02/2024 Start: 03-10-2024 ANNUAL PCP TEAM CHRONIC DISEASE VISIT ANNUAL PCP TEAM CHRONIC DISEASE VISIT [facility] Start: 03-10-2024 COVID-19 VACCINE (#1) COVID-19 VACCINE (#1) [facility] Comment on above: Postponed from 02/11/1966 (Declined at t his time) Start: 03-10-2024 HEPATITIS B (1 of 3 - 3-dose series) HEPATITIS B (1 of 3 - 3-dose series) [facility] Comment on above: Postponed from 1965 (Declined at t his time) Start: 03-10-2024 Hepatitis B Vaccine (1 of 3 - 19+ 3-dose series) Hepatitis B Vaccine (1 of 3 - 19+ 3-dose series) [facility] Comment on above: Postponed from 1984 (Declined at t his time) Start: 03-10-2024 Hepatitis B Vaccine (1 of 3 - 3-dose series) Hepatitis B Vaccine (1 of 3 - 3-dose series) [facility] Comment on above: Postponed from 1965 (Declined at t his time) Start: 03-10-2024 HPV TESTING HPV TESTING [facility] Comment on above: Postponed from 08/19/2021 (Declined at t his time) Start: 03-10-2024 PAP TESTING PAP TESTING [facility] Comment on above: Postponed from 08/19/2021 (Declined at t his time) Start: 03-10-2024 SHINGRIX VACCINE (1 of 2) SHINGRIX VACCINE (1 of 2) [facility] Comment on above: Postponed from 2015 (Declined at t his time) Start: 03-10-2024 Urine microalbumin profile [facility] Comment on above: Postponed from 1984 (Declined at t his time) Start: 12-10-2023 End: 03-10-2024 Hemoglobin A1c in Blood [facility] Work Phone: Comment on above: Expected: 12/10/2023, Expires: Start: 12-07-2023 [facility] Start: 10-03-2023 ANNUAL PCP TEAM CHRONIC DISEASE VISIT ANNUAL PCP TEAM CHRONIC DISEASE VISIT [facility] Start: 08-10-2023 [facility] Start: 06-05-2023 Covid-19 Vaccine ( season) Covid-19 Vaccine () [facility] Start: 04-14-2023 ANNUAL PCP TEAM CHRONIC DISEASE VISIT ANNUAL PCP TEAM CHRONIC DISEASE VISIT [facility] Start: 03-27-2023 DIABETES SCREEN DIABETES SCREEN [facility] Start: 02-17-2023 Mammography MAMMOGRAM [facility] Start: 02-05-2023 ANNUAL PCP TEAM CHRONIC DISEASE VISIT ANNUAL PCP TEAM CHRONIC DISEASE VISIT [facility] Start: 02-05-2023 SHINGRIX VACCINE (1 of 2) SHINGRIX VACCINE (1 of 2) [facility] Comment on above: Postponed from 2015 (Declined at t his time) Start: 02-05-2023 Urine microalbumin profile DTAP,TDAP,TD (1 - Tdap) [facility] Comment on above: Postponed from 1984 (Declined at t his time) Start: 10-06-2022 COVID-19 VACCINE (#1) COVID-19 VACCINE (#1) [facility] Comment on above: Postponed from 1970 (Declined at t his time) Postponed from 02/11 (Declined at this time) Start: 10-06-2022 COVID-19 VACCINE (1) COVID-19 VACCINE (1) [facility] Comment on above: Postponed from 1970 (Declined at t his time) Start: 09-13-2022 ANNUAL PCP TEAM CHRONIC DISEASE VISIT ANNUAL PCP TEAM CHRONIC DISEASE VISIT [facility] Start: 09-13-2022 HIV SCREENING HIV SCREENING [facility] Comment on above: Postponed from 1983 (Declined at t his time) Start: 08-12-[address] [facility] Work Phone: Start: 08-12-2022 [facility] Work Phone: Start: 04-04-2022 End: 06-04-2022 Basic metabolic 2000 panel - Serum or Plasma BASIC METABOLIC PNL Lab Routine Vitamin D deficiency Hypervitaminosis D Elevated serum creatinine Encounter for long-term current use of medication Expected: 04/04/2022 (Approximate), Expires: 06/04/2022 [facility] Work Phone: Comment on above: Expected: 04/04/2022 (Approximate), Expi res: 06/04/2022 Start: 04-04-2022 End: 06-04-2022 VITAMIN D 25 HYDROXY VITAMIN D 25 HYDROXY Lab Routine Vitamin D deficiency Hypervitaminosis D Encounter for long-term current use of medication Expected: 04/04/2022 (Approximate), Expires: 06/04/2022 [facility] Work Phone: Comment on above: Expected: 04/04/2022 (Approximate), Expi res: 06/04/2022 Start: 01-07-2022 Mammography MAMMOGRAM [facility] Start: 08-19-2021 HPV TESTING HPV TESTING [facility] Start: 08-19-2021 PAP TESTING PAP TESTING [facility] Start: 08-03-2020 LIPID SCREEN LIPID SCREEN [facility] Start: 2015 SHINGRIX VACCINE (1 of 2) SHINGRIX VACCINE (1 of 2) [facility] Start: 2010 COLOGUARD (FIT-DNA) COLOGUARD (FIT-DNA) [facility] Start: [address] COLONOGRAPHY [facility] Start: 2010 FECAL OCCULT BLOOD FECAL OCCULT BLOOD [facility] Start: 2010 Screening for malignant neoplasm of colon [facility] Start: 2010 SIGMOIDOSCOPY SIGMOIDOSCOPY [facility] Start: 1984 Hepatitis B Vaccine (1 of 3 - 19+ 3-dose series) Hepatitis B Vaccine (1 of 3 - 19+ 3-dose series) [facility] Start: 1984 Urine microalbumin profile [facility] Start: 1983 HIV SCREENING HIV SCREENING [facility] Start: 02-11-1966 COVID-19 VACCINE (#1) COVID-19 VACCINE (#1) [facility] Start: 1965 HEPATITIS B (1 of 3 - 3-dose series) HEPATITIS B (1 of 3 - 3-dose series) [facility] End: 04-14-2023 25-hydroxyvitamin D3 [Mass/volume] in Serum or Plasma VITAMIN D 25 HYDROXY Lab Routine Vitamin D deficiency Every 2 months for 6 Occurrences starting 04/14/2022 until 04/14/2023, 1 completed [facility] Work Phone: Comment on above: Every 2 months for 6 Occurrences startin g 04/14/2022 until 04/14/2023, 1 completed End: 04-14-2023 Basic metabolic 2000 panel - Serum or Plasma BASIC METABOLIC PNL Lab Routine Encounter for long-term current use of medication Every 2 months for 6 Occurrences starting 04/14/2022 until 04/14/2023, 1 completed [facility] Work Phone: Comment on above: Every 2 months for 6 Occurrences startin g 04/14/2022 until 04/14/2023, 1 completed End: 04-14-2023 CBC panel - Blood by Automated count CBC Lab Routine Iron deficiency anemia, unspecified iron deficiency anemia type Every 2 months for 6 Occurrences starting 04/14/2022 until 04/14/2023, 1 completed [facility] Work Phone: Comment on above: Every 2 months for 6 Occurrences startin g 04/14/2022 until 04/14/2023, [address] angiography of co ronary arteries [facility] End: 05-01-2025 DBT Breast - bilateral screening GEOVANNI SCREENING [facility] Routine Screening mammogram for breast cancer 1 Occurrences starting 04/05/2024 until 05/01/2025 [facility] Work Phone: Comment on above: 1 Occurrences starting 04/05/2024 until 05/01/2025 DBT Breast - bilater al screening GEOVAN[facility] SCREEN[facility] Routine Screening mammogram for breast cancer 05/05/2024 1:21 PM EDT [facility] Work Phone: End: 11-06-2025 DBT Breast - bilateral screening GEOVANNI SCREENING [facility] Radiology Routine Encounter for screening mammogram for breast cancer 1 Occurrences starting 10/07/2024 until 11/06/2025 [facility] Work Phone: Comment on above: 1 Occurrences starting 10/07/2024 until 11/06/2025 End: 03-10-2024 EMG(NEURO/NI) EMG(NEURO/NI) EMG Routine Carpal tunnel syndrome of left wrist Right hand pain Left arm pain Stiffness of joints of both hands 1 Occurrences starting 03/10/2023 until 03/10/2024 [facility] Work Phone: Comment on above: 1 Occurrences starting 03/10/2023 until 03/10/2024 End: 01-13-2026 HOME SLEEP APNEA TEST (HSAT) HOME SLEEP APNEA TEST (HSAT) Procedures Routine Other fatigue Sleep disturbance Loud snoring 1 Occurrences starting 01/13/2025 until 01/13/2026 [facility] Work Phone: Comment on above: 1 Occurrences starting 01/13/2025 until 01/13/2026 MONOCLONAL PROT UR W/INTERP MONOCLONAL PROT UR W/INTERP Lab Routine Stage 3a chronic kidney disease (HCC) 07/28/2023 9:01 AM EDT [facility] Work Phone: Nuclear Ab [Titer] i n Serum by Immunofluorescence [facility] Work Phone: OUTSIDE VENDOR CARDI AC OUTPATIENT EXTENDED RHYTHM RECORDING (WITHOUT TELEMETRY) OUTSIDE VENDOR CARDIAC OUTPATIENT EXTENDED RHYTHM RECORDING (WITHOUT TELEMETRY) Holter Routine Chest tightness Chest pain, unspecified type Palpitations Fatigue, unspecified type Ordered: 01/04/2025 [facility] Work Phone: Comment on above: Ordered: 01/04/2025 Patient Education [facility] Work Phone: Patient referral [facility] Work Phone: End: 02-07-2026 Polysomnogram POLYSOMNOGRAM (PSG) Procedures Routine At risk for obstructive sleep apnea Snoring Other fatigue Palpitation 1 Occurrences starting 02/07/2025 until 02/07/2026 [facility] Work Phone: Comment on above: 1 Occurrences starting 02/07/2025 until 02/07/2026 Procedure [facility] Work Phone: Protein/Creatinine [ Mass Ratio] in Urine PROTEIN CREATININE RATIO Lab Routine Stage 3a chronic kidney disease (HCC) 07/28/2023 9:01 AM EDT [facility] Work Phone: End: 12-09-2024 STRESS ECHO TREADMILL STRESS ECHO TREADMILL Cardiology Routine Exertional chest pain 1 Occurrences starting 12/10/2023 until 12/09/2024 [facility] Work Phone: Comment on above: 1 Occurrences starting 12/10/2023 until 12/09/2024 Stress echocardiography [facility] End: 04-14-2023 Thyrotropin [Units/volume] in Serum or Plasma TSH BLD Lab Routine Acquired hypothyroidism Every 2 months for 6 Occurrences starting 04/14/2022 until 04/14/2023, 1 completed [facility] Work Phone: Comment on above: Every 2 months for 6 Occurrences startin g 04/14/2022 until 04/14/2023, 1 completed End: 04-14-2023 Thyroxine (T4) free [Mass/volume] in Serum or Plasma T4 FREE/FREE THYROX Lab Routine Acquired hypothyroidism Every 2 months for 6 Occurrences starting 04/14/2022 until 04/14/2023, [address] [facility] [employer] Work Phone: Comment on above: Every 2 months for 6 Occurrences startin g 04/14/2022 until 04/14/2023, 1 completed Tilt table test [facility] End: 04-14-2023 Triiodothyronine (T3) Free [Mass/volume] in Serum or Plasma T3 FREE BLD Lab Routine Acquired hypothyroidism Every 2 months for 6 Occurrences starting 04/14/2022 until 04/14/2023, 1 completed [facility] Work Phone: Comment on above: Every 2 months for 6 Occurrences startin g 04/14/2022 until 04/14/2023, 1 completed US Heart [facility] End: 08-26-2024 US KIDNEY/BLADDER US KIDNEY/BLADDER Radiology Routine Stage 3a chronic kidney disease (HCC) 1 Occurrences starting 07/28/2023 until 08/26/2024 [facility] [employer] Work Phone: Comment on above: 1 Occurrences starting 07/28/2023 until 08/26/2024 End: 07-07-2025 US Upper extremity - left US HAND/WRIST SYNOVIAL SCREEN LEFT Radiology Routine Bilateral hand pain HARVINDER positive 1 Occurrences starting 06/07/2024 until 07/07/2025 [facility] Comment on above: 1 Occurrences starting 06/07/2024 until 07/07/2025 End: 07-07-2025 US Upper extremity - right US HAND/WRIST SYNOVIAL SCREEN RIGHT Radiology Routine Bilateral hand pain HARVINDER positive 1 Occurrences starting 06/07/2024 until 07/07/2025 [facility] Work Phone: Comment on above: 1 Occurrences starting 06/07/2024 until 07/07/2025 End: 06-12-2025 XR Foot - bilateral AP and Lateral and oblique XR FOOT GENERAL 3V AP/LAT/OBL BILATERAL Radiology Routine HARVINDER positive Bilateral hand pain 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 1 Occurrences starting 05/13/2024 until 06/12/2025 [facility] Work Phone: Comment on above: 1 Occurrences starting 05/13/2024 until 06/12/2025 XR Foot - bilateral AP and Lateral and oblique XR FOOT GENERAL 3V AP/LAT/OBL BILATERAL Radiology Routine HARVINDER positive Bilateral hand pain 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 05/13/2024 4:04 PM EDT [facility] End: 06-12-2025 XR Hand - bilateral PA and Lateral and Oblique XR HAND GENERAL 3V PA/LAT/OBL BILATERAL Radiology Routine HARVINDER positive Bilateral hand pain 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 1 Occurrences starting 05/13/2024 until 06/12/2025 [facility] Comment on above: 1 Occurrences starting 05/13/2024 until 06/12/2025 XR Hand - bilateral PA and Lateral and Oblique XR HAND GENERAL 3V PA/LAT/OBL BILATERAL Radiology Routine HARVINDER positive Bilateral hand pain 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 05/13/2024 4:05 PM EDT [facility] End: 06-12-2025 XR Knee - bilateral 4 Views XR KNEE GENERAL 4V AP BOTH/PA BOTH/LAT/MERC BILATERAL Radiology Routine Polyarthralgia 1 Occurrences starting 05/13/2024 until 06/12/2025 [facility] Comment on above: 1 Occurrences starting 05/13/2024 until 06/12/2025 XR Knee - bilateral 4 Views XR KNEE GENERAL 4V AP BOTH/PA BOTH/LAT/MERC BILATERAL Radiology Routine Polyarthralgia 05/13/2024 4:04 PM EDT [facility] End: 06-12-2025 XR Sacroiliac Joint Views XR SACROILIAC JOINTS 2V AP PELVIS/FERGUESON Radiology Routine HARVINDER positive Bilateral hand pain 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 1 Occurrences starting 05/13/2024 until 06/12/2025 [facility] Comment on above: 1 Occurrences starting 05/13/2024 until 06/12/2025 XR Sacroiliac Joint Views XR SAC ROILIAC JOINTS 2V AP PELVIS/FERGUESON Radiology Routine HARVINDER positive Bilateral hand pain 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 05/13/2024 4:05 PM EDT [facility] Payers Date Payer Category Payer Self-pay [id number] 2023 [employer] BLUE CARD PPO OOS [id number] 2023 Unknown [id number] 2021 Unknown [id number] 2012 Unknown [id number] Unknown [id number] Unknown [id number] Unknown [id number] Unknown [id number] Unknown [id number] Unknown [id number] Social History Date Type Detail Facility Start: 01-27-2025 Tobacco smoking status NHIS Never smoked tobacco [facility] Start: 09-13-2021 End: 01-19-2025 Alcohol intake Current non-drinker of alcohol (finding) [facility] Start: 09-12-2020 End: 09-26-2022 History SDOH Alcohol Binge 1 [facility] Start: 09-12-2020 End: 09-26-2022 History SDOH Social Connections Phone 3 [facility] Start: 09-12-2020 End: 09-26-2022 History SDOH Social Connections Get Together 2 [facility] Start: 09-12-2020 History SDOH Physical Activity DPW 5 [facility] Start: 09-12-2020 End: 09-26-2022 History SDOH Physical Activity MPS 4 [facility] Start: 09-12-2020 Education 17 [facility] Start: 1965 Sex Assigned At Female [facility] Start: 02-03-2021 End: 04-14-2022 Exposure to SARS-CoV-2 (event) Not sure [facility] Start: 09-26-2022 History SDOH Alcohol Std Drinks 0 [facility] Start: 09-26-2022 End: 03-10-2023 History of Social function [facility] Start: 09-26-2022 End: 03-10-2023 Social connection and isolation panel [facility] Active Member of [facility] bs or Organizations Not on file [facility] Are you now , , , , never or living with a partner? [facility] How often do you hav e 6 or more drinks on 1 occasion? Never [facility] Do you feel stress - tense, restless, nervous, or anxious, or unable to sleep at night because your mind is troubled all the time - these days [OSQ] Only a little [facility] (I/We) worried sylvester er (my/our) food would run out before (I/we) got money to buy more. Never true [facility] In the past 12 month s, was there a time when you were not able to pay the mortgage or rent on time? No [facility] Start: 09-12-2020 Gender identity Identifies as female gender (finding) [facility] Start: 09-12-2020 Sexual orientation Heterosexual (finding) [facility] Start: 08-09-2023 End: 12-07-2023 Tobacco smoking status NHIS Unknown if ever smoked [facility] Do you belong to any clubs or organizations such as faith groups, unions, fraKanbanize or athletic groups, or school groups? Yes [facility] Do you feel stress - tense, restless, nervous, or anxious, or unable to sleep at night because your mind is troubled all the time - these days [OSQ] To some extent [facility] Functional Status Date Assessment Result Facility 01-15-2015 Are you deaf, or do you have serious difficulty hearing No 01/15/2015 10:01 AM Kierra Solis Cma No [facility] 01-15-2015 Are you blind, or do you have serious difficulty seeing, even when wearing glasses No 01/15/2015 10:01 AM Kierra Solis Cma No [facility] 01-15-2015 Do you have serious difficulty walking or climbing stairs No 01/15/2015 10:01 AM Kierra Solis Cma No [facility] 01-15-2015 Do you have difficul ty dressing or bathing No 01/15/2015 10:01 AM Kierra Solis Cma No [facility] 01-15-2015 Because of a physica l, mental, or emotional condition, do you have difficulty doing errands alone such as visiting a physician's office or shopping No 01/15/2015 10:01 AM Kierra Solis Cma No [facility] Mental Status Date Assessment Result Facility 12-07-2023 Cognitive function Level Of Cons ciousness Awake;Alert;Appropriate [facility] Work Phone: 01-15-2015 Because of a physica l, mental, or emotional condition, do you have serious difficulty concentrating, remembering, or making decisions No 01/15/2015 10:01 AM EDT Rogerio Modi, Kierra No [facility] Clinical Notes 06-28-2013 to 03-10-2025 Telephone Encounter - Liat Arteaga LPN - 03/10/2025 3:56 PM EDTTelephone Encounter - Liat Arteaga LPN - 03/10/2025 3:56 PM EDTTelephone Encounter - Aria Carter RN - 03/03/2025 4:35 PM EDT Note Date & Type Note Facility 03-10-2025 Telephone encount er Note Prescription Refill Information The patient has been identified by name and date of : Yes Caregiver verified no other encounters exist for this prescription request: Yes Caregiver confirmed with patient/requestor that no other refills are due, in the near future, with this provider at this time: Yes The last office visit in the department: 01/19/25 Does the patient have a future office visit with this provider/department: Yes 04/10/25 Requested Prescriptions Pending Prescriptions Disp Refills thyroid (ARMOUR THYROID) 15 mg tablet 90 tablet 2 Sig: Take 1 tablet by mouth three times a week. Take this in additon to the 60 mg daily. Liat Arteaga LPN March 10, 2025 3:58 PM [facility] 03-10-2025 Miscellaneous Notes Formattin g of this note is different from the original. Prescription Refill Information The patient has been identified by name and date of : Yes Caregiver verified no other encounters exist for this prescription request: Yes Caregiver confirmed with patient/requestor that no other refills are due, in the near future, with this provider at this time: Yes The last office visit in the department: 01/19/25 Does the patient have a future office visit with this provider/department: Yes 04/10/25 Requested Prescriptions Pending Prescriptions Disp Refills thyroid (ARMOUR THYROID) 15 mg tablet 90 tablet 2 Sig: Take 1 tablet by mouth three times a week. Take this in additon to the 60 mg daily. Liat Arteaga LPN March 10, 2025 3:58 PM documented in this encounter [facility] 03-03-2025 Telephone encount er Note RN sent the form to the admin team for formatting for docusign. [facility] 03-03-2025 Miscellaneous Notes Formattin g of this note might be different from the original. RN sent the form to the admin team for formatting for docusign. Received fax from [facility] requesting signature for split sleep study. Indexed to the chart documented in this encounter [facility] 03-03-2025 Telephone encount er Note Received fax from [facility] requesting signature for split sleep study. Indexed to the chart [facility] 03-02-2025 Telephone encount er Note Marilia with [facility] called in and reports she needed the Home sleep lab stiudy and the OV note for the faxed over. Faced OV note from 01/19/25 and home sleep lab to fax # [phone]. She will also be send a script to Dr Crissy Bowser for an order for Sonata as the Pt is not able to self medicate. She said this provider said the Pt could use this for the sleep lab test. Marla Ariza, DANIEL [facility] 03-02-2025 Miscellaneous Notes Formattin g of this note might be different from the original. Marilia with [facility] Sleep [facility] called in and reports she needed the Home sleep lab stiudy and the OV note for the faxed over. Faced OV note from 01/19/25 and home sleep lab to fax # [phone]. She will also be send a script to Dr Crissy Bowser for an order for Sonata as the Pt is not able to self medicate. She said this provider said the Pt could use this for the sleep lab test. Marla Ariza RN documented in this encounter [facility] 02-22-2025 Evaluation note Diagnosis Onset Date Resolution Palpitations acute February 22 12:51pm SOB (shortness of breath) acute February 22, 2025 12:51pm [facility] Work Phone: [phone] Telephone encounter Note* Telephone Encounter - Aria Carter RN - 02/14/2025 10:11 AM EDT MyChart message sent. Numbers to scheduling and the sleep office were given. [facility]05-13-2025 Miscellaneous Notes* Telephone Encounter - Aria Carter RN - 02/14/2025 10:11 AM EDT MyChart message sent. Numbers to scheduling and the sleep office were given. documented in this encounterC[facility] Progress note* Result Encounter Note - Stuart Ponce APRN.CNS - 02/09/2025 8:15 AM EDT Please let her know that the sleep study neither confirms refutes sleep apnea. Recommend an in laboratory polysomnography if sleep apnea remains highly suspected. May also be seen by sleep medicine specialist if would like to do so for further evaluation and management. [facility]05-08-2025 Miscellaneous Notes* Result Encounter Note - Stuart Ponce APRN.CNS - 02/09/2025 8:15 AM EDT Please let her know that the sleep study neither confirms refutes sleep apnea. Recommend an in laboratory polysomnography if sleep apnea remains highly suspected. May also be seen by sleep medicine specialist if would like to do so for further evaluation and management. documented in this encounterC[facility]05-[facility] Instructions* Patient Instructions* Crissy Bowser MD - 02/07/2025 1:11 PM EDT JUNIOR Evaluation: - We suspect you may have sleep apnea. - Sleep apnea is a serious sleep disorder that occurs when a person's breathing is interrupted during sleep. People with untreated sleep apnea stop breathing repeatedly during their sleep, sometimes hundreds of times during the night. - The most common type of sleep apnea is obstructive sleep apnea. - If left untreated, obstructive sleep apnea can result in a number of health problems including hypertension, stroke, arrhythmias, cardiomyopathy (enlargement of the muscle tissue of the heart), heart failure, diabetes, obesity, and heart attacks. - Treatment options for obstructive sleep apnea may include positive airway pressure (PAP) therapy,oral appliance, hypoglossal nerve stimulator, nose/throat surgery, weight loss, side sleeping, or avoidance of medications or substances that can relax the airway muscles (alcohol, benzodiazepines, and opioids). - We have ordered a Polysomnogram (PSG) to evaluate for sleep apnea. - This test should be scheduled at your earliest convenience. - Avoid driving if drowsy. We recommend that if you are dozing off while driving, that you do not drive until your sleepiness is appropriately treated. - We encourage a healthy lifestyle with adequate sleep (7-9 hours per night), diet and exercise. - Please schedule a follow up clinic visit now for 2-3 weeks after sleep study is done to review results. - Call [phone] to schedule your sleep study and follow up appointment if it is not scheduled after your visit today with one of our schedulers. documented in this encounterC[facility]05-[facility]25 NoteHNO ID: [id number] Author: CRISSY BOWSER MD Service: ? Author Type: Physician Type: Progress Notes Filed: 02/07/2025 13:35 Note Text: [facility] New Patient Evaluation PATIENT NAME: Jo Valencia DATE OF SERVICE: February 07, 2025 I have communicated my name and active licensure. The patient's identity and physical location were verified at the time of this visit. Either the patient or their legal district sales representative has been informed of the risks and benefits of -- and alternatives to -- treatment through a remote evaluation and consents to proceed with the evaluation remotely. CONSULTING PROVIDER: Stuart Sandoval[address] [place] [address] REASON FOR VISIT: JUNIOR HPI: Jo Valencia is a 59 year old female with history of migraine, stage 3 CKD, Hypothyroidism, anemia, depression, anxiety, orthostatic hypotension. Sleep-related history: Since menopause, she has increased night time awakenings. Wakes up and experience palpitations. At times, wakes up with sensation of not getting enough air- it happens when she is on her back. + chronic nasal congestion. + never smoker Transient SVT on loop monitor- done given palpitations at night Wakes up in middle of dream SLEEP-WAKE SCHEDULE Bedtime: 11 PM. She does not have a hard time falling asleep. Wake time: 10 AM. After falling asleep: she wakes up >2 time(s) per night, and does not know the reason for waking up. SLEEP-RELATED DETAILS Preferred sleep position: side Breathing disturbances and other behaviors during sleep: snoring. Bruxism: No Waking up with heart pounding or racing: Yes Anxiety or rumination: Yes She denies any history of parasomnias. Excessive daytime sleepiness / fatigue is a problem. Excessive Daytime sleepiness/fatigue has been a problem for >1 years. There is no history of a viral illness or significant head injury prior to the start of daytime sleepiness. She does not report sleep paralysis or sleep-related hallucinations or cataplexy . Patient Questionnaires Sleep Scores 02/01/2025 Sleep Questions Reason for visit: Sleep apnea Difficulty falling or staying asleep or poor sleep quality On average, hours of sleep in 24 hours: 9 Accidents or near accidents due to drowsy drivin Multiple values from one day are sorted in reverse-chronological order 02/01/2025 Lengby Sleepiness Scale Score 7 (No clinically significant daytime sleepiness) 02/01/2025 PROMIS CAT Sleep Disturbance PROMIS Sleep Disturbance T-Score 61 (moderate) PROMIS Sleep Disturbance Percentile 14 02/01/2025 Insomnia Severity Index Score 19 02/01/2025 PHQ-9 Score 11 01/02/2025 PROMIS Global Health - (T-Scores - the mean of general population = 50. Five points is a clinically meaningful difference.) Physical T-Score 44.9 Mental T-Score 45.8 OTHER RELEVANT LABS AND STUDIES: PAST MEDICAL HISTORY Diagnosis Date Anemia 02/03/2012 Bilateral carpal tunnel syndrome Chronic fatigue Fibromyalgia History of orthostatic hypotension Had work up for POTS; tilt test was negative. Had worse symptoms when was anemic.Symptoms responded to same measures as for treating POTS (fluids with electrolytes) Migraine with aura and without status migrainosus, not intractable Unspecified hypothyroidism Unspecified vitamin D deficiency 03/06/2008 PAST SURGICAL HISTORY Procedure Laterality Date COLONOSCOPY FLX DX W/COLLJ SPEC WHEN PFRMD 08/17/2013 Colonoscopy COLONOSCOPY GEN ANES 11/19/2020 Repeat in 5 years ESOPHAGOGASTRODUODENOSCOPY TRANSORAL DIAGNOSTIC 08/17/2013 EGD PAST SURGICAL HISTORY OF wisdom teeth SKIN BX, 1 LESION Mole removed from chest ACTIVE PROBLEM LIST Celiac Disease (Hcc) Vitamin D Deficiency Acquired Hypothyroidism Iron Deficiency Anemia Depression With Anxiety Migraine With Aura and Without Status Migrainosus, Not Intractable History of Orthostatic Hypotension Stage 3a Chronic Kidney Disease (Hcc) Allergies As of Date: 02/07/2025 Allergen Noted Reaction ALMOND 07/19/2010 Other: See Comments CICLOPIROX 03/12/2016 Hives Fully Assessed 01/23/2025 CURRENT MEDICATIONS: fluticasone (FLONASE) 50 mcg/actuation nasal spray Use 1 spray in each nostril two times a day. azelastine 0.1% nasal spray Use 1 spray in each nostril two times a day. thyroid, pork, (ARMOUR THYROID) 60 mg tablet Take 1 tablet by mouth once daily. coQ10, ubiquinol, (QUNOL GINI COQ10) 100 mg cap Taking CoQ10 200mg capsule one three times weekly thyroid (ARMOUR THYROID) 15 mg tablet Take 1 tablet by mouth three times a week. Take this in additon to the 60 mg daily. Lactobac no.41/Bifidobact no.7 (PROBIOTIC-10 ORAL) Take by mouth once daily. Ipratropium [place] (ATROVENT) 21 mcg (0.03 %) nasal spray Use 2 Sprays in the nose every 12 hours as needed. Miscellaneous Medical Supply Mez-Btv-Oucsnvc D capsules--takes several per day to get adequate calcium and magnesium (more content not included)...[facility]05-06-2025 History of Present illness Narrative* Crissy Bowser MD - 02/07/2025 12:57 PM EDT Images from the original note were not included. [facility] New Patient Evaluation PATIENT NAME: Jo Valencia DATE OF SERVICE: February 07, 2025 I have communicated my name and active licensure. The patient's identity and physical location wereverified at the time of this visit. Either the patient or their legal district sales representative has been informed of the risks and benefits of -- and alternatives to -- treatment through a remote evaluation andconsents to proceed with the evaluation remotely. CONSULTING PROVIDER: Stuart Ponce [address] [facility] [address] REASON FOR VISIT: JUNIOR HPI: Jo Valencia is a 59 year old female with history of migraine, stage 3 CKD, Hypothyroidism, anemia, depression, anxiety, orthostatic hypotension. Sleep-related history: Since menopause, she has increased night time awakenings. Wakes up and experience palpitations. At times, wakes up with sensation of not getting enough air- it happens when she is on her back. + chronic nasal congestion. + never smoker Transient SVT on loop monitor- done given palpitations at night Wakes up in middle of dream SLEEP-WAKE SCHEDULE Bedtime: 11 PM. She does not have a hard time falling asleep. Wake time: 10 AM. After falling asleep: she wakes up >2 time(s) per night, and does not know the reason for wakingup. SLEEP-RELATED DETAILS Preferred sleep position: side Breathing disturbances and other behaviors during sleep: snoring. Bruxism: No Waking up with heart pounding or racing: Yes Anxiety or rumination: Yes She denies any history of parasomnias. Excessive daytime sleepiness / fatigue is a problem. Excessive Daytime sleepiness/fatigue has been a problem for >1 years. There is no history of a viral illness or significant head injury prior to the start of daytime sleepiness. She does not report sleep paralysis or sleep-related hallucinations or cataplexy . Patient Questionnaires Sleep Scores 02/01/2025 Sleep Questions Reason for visit: Sleep apnea Difficulty falling or staying asleep or poor sleep quality On average, hours of sleep in 24 hours: 9 Accidents or near accidents due to drowsy drivin Multiple values from one day are sorted in reverse-chronological order 02/01/2025 Lengby Sleepiness Scale Score 7 (No clinically significant daytime sleepiness) 02/01/2025 PROMIS CAT Sleep Disturbance PROMIS Sleep Disturbance T-Score 61 (moderate) PROMIS Sleep Disturbance Percentile 14 02/01/2025 Insomnia Severity Index Score 19 02/01/2025 PHQ-9 Score 11 01/02/2025 PROMIS Global Health - (T-Scores - the mean of general population = 50. Five points is a clinicallymeaningful difference.) Physical T-Score 44.9 Mental T-Score 45.8 OTHER RELEVANT LABS AND STUDIES: PAST MEDICAL HISTORY Diagnosis Date Anemia 02/03/2012 Bilateral carpal tunnel syndrome Chronic fatigue Fibromyalgia History of orthostatic hypotension Had work up for POTS; tilt test was negative. Had worse symptoms when was anemic.Symptoms respondedto same measures as for treating POTS (fluids with electrolytes) Migraine with aura and without status migrainosus, not intractable Unspecified hypothyroidism Unspecified vitamin D deficiency 03/06/2008 PAST SURGICAL HISTORY Procedure Laterality Date COLONOSCOPY FLX DX W/COLLJ SPEC WHEN PFRMD 08/17/2013 Colonoscopy COLONOSCOPY GEN ANES 11/19/2020 Repeat in 5 years ESOPHAGOGASTRODUODENOSCOPY TRANSORAL DIAGNOSTIC 08/17/2013 EGD PAST SURGICAL HISTORY OF wisdom teeth SKIN BX, 1 LESION Mole removed from chest ACTIVE PROBLEM LIST Celiac Disease (Hcc) Vitamin D Deficiency Acquired Hypothyroidism Iron Deficiency Anemia Depression With Anxiety Migraine With Aura and Without Status Migrainosus, Not Intractable History of Orthostatic Hypotension Stage 3a Chronic Kidney Disease (Hcc) Allergies As of Date: 02/07/2025 Allergen Noted Reaction ALMOND 07/19/2010 Other: See Comments CICLOPIROX 03/12/2016 Hives Fully Assessed 01/23/2025 CURRENT MEDICATIONS: fluticasone (FLONASE) 50 mcg/actuation nasal spray Use 1 spray in each nostril two times a day. azelastine 0.1% nasal spray Use 1 spray in each nostril two times a day. thyroid, pork, (ARMOUR THYROID) 60 mg tablet Take 1 tablet by mouth once daily. coQ10, ubiquinol, (QUNOL GINI COQ10) 100 mg cap Taking CoQ10 200mg capsule one three times weekly thyroid (ARMOUR THYROID) 15 mg tablet Take 1 tablet by mouth three times a week. Take this in additon to the 60 mg daily. Lactobac no.41/Bifidobact no.7 (PROBIOTIC-10 ORAL) Take by mouth once daily. Ipratropium [place] (ATROVENT) 21 mcg (0.03 %) nasal spray Use 2 Sprays in the nose every 12 hours as needed. Miscellaneous Medical Supply Rec-Mhr-Loigtxc D capsules--takes several per day to get adequate calcium and magnesium dose high enough to control leg cramps clonazePAM orally disintegrating (KLONOPIN WAFER) 0.125 mg disintegrating tablet Take 1 tablet by mouth once daily as needed for up to 14 days. B Complex Vitamins capsule Take 1 capsule by mouth once daily. Prior Hypersomnia/Narcolepsy Medications (20 years) No data to display Prior RLS Medications (last 20 years) No data to display Prior Insomnia Medications (last 20 years) 01/23/2025 23:59 Insomnia Medications clonazepam -Rx End Details Outpatient prescription Review of Systems SOCIAL HISTORY: Social History Tobacco Use Smoking status: Never Smokeless tobacco: Never Substance Use Topics Alcohol use: No Drug use: No FAMILY HISTORY: FAMILY HISTORY Problem Relation Age of Onset Heart Mother on coumidin,272.4 Heart Father other (Other) Sister chronic fatique syndrome,multiple chemical sensitivities Thyroid Sister other (Environmental Illiness) Sister Twin Colon Cancer Maternal Grandmother There is a family history of: Sleep apnea. Relative: Father PHYSICAL EXAMINATION: General appearance: In no acute distress. Neuro: Awake and alert IMPRESSION/PLAN: Z91.89 At risk for obstructive sleep apnea (primary encounter diagnosis) R06.83 Snoring R53.83 Other fatigue G47.9 Sleep disturbance R00.2 Palpitation Jo Valencia is a 59 year old female with history of migraine, stage 3 CKD, Hypothyroidism, anemia, depression, anxiety, orthostatic hypotension. Sleep-related history: Since menopause, she has increased night time awakenings. Wakes up and experience palpitations. At times, wakes up with sensation of not getting enough air- it happens when she is on her back. + chronic nasal congestion. + never smoker Transient SVT on loop monitor- done given palpitations at night Wakes up in middle of dream PSG in 2016 at [facility] showed mild JUNIOR but sleep time was limited (83 min). Never got PAP therapy. Plan- Patient's history is concerning for untreated REM JUNIOR- could be associated with tachycardia. Patient hoping to get PAP therapy. HST shows ARMEN of 4.2 Recommend PSG Ok to take zaleplon 5 mg hs prn on night of sleep study. - Polysomnogram (PSG) to evaluate for obstructive sleep apnea. - Discussed with the patient the possible diagnosis, causes, and conditions associated with obstructive sleep apnea. - Avoid driving when drowsy. Recommend that if you are dozing off while driving, that you do not drive until your sleepiness is appropriately treated. -Encouraged healthy lifestyle with adequate sleep ( 7-9 hours per night), diet and exercise. - Results are usually available within 7-10 business days. If you do not hear from us within 1-2 weeks after testing, please contact us directly. - Follow up visit in 2 weeks after PSG. Please schedule this appointment now to ensure your preferred time and location. Crissy Bowser MD documented in this encounterC[facility]05-[facility]25 NoteHNO ID: [id number] Author: ?, ?, ? Service: ? Author Type: ? Type: Progress Notes Filed: 02/03/2025 15:17 Note Text: Date: February 03, 2025 Name: Jo Stan Valencia Comments: HST was returned in working order with QANDA completed online. Passing study through for readers to determine result status. Ivelisse TerrazasC[facility]05-01-2025 NoteHNO ID: [id number] Author: ?, ?, ? Service: ? Author Type: ? Type: Progress Notes Filed: 02/02/2025 13:31 Note Text: Patient is calling in stating [employer] said her package is delayedC[facility]04-29-2025 NoteHNO ID: [id number] Author: ?, ?, ? Service: ? Author Type: ? Type: Progress Notes Filed: 01/31/2025 15:24 Note Text: Nomad # [id number] , date shipped out 01-31-25 Oren Ex only Tracking mailout: [id number] Tracking return: [id number] NoteHNO ID: [id number] Author: BASSEM INFANTE APRN.CNP Service: ? Author Type: ? Type: Progress Notes Filed: 01/30/2025 06:51 Note Text: January 29, 2025 Standing PSG Orders signed in the last 90 days None Future PSG Orders signed in the last 90 days Ordered Auth. provider HOME SLEEP APNEA TEST (HSAT) [[id number]] 01/13/25 Stuart Ponce APRN.RESEARCH ENGINEER Assoc. diagnoses: Other fatigue [R53.83], Sleep disturbance [G47.9], Loud snoring [R06.83] Q: Indications: A: Obstructive sleep apnea Q: STOP-BANG conditions - Select All That Apply: A: AGE > 50 A2: SNORING that is loud or disruptive A3: TIREDNESS, fatigue or sleepiness during the day Q: Current use of supplemental oxygen during sleep period?: A: No CONSULT TO SLEEP MEDICINE - ADULT [[id number]] 01/13/25 Stuart Ponce APRN.RESEARCH ENGINEER Assoc. diagnoses: Other fatigue [R53.83], Sleep disturbance [G47.9], Loud snoring [R06.83] Q: Does consulting provider have [facility] access?: A: Yes All Prior Sleep Studies (past 365 days) 01/13/2025 14:15 Sleep Studies HOME SLEEP APNEA TEST (HSAT) HOME SLEEP APNEA TEST (HSAT) Order Status: Ordered, Future Expires: 01/13/26 CONSULT TO SLEEP MEDICINE - ADULT CONSULT TO SLEEP MEDICINE - ADULT Order Status: Ordered, Future Expires: 01/13/26 BMI Readings from Last 2 Encounters: 01/19/25 : 21.79 kg/m? 01/13/25 : 21.76 kg/m? PAST MEDICAL HISTORY Diagnosis Date Anemia 02/03/2012 Bilateral carpal tunnel syndrome Chronic fatigue Fibromyalgia History of orthostatic hypotension Had work up for POTS; tilt test was negative. Had worse symptoms when was anemic.Symptoms responded to same measures as for treating POTS (fluids with electrolytes) Migraine with aura and without status migrainosus, not intractable Unspecified hypothyroidism Unspecified vitamin D deficiency 03/06/2008 The medical record was reviewed to determine if the proposed sleep study conforms to the [facility] Practice Parameters for the Indications for Polysomnography and Related Procedures, or if the sleep study is indicated for other reasons. Indications for study: JUNIOR suspected without comorbid medical or sleep disorders Sleep study to be performed: Home Sleep Apnea Test (HSAT) Special instructions: None-follow laboratory protocol [facility] Staff Note: I have read the above protocol, edited as needed, and agree to the plan. Bassem Infante APRN.CRAYON MOLDING MACHINE OPERATOR 6:51 AM, 01/30/2025[facility]04-25-2025 NoteHNO ID: [id number] Author: ?, ?, ? Service: ? Author Type: ? Type: Progress Notes Filed: 01/30/2025 06:51 Note Text: January 27, 2025 An order has been received for Home Sleep Apnea Test (HSAT) from Stuart Hernandez, EVELIA.RESEARCH ENGINEER , stan Sousa. [facility] Staff. Visit prep complete. Comments :No The sleep study is scheduled for 02-01-25. Insurance: Payor: JAMES / Plan: BLUE CARD PPO OOS / Product Type: PPO / Payer/Plan Subscr Sex Relation Sub. Ins. ID Effective Group Num 1. JAMES JEFFREY* MONTSE VALENCIA 03/[birth year]/1962 Male Spouse [id number]* 10/05/23 [id number] [facility]helle HammC[facility]04-21-2025 Instructions* Patient Instructions* Varun Jhaveri PA-C - 01/23/2025 11:21 AM EDT Sinus Irrigation Instructions Fill NeilMed Irrigation bottle with 8oz distilled or previously boiled and cooled water (not tap water). Add a NeilMed Sinus rinse packet or mix saline using the recipe below. Swirl the bottle to mix. Irrigate nose as instructed below. Do this procedure twice daily - once in the morning, and once atnight Saline Irrigation Instructions Bend head over a basin or sink. Irrigate half of bottle solution through upper nostril by squeezingthe bottle firmly and gently, not quickly. Do not inhale the liquid, the solution will go into yoursinuses, through one nostril and drain out the other. Irrigant solution should come out of other nostril or down back of throat. Switch sides and repeat on the opposite side. Patient should not hold breath while irrigating. - if you have issues with your frontal sinuses (forehead) ensure you perform with head down position If you are having sinus surgery, irrigations should be performed 4x daily. If prescribed an antibiotic or steroid with the irrigation, this will be used twice daily. Instructional video: https://www.Flocations.com/watch?v=[email or web address] Normal Saline Recipe (1Liter or 32 ounces) Mix ingredients below together and store. Use in 3-days. - 1 liter boiled or distilled water - 3 teaspoon paula/pickling/kosher salt (non-iodized) - 1 teaspoon baking soda If you prefer to mix with each irrigation use, combine the salt and baking soda as above. Mix well and store. When ready to irrigate, pour 1-teaspoon of the combined dry-mixture into the NeilMed irrigation bottle and add 8-ounces of previously boiled or distilled water. [employer] Bottle Cleaning Instructions Until further evidence becomes available, cleaning after every use and replacing after 3-months is what is recommended. Rinse out bottle and wash its tip with soap and water after each use. Air dry completely. Once a week, sterilize the bottle by placing the bottle, cap and tube in the microwave for 1 and 1/2 -minutesto disinfect. For full cleaning instructions, go to [email or web address] documented in this encounterC[facility]25 NoteHNO ID: [id number] Author: VARUN JHAVERI PA-C Service: ? Author Type: Physician Freelance Court Stenographer Type: Progress Notes Filed: 01/23/2025 11:59 Note Text: [facility] NOTE CC: Jo Valencia is a 59 year old female who is seen at the request of Stuart Ponce APRN, CNP for evaluation of Nasal congestion. My findings and recommendations will be communicated to the referring provider via the shared electronic medical record. ASSESSMENT: Nasal congestion Environmental and seasonal allergies Nasal valve collapse Chronic nasal congestion (primary encounter diagnosis) PLAN: - Trial of Flonase, add Astelin and nasal saline irrigations; instructed patient on appropriate use, side effects and need for daily adherence to realize benefits - Aggressive allergy management, avoidance of allergic triggers, daily oral antihistamine, nasal saline rinses - HSAT ordered by PCP team scheduled 02/01/2025 and Sleep Medicine 02/07/2025; will follow results - Discussed consult to ENT physician for nasal valve, sleep anatomy evaluation and procedure-based options; patient wishes to trial nasal sprays at this time - Advised patient on red flag warning signs, symptoms that warrant immediate evaluation in ER - Follow up in 6-8 weeks; sooner if clinically indicated Varun Jhaveri PA-C Comprehensive ENT HPI: 59 year old female presents to clinic for evaluation of Nasal congestion. Patient endorses longstanding sinus issues characterized by nasal congestion, rhinitis which has worsened since onset of menopause. Patient reports she does not feel like she can breathe well through her nose, reports mouth breathing and sensation of throat closing when she cannot breathe through nose. Patient endorses ipratropium bromide and nasal strips for a year with relief of migraines. Patient endorses mouth-breathing, fatigue, snoring which worsens when laying supine, endorses witnessed apneic episodes feels like I can't breath. Other patient-reported interventions include Benadryl. Patient endorses history of seasonal and environmental allergies, no interventions at this time due to side effects. Patient endorses bilateral tinnitus, masks with sound generator. Patient denies history of sinus disease, sinus surgery. Patient denies history of nasal or facial trauma. Patient accompanied by spouse during duration of visit today. Past medical history: PAST MEDICAL HISTORY Diagnosis Date Anemia 02/03/2012 Bilateral carpal tunnel syndrome Chronic fatigue Fibromyalgia History of orthostatic hypotension Had work up for POTS; tilt test was negative. Had worse symptoms when was anemic.Symptoms responded to same measures as for treating POTS (fluids with electrolytes) Migraine with aura and without status migrainosus, not intractable Unspecified hypothyroidism Unspecified vitamin D deficiency 03/06/2008 Past surgical history: PAST SURGICAL HISTORY Procedure Laterality Date COLONOSCOPY FLX DX W/COLLJ SPEC WHEN PFRMD 08/17/2013 Colonoscopy COLONOSCOPY GEN ANES 11/19/2020 Repeat in 5 years ESOPHAGOGASTRODUODENOSCOPY TRANSORAL DIAGNOSTIC 08/17/2013 EGD PAST SURGICAL HISTORY OF wisdom teeth SKIN BX, 1 LESION Mole removed from chest Current medication(s): Current Outpatient Medications Medication Sig thyroid, pork, (ARMOUR THYROID) 60 mg tablet Take 1 tablet by mouth once daily. coQ10, ubiquinol, (QUNOL GINI COQ10) 100 mg cap Taking CoQ10 200mg capsule one three times weekly thyroid (ARMOUR THYROID) 15 mg tablet Take 1 tablet by mouth three times a week. Take this in additon to the 60 mg daily. Lactobac no.41/Bifidobact no.7 (PROBIOTIC-10 ORAL) Take by mouth once daily. Ipratropium [place] (ATROVENT) 21 mcg (0.03 %) nasal spray Use 2 Sprays in the nose every 12 hours as needed. Miscellaneous Medical Supply Pgm-Iry-Iwdsoid D capsules--takes several per day to get adequate calcium and magnesium dose high enough to control leg cramps clonazePAM orally disintegrating (KLONOPIN WAFER) 0.125 mg disintegrating tablet Take 1 tablet by mouth once daily as needed for up to 14 days. B Complex Vitamins capsule Take 1 capsule by mouth once daily. fluticasone (FLONASE) 50 mcg/actuation nasal spray Use 1 spray in each nostril two times a day. azelastine 0.1% nasal spray Use 1 spray in each nostril two times a day. No current facility-administered medications for this visit. Allergies: ALLERGIES Allergen Reactions Flat Top Other: See Comments migraine Ciclopirox Hives Hives Social history: Social History Tobacco Use Smoking status: Never Smokeless tobacco: Never Substance Use Topics Alcohol use: No Drug use: No Family history: FAMILY HISTORY Problem Relation Age of Onset Heart Mother on coumidin,272.4 Heart Father other (Other) Sister chronic fatique syndrome,multiple chemical sensitivities Thyroid Sister other (Environmental I (more content not included)...[facility] 01-23-[facility]25 History of Present illness Narrative* Varun Jhaveri PA-C - 01/23/2025 10:53 AM EDT Images from the original note were not included. [facility] NOTE CC: Jo Valencia is a 59 year old female who is seen at the request of Stuart Ponce APRN, CNP for evaluation of Nasal congestion. My findings and recommendations will be communicated to the referring provider via the shared electronic medical record. ASSESSMENT: Nasal congestion Environmental and seasonal allergies Nasal valve collapse Chronic nasal congestion (primary encounter diagnosis) PLAN: - Trial of Flonase, add Astelin and nasal saline irrigations; instructed patient on appropriate use, side effects and need for daily adherence to realize benefits - Aggressive allergy management, avoidance of allergic triggers, daily oral antihistamine, nasal saline rinses - HSAT ordered by PCP team scheduled 02/01/2025 and Sleep Medicine 02/07/2025; will follow results - Discussed consult to ENT physician for nasal valve, sleep anatomy evaluation and procedure-based options; patient wishes to trial nasal sprays at this time - Advised patient on red flag warning signs, symptoms that warrant immediate evaluation in ER - Follow up in 6-8 weeks; sooner if clinically indicated Varun Jhaveri PA-C Comprehensive ENT HPI: 59 year old female presents to clinic for evaluation of Nasal congestion. Patient endorses longstanding sinus issues characterized by nasal congestion, rhinitis which has worsened since onset of menopause. Patient reports she does not feel like she can breathe well through her nose, reports mouth breathing and sensation of throat closing when she cannot breathe through nose. Patient endorses ipratropium bromide and nasal strips for a year with relief of migraines. Patient endorses mouth-breathing, fatigue, snoring which worsens when laying supine, endorses witnessed apneic episodes feels like I can't breath. Other patient-reported interventions include Benadryl. Patient endorses history of seasonal and environmental allergies, no interventions at this time due to side effects. Patient endorses bilateral tinnitus, masks with sound generator. Patient denies history of sinus disease, sinus surgery. Patient denies history of nasal or facial trauma. Patient accompanied by spouse during duration of visit today. Past medical history: PAST MEDICAL HISTORY Diagnosis Date Anemia 02/03/2012 Bilateral carpal tunnel syndrome Chronic fatigue Fibromyalgia History of orthostatic hypotension Had work up for POTS; tilt test was negative. Had worse symptoms when was anemic.Symptoms respondedto same measures as for treating POTS (fluids with electrolytes) Migraine with aura and without status migrainosus, not intractable Unspecified hypothyroidism Unspecified vitamin D deficiency 03/06/2008 Past surgical history: PAST SURGICAL HISTORY Procedure Laterality Date COLONOSCOPY FLX DX W/COLLJ SPEC WHEN PFRMD 08/17/2013 Colonoscopy COLONOSCOPY GEN ANES 11/19/2020 Repeat in 5 years ESOPHAGOGASTRODUODENOSCOPY TRANSORAL DIAGNOSTIC 08/17/2013 EGD PAST SURGICAL HISTORY OF wisdom teeth SKIN BX, 1 LESION Mole removed from chest Current medication(s): Current Outpatient Medications Medication Sig thyroid, pork, (ARMOUR THYROID) 60 mg tablet Take 1 tablet by mouth once daily. coQ10, ubiquinol, (QUNOL GINI COQ10) 100 mg cap Taking CoQ10 200mg capsule one three times weekly thyroid (ARMOUR THYROID) 15 mg tablet Take 1 tablet by mouth three times a week. Take this in additon to the 60 mg daily. Lactobac no.41/Bifidobact no.7 (PROBIOTIC-10 ORAL) Take by mouth once daily. Ipratropium [place] (ATROVENT) 21 mcg (0.03 %) nasal spray Use 2 Sprays in the nose every 12 hours as needed. Miscellaneous Medical Supply Eab-Hsh-Sdhrrfo D capsules--takes several per day to get adequate calcium and magnesium dose high enough to control leg cramps clonazePAM orally disintegrating (KLONOPIN WAFER) 0.125 mg disintegrating tablet Take 1 tablet by mouth once daily as needed for up to 14 days. B Complex Vitamins capsule Take 1 capsule by mouth once daily. fluticasone (FLONASE) 50 mcg/actuation nasal spray Use 1 spray in each nostril two times a day. azelastine 0.1% nasal spray Use 1 spray in each nostril two times a day. No current facility-administered medications for this visit. Allergies: ALLERGIES Allergen Reactions Flat Top Other: See Comments migraine Ciclopirox Hives Hives Social history: Social History Tobacco Use Smoking status: Never Smokeless tobacco: Never Substance Use Topics Alcohol use: No Drug use: No Family history: FAMILY HISTORY Problem Relation Age of Onset Heart Mother on coumidin,272.4 Heart Father other (Other) Sister chronic fatique syndrome,multiple chemical sensitivities Thyroid Sister other (Environmental Illiness) Sister Twin Colon Cancer Maternal Grandmother There are no exam notes on file for this visit. ROS: CONSTITUTIONAL: No fevers, chills, nightsweats, unintended weight loss HEAD: + headaches, - head injury EYES: + glasses/contact lens, - changes in vision, - diplopia, - blurry vision, - floaters EARS: - hearing loss, - change in hearing, + tinnitus, - otalgia, - ear pressure, - aural fullness,- otorrhea, - itching, - autophony, - ear infections, - PE tubes NOSE & SINUSES: + nasal congestion, + rhinorrhea, - PND, - epistaxis, - sense of smell, - history of nasal polyps, - sinus trouble, - sinus pressure, - sinus pain MOUTH & THROAT: - soreness, - dryness, - ulcers, - sore throat, - hoarseness, - change in voice, - teeth (caries, dentures, extractions, abscesses) NECK: - neck lumps, - goiter, - neck pain, - swollen lymph nodes or glands PULM: + dyspnea CV: + chest pain, + palpitations, + SOB GI: No dysphagia/odynophagia, problematic reflux. No nausea, vomiting, or diarrhea NEURO: No new balance problems, dizziness, or syncope. No peripheral weakness/paresthesias or numbness PSYCH: + anxiety, + depression PHYSICAL EXAM: GENERAL: 59 year old female is well developed, well nourished, without obvious deformities, in no acute distress COMMUNICATION: The patient speaks with a normal, clear voice without hoarseness. No stridor or stertor. Hearing is grossly normal OVERALL FACIAL APPEARANCE: No obvious scars, lesions, or masses EYES: Extraocular muscles are intact, no diplopia on primary gaze EARS: Externally normal in appearance, without scars, lesions, masses, or tenderness. Right EAC: patent; no swelling, redness, or obstruction R TM: visualized and intact; pearly ridley and translucent, landmarks undistorted; no fluid behind TM R Pneumotoscopy: TM is mobile Left EAC: patent; no swelling, redness, or obstruction L TM: visualized and intact; pearly ridley and translucent, landmarks undistorted; no fluid behind TM L Pneumotoscopy: TM is mobile NOSE: Externally normal in appearance, without scars, lesions, or masses. There is no tenderness with percussion over the paranasal sinuses. Nasal passageways are patent. The mucosa is pink and moistwithout lesions, visible turbinates grossly hypertrophied, boggy on anterior rhinoscopy. Septum is midline. + modified Pender maneuver bilaterally ORAL CAVITY AND OROPHARYNX: Teeth are in fair repair and nontender. The lips, gums, oral mucosa, hard and soft palates, tongue, tonsil area, and posterior pharyngeal mucosa are without lesions. Uvulamidline. No pharyngeal swelling, oropharyngeal exudate, posterior oropharyngeal erythema, or uvula swelling. Floor of mouth is soft without edema. Gag reflex intact. NASOPHARYNX: Within normal limits. No masses or discharge noted HYPOPHARYNX: Within normal limits. Using mirror for indirect laryngoscopy, the base of tongue, epiglottis, false vocal folds, true vocal folds are without lesions, and true vocal folds move normally bilaterally NECK: The neck appears symmetric without scars and on palpation is without masses or lymphadenopathy. Trachea is midline and mobile. Full range of motion without symptoms. MSK: TMJ joint palpated and revealed no crepitation NEURO: Patient is Alert and Oriented to person, place, time, and situation. Cranial nerves II-XII grossly intact RESPIRATORY: Breathing comfortably, no evidence accessory muscle use, no intercostal retractions CV: Strong carotid artery pulse with no bruit RADS: None LABS: Relevant labs were reviewed and discussed with patient. OUTSIDE RECORDS: None PROCEDURE: None Varun Jhaveri PA-C Comprehensive ENT Medical Decision Making: Problems: Low: Stable chronic illness Risk: Low: Low risk from testing/treatment Moderate: Drug management Medical Decision Making Level: 3 - Low documented in this encounterC[facility]04-17-[facility]25 Instructions* Patient Instructions* Stuart Ponce APRN.RESEARCH ENGINEER - 01/19/2025 10:15 AM EDT Your medical leave from work is effective starting January 17 until March 13 as arranged with your HR. Attend your heart group appointment on February 22. Complete the at-home sleep apnea test on February 01. Attend your sleep specialist appointment on February 06 or February 07 (please confirm the exact date on your calendar). Arrange to have lab work done since it s been about four months since your last tests. Consider scheduling an appointment with an ENT specialist to evaluate your nasal breathing issues and TMJ concerns; select a provider in your preferred area (such as [place], [place], or [place])based on the earliest available appointment. documented in this encounterC[facility]04-17-2025 NoteHNO ID: [id number] Author: STUART PONCE APRN.CNS Service: ? Author Type: Nurse Specialist Type: Progress Notes Filed: 01/19/2025 10:22 Note Text: SUBJECTIVE: Mammogram Screening due on 05/05/2025 HPI Jo Valencia is a 59 year old female. PMH significant for ACTIVE PROBLEM LIST Celiac Disease (Hcc) Vitamin D Deficiency Acquired Hypothyroidism Iron Deficiency Anemia Depression With Anxiety Migraine With Aura and Without Status Migrainosus, Not Intractable History of Orthostatic Hypotension Stage 3a Chronic Kidney Disease (Hcc) Dyspnea and Palpitations: - Dyspnea and palpitations, described as heart racing and squeezing sensation, worsening over time, present at night awakening her from sleep and also noting at work with stress. - Symptoms exacerbated by physical exertion and stress, particularly at work. - Denies known trauma or injury. - Drinking electrolyte water provides some relief. - Scheduled to see cardiology on February 22. Sleep Disturbances: - Chronic sleep disturbances, with frequent awakenings due to dyspnea and palpitations. - Reports waking up gasping for air and unable to breathe through mouth due to throat obstruction. - Longstanding difficulty breathing through nose; uses nasal strips and spray. - Scheduled for home sleep apnea test on February 01 and sleep specialist appointment on February 06 or . - Experiencing fatigue due to poor sleep quality. Allergies: - Reports sinus stuff and allergies, particularly severe in spring. - Uses nasal spray to manage symptoms and prevent migraines. Migraines: - Migraines triggered by various factors, including certain foods, sinus issues, and weather changes. - Improved with dietary modifications and nasal spray use. Anxiety: - Experiences anxiety, particularly in stressful work situations, leading to nausea, lightheadedness, and feeling sick. - Describes anxiety as rational due to perceived lack of safety at work. - Denies anxiety at home. Work-Related Stress: - Significant stress at work, contributing to worsening symptoms. - Describes job as killing me due to high-stress environment and lack of safety measures. - Considering leaving current job; has been looking for new employment opportunities. - Requests medical leave until March 13 to manage symptoms and complete medical evaluations. ROS Constitutional: (+) fatigue, (+) chills, (+) sleep disturbance Ears/Nose/Mouth/Throat: (+) congestion Cardiovascular: (+) chest pain, (+) chest tightness, (+) palpitations Respiratory: (+) shortness of breath Gastrointestinal: (+) nausea Neurological: (+) lightheadedness Psychiatric: (+) anxiety Objective BP 110/70 Pulse 67 Resp 16 Wt 65 kg (143 lb 4.8 oz) LMP 07/03/2022 (Approximate) BMI 21.79 kg/m? Physical Exam Vitals and nursing note reviewed. Constitutional: Appearance: Normal appearance. HENT: Head: Normocephalic and atraumatic. Nose: Mucosal edema (mild left nares) and rhinorrhea present. Eyes: Conjunctiva/sclera: Conjunctivae normal. Cardiovascular: Rate and Rhythm: Normal rate and regular rhythm. Heart sounds: Normal heart sounds. Pulmonary: Effort: Pulmonary effort is normal. Breath sounds: Normal breath sounds. Abdominal: General: Bowel sounds are normal. Palpations: Abdomen is soft. Musculoskeletal: Right lower leg: Edema (scant swelling at ankles) present. Left lower leg: Edema (scant swelling at ankles) present. Skin: General: Skin is warm. Neurological: General: No focal deficit present. Mental Status: She is alert and oriented to person, place, and time. ALLERGIES Allergen Reactions Flat Top Other: See Comments migraine Ciclopirox Hives Hives MEDICATIONS thyroid, pork, (ARMOUR THYROID) 60 mg tablet Take 1 tablet by mouth once daily. coQ10, ubiquinol, (QUNOL GINI COQ10) 100 mg cap Taking CoQ10 200mg capsule one three times weekly thyroid (ARMOUR THYROID) 15 mg tablet Take 1 tablet by mouth three times a week. Take this in additon to the 60 mg daily. Lactobac no.41/Bifidobact no.7 (PROBIOTIC-10 ORAL) Take by mouth once daily. Ipratropium [place] (ATROVENT) 21 mcg (0.03 %) nasal spray Use 2 Sprays in the nose every 12 hours as needed. Miscellaneous Medical Supply Rnv-Bgw-Ujfmfli D capsules--takes several per day to get adequate calcium and magnesium dose high enough to control leg cramps B Complex Vitamins capsule Take 1 capsule by mouth once daily. clonazePAM orally disintegrating (KLONOPIN WAFER) 0.125 mg disintegrating tablet Take 1 tablet by mouth once daily as needed for up to 14 days. PAST MEDICAL HISTORY Diagnosis Date Anemia 02/03/2012 Bilateral carpal tunnel syndrome Chronic fatigue Fibromyalgia History of orthostatic hypotension Had work up for POTS; tilt test was negative. Had worse symptoms when was anemic.Symptoms responded to same measures as for treating POTS (fluids with elect (more content not included)...[facility]04-[facility] History of Present illness Narrative* Stuart Ponce, EVELIA.RESEARCH ENGINEER - 01/19/2025 9:47 AM EDT SUBJECTIVE: Mammogram Screening due on 05/05/2025 HPI Jo Valencia is a 59 year old female. PMH significant for ACTIVE PROBLEM LIST Celiac Disease (Hcc) Vitamin D Deficiency Acquired Hypothyroidism Iron Deficiency Anemia Depression With Anxiety Migraine With Aura and Without Status Migrainosus, Not Intractable History of Orthostatic Hypotension Stage 3a Chronic Kidney Disease (Hcc) Dyspnea and Palpitations: - Dyspnea and palpitations, described as heart racing and squeezing sensation, worsening over time, present at night awakening her from sleep and also noting at work with stress. - Symptoms exacerbated by physical exertion and stress, particularly at work. - Denies known trauma or injury. - Drinking electrolyte water provides some relief. - Scheduled to see cardiology on February 22. Sleep Disturbances: - Chronic sleep disturbances, with frequent awakenings due to dyspnea and palpitations. - Reports waking up gasping for air and unable to breathe through mouth due to throat obstruction. - Longstanding difficulty breathing through nose; uses nasal strips and spray. - Scheduled for home sleep apnea test on February 01 and sleep specialist appointment on February 06 or . - Experiencing fatigue due to poor sleep quality. Allergies: - Reports sinus stuff and allergies, particularly severe in spring. - Uses nasal spray to manage symptoms and prevent migraines. Migraines: - Migraines triggered by various factors, including certain foods, sinus issues, and weather changes. - Improved with dietary modifications and nasal spray use. Anxiety: - Experiences anxiety, particularly in stressful work situations, leading to nausea, lightheadedness, and feeling sick. - Describes anxiety as rational due to perceived lack of safety at work. - Denies anxiety at home. Work-Related Stress: - Significant stress at work, contributing to worsening symptoms. - Describes job as killing me due to high-stress environment and lack of safety measures. - Considering leaving current job; has been looking for new employment opportunities. - Requests medical leave until March 13 to manage symptoms and complete medical evaluations. ROS Constitutional: (+) fatigue, (+) chills, (+) sleep disturbance Ears/Nose/Mouth/Throat: (+) congestion Cardiovascular: (+) chest pain, (+) chest tightness, (+) palpitations Respiratory: (+) shortness of breath Gastrointestinal: (+) nausea Neurological: (+) lightheadedness Psychiatric: (+) anxiety Objective BP 110/70 Pulse 67 Resp 16 Wt 65 kg (143 lb 4.8 oz) LMP 07/03/2022 (Approximate) BMI 21.79 kg/m Physical Exam Vitals and nursing note reviewed. Constitutional: Appearance: Normal appearance. HENT: Head: Normocephalic and atraumatic. Nose: Mucosal edema (mild left nares) and rhinorrhea present. Eyes: Conjunctiva/sclera: Conjunctivae normal. Cardiovascular: Rate and Rhythm: Normal rate and regular rhythm. Heart sounds: Normal heart sounds. Pulmonary: Effort: Pulmonary effort is normal. Breath sounds: Normal breath sounds. Abdominal: General: Bowel sounds are normal. Palpations: Abdomen is soft. Musculoskeletal: Right lower leg: Edema (scant swelling at ankles) present. Left lower leg: Edema (scant swelling at ankles) present. Skin: General: Skin is warm. Neurological: General: No focal deficit present. Mental Status: She is alert and oriented to person, place, and time. ALLERGIES Allergen Reactions Flat Top Other: See Comments migraine Ciclopirox Hives Hives MEDICATIONS thyroid, pork, (ARMOUR THYROID) 60 mg tablet Take 1 tablet by mouth once daily. coQ10, ubiquinol, (QUNOL GINI COQ10) 100 mg cap Taking CoQ10 200mg capsule one three times weekly thyroid (ARMOUR THYROID) 15 mg tablet Take 1 tablet by mouth three times a week. Take this in additon to the 60 mg daily. Lactobac no.41/Bifidobact no.7 (PROBIOTIC-10 ORAL) Take by mouth once daily. Ipratropium [place] (ATROVENT) 21 mcg (0.03 %) nasal spray Use 2 Sprays in the nose every 12 hours as needed. Miscellaneous Medical Supply Njs-Xns-Fztaaaj D capsules--takes several per day to get adequate calcium and magnesium dose high enough to control leg cramps B Complex Vitamins capsule Take 1 capsule by mouth once daily. clonazePAM orally disintegrating (KLONOPIN WAFER) 0.125 mg disintegrating tablet Take 1 tablet by mouth once daily as needed for up to 14 days. PAST MEDICAL HISTORY Diagnosis Date Anemia 02/03/2012 Bilateral carpal tunnel syndrome Chronic fatigue Fibromyalgia History of orthostatic hypotension Had work up for POTS; tilt test was negative. Had worse symptoms when was anemic.Symptoms respondedto same measures as for treating POTS (fluids with electrolytes) Migraine with aura and without status migrainosus, not intractable Unspecified hypothyroidism Unspecified vitamin D deficiency 03/06/2008 Social History Tobacco Use Smoking status: Never Smokeless tobacco: Never Substance Use Topics Alcohol use: No Drug use: No 01/2024 STRESS ECHO TREADMILL CONCLUSIONS: - Exam indication: CP, Detection of CAD - The exercise stress echo was negative for ischemia at 105 % of MPHR (8.3 METS). No regional wall motion abnormality seen at heart rate achieved. - The left ventricle is normal in size. Left ventricular systolic function is normal. EF = 65 5% (2D biplane). Normal left ventricular diastolic function. - The right ventricle is normal in size. Right ventricular systolic function is normal. - Mild (1+) tricuspid valve regurgitation. - Exam was compared with the prior echocardiographic exam performed on 09/25/2009. There is no significant change. 1. Palpitations (R00.2) 2. Chest tightness (R07.89) 3. SOBOE (shortness of breath on exertion) (R06.02) - Symptoms include palpitations, chest tightness, and shortness of breath on exertion, particularlyin the mornings and during stressful situations at work. - Scheduled cardiology appointment on February 22. - Ordered lab work to evaluate current status. - Taking medical leave until March 13 to manage symptoms and complete workup. - Discussed potential anxiety contributing to symptoms; patient prefers to wait for further evaluation before considering anxiolytic medication. 4. Nasal congestion (R09.81) - Chronic nasal congestion, worse in the spring due to allergies. - Uses nasal spray and nasal strips. - Referred to ENT specialist;t prefers earliest available appointment in [facility], or [place]. 5. Sleep disturbance (G47.9) - Reports waking up gasping for air, palpitations, and inability to breathe through the nose and mouth at night. - Scheduled home sleep apnea test on February 01 and follow-up with sleep specialist on February 06 or . - Experiencing chills at night; ordered lab work to evaluate. Keep Murphy Henley MD appt. in April Stuart Ponce APRN.CNS Medical Decision Making: Problems: Moderate: New problem with uncertain prognosis Data: Unique test(s) ordered: 3+ Risk: Moderate: Drug management Medical Decision Making Level: 4 - Moderate [facility] History of Present illness Narrative* Stuart Ponce APRN.CNS - 01/13/2025 2:00 PM EDT SUBJECTIVE: Mammogram Screening due on 05/05/2025 HPI Jo Valencia is a 58 year old female. PMH significant for ACTIVE PROBLEM LIST Celiac Disease (Hcc) Vitamin D Deficiency Acquired Hypothyroidism Iron Deficiency Anemia Depression With Anxiety Migraine With Aura and Without Status Migrainosus, Not Intractable History of Orthostatic Hypotension Stage 3a Chronic Kidney Disease (Hcc) Presents today regarding a sleep problem, concern for sleep apnea.Incomplete sleep study 2016. Reports feeling short of breath at night, wears strips on her nose. Notes sinus congestion. Uses nose spray. Dyspnea: - Chronic dyspnea, worsening over time. - Experiences dyspnea at night and in the mornings, often accompanied by palpitations. - Uses nasal strips and bromide nasal spray nightly for relief. - Denies known asthma or wheezing. - Denies use of supplemental oxygen. Palpitations: - Reports episodes of tachycardia, particularly at night and upon waking. - No known history of arrhythmias. - Denies use of a smartwatch or other heart rate monitoring devices. Sleep Disturbances: - Chronic difficulty breathing at night, feels blocked when lying on back. - Wakes up multiple times per night due to dyspnea and palpitations. - Reports snoring, but has not observed apneic episodes. - Feels exhausted every morning; sleep described as an ordeal. - Previous sleep studies were inconclusive due to insufficient sleep duration. - Denies current use of sleep aids; occasional difficulty falling asleep due to anxiety. Chest Pain: - History of severe chest pain approximately one year ago, with symptoms mimicking a myocardial infarction. - Symptoms included chest pain, neck pain, nausea, back pain, jaw pain, arm pain, diaphoresis, and lightheadedness. - Blood tests in the ER were negative for myocardial infarction. - Blood pressure dropped to 88/50 mmHg during the episode; resolved after two bags of saline. - Recommended to undergo an echocardiogram and stress test, which showed no abnormalities. - Two additional episodes of chest pain managed at home with electrolyte tablets and water. - Currently taking CoQ10 as recommended by a functional medicine doctor, reports improvement in symptoms. Lifestyle: - Follows a functional medicine diet, drinks 8+ cups of spring water daily. - Exercises regularly. - Denies caffeine consumption. STOP BANG Questionnaire 1. Snoring Do you snore loudly (louder than talking or loud enough to be heard through closed doors)? YES 2. Tired Do you often feel tired, fatigued, or sleepy during daytime? YES 3. Observed Has anyone observed you stop breathing during your sleep? NO 4. Blood Pressure Do you have or are you being treated for high blood pressure? NO 5. BMI BMI more than 35 kg/m2? NO 6. Age Age over 50 yr old? YES 7. Neck circumference Neck circumference greater than 40 cm? NO 8. Gender Gender male? NO * Neck circumference is measured by staff High risk of JUNIOR: answering yes to three or more items Low risk of JUNIOR: answering yes to less than three items ROS Constitutional: (+) fatigue, (+) sleep disturbance Ears/Nose/Mouth/Throat: (+) tinnitus, (+) nasal congestion, (+) snoring Cardiovascular: (+) palpitations, (-) chest pain, (-) edema Respiratory: (+) dyspnea, (-) wheezing Objective BP 112/70 Pulse 78 Resp 16 Wt 64.9 kg (143 lb 1.3 oz) LMP 07/03/2022 (Approximate) BMI 21.76 kg/m Physical Exam Vitals and nursing note reviewed. Constitutional: Appearance: Normal appearance. HENT: Head: Normocephalic and atraumatic. Nose: Mucosal edema (mild left nares) and rhinorrhea present. Eyes: Conjunctiva/sclera: Conjunctivae normal. Cardiovascular: Rate and Rhythm: Normal rate and regular rhythm. Heart sounds: Normal heart sounds. Pulmonary: Effort: Pulmonary effort is normal. Breath sounds: Normal breath sounds. Abdominal: General: Bowel sounds are normal. Palpations: Abdomen is soft. Musculoskeletal: Right lower leg: Edema (scant swelling at ankles) present. Left lower leg: Edema (scant swelling at ankles) present. Skin: General: Skin is warm. Neurological: General: No focal deficit present. Mental Status: She is alert and oriented to person, place, and time. ALLERGIES Allergen Reactions Flat Top Other: See Comments migraine Ciclopirox Hives Hives MEDICATIONS thyroid, pork, (ARMOUR THYROID) 60 mg tablet Take 1 tablet by mouth once daily. coQ10, ubiquinol, (QUNOL GINI COQ10) 100 mg cap Taking CoQ10 200mg capsule one three times weekly thyroid (ARMOUR THYROID) 15 mg tablet Take 1 tablet by mouth three times a week. Take this in additon to the 60 mg daily. Lactobac no.41/Bifidobact no.7 (PROBIOTIC-10 ORAL) Take by mouth once daily. Ipratropium [place] (ATROVENT) 21 mcg (0.03 %) nasal spray Use 2 Sprays in the nose every 12 hours as needed. Miscellaneous Medical Supply [id number]-Gzg-Mvgmnhx D capsules--takes several per day to get adequate calcium and magnesium dose high enough to control leg cramps clonazePAM orally disintegrating (KLONOPIN WAFER) 0.125 mg disintegrating tablet Take 1 tablet by mouth once daily as needed for up to 14 days. B Complex Vitamins capsule Take 1 capsule by mouth once daily. PAST MEDICAL HISTORY Diagnosis Date Anemia 02/03/2012 Bilateral carpal tunnel syndrome Chronic fatigue Fibromyalgia History of orthostatic hypotension Had work up for POTS; tilt test was negative. Had worse symptoms when was anemic.Symptoms respondedto same measures as for treating POTS (fluids with electrolytes) Migraine with aura and without status migrainosus, not intractable Unspecified hypothyroidism Unspecified vitamin D deficiency 03/06/2008 Social History Tobacco Use Smoking status: Never Smokeless tobacco: Never Substance Use Topics Alcohol use: No Drug use: No STRESS ECHO TREADMILL CONCLUSIONS: - Exam indication: CP, Detection of CAD - The exercise stress echo was negative for ischemia at 105 % of MPHR (8.3 METS). No regional wall motion abnormality seen at heart rate achieved. - The left ventricle is normal in size. Left ventricular systolic function is normal. EF = 65 5% (2D biplane). Normal left ventricular diastolic function. - The right ventricle is normal in size. Right ventricular systolic function is normal. - Mild (1+) tricuspid valve regurgitation. - Exam was compared with the prior echocardiographic exam performed on 09/25/2009. There is no significant change. 1. Other fatigue (R53.83) 2. Sleep disturbance (G47.9) 3. Loud snoring (R06.83) - Experiencing significant fatigue, sleep disturbances, and loud snoring. Reports waking up frequently at night due to dyspnea and tachycardia. Previous sleep studies were inconclusive due to insufficient sleep duration. - Ordered home sleep study to evaluate for obstructive sleep apnea; prefers home setting for bettersleep quality. - Advised use of normal saline nasal spray before current nasal spray to improve nasal hydration and reduce congestion. - Discussed potential use of Benadryl at bedtime to aid sleep and dry nasal passages; may try now or to consider after completion of heart monitor study in 5 days. Short duration use. - Recommended elevating head of the bed slightly to improve breathing during sleep. - Patient to monitor for any worsening symptoms and report back if necessary. - A home sleep study has been ordered; you should receive the equipment within a week. If you do not receive it by next Thursday, please contact our office. - Continue using your current nasal spray every night before bed. - Add a normal saline nasal spray before using your medication spray each night to help with nasal congestion. - Consider taking Benadryl at bedtime for a few days to help with sleep and nasal congestion. - Elevate the head of your bed slightly to improve breathing during sleep. - Wear compression socks during the day, especially if you will be on your feet for extended periods. - Monitor for any swelling in your ankles and report any significant changes. - If you experience severe symptoms such as chest pain, difficulty breathing, or irregular heartbeats, seek emergency medical attention immediately. Keep Murphy Henley MD appt. in April Stuart Ponce APRN.CNS Medical Decision Making: Problems: Moderate: New problem with uncertain prognosis Data: Unique test(s) ordered: 1 Risk: Moderate: Drug management Medical Decision Making Level: 4 - Moderate documented in this encounterC[facility]04-[facility] NoteHNO ID: [id number] Author: STUART PONCE APRN.CNS Service: ? Author Type: Nurse Specialist Type: Progress Notes Filed: 01/13/2025 14:33 Note Text: SUBJECTIVE: Mammogram Screening due on 05/05/2025 HPI Jo Valencia is a 58 year old female. PMH significant for ACTIVE PROBLEM LIST Celiac Disease (Hcc) Vitamin D Deficiency Acquired Hypothyroidism Iron Deficiency Anemia Depression With Anxiety Migraine With Aura and Without Status Migrainosus, Not Intractable History of Orthostatic Hypotension Stage 3a Chronic Kidney Disease (Hcc) Presents today regarding a sleep problem, concern for sleep apnea.Incomplete sleep study 2016. Reports feeling short of breath at night, wears strips on her nose. Notes sinus congestion. Uses nose spray. Dyspnea: - Chronic dyspnea, worsening over time. - Experiences dyspnea at night and in the mornings, often accompanied by palpitations. - Uses nasal strips and bromide nasal spray nightly for relief. - Denies known asthma or wheezing. - Denies use of supplemental oxygen. Palpitations: - Reports episodes of tachycardia, particularly at night and upon waking. - No known history of arrhythmias. - Denies use of a smartwatch or other heart rate monitoring devices. Sleep Disturbances: - Chronic difficulty breathing at night, feels blocked when lying on back. - Wakes up multiple times per night due to dyspnea and palpitations. - Reports snoring, but has not observed apneic episodes. - Feels exhausted every morning; sleep described as an ordeal. - Previous sleep studies were inconclusive due to insufficient sleep duration. - Denies current use of sleep aids; occasional difficulty falling asleep due to anxiety. Chest Pain: - History of severe chest pain approximately one year ago, with symptoms mimicking a myocardial infarction. - Symptoms included chest pain, neck pain, nausea, back pain, jaw pain, arm pain, diaphoresis, and lightheadedness. - Blood tests in the ER were negative for myocardial infarction. - Blood pressure dropped to 88/50 mmHg during the episode; resolved after two bags of saline. - Recommended to undergo an echocardiogram and stress test, which showed no abnormalities. - Two additional episodes of chest pain managed at home with electrolyte tablets and water. - Currently taking CoQ10 as recommended by a functional medicine doctor, reports improvement in symptoms. Lifestyle: - Follows a functional medicine diet, drinks 8+ cups of spring water daily. - Exercises regularly. - Denies caffeine consumption. STOP BANG Questionnaire 1. Snoring Do you snore loudly (louder than talking or loud enough to be heard through closed doors)? YES 2. Tired Do you often feel tired, fatigued, or sleepy during daytime? YES 3. Observed Has anyone observed you stop breathing during your sleep? NO 4. Blood Pressure Do you have or are you being treated for high blood pressure? NO 5. BMI BMI more than 35 kg/m2? NO 6. Age Age over 50 yr old? YES 7. Neck circumference Neck circumference greater than 40 cm? NO 8. Gender Gender male? NO * Neck circumference is measured by staff High risk of JUNIOR: answering yes to three or more items Low risk of JUNIOR: answering yes to less than three items ROS Constitutional: (+) fatigue, (+) sleep disturbance Ears/Nose/Mouth/Throat: (+) tinnitus, (+) nasal congestion, (+) snoring Cardiovascular: (+) palpitations, (-) chest pain, (-) edema Respiratory: (+) dyspnea, (-) wheezing Objective BP 112/70 Pulse 78 Resp 16 Wt 64.9 kg (143 lb 1.3 oz) LMP 07/03/2022 (Approximate) BMI 21.76 kg/m? Physical Exam Vitals and nursing note reviewed. Constitutional: Appearance: Normal appearance. HENT: Head: Normocephalic and atraumatic. Nose: Mucosal edema (mild left nares) and rhinorrhea present. Eyes: Conjunctiva/sclera: Conjunctivae normal. Cardiovascular: Rate and Rhythm: Normal rate and regular rhythm. Heart sounds: Normal heart sounds. Pulmonary: Effort: Pulmonary effort is normal. Breath sounds: Normal breath sounds. Abdominal: General: Bowel sounds are normal. Palpations: Abdomen is soft. Musculoskeletal: Right lower leg: Edema (scant swelling at ankles) present. Left lower leg: Edema (scant swelling at ankles) present. Skin: General: Skin is warm. Neurological: General: No focal deficit present. Mental Status: She is alert and oriented to person, place, and time. ALLERGIES Allergen Reactions Flat Top Other: See Comments migraine Ciclopirox Hives Hives MEDICATIONS thyroid, pork, (ARMOUR THYROID) 60 mg tablet Take 1 tablet by mouth once daily. coQ10, ubiquinol, (QUNOL GINI COQ10) 100 mg cap Taking CoQ10 200mg capsule one three times weekly thyroid (ARMOUR THYROID) 15 mg tablet Take 1 tablet by mouth three times a week. Take this in additon to the 60 mg daily. Lactobac no.41/Bifidobact no.7 (PROBI (more content not included)...[facility]04-02-[facility]25 NoteHNO ID: [id number] Author: LIAT ARTEAGA LPN Service: ? Author Type: LICENSED NURSE Type: Progress Notes Filed: 01/04/2025 13:13 Note Text: EVENT MONITOR DISPOSABLE PATCH INSTRUCTIONS Patient Name: Jo Pierce [facility] Number: [id number] Skin prepped and cleansed with alcohol Patch secured to prepped area Monitor Activated Serial #: [id number] Patient Instructed: Prescribed order timeframe Bathing guidelines Usage of event button and diary documentation Return of monitor at the end of prescribed order Call with problems [phone] or [phone]. [phone] Patient expresses a good understanding of instructions [facility] History of Present illness Narrative* Liat Arteaga LPN - 01/04/2025 1:12 PM EDT EVENT MONITOR DISPOSABLE PATCH INSTRUCTIONS Patient Name: Jo Pierce [facility] Number: [id number] Skin prepped and cleansed with alcohol Patch secured to prepped area Monitor Activated Serial #: [id number] Patient Instructed: Prescribed order timeframe Bathing guidelines Usage of event button and diary documentation Return of monitor at the end of prescribed order Call with problems [phone] or [phone]. [phone] Patient expresses a good understanding of instructions Liat Arteaga LPN * Kevin Perales APRN.[employer] MOLDING MACHINE OPERATOR - 01/04/2025 11:19 AM EDT SUBJECTIVE Jo Valencia is a 59 year old female here today for a check up on her medical problems. Chief Complaint Patient presents with: chest tightness: has had 3 episodes the first episode did go to [facility] ER and cardiac was ruled out states she does drink about 8 or more glasses of water a day and did take two electrolyte tablet and glasses of water which did help Not sure if symptoms are related to thyroid or muscle strain from working out with weight twice a week. HPI Jo Valencia is a 59 year old female.She is an established patient of Murphy Henley MD. Here today for some concerns of chest tightness. Started post-menopausal. Issues with a chest pain/tightness. Had some prior anemia and had chest pains with that. Onset was about a year ago. She was out hiking and had chest pain, back pain, nausea.Concerned about cardiac event. Seen in [facility], blood pressure was low, cardiac workup was negative. She was given x2 L and improved. She had a stress ECHO about a year ago, mild tricuspid regurg. Since she has tried to stay well hydrated, pushing fluids and taking an electrolyte tablet daily. CoQ10 has been helpful. Still getting intermittent chest tightness, shortness of breath, palpitations. PriorEKG stable, prior tilt table test stable. Dealing too with tiredness and fatigue. Also follows with rheumatology. She has had extensive labs with them. Does not recall ever feeling her heart jump, skip or miss a beat, feels bounding of her heart at times. Her medications were reviewed today and her list is now up to date. Medications Current Outpatient Medications Medication Sig thyroid, pork, (ARMOUR THYROID) 60 mg tablet Take 1 tablet by mouth once daily. coQ10, ubiquinol, (QUNOL GINI COQ10) 100 mg cap Taking CoQ10 200mg capsule one three times weekly thyroid (ARMOUR THYROID) 15 mg tablet Take 1 tablet by mouth three times a week. Take this in additon to the 60 mg daily. Lactobac no.41/Bifidobact no.7 (PROBIOTIC-10 ORAL) Take by mouth once daily. Ipratropium [place] (ATROVENT) 21 mcg (0.03 %) nasal spray Use 2 Sprays in the nose every 12 hours as needed. B Complex Vitamins capsule Take 1 capsule by mouth once daily. Miscellaneous Medical Supply [id number]-Wdv-Tyschbd D capsules--takes several per day to get adequate calcium and magnesium dose high enough to control leg cramps clonazePAM orally disintegrating (KLONOPIN WAFER) 0.125 mg disintegrating tablet Take 1 tablet by mouth once daily as needed for up to 14 days. No current facility-administered medications for this visit. ALLERGIES Allergen Reactions Flat Top Other: See Comments migraine Ciclopirox Hives Hives ACTIVE PROBLEM LIST Stage 3a Chronic Kidney Disease (Hcc) - 07/28/2023 History of Orthostatic Hypotension Comment: Had work up for POTS; tilt test was negative. Had worse symptoms when was anemic.Symptoms responded to same measures as for treating POTS (fluids with electrolytes) Migraine With Aura and Without Status Migrainosus, Not Intractable Depression With Anxiety - 11/10/2015 Acquired Hypothyroidism - 07/29/2015 Iron Deficiency Anemia - 07/29/2015 Vitamin D Deficiency - 03/06/2008 Celiac Disease ([facility]) Social History Tobacco Use Smoking status: Never Smokeless tobacco: Never Substance Use Topics Alcohol use: No Drug use: No Review of Systems Constitutional: Positive for fatigue. Respiratory: Positive for chest tightness and shortness of breath. Negative for cough, choking and wheezing. Cardiovascular: Positive for chest pain. Negative for leg swelling. OBJECTIVE BP 111/69 Pulse 76 Wt 141 lb 15.6 oz (64.4kg) SpO2 97% LMP 07/03/2022 Physical Exam Vitals and nursing note reviewed. Constitutional: General: She is awake. She is not in acute distress. Appearance: Normal appearance. She is well-developed and well-groomed. She is not ill-appearing, toxic-appearing or diaphoretic. HENT: Head: Normocephalic. Right Ear: External ear normal. Left Ear: External ear normal. Nose: Nose normal. Eyes: General: Vision grossly intact. Conjunctiva/sclera: Conjunctivae normal. Pupils: Pupils are equal, round, and reactive to light. Neck: Vascular: No carotid bruit or JVD. Trachea: Trachea normal. Cardiovascular: Rate and Rhythm: Normal rate and regular rhythm. Pulses: Normal pulses. Heart sounds: Normal heart sounds. No murmur heard. Pulmonary: Effort: Pulmonary effort is normal. No accessory muscle usage, prolonged expiration or respiratory distress. Breath sounds: Normal breath sounds. Musculoskeletal: Cervical back: Neck supple. Skin: General: Skin is warm and dry. Capillary Refill: Capillary refill takes less than 2 seconds. Neurological: General: No focal deficit present. Mental Status: She is alert and oriented to person, place, and time. Mental status is at baseline. Psychiatric: Attention and Perception: Attention and perception normal. Mood and Affect: Mood and affect normal. Speech: Speech normal. Behavior: Behavior normal. Behavior is cooperative. Thought Content: Thought content normal. Cognition and Memory: Cognition and memory normal. Judgment: Judgment normal. ASSESSMENT/PLAN: 1. Chest tightness - ICD9: 786.59, ICD10: R07.89 (primary diagnosis) Reviewed labs and prior stress ECHO. Check 14 day monitor, refer to cardiology. - OUTSIDE VENDOR CARDIAC OUTPATIENT EXTENDED RHYTHM RECORDING (WITHOUT TELEMETRY) - CONSULT TO CARDIOLOGY 2. Chest pain, unspecified type - ICD9: 786.50, ICD10: R07.9 - OUTSIDE VENDOR CARDIAC OUTPATIENT EXTENDED RHYTHM RECORDING (WITHOUT TELEMETRY) - CONSULT TO CARDIOLOGY 3. Palpitations - ICD9: 785.1, ICD10: R00.2 - OUTSIDE VENDOR CARDIAC OUTPATIENT EXTENDED RHYTHM RECORDING (WITHOUT TELEMETRY) - CONSULT TO CARDIOLOGY 4. Fatigue, unspecified type - ICD9: 780.79, ICD10: R53.83 - OUTSIDE VENDOR CARDIAC OUTPATIENT EXTENDED RHYTHM RECORDING (WITHOUT TELEMETRY) - CONSULT TO CARDIOLOGY Medical Decision Making: Medical Decision Making Level: 1 - N/A Portions of this note have been entered by ancillary staff. I have reviewed and when necessary edited, so that they are an adequate record of my encounter with this patient Please note that parts of this document were created using voice recognition software and therefore may contain grammatical errors. Patient verbalizes understanding of instructions from today's visit and in agreement with treatmentplan. Questions answered. Agrees to call the office if questions, concerns of issues with acute symptoms not improving or if they worsen. See diagnoses and orders for additional plan(s). Allergies and medications were reviewed, list was updated, and refills given if needed. Past medical, surgical, social, and family history reviewed and updated as appropriate. Encouraged proper diet & exercise as well as compliance with taking medications. Age- appropriate health preventative measures were discussed. Return if symptoms worsen or fail to improve, for Keep next scheduled appointment.. MERCEDES Koch documented [facility] NoteHNO ID: [id number] Author: KEVIN PERALES APRN.CNP Service: ? Author Type: Nurse Practitioner Type: Progress Notes Filed: 01/04/2025 12:52 Note Text: SUBJECTIVE Jo Valencia is a 59 year old female here today for a check up on her medical problems. Chief Complaint Patient presents with: chest tightness: has had 3 episodes the first episode did go to [facility] ER and cardiac was ruled out states she does drink about 8 or more glasses of water a day and did take two electrolyte tablet and glasses of water which did help Not sure if symptoms are related to thyroid or muscle strain from working out with weight twice a week. HPI Jo Valencia is a 59 year old female.She is an established patient of Murphy Henley MD. Here today for some concerns of chest tightness. Started post-menopausal. Issues with a chest pain/tightness. Had some prior anemia and had chest pains with that. Onset was about a year ago. She was out hiking and had chest pain, back pain, nausea. Concerned about cardiac event. Seen in [facility], blood pressure was low, cardiac workup was negative. She was given x2 L and improved. She had a stress ECHO about a year ago, mild tricuspid regurg. Since she has tried to stay well hydrated, pushing fluids and taking an electrolyte tablet daily. CoQ10 has been helpful. Still getting intermittent chest tightness, shortness of breath, palpitations. Prior EKG stable, prior tilt table test stable. Dealing too with tiredness and fatigue. Also follows with rheumatology. She has had extensive labs with them. Does not recall ever feeling her heart jump, skip or miss a beat, feels bounding of her heart at times. Her medications were reviewed today and her list is now up to date. Medications Current Outpatient Medications Medication Sig thyroid, pork, (ARMOUR THYROID) 60 mg tablet Take 1 tablet by mouth once daily. coQ10, ubiquinol, (QUNOL GINI COQ10) 100 mg cap Taking CoQ10 200mg capsule one three times weekly thyroid (ARMOUR THYROID) 15 mg tablet Take 1 tablet by mouth three times a week. Take this in additon to the 60 mg daily. Lactobac no.41/Bifidobact no.7 (PROBIOTIC-10 ORAL) Take by mouth once daily. Ipratropium [place] (ATROVENT) 21 mcg (0.03 %) nasal spray Use 2 Sprays in the nose every 12 hours as needed. B Complex Vitamins capsule Take 1 capsule by mouth once daily. [employer] Ymi-Eyp-Nmzocvq D capsules--takes several per day to get adequate calcium and magnesium dose high enough to control leg cramps clonazePAM orally disintegrating (KLONOPIN WAFER) 0.125 mg disintegrating tablet Take 1 tablet by mouth once daily as needed for up to 14 days. No current facility-administered medications for this visit. ALLERGIES Allergen Reactions Flat [place] Other: See Comments migraine Ciclopirox Hives Hives ACTIVE PROBLEM LIST Stage 3a Chronic Kidney Disease (Hcc) - 07/28/2023 History of Orthostatic Hypotension Comment: Had work up for POTS; tilt test was negative. Had worse symptoms when was anemic.Symptoms responded to same measures as for treating POTS (fluids with electrolytes) Migraine With Aura and Without Status Migrainosus, Not Intractable Depression With Anxiety - 11/10/2015 Acquired Hypothyroidism - 07/29/2015 Iron Deficiency Anemia - 07/29/2015 Vitamin D Deficiency - 03/06/2008 Celiac Disease ([facility]) Social History Tobacco Use Smoking status: Never Smokeless tobacco: Never Substance Use Topics Alcohol use: No Drug use: No Review of Systems Constitutional: Positive for fatigue. Respiratory: Positive for chest tightness and shortness of breath. Negative for cough, choking and wheezing. Cardiovascular: Positive for chest pain. Negative for leg swelling. OBJECTIVE BP 111/69 Pulse 76 Wt 141 lb 15.6 oz (64.4kg) SpO2 97% LMP 07/03/2022 Physical Exam Vitals and nursing note reviewed. Constitutional: General: She is awake. She is not in acute distress. Appearance: Normal appearance. She is well-developed and well-groomed. She is not ill-appearing, toxic-appearing or diaphoretic. HENT: Head: Normocephalic. Right Ear: External ear normal. Left Ear: External ear normal. Nose: Nose normal. Eyes: General: Vision grossly intact. Conjunctiva/sclera: Conjunctivae normal. Pupils: Pupils are equal, round, and reactive to light. Neck: Vascular: No carotid bruit or JVD. Trachea: Trachea normal. Cardiovascular: Rate and Rhythm: Normal rate and regular rhythm. Pulses: Normal pulses. Heart sounds: Normal heart sounds. No murmur heard. Pulmonary: Effort: Pulmonary effort is normal. No accessory muscle usage, prolonged expiration or respiratory distress. Breath sounds: Normal breath sounds. Musculoskeletal: Cervical back: Neck supple. Skin: General: Skin is warm and dry. Capillary Refill: Capillary refill takes less than 2 seconds. Neurological: General: No focal deficit present. Mental Stat (more content not included)...[facility]04-02[facility] NoteHNO ID: [id number] Author: MARIETTA LOPEZ MD Service: ? Author Type: Physician Type: Procedures Filed: 01/28/2025 09:31 Note Text: Patient Name: Jo Valencia : 1965 Ordering Provider: KEVIN PERALES Indication: R07.89 Other chest pain Type of Monitor: Extended Monitoring-Zio Patch Enrollment Dates: 01/04/2025-01/18/2025 IRHYTHM FINDINGS: Patient had a min HR of 47 bpm, max HR of 145 bpm, and avg HR of 71 bpm. Predominant underlying rhythm was Sinus Rhythm. 4 Supraventricular Tachycardia runs occurred, the run with the fastest interval lasting 6 beats with a max rate of 138 bpm, the longest lasting 14 beats with an avg rate of 99 bpm. Isolated SVEs were rare (<1.0%), SVE Couplets were rare (<1.0%), and no SVE Triplets were present. Isolated VEs were rare (<1.0%), and no VE Couplets or VE Triplets were present.[facility] Instructions* Patient Instructions* Murphy Henley MD - 10/07/2024 4:29 PM EST - Drink at least 12 ounces of water an hour before your next lab tests to ensure proper hydration. - Refill your [place] Thyroid 60 mg prescription at [facility] on [address]. - Continue taking CoQ10 200 mg three times a week. - Consult with your insurance to see if hormone replacement therapy is covered. - Consider scheduling a consultation with an OBGYN to discuss hormone replacement therapy options. - Maintain a diet rich in calcium and vitamin D. - Continue weight-bearing exercises to support bone density. - Next follow-up appointment in 6 months. documented in this encounterC[facility]25 NoteHNO ID: [id number] Author: MURPHY HENLEY MD Service: ? Author Type: Physician Type: Progress Notes Filed: 11/13/2024 00:28 Note Text: This note was created using [employer]. Subjective Jo Valencia is a 59 year old female. Patient presents with: F/U 6 months: Labs prior SUBJECTIVE: Jo Valencia is a 59 year old year old lady here today for 6 month follow up appointment for review of medical conditions. Jo Valencia is a 59-year-old female with a history of hypothyroidism, arthritis, and post-orgasmic illness syndrome (POIS), presenting for a 6-month follow-up. Jo reports that her recent lab results were generally good, except for concerns regarding kidney function. Her creatinine level was 1.16 mg/dL, and she acknowledges not drinking enough water before the test, which she did while fasting. She has been trying to increase her water intake. She requests a refill for her [place] Thyroid 60 mg, which is due to run out by January. She has enough of her 15 mg dose and does not need a refill for that. She denies needing a refill for Atrovent nasal spray, as she has a backup supply. She mentions that her recent rheumatology workup was unremarkable, except for an elevated light chain ratio, which was attributed to her elevated thyroid antibodies. She was also diagnosed with arthritis in her feet and hands based on recent x-rays. She inquires about a bone density test, noting that her last one was quite a while ago. She has gone through menopause and is unsure about her family history of osteoporosis, but mentions that her mother was on hormone replacement therapy (HRT) for a long time. Jo continues to experience symptoms of POIS, which have improved with the use of CoQ10 200 mg, taken three times a week or every other day. She initially took it daily but experienced side effects, including hypertension and dizziness, which led her to reduce the dosage. She also takes an electrolyte tablet daily to prevent symptoms. She reports that her POIS symptoms, including chest pain, back pain, nausea, neck pain, and headaches, are triggered after orgasm and are alleviated by saline or electrolyte tablets. She has had two episodes of chest pain and other symptoms after orgasm, one of which required hospitalization and treatment with saline. She notes that her blood pressure was very low during these episodes, and her thyroid function was slightly low at the time. She has been trying to balance her thyroid medication and CoQ10 dosage to manage her symptoms and improve her sleep. She inquires about HRT, noting that her symptoms started after menopause and wondering if they are related to low testosterone levels. She mentions that her functional medicine doctor had previously tested her testosterone levels, which were low. She is interested in exploring HRT but is concerned about the cost and insurance coverage. She also reports memory issues and forgetfulness since menopause, which she attributes to hormonal changes. Jo follows a healthy diet, including protein and bone broth, and engages in regular exercise, including hiking and light weightlifting. She takes vitamin D but has stopped taking calcium supplements, as her calcium levels are now normal. She is not interested in vaccines due to concerns about side effects. She gets regular mammograms and is up to date on colon cancer screening. PAST MEDICAL HISTORY Diagnosis Date Anemia 02/03/2012 [...] deficiency 03/06/2008 Current Outpatient Medications Medication Sig coQ10, ubiquinol, (QUNOL GINI COQ10) 100 mg cap Take 1 capsule by mouth once daily. thyroid (ARMOUR THYROID) 15 mg tablet Take 1 tablet by mouth three times a week. Take this in additon to the 60 mg daily. thyroid, pork, (ARMOUR THYROID) 60 mg tablet Take 1 tablet by mouth once daily. Lactobac no.41/Bifidobact no.7 (PROBIOTIC-10 ORAL) Take by mouth once daily. Ipratropium [place] (ATROVENT) 21 mcg (0.03 %) nasal spray Use 2 Sprays in the nose every 12 hours as needed. [employer] Ptk-Rxh-Nffiqxu D capsules--takes several per day to get adequate calcium and magnesium dose high enough to control leg cramps B Complex Vitamins capsule Take 1 capsule by mouth once daily. clonazePAM orally disintegrating (KLONOPIN WAFER) 0.125 mg disintegrating tablet Take 1 tablet by mouth once daily as needed for up to 14 days. No current facility-administered medications for this visit. Review of Systems Objective BP 106/66 Pulse 61 Temp 36.7 ?C (98.1 ?F) Resp 16 (more content not included)...[facility]01-[facility] History of Present illness Narrative* Murhpy Henley MD - 10/07/2024 3:44 PM EST This note was created using Tucker Blairriter. Subjective Jo Valencia is a 59 year old female. Patient presents with: F/U 6 months: Labs prior SUBJECTIVE: Jo Valencia is a 59 year old year old lady here today for 6 month follow up appointment for review of medical conditions. Jo Valencia is a 59-year-old female with a history of hypothyroidism, arthritis, and post-orgasmicillness syndrome (POIS), presenting for a 6-month follow-up. Jo reports that her recent lab results were generally good, except for concerns regarding kidneyfunction. Her creatinine level was 1.16 mg/dL, and she acknowledges not drinking enough water before the test, which she did while fasting. She has been trying to increase her water intake. She requests a refill for her [place] Thyroid 60 mg, which is due to run out by January. She has enough of her 15 mg dose and does not need a refill for that. She denies needing a refill for Atrovent nasal spray,as she has a backup supply. She mentions that her recent rheumatology workup was unremarkable, except for an elevated light chain ratio, which was attributed to her elevated thyroid antibodies. She was also diagnosed with arthritis in her feet and hands based on recent x-rays. She inquires about a bone density test, noting that her last one was quite a while ago. She has gone through menopause and is unsure about her familyhistory of osteoporosis, but mentions that her mother was on hormone replacement therapy (HRT) for a long time. Jo continues to experience symptoms of POIS, which have improved with the use of CoQ10 200 mg, taken three times a week or every other day. She initially took it daily but experienced side effects, including hypertension and dizziness, which led her to reduce the dosage. She also takes an electrolyte tablet daily to prevent symptoms. She reports that her POIS symptoms, including chest pain, back pain, nausea, neck pain, and headaches, are triggered after orgasm and are alleviated by saline or electrolyte tablets. She has had two episodes of chest pain and other symptoms after orgasm, one of which required hospitalization and treatment with saline. She notes that her blood pressure was very low during these episodes, and her thyroid function was slightly low at the time. She has been trying to balance her thyroid medication and CoQ10 dosage to manage her symptoms and improve her sleep. She inquires about HRT, noting that her symptoms started after menopause and wondering if they are related to low testosterone levels. She mentions that her functional medicine doctor had previously tested her testosterone levels, which were low. She is interested in exploring HRT but is concerned about the cost and insurance coverage. She also reports memory issues and forgetfulness since menopause, which she attributes to hormonal changes. Jo follows a healthy diet, including protein and bone broth, and engages in regular exercise, including hiking and light weightlifting. She takes vitamin D but has stopped taking calcium supplements, as her calcium levels are now normal. She is not interested in vaccines due to concerns about side effects. She gets regular mammograms and is up to date on colon cancer screening. PAST MEDICAL HISTORY Diagnosis Date Anemia 02/03/2012 [...] deficiency 03/06/2008 Current Outpatient Medications Medication Sig coQ10, ubiquinol, (QUNOL GINI COQ10) 100 mg cap Take 1 capsule by mouth once daily. thyroid (ARMOUR THYROID) 15 mg tablet Take 1 tablet by mouth three times a week. Take this in additon to the 60 mg daily. thyroid, pork, (ARMOUR THYROID) 60 mg tablet Take 1 tablet by mouth once daily. Lactobac no.41/Bifidobact no.7 (PROBIOTIC-10 ORAL) Take by mouth once daily. Ipratropium [place] (ATROVENT) 21 mcg (0.03 %) nasal spray Use 2 Sprays in the nose every 12 hours as needed. [employer] Vbv-Djv-Lmytcob D capsules--takes several per day to get adequate calcium and magnesium dose high enough to control leg cramps B Complex Vitamins capsule Take 1 capsule by mouth once daily. clonazePAM orally disintegrating (KLONOPIN WAFER) 0.125 mg disintegrating tablet Take 1 tablet by mouth once daily as needed for up to 14 days. No current facility-administered medications for this visit. Review of Systems Objective BP 106/66 Pulse 61 Temp 36.7 C (98.1 F) Resp 16 Wt 64.9 kg (143 lb 1.3 oz) LMP 07/03/2022(Approximate) SpO2 100% BMI 21.76 kg/m Last 5 Encounter Wt Readings: Date: Wt: 10/07/2024 64.9 kg (143 lb 1.3 oz) 05/13/2024 65 kg (143 lb 3.2 oz) 03/22/2024 64 kg (141 lb) 01/12/2024 65.3 kg (144 lb) 12/10/2023 65.3 kg (144 lb) No waist measurement recorded Estimated body mass index is 21.76 kg/m as calculated from the following: Height as of 05/13/24: 172.7 cm (5' 8). Weight as of this encounter: 64.9 kg (143 lb 1.3 oz). Last 5 Encounter BP Readings: Date: BP: 10/07/2024 106/66 05/13/2024 107/72 03/22/2024 112/62 01/12/2024 110/68 12/10/2023 90/59 Physical Exam Constitutional: Appearance: Normal appearance. HENT: [...] Content: Thought content normal. Judgment: Judgment normal. Latest Ref Rng 03/14/2024 07/05/2024 09/19/2024 Protein, Total 6.3 - 8.0 g/dL 7.0 Albumin 3.9 - 4.9 g/dL 4.6 Calcium 8.5 - 10.2 mg/dL 9.8 Bilirubin, Total 0.2 - 1.3 mg/dL 0.5 Alkaline Phosphatase 34 - 123 U/L 56 AST 13 - 35 U/L 22 ALT 7 - 38 U/L 11 Glucose 74 - 99 mg/dL 91 BUN 7 - 21 mg/dL 20 Creatinine 0.58 - 0.96 mg/dL 1.16 (H) Sodium 136 - 144 mmol/L 141 Potassium 3.7 - 5.1 mmol/L 3.9 Chloride 98 - 107 mmol/L 103 CO2 22 - 30 mmol/L 26 Anion Gap 8 - 15 mmol/L 12 eGFR >=60 mL/min/1.73m 54 (L) WBC 3.70 - 11.00 k/uL 4.56 RBC 3.90 - 5.20 m/uL 4.45 Hemoglobin 11.5 - 15.5 g/dL 13.6 Hematocrit 36.0 - 46.0 % 41.7 MCV 80.0 - 100.0 fL 93.7 MCH 26.0 - 34.0 pg 30.6 MCHC 30.5 - 36.0 g/dL 32.6 RDW-CV 11.5 - 15.0 % 12.9 Platelet Count 150 - 400 k/uL 191 MPV 9.0 - 12.7 fL 11.4 Absolute nRBC <0.01 k/uL <0.01 TSH 0.270 - 4.200 mIU/L 2.990 3.990 Free T4 0.9 - 1.7 ng/dL 0.9 0.8 (L) Free T3 2.3 - 4.1 pg/mL 3.6 2.9 Vitamin B12 232 - 1,245 pg/mL 683 Folate >4.7 ng/mL 11.3 Zinc 60 - 120 ug/dL 61 Cortisol 4.8 - 19.5 ug/dL 17.7 Vitamin D 25 Hydroxy 31.0 - 80.0 ng/mL 37.0 Legend: (H) High (L) Low Latest Ref Rng 03/27/2020 02/05/2022 04/09/2022 06/02/2022 10/01/2022 09/01/2023 12/10/2023 05/13/2024 09/19/2024 Protein, Total 6.3 - 8.0 g/dL 7.2 7.2 7.1 7.5 7.0 Albumin 3.9 - 4.9 g/dL 4.5 4.7 4.6 4.7 4.6 Calcium 8.5 - 10.2 mg/dL 9.3 9.7 9.6 9.5 9.6 9.4 9.7 9.5 9.8 Bilirubin, Total 0.2 - 1.3 mg/dL 0.4 0.4 0.2 0.2 0.5 Alkaline Phosphatase 34 - 123 U/L 42 48 56 58 56 AST 13 - 35 U/L 22 21 19 30 22 Glucose 74 - 99 mg/dL 97 92 96 91 103 (H) 88 88 98 91 BUN 7 - 21 mg/dL 12 16 23 (H) 18 14 15 16 17 20 Creatinine 0.58 - 0.96 mg/dL 0.91 1.14 (H) 1.11 (H) 1.12 (H) 1.18 (H) 1.06 (H) 0.96 1.01 (H) 1.16 (H) Sodium 136 - 144 mmol/L 140 138 141 138 140 141 139 141 141 Potassium 3.7 - 5.1 mmol/L 4.3 4.2 4.2 4.5 4.3 4.0 3.9 4.2 3.9 Chloride 98 - 107 mmol/L 101 101 101 103 103 103 101 104 103 CO2 22 - 30 mmol/L 26 30 26 27 30 29 27 25 26 Anion Gap 8 - 15 mmol/L 13 7 (L) 14 8 (L) 7 (L) 9 11 12 12 ALT 7 - 38 U/L 14 13 14 24 11 eGFR- >60 eGFR-All Other Races . >60 eGFR >=60 mL/min/1.73m 57 (L) 58 (L) 58 (L) 54 (L) 61 69 65 54 (L) Legend: (H) High (L) Low Labs: - (July) Vitamin B12: Normal - Folate: Normal - Zinc: Normal - Cortisol: Normal - Comprehensive Metabolic Panel: - Creatinine: 1.16 mg/dL - eGFR: 54 mL/min/1.73 m - BUN: Normal but elevated compared to hydrated state - Liver function tests: Normal - Electrolytes: Normal - Fasting Glucose: 91 mg/dL - Thyroid Function Tests: - TSH: Normal - Free T4 and Free T3: Nearly normal - Complete Blood Count: - Hemoglobin: Normal - Hematocrit: Normal; no anemia - Rheumatology Labs: - Thyroid Antibodies: Elevated - Light Chain Ratio: Abnormal Imaging: - (2007) Bone Density Scan: - T-score Lumbar Spine: +1.4 - T-score Femoral Neck: +1.7 - Impression: Normal bone density - X-ray Feet: - Findings: Degenerative changes of first metatarsophalangeal joints (big toes), consistent with arthritis - X-ray Hands: - Findings: No significant abnormalities Assessment and Plan # Acquired hypothyroidism (E03.9) - TSH levels are stable; continue current dosage of [place] Thyroid 60 mg daily. - Refilled prescription for [place] Thyroid 60 mg, sent to [facility] on [address]. - Patient has sufficient supply of [place] Thyroid 15 mg, no refill needed at this time. # Primary osteoarthritis of both feet (M19.071) - Diagnosed with osteoarthritis in the first metatarsophalangeal joints bilaterally. - Recommended wearing supportive footwear to alleviate symptoms. - Continue weight-bearing exercises to maintain joint function. # Vitamin D deficiency (E55.9) - Continue current vitamin D supplementation. - Encouraged dietary intake of calcium to support bone health. # Renal insufficiency, mild (N28.9) - Recent creatinine level at 1.16 mg/dL, with historical fluctuations between 0.96 and 1.18 mg/dL since 2019. - eGFR at 54 mL/min/1.73m , noted to improve with adequate hydration. - Advised increasing fluid intake, especially before lab draws, to optimize renal function. # Iron deficiency anemia, unspecified iron deficiency anemia type (D50.9) - Hemoglobin and hematocrit levels are within normal range; no current evidence of anemia. - Previous labs including B12, folate, and zinc levels were normal. 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 - Initiated CoQ10 200 mg, taken three times weekly, with noted improvement in symptoms. - Discussed potential side effects of CoQ10, including hypertension; advised considering a lower dose of 100 mg daily if side effects persist. - Recommended hydration and electrolyte supplementation to mitigate symptoms. - Discussed potential hormonal imbalances post-menopause; advised consultation with OBGYN for evaluation of hormone replacement therapy. # Encounter for screening mammogram for breast cancer (Z12.31) - 3D mammogram ordered, due in May. Murphy Henley MD documented in this [facility] History of Present illness Narrative* Brook Pablo MD - 06/07/2024 10:30 AM EDT Images from the original note were not included. Rheumatology FOLLOW UP VISIT Date of Service: 06/07/2024 Patient: Jo Pierce [facility] Medical Record: [id number] Primary Care Physician: Murphy Henley MD Last Rheumatology visit: 05/13/2024 (with Brook Pablo) Chief Complaint: No chief complaint on file. This is a virtual visit using [employer] Zoom Video Visit. It required patient- provider interaction for the medical decision making as documented below. Patient consented to this form of visit. I have communicated my name and active licensure. The patient's identity and physical location wereverified at the time of this visit. Either the patient or their legal district sales representative has been informed of the risks and benefits of -- and alternatives to -- treatment through a remote evaluation andconsents to proceed with the evaluation remotely. INTERVAL HISTORY No major changes Notes can't wear wedding rings Fingers feel swollen or larger Stiff all the time, today is a good day Hard to wear wedding rings RHEUMATOLOGIC HISTORY Jo reports a current pain level of 4 . She describes the pain as Aching, Sore, Stiffness, Tingling. The pain is Continuous . Interventions tried include Reposition, Relaxation, Distractions, Emotional Support/Reassurance, Exercise, Heat, Massage, Music, Pillow support, Positioning. Jo is both RF - 9 (05/13/2024) and CCP - 13.5 (05/13/2024) negative. Her most recent HARVINDER was negative (05/13/2024). HISTORY OF PRESENT ILLNESS Jo Valecnia is a 58 year old White female with a history of previous iron deficiency anemia, anxiety/depression, CKD 3A, celiac, vitamin D deficiency who presents to rheumatology clinic for evaluation of positive HARVINDER. Today she presents to clinic with her Montse who assists with history. 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 She had her HARVINDER tested a few times which was consistently positive so rheumatology referral was requested. She notes a long history throughout her life of ups and downs with her health including episode of moderate to severe iron deficiency anemia of unknown etiology requiring wheelchair use for 6 months.Long history of hurting all over all the time and myofascial tissues. She notes hand pain particularly in DIPs and PIPs with morning stiffness which has somewhat improved since wearing wrist braces for carpal tunnel with associated numbness tingling. She has foot pain in the MTPs and in her arches which is worse at the end of the day, she does hike regularly. She began developing back pain in her40s which is worse when standing for a long time. She does not trial medication due to multiple medication and sensitivities. More recently she has had about 3 episodes of chest pain that radiates to the neck which she wonders if it could be an electrolyte issue as she got better with saline in the ER and with an electrolyte solution prepared by her . Rheumatologic review of systems notable for subjective low-grade fevers with activity, weight fluctuations related to diet, dry eyes for decades, new onset dry mouth, sinus congestion with difficultybreathing requiring regular nasal spray, angular cheilitis, postexertional malaise, constipation. She notes she has been on a specialized diet for many years to help with inflammation and something related to histamine. She denies history of uveitis, photosensitivity, malar rash, sores in her nose or mouth, dysphagia, cough, nausea, vomiting, abdominal pain, diarrhea, blood in the urine or stool,red hot swollen joints, history of aspirations, Raynaud's. She has had 2 pregnancies, 2 children, no miscarriages, no history of blood clots. Pain Evaluation 03/10/2023 07/21/2023 03/15/2024 05/13/2024 05/31/2024 Pain Evaluation Pain Score 4 3 3 4 4 Location Neck-Posterior Back-Lower Knee-Left -- Location Comment joints Description Aching;Sore Aching Aching;Stiffness Aching;Sore;Stiffness;Tingling Duration (#) 6 Duration (Timeframe) Years Weeks Minutes Years Months Frequency Intermittent Continuous Intermittent Continuous Continuous Intervention Reposition;Distractions;Exercise;Heat;Music;Pillow support;Positioning Reposition;Exercise;Positioning Reposition;Relaxation;Distractions;Emotional Support/Reassurance;Exercise;Heat;Massage;Music;Pillow support;Positioning PATIENT-ENTERED DATA PROMIS Assessments 03/15/2024 05/06/2024 05/31/2024 PROMIS Assessments Physical Health Percentile 53 53 Mental Health Percentile 53 53 Pain Score 4 4 Pain Interference Percentile 18 18 Fatigue Percentile 14 18 Physical Function Percentile 42 27 RAPID 3 [facility] Activities of Daily Living 05/31/2024 6:07 PM 05/06/2024 10:04 PM Dress self? Without ANY difficulty Without ANY difficulty Get in and out of bed? Without ANY difficulty Without ANY difficulty Walk outdoors? Without ANY difficulty Without ANY difficulty Wash and dry body? Without ANY difficulty Without ANY difficulty Get in and out of car? Without ANY difficulty Without ANY difficulty RAPID 3 Disease Activity Weighed Score Levels: 0 - 1: Near Remission 1.3 - 2.0: Low Severity 2.3 - 4.0: Moderate Severity 4.3 - 10.0: High Severity 05/06/2024 05/31/2024 RAPID-3 Weighed Score RAPID 3 Weighed Score 3.11 (Moderate severity ) 3.11 (Moderate severity ) 05/31/2024 RAPID-3 Weighed Score Percentage Change Compared to Last Score 0 Review of Systems CONSTITUTION: Negative for: Fever and Recent weight change HEENT: Positive for: Trouble swallowing and Dry mouth Negative for: Nosebleeds and Mouth sores RESPIRATORY: Positive for: Shortness of breath Negative for: Cough and Pain with breathing GASTROINTESTINAL: Positive for: Abdominal pain Negative for: Melena, Diarrhea and Heartburn MUSCULOSKELETAL: Positive for: Arthralgias, Myalgias, Muscle weakness and Morning Joint Stiffness Negative for: Joint swelling NEUROLOGICAL: Positive for: Headaches Negative for: Numbness and Memory loss SKIN: Negative for: Rash, Skin changes, Hair loss and Nail changes EYES: Positive for: Eye pain, Eye redness, Eye dryness and Visual disturbance CARDIOVASCULAR: Negative for: Chest pain and Leg swelling GENITOURINARY: Negative for: Dysuria and Hematuria HEMATOLOGIC/LYMPHATIC: Negative for: Swollen glands REVIEW OF SYSTEMS Complete ROS (HEENT, respiratory, cardiology, GI, , skin, psych, hematology, endocrine, neuro, musculoskeletal) negative except as noted in HPI. HISTORIES Past medical, surgical, family, and social history reviewed and notable changes since last visit include: Noted in HPI MEDICATIONS Current Outpatient Medications Medication Sig thyroid (ARMOUR THYROID) 15 mg tablet Take 1 tablet by mouth three times a week. Take this in additon to the 60 mg daily. thyroid, pork, (ARMOUR THYROID) 60 mg tablet Take 1 tablet by mouth once daily. Lactobac no.41/Bifidobact no.7 (PROBIOTIC-10 ORAL) Take by mouth once daily. Ipratropium [place] (ATROVENT) 21 mcg (0.03 %) nasal spray Use 2 Sprays in the nose every 12 hours as needed. Miscellaneous Medical Supply Sdc-Qkn-Iuddmde D capsules--takes several per day to get adequate calcium and magnesium dose high enough to control leg cramps clonazePAM orally disintegrating (KLONOPIN WAFER) 0.125 mg disintegrating tablet Take 1 tablet by mouth once daily as needed for up to 14 days. B Complex Vitamins capsule Take 1 capsule by mouth once daily. ALLERGIES ALLERGIES Allergen Reactions Flat Top Other: See Comments migraine Ciclopirox Hives Hives PHYSICAL EXAM Patient appears well over the video, no facial rashes, no overt gross neurologic deficits, speech is confluent, speaks well without shortness of breath. LABS Reviewed in [facility], notable for: 05/13/2024 Negative RF, CCP Slightly elevated ratio 1.72, normal kappa and lambda GFR 65 Negative [place] Normal tryptase Normal iron, TIBC, ferritin Negative SPEP, immunofixation Negative lupus anticoagulant Negative beta-2 glycoprotein antibodies, cardiolipin antibodies Negative HARVINDER, MICHAEL, dsDNA Normal C3, C4 Normal magnesium, phosphorus Negative histone Additional workup at outside: TPO antibodies 581, normal <34 Antithyroglobulin antibodies 2.8 normal <0.9 Latest Ref Rng & Units 10/01/2022 03/18/2023 09/01/2023 05/13/2024 CBC WBC 3.70 - 11.00 k/uL 6.00 4.84 5.39 5.56 Hemoglobin 11.5 - 15.5 g/dL 12.9 13.5 13.4 13.3 Hematocrit 36.0 - 46.0 % 40.6 41.5 40.8 40.4 Platelet Count 150 - 400 k/uL 181 177 195 175 Abs Neut (ANC) 1.45 - 7.50 k/uL 3.57 Abs Lymph 1.00 - 4.00 k/uL 1.41 Latest Ref Rng & Units 07/28/2023 09/01/2023 12/10/2023 05/13/2024 CMP Sodium 136 - 144 mmol/L 141 141 139 141 Potassium 3.7 - 5.1 mmol/L 4.2 4.0 3.9 4.2 Chloride 98 - 107 mmol/L 103 103 101 104 CO2 22 - 30 mmol/L 29 29 27 25 Glucose 74 - 99 mg/dL 93 88 88 98 BUN 7 - 21 mg/dL 17 15 16 17 Creatinine 0.58 - 0.96 mg/dL 1.11 1.06 0.96 1.01 Calcium 8.5 - 10.2 mg/dL 9.8 9.4 9.7 9.5 AST 13 - 35 U/L 19 30 ALT 7 - 38 U/L 14 24 Alkaline Phosphatase 34 - 123 U/L 56 58 Latest Ref Rng & Units 06/27/2010 03/18/2016 05/13/2024 ESR, WSR WSR 0 - 20 mm/hr 5 2 Sed Rate, [place] 0 - 20 mm/hr 10 Latest Ref Rng & Units 03/18/2016 05/13/2024 CRP CRP <0.9 mg/dL <0.1 <0.3 Latest Ref Rng & Units 05/13/2024 C3, C4 C3 86 - 166 mg/dL 100 C4 13 - 46 mg/dL 22 Latest Ref Rng & Units 03/18/2016 CK CK 30 - 220 U/L 79 Latest Ref Rng & Units 06/27/2010 05/13/2024 RF and CCP Rheumatoid Factor <16 IU/mL 3 <10 CCP Antibody IgG Qualitative Negative Negative CCP Antibody, IgG <20 Units <15 Latest Ref Rng & Units 08/03/2015 Hepatitis Screen Hep C Antibody IA Negative Negative Latest Ref Rng & Units 06/27/2010 05/13/2024 Antibodies HARVINDER Negative Negative HARVINDER by EIA <1.5 OD Ratio 0.7 DNA Antibody <=200 IU/mL 27 Anti-Sm <1.0 AI <0.2 Sm Antibody Negative Negative Ribosomal ENROLLMENT NURSE Ab <1.0 AI <0.2 Ribosomal ENROLLMENT NURSE Qualitative Negative Negative Chromatin Ab <1.0 AI <0.2 Chromatin Ab Qual Negative Negative SSA Antibody Qual Negative Negative Anti-SSA <1.0 AI <0.2 Anti-SSB <1.0 AI <0.2 ENROLLMENT NURSE Antibody QUAL Negative Negative Scleroderma Ab Qual Negative Negative Scl-70 Abs, EIA <1.0 AI 0.3 Centromere Ab <1.0 AI <0.2 CENTROMERE AB QUAL Negative Negative ADRY-1 ANTIBODY, IGG <1.0 AI <0.2 ADRY 1 ANTIBODY QUAL Negative Negative Beta 2 Glycoprotein, IgM <20 SMU <9 Cardiolipin Ab, IgG <15.0 GPL <9.0 Cardiolipin Ab, IgM <12.5 MPL <9.0 Cardiolipin Ab, IgA <12.0 APL <9.0 Histone Ab, IgG <1.0 Units 0.2 Histone Qualitative Negative PT Sec 9.7 - 13.0 sec 10.9 PT INR 0.9 - 1.3 1.0 APTT 23.0 - 32.4 sec 27.5 Platelet Neut <1.9 Seconds 0.0 DRVVT Screen 32.0 - 45.7 seconds 30.6 DRVVT Confirm Ratio <1.32 0.98 DRVVT 1:1 Mix 32.0 - 45.7 seconds 31.9 Hex Phase Screen 34.0 - 51.8 seconds 47.9 Hex Phase Confirm 34.2 - 47.9 seconds 45.2 Hex Phase Delta <7.1 delta seconds 2.6 APTT Screen 24.0 - 35.1 seconds 27.9 Thrombin Time <18.6 seconds 17.7 Anti Xa Inhib Assay <0.10 <0.10 Latest Ref Rng & Units 07/28/2023 07/28/2023 09/01/2023 05/13/2024 Urinalysis Protein, Urine Negative Negative Negative PROTEIN UA (POCT) Negative mg/dL Negative RBC, Urine 0-2 /HPF 0-2 /HPF 0-2 /HPF Protein/Creat Ratio <0.15 mg/mg <0.11 <0.12 IMAGING Reviewed in [facility], notable for: 05/2024 x-rays: Normal knees OA first MTPs bilaterally Normal hands Normal SI joints ASSESSMENT Jo Valencia is a 58 year old White female with a history of previous iron deficiency anemia, anxiety/depression, CKD 3A, celiac, vitamin D deficiency, Molly's who presents to rheumatology [facility] for follow-up of initial evaluation of positive HARVINDER. At this time she has had completely negative serologic evaluation for rheumatologic autoimmune disease including lupus, Sjogren's, rheumatoid arthritis, etc. She had ever so slightly kappa lambda ratio elevation with negative confirmatory testing and no evidence of M spike, worsening kidney disease, hypercalcemia, etc. Reassured this is of no clinical significance but offered hematology evaluation if she wanted as she had questions regarding nonsecretory myeloma. She declined for now. Due to ongoing inflammatory type pain we will get synovial screen ultrasounds of the hands prior totrialing medications. Previously discussed steroid trial but due to significant sensitivities with medications and environmental exposures we will defer any medications if and until we identify organic pathology. Overall her presentation is most consistent with chronic fatigue syndrome. IMPRESSIONS Diagnoses: (M79.641, M79.642) Bilateral hand pain (primary encounter diagnosis) (R76.8) HARVINDER positive PLAN 1. Synovial screen ultrasounds of hands and wrists anytime 2. I will message her with results 3. Follow-up to be determined Current Immunizations Reviewed on 03/22/2024 No immunizations on file. Orders this visit: [facility] on 06/07/24 US HAND/WRIST SYNOVIAL SCREEN RIGHT US HAND/WRIST SYNOVIAL SCREEN LEFT No follow-ups on file. Medical Decision Making: Problems: Moderate: 2+ stable chronic illnesses Data: Unique test result(s) reviewed: 3+ Unique test(s) ordered: 2 Medical Decision Making Level: 4 - Moderate This note was partially generated with the assistance of [employer] voice recognition software. An attempt was made to correct any dictation errors however there may be some incorrect words, spellings, and punctuation. Brook Pablo MD Rheumatology Date: June 07, 2024 Time: 10:21 AM documented in [facility] NoteHNO ID: [id number] Author: BROOK PABLO MD Service: ? Author Type: Physician Type: Progress Notes Filed: 06/07/2024 10:40 Note Text: Rheumatology FOLLOW UP VISIT Date of Service: 06/07/2024 Patient: Jo Valencia Medical Record: [id number] Primary Care Physician: Murphy Henley MD Last Rheumatology visit: 05/13/2024 (with Brook Pablo) Chief Complaint: No chief complaint on file. This is a virtual visit using [employer] Video Visit. It required patient-provider interaction for the medical decision making as documented below. Patient consented to this form of visit. I have communicated my name and active licensure. The patient's identity and physical location were verified at the time of this visit. Either the patient or their legal district sales representative has been informed of the risks and benefits of -- and alternatives to -- treatment through a remote evaluation and consents to proceed with the evaluation remotely. INTERVAL HISTORY No major changes Notes can't wear wedding rings Fingers feel swollen or larger Stiff all the time, today is a good day Hard to wear wedding rings RHEUMATOLOGIC HISTORY Jo reports a current pain level of 4 . She describes the pain as Aching, Sore, Stiffness, Tingling. The pain is Continuous . Interventions tried include Reposition, Relaxation, Distractions, Emotional Support/Reassurance, Exercise, Heat, Massage, Music, Pillow support, Positioning. Jo is both RF - 9 (05/13/2024) and CCP - 13.5 (05/13/2024) negative. Her most recent HARVINDER was negative (05/13/2024). HISTORY OF PRESENT ILLNESS Jo Valencia is a 58 year old White female with a history of previous iron deficiency anemia, anxiety/depression, CKD 3A, celiac, vitamin D deficiency who presents to rheumatology clinic for evaluation of positive HARVINDER. Today she presents to clinic with her Montse who assists with history. 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 She had her HARVINDER tested a few times which was consistently positive so rheumatology referral was requested. She notes a long history throughout her life of ups and downs with her health including episode of moderate to severe iron deficiency anemia of unknown etiology requiring wheelchair use for 6 months. Long history of hurting all over all the time and myofascial tissues. She notes hand pain particularly in DIPs and PIPs with morning stiffness which has somewhat improved since wearing wrist braces for carpal tunnel with associated numbness tingling. She has foot pain in the MTPs and in her arches which is worse at the end of the day, she does hike regularly. She began developing back pain in her 40s which is worse when standing for a long time. She does not trial medication due to multiple medication and sensitivities. More recently she has had about 3 episodes of chest pain that radiates to the neck which she wonders if it could be an electrolyte issue as she got better with saline in the ER and with an electrolyte solution prepared by her . Rheumatologic review of systems notable for subjective low-grade fevers with activity, weight fluctuations related to diet, dry eyes for decades, new onset dry mouth, sinus congestion with difficulty breathing requiring regular nasal spray, angular cheilitis, postexertional malaise, constipation. She notes she has been on a specialized diet for many years to help with inflammation and something related to histamine. She denies history of uveitis, photosensitivity, malar rash, sores in her nose or mouth, dysphagia, cough, nausea, vomiting, abdominal pain, diarrhea, blood in the urine or stool, red hot swollen joints, history of aspirations, Raynaud's. She has had 2 pregnancies, 2 children, no miscarriages, no history of blood clots. Pain Evaluation 03/10/2023 07/21/2023 03/15/2024 05/13/2024 05/31/2024 Pain Evaluation Pain Score 4 3 3 4 4 Location Neck-Posterior Back-Lower Knee-Left -- Location Comment joints Description Aching;Sore Aching Aching;Stiffness Aching;Sore;Stiffness;Tingling Duration (#) 6 Duration (Timeframe) Years Weeks Minutes Years Months Frequency Intermittent Continuous Intermittent Continuous Continuous Intervention Reposition;Distractions;Exercise;Heat;Music;Pillow support;Positioning Reposition;Exercise;Positioning Reposition;Relaxation;Distractions;Emotional Support/Reassurance;Exercise;Heat;Massage;Music;Pillow support;Positioning PATIENT-ENTERED DATA PROMIS Assessments 03/15/2024 05/06/2024 05/31/2024 PROMIS Assessments Physical Health Percentile 53 53 Mental Health Percentile 53 53 Pain Score 4 4 Pain Interference Percentile 18 18 Fatigue Percentile 14 18 Physical Function Percentile 42 27 RAPID 3 [facility] Activities of Daily Living 05/31/2024 6:07 PM 05/06/2024 10:04 PM Dress self? Without ANY difficulty Without ANY difficulty Get in and out of bed? W (more content not included)...[facility]08-09[facility] History of Present illness Narrative* Nadiya Grace CT - 05/13/2024 3:45 PM EDT Radiology Service Progress Note PATIENT NAME: Jo Valencia DATE OF SERVICE: May 13, 2024 TIME: 4:06 PM PATIENT IDENTITY VERIFICATION COMPLETED USING TWO (2) IDENTIFIERS: Name and Date of confirmedby patient verbally. FALL SCREENING: Has the patient had 2 falls in the last year or 1 fall with injury or currently using an Ambulatory Assistive Device (Walker, Cane, Wheelchair, Crutches, etc.)? No PATIENT GENDER DATA: Female. status: : No status: NO. PATIENT RELEVANT IMPLANT DATA REVIEWED: Not Applicable PATIENT PRESENTS WITH AN IMPLANTABLE OR ATTACHED USER EXPERIENCE ARCHITECT: No RADIOLOGY DEPARTMENT: General X-ray: Exam(s) Completed: Pelvis X-Ray: sacroiliac joints Lower Extremity X-Ray(s): Knee, AP / Lat / Tunne / Merchant Bilateral and Wt. Bearing and Foot, Bilateral and Wt. Bearing Upper Extremity X-Ray(s): Hand, bilateral PERIPHERAL IV DATA: Not applicable SIGNED BY: SHOAIB Cruz May 13, 2024 4:06 PM documented in this encounterC[facility] NoteHNO ID: [id number] Author: NADIYA GRACE CT Service: Radiology Author Type: Technologist Type: Progress Notes Filed: 05/13/2024 16:07 Note Text: Radiology Service Progress Note PATIENT NAME: Jo Valencia DATE OF SERVICE: May 13, 2024 TIME: 4:06 PM PATIENT IDENTITY VERIFICATION COMPLETED USING TWO (2) IDENTIFIERS: Name and Date of confirmed by patient verbally. FALL SCREENING: Has the patient had 2 falls in the last year or 1 fall with injury or currently using an Ambulatory Assistive Device (Walker, Cane, Wheelchair, Crutches, etc.)? No PATIENT GENDER DATA: Female. status: : No status: NO. PATIENT RELEVANT IMPLANT DATA REVIEWED: Not Applicable PATIENT PRESENTS WITH AN IMPLANTABLE OR ATTACHED USER EXPERIENCE ARCHITECT: No RADIOLOGY DEPARTMENT: General X-ray: Exam(s) Completed: Pelvis X-Ray: sacroiliac joints Lower Extremity X-Ray(s): Knee, AP / Lat / Tunne / Merchant Bilateral and Wt. Bearing and Foot, Bilateral and Wt. Bearing Upper Extremity X-Ray(s): Hand, bilateral PERIPHERAL IV DATA: Not applicable SIGNED BY: SHOAIB Cruz May 13, 2024 4:06 [facility]08-09-2024 Instructions* Patient Instructions* Brook Pablo MD - 05/13/2024 3:13 PM EDT Labs and x rays on 1st floor today Look for trends exposures and diet with your episodes I will message you with results Follow up 1 month, ok to be virtual, to talk about results and next steps documented in this encounterC[facility]08-09-2024 NoteHNO ID: [id number] Author: BROOK PABLO MD Service: ? Author Type: Physician Type: Progress Notes Filed: 05/13/2024 15:41 Note Text: Rheumatology CONSULTATION Date of Service: 05/13/2024 Patient: Jo Valencia Medical Record: [id number] Primary Care Physician: Murphy Henley MD Last Rhe[facility]ology visit: [facility] Referring Provider: Stuart Ponce [address] [place] [id number] Chief Complaint: Patient presents with: New Patient Jo Valencia is here today at request of SUPERVISORY TRAINING SPECIALIST DEEPALI Ponce specifically for consultation of my opinion in regards to the chief complaint listed above. Correspondence will be shared today via the [employer] electronic health record or through regular mail, where applicable. HISTORY OF PRESENT ILLNESS Jo Valencia is a 58 year old White female with a history of previous iron deficiency anemia, anxiety/depression, CKD 3A, celiac, vitamin D deficiency who presents to rheumatology clinic for evaluation of positive HARVINDER. Today she presents to clinic with her Montse who assists with history. 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 She had her HARVINDER tested a few times which was consistently positive so rheumatology referral was requested. She notes a long history throughout her life of ups and downs with her health including episode of moderate to severe iron deficiency anemia of unknown etiology requiring wheelchair use for 6 months. Long history of hurting all over all the time and myofascial tissues. She notes hand pain particularly in DIPs and PIPs with morning stiffness which has somewhat improved since wearing wrist braces for carpal tunnel with associated numbness tingling. She has foot pain in the MTPs and in her arches which is worse at the end of the day, she does hike regularly. She began developing back pain in her 40s which is worse when standing for a long time. She does not trial medication due to multiple medication and sensitivities. More recently she has had about 3 episodes of chest pain that radiates to the neck which she wonders if it could be an electrolyte issue as she got better with saline in the ER and with an electrolyte solution prepared by her . Rheumatologic review of systems notable for subjective low-grade fevers with activity, weight fluctuations related to diet, dry eyes for decades, new onset dry mouth, sinus congestion with difficulty breathing requiring regular nasal spray, angular cheilitis, postexertional malaise, constipation. She notes she has been on a specialized diet for many years to help with inflammation and something related to histamine. She denies history of uveitis, photosensitivity, malar rash, sores in her nose or mouth, dysphagia, cough, nausea, vomiting, abdominal pain, diarrhea, blood in the urine or stool, red hot swollen joints, history of aspirations, Raynaud's. She has had 2 pregnancies, 2 children, no miscarriages, no history of blood clots. Pain Evaluation 03/03/2023 03/10/2023 07/21/2023 03/15/2024 05/13/2024 Pain Evaluation Pain Score 4 4 3 3 4 Location Neck Neck-Posterior Back-Lower Knee-Left Location Comment joints Description Aching;Sore;Stiffness Aching;Sore Aching Aching;Stiffness Duration (#) 6 Duration (Timeframe) Months Years Weeks Minutes Years Frequency Continuous Intermittent Continuous Intermittent Continuous Intervention Relaxation;Exercise;Heat;Massage;Pillow support;Positioning;Therapeutic techniques-CPRP Reposition;Distractions;Exercise;Heat;Music;Pillow support;Positioning Reposition;Exercise;Positioning PATIENT-ENTERED DATA PROMIS Assessments 12/08/2023 03/15/2024 05/06/2024 PROMIS Assessments Physical Health Percentile 31 53 Mental Health Percentile 34 53 Pain Score 4 4 Pain Interference Percentile 18 Fatigue Percentile 14 Physical Function Percentile 42 RAPID 3 [facility] Activities of Daily Living 05/06/2024 10:04 PM Dress self? Without ANY difficulty Get in and out of bed? Without ANY difficulty Walk outdoors? Without ANY difficulty Wash and dry body? Without ANY difficulty Get in and out of car? Without ANY difficulty RAPID 3 Disease Activity Weighed Score Levels: 0 - 1: Near Remission 1.3 - 2.0: Low Severity 2.3 - 4.0: Moderate Severity 4.3 - 10.0: High Severity 05/06/2024 RAPID-3 Weighed Score RAPID 3 Weighed Score 3.11 (Moderate severity ) Review of Systems CONSTITUTION: Positive for: Fever Negative for: Recent weight change HEENT: Negative for: Nosebleeds, Mouth sores, Trouble swallowing and Dry mouth RESPIRATORY: Negative for: Cough, Shortness of breath and Pain with breathing GASTROINTESTINAL: Positive for: Abdominal pain Negative for: Melena, Diarrhea and Heartburn MUSCULOSKELETAL: Positive for: Arthralgias, Myalgias, Muscle weakness, Joint swelling and Morning Joint Stiffness NEUROLOGICAL: Positive for: Headaches (more content not included)...[facility]08-[facility] History of Present illness Narrative* Brook Pablo MD - 05/13/2024 2:36 PM EDT Images from the original note were not included. Rheumatology CONSULTATION Date of Service: 05/13/2024 Patient: Jo Pierce [facility] Medical Record: [id number] Primary Care Physician: Murphy Henley MD Last Rheumatology visit: [facility] Referring Provider: Stuart Ponce [address] [facility] [id number] Chief Complaint: Patient presents with: New Patient Jo Valencia is here today at request of EVELIA Ponce specifically for consultation of my opinion in regards to the chief complaint listed above. Correspondence will be shared today via the [employer] record or through regular mail, where applicable. HISTORY OF PRESENT ILLNESS Jo Valencia is a 58 year old White female with a history of previous iron deficiency anemia, anxiety/depression, CKD 3A, celiac, vitamin D deficiency who presents to rheumatology clinic for evaluation of positive HARVINDER. Today she presents to clinic with her Montse who assists with history. 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 She had her HARVINDER tested a few times which was consistently positive so rheumatology referral was requested. She notes a long history throughout her life of ups and downs with her health including episode of moderate to severe iron deficiency anemia of unknown etiology requiring wheelchair use for 6 months.Long history of hurting all over all the time and myofascial tissues. She notes hand pain particularly in DIPs and PIPs with morning stiffness which has somewhat improved since wearing wrist braces for carpal tunnel with associated numbness tingling. She has foot pain in the MTPs and in her arches which is worse at the end of the day, she does hike regularly. She began developing back pain in her40s which is worse when standing for a long time. She does not trial medication due to multiple medication and sensitivities. More recently she has had about 3 episodes of chest pain that radiates to the neck which she wonders if it could be an electrolyte issue as she got better with saline in the ER and with an electrolyte solution prepared by her . Rheumatologic review of systems notable for subjective low-grade fevers with activity, weight fluctuations related to diet, dry eyes for decades, new onset dry mouth, sinus congestion with difficultybreathing requiring regular nasal spray, angular cheilitis, postexertional malaise, constipation. She notes she has been on a specialized diet for many years to help with inflammation and something related to histamine. She denies history of uveitis, photosensitivity, malar rash, sores in her nose or mouth, dysphagia, cough, nausea, vomiting, abdominal pain, diarrhea, blood in the urine or stool,red hot swollen joints, history of aspirations, Raynaud's. She has had 2 pregnancies, 2 children, no miscarriages, no history of blood clots. Pain Evaluation 03/03/2023 03/10/2023 07/21/2023 03/15/2024 05/13/2024 Pain Evaluation Pain Score 4 4 3 3 4 Location Neck Neck-Posterior Back-Lower Knee-Left Location Comment joints Description Aching;Sore;Stiffness Aching;Sore Aching Aching;Stiffness Duration (#) 6 Duration (Timeframe) Months Years Weeks Minutes Years Frequency Continuous Intermittent Continuous Intermittent Continuous Intervention Relaxation;Exercise;Heat;Massage;Pillow support;Positioning;Therapeutic techniques-CPRP Reposition;Distractions;Exercise;Heat;Music;Pillow support;Positioning Reposition;Exercise;Positioning PATIENT-ENTERED DATA PROMIS Assessments 12/08/2023 03/15/2024 05/06/2024 PROMIS Assessments Physical Health Percentile 31 53 Mental Health Percentile 34 53 Pain Score 4 4 Pain Interference Percentile 18 Fatigue Percentile 14 Physical Function Percentile 42 RAPID 3 Casey Activities of Daily Living 05/06/2024 10:04 PM Dress self? Without ANY difficulty Get in and out of bed? Without ANY difficulty Walk outdoors? Without ANY difficulty Wash and dry body? Without ANY difficulty Get in and out of car? Without ANY difficulty RAPID 3 Disease Activity Weighed Score Levels: 0 - 1: Near Remission 1.3 - 2.0: Low Severity 2.3 - 4.0: Moderate Severity 4.3 - 10.0: High Severity 05/06/2024 RAPID-3 Weighed Score RAPID 3 Weighed Score 3.11 (Moderate severity ) Review of Systems CONSTITUTION: Positive for: Fever Negative for: Recent weight change HEENT: Negative for: Nosebleeds, Mouth sores, Trouble swallowing and Dry mouth RESPIRATORY: Negative for: Cough, Shortness of breath and Pain with breathing GASTROINTESTINAL: Positive for: Abdominal pain Negative for: Melena, Diarrhea and Heartburn MUSCULOSKELETAL: Positive for: Arthralgias, Myalgias, Muscle weakness, Joint swelling and Morning Joint Stiffness NEUROLOGICAL: Positive for: Headaches and Memory loss Negative for: Numbness SKIN: Positive for: Nail changes Negative for: Rash, Skin changes and Hair loss EYES: Positive for: Eye pain, Eye redness, Eye dryness and Visual disturbance CARDIOVASCULAR: Positive for: Chest pain Negative for: Leg swelling GENITOURINARY: Negative for: Dysuria and Hematuria HEMATOLOGIC/LYMPHATIC: Negative for: Swollen glands REVIEW OF SYSTEMS Complete ROS (HEENT, respiratory, cardiology, GI, , skin, psych, hematology, endocrine, neuro, musculoskeletal) negative except as noted in HPI. PAST MEDICAL HISTORY PAST MEDICAL HISTORY 02/03/2012: Anemia No date: Bilateral carpal tunnel syndrome No date: Chronic fatigue No date: Fibromyalgia No date: History of orthostatic hypotension Comment: Had work up for POTS; tilt test was negative. Had worse symptoms when was anemic.Symptoms responded to same measures as for treating POTS (fluids with electrolytes) No date: Migraine with aura and without status migrainosus, not intractable No date: Unspecified hypothyroidism 03/06/2008: Unspecified vitamin D deficiency PAST SURGICAL HISTORY PAST SURGICAL HISTORY 08/17/2013: COLONOSCOPY FLX DX W/COLLJ SPEC WHEN PFRMD Comment: Colonoscopy 11/19/2020: COLONOSCOPY GEN ANES Comment: Repeat in 5 years 08/17/2013: ESOPHAGOGASTRODUODENOSCOPY TRANSORAL DIAGNOSTIC Comment: EGD No date: PAST SURGICAL HISTORY OF Comment: wisdom teeth No date: SKIN BX, 1 LESION Comment: Mole removed from chest FAMILY HISTORY: Sister with smoldering myeloma, thyroid disease, multiple sensitivities Daughter with psoriasis, Molly's FAMILY HISTORY Problem Relation Age of Onset Heart Mother on coumidin,272.4 Heart Father other (Other) Sister chronic fatique syndrome,multiple chemical sensitivities Thyroid Sister other (Environmental Illiness) Sister Twin Colon Cancer Maternal Grandmother SOCIAL HISTORY: Never smoker Denies alcohol Takes B complex, probiotic, selenium, vitamin D, DSA Social History Tobacco Use Smoking status: Never Smokeless tobacco: Never Substance Use Topics Alcohol use: No Drug use: No MEDICATIONS Current Outpatient Medications Medication Sig thyroid (ARMOUR THYROID) 15 mg tablet Take 1 tablet by mouth three times a week. Take this in additon to the 60 mg daily. thyroid, pork, (ARMOUR THYROID) 60 mg tablet Take 1 tablet by mouth once daily. Lactobac no.41/Bifidobact no.7 (PROBIOTIC-10 ORAL) Take by mouth once daily. Ipratropium [place] (ATROVENT) 21 mcg (0.03 %) nasal spray Use 2 Sprays in the nose every 12 hours as needed. Miscellaneous Medical Supply Giy-Zzt-Gbzvdnk D capsules--takes several per day to get adequate calcium and magnesium dose high enough to control leg cramps B Complex Vitamins capsule Take 1 capsule by mouth once daily. clonazePAM orally disintegrating (KLONOPIN WAFER) 0.125 mg disintegrating tablet Take 1 tablet by mouth once daily as needed for up to 14 days. ALLERGIES ALLERGIES Allergen Reactions Flat Top Other: See Comments migraine Ciclopirox Hives Hives PHYSICAL EXAM VITAL SIGNS: BP 107/72 Pulse 71 Temp (Src) 97.6 (Temporal) Ht 5' 8 (1.73m) Wt 143 lb 3.2 oz (65.0kg) LMP 07/03/2022 BMI 21.78 kg/(m^2). GENERAL: Alert and oriented, appears stated age. In no acute distress. EYES: PERRL, EOMI, anicteric sclerae, no conjunctival injection HENT: Normal external examination of the ears and nose, lips, oropharynx and tongue. No oropharyngeal lesions or exudate. No oral or nasal sores. Slightly dry oral mucosa with tacky saliva NECK: No mass or asymmetry. No lymphadenopathy RESPIRATORY: Normal respiratory effort. Clear to auscultation CARDIOVASCULAR: Regular in rate and rhythm without murmurs, rubs, or gallops ABDOMEN: Soft, nontender, nondistended NEUROLOGIC: No gross focal neurologic deficits. Cranial nerves II-XII grossly intact. SKIN: No rash, thickening, nodules, discoloration. Normal nails. Normal nailfold capillaries. No telangiectasias MSK: Normal range of motion, no deformities, no swelling, and no tenderness in the hands, wrists, elbows, shoulders, spine, hips, knees, ankles, feet except as noted below: Tenderness throughout MCPs, PIPs on right, MCPs, PIPs, DIPs on left, bilateral knees, bilateral MTPs Multiple myofascial tenderness including arms, legs, thighs, back, trapezius muscles No stigmata of long-term erosive disease LABS Reviewed in [facility], notable for: 12/31/2023: HARVINDER 1: 320 homogenous, 1: 320 speckled Positive thyroglobulin antibody 4.1 normal <0.9 Positive thyroid peroxidase antibody 390 Unremarkable CMP CBC without cytopenias GFR 63 Ferritin 107 Latest Ref Rng & Units 10/01/2022 03/18/2023 09/01/2023 05/13/2024 CBC WBC 3.70 - 11.00 k/uL 6.00 4.84 5.39 5.56 Hemoglobin 11.5 - 15.5 g/dL 12.9 13.5 13.4 13.3 Hematocrit 36.0 - 46.0 % 40.6 41.5 40.8 40.4 Platelet Count 150 - 400 k/uL 181 177 195 175 Abs Neut (ANC) 1.45 - 7.50 k/uL 3.57 Abs Lymph 1.00 - 4.00 k/uL 1.41 Latest Ref Rng & Units 10/01/2022 07/28/2023 09/01/2023 12/10/2023 CMP Sodium 136 - 144 mmol/L 140 141 141 139 Potassium 3.7 - 5.1 mmol/L 4.3 4.2 4.0 3.9 Chloride 97 - 105 mmol/L 103 103 103 101 CO2 22 - 30 mmol/L 30 29 29 27 Glucose 74 - 99 mg/dL 103 93 88 88 BUN 7 - 21 mg/dL 14 17 15 16 Creatinine 0.58 - 0.96 mg/dL 1.18 1.11 1.06 0.96 Calcium 8.5 - 10.2 mg/dL 9.6 9.8 9.4 9.7 AST 13 - 35 U/L 19 ALT 7 - 38 U/L 14 Alkaline Phosphatase 34 - 123 U/L 56 Latest Ref Rng & Units 06/27/2010 03/18/2016 ESR, WSR WSR 0 - 15 mm/hr 5 Sed Rate, Jes 0 - 20 mm/hr 10 Latest Ref Rng & Units 03/18/2016 CRP CRP 0.0 - 1.0 mg/dL <0.1 Latest Ref Rng & Units 03/18/2016 CK CK 30 - 220 U/L 79 Latest Ref Rng & Units 06/27/2010 RF and CCP Rheumatoid Factor <20 IU/mL 3 Latest Ref Rng & Units 08/03/2015 Hepatitis Screen Hep C Antibody IA Negative Negative Latest Ref Rng & Units 06/27/2010 Antibodies HARVINDER by EIA <1.5 OD Ratio 0.7 Latest Ref Rng & Units 10/03/2022 07/28/2023 07/28/2023 09/01/2023 Urinalysis Protein, Urine Negative Negative Negative PROTEIN UA (POCT) Negative mg/dL Negative RBC, Urine 0-2 /HPF 0-3 /HPF 0-2 /HPF Protein/Creat Ratio <0.15 mg/mg <0.11 IMAGING Reviewed in [facility], notable for: 01/2024 stress echo treadmill: CONCLUSIONS: - Exam indication: CP, Detection of CAD - The exercise stress echo was negative for ischemia at 105 % of MPHR (8.3 METS). No regional wall motion abnormality seen at heart rate achieved. - The left ventricle is normal in size. Left ventricular systolic function is normal. EF = 65 5% (2D biplane). Normal left ventricular diastolic function. - The right ventricle is normal in size. Right ventricular systolic function is normal. - Mild (1+) tricuspid valve regurgitation. - Exam was compared with the prior echocardiographic exam performed on 09/25/2009. There is no significant change. 11/2020 colonoscopy: Normal ASSESSMENT Jo Valencia is a 58 year old White female with a history of previous iron deficiency anemia, anxiety/depression, CKD 3A, celiac, vitamin D deficiency who presents to rheumatology clinic for evaluation of positive HARVINDER. Today she is presenting with multiple symptomatology including inflammatory hand and foot pain, mixed mechanical inflammatory back pain, likely fibromyalgia, sicca, intermittent cheilitis none today in the setting of positive HARVINDER. Differential is large and includes mainly spectrum disease, chronic fatigue syndrome, inflammatory arthritis, MCAS, food and sensitivities, environmental exposures among others. Will do broad laboratory and x-ray evaluation as below. May need to get additional evaluation with synovial screen ultrasounds of hands and feet and/or secondary Sjogren's evaluation in the future. In terms of the positive HARVINDER, this is a screening test for lupus. It is nonspecific and can also bepositive in any autoimmune disease, infections, malignancies, and is also positive in 15 to 20% of the normal healthy population. Outside of the above workup no additional evaluation is needed for positive HARVINDER at this time. For this patient, her HARVINDER may very well be positive due to her thyroid antibody positivity without any additional rheumatologic disease. 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 Labs x-rays anytime 2. I will message her with results 3. May need to get synovial screen ultrasounds of hands and feet and/or secondary Sjogren's evaluation 4. Follow-up 1 to 2 months to go over results and next steps Current Immunizations Reviewed on 03/22/2024 No immunizations on file. Orders this visit: Office Visit on 05/13/24 XR FOOT GENERAL 3V AP/LAT/OBL BILATERAL XR HAND GENERAL 3V PA/LAT/OBL BILATERAL XR SACROILIAC JOINTS 2V AP PELVIS/FERGUESON XR KNEE GENERAL 4V AP BOTH/PA BOTH/LAT/MERC BILATERAL CCP ANTIBODY IGG C-REACTIVE PROTEIN SEDIMENTATION RATE, WESTERGREN COMPREHENSIVE METABOLIC PANEL COMPLETE BLOOD COUNT AND DIFFERENTIAL LYME AB LATE >30 DAYS SYMPTOMS TRYPTASE BLOOD IRON AND TIBC FERRITIN PROTEIN ELECT RND UR W/INTERP KAPPA/AMADOR,FREE,SER PROTEIN ELECTROPHORESIS SERUM W/INTERP C3 COMPLEMENT RHEUMATOID FACTOR IMMUNOFIXATION SCREEN, SERUM MONOCLONAL PROT UR W/INTERP LUPUS ANTICOAG PL DNA AB DS + CONF BLD C4 COMPLEMENT PROTEIN / CREATININE RATIO ANTI MICHAEL ID HARVINDER BY IFA SCREEN HISTONE IGG CRYSTAL URINALYSIS, WITH MICROSCOPIC MAGNESIUM PHOSPHORUS INORGANIC VITAMIN B12 FOLATE, SERUM ZINC BLD CONSULT TO RHEUM/IMMUN DISEASE Return in about 4 weeks (around 06/10/2024). I spent a total of 68 minutes on the date of the service which included preparing to see the patient, [id number] patient care, completing clinical documentation, obtaining and/or reviewing separately obtained history, performing a medically appropriate examination, counseling and educating the pat ient/family/caregiver, ordering medications, tests, or procedures, and communicating results to thepatient/family/caregiver. This note was partially generated with the assistance of [employer] voice recognition software. An attempt was made to correct any dictation errors however there may be some incorrect words, spellings, and punctuation. Brook Pablo MD Rheumatology Date: May 13, 2024 Time: 2:36 PM documented in this encounterC[facility] Note* Letter - Isidro Salomon - 05/06/2024 2:18 PM EDT May 09, 2024 PID: [id number] Jo Valencia [address] [place] [address] Dear Ms. Valencia, We are pleased to inform you that the results of your recent breast imaging exam on 05/05/2024 are normal. Breast tissue can be either dense or not dense. Dense tissue makes it harder to find breast cancer on a mammogram and also raises the risk of developing breast cancer. Your breast tissue is dense. Insome people with dense tissue, other imaging tests in addition to a mammogram may help find cancers. Talk to your healthcare provider about breast density, risks for breast cancer, and your individual situation. Early detection of cancer is very important. We also understand recommendations regarding breast cancer screening are controversial. Please discuss with your primary care provider which strategy is best for you and whether a mammogram is right for you. Your imaging studies and report will be kept on file at [facility] as part of your permanent medical record and are available for your continuing care. Thank you for allowing us to help in meeting your health care needs. Sincerely, Dr. Monet Interpreting Radiologist [facility] (Normal over 40) [facility]08-02-2024 Miscellaneous Notes* Letter - Aime Mammography - 05/06/2024 2:18 PM EDT May 09, 2024 PID: [id number] Jo Valencia [address] [place] [address] Dear Ms. Valencia, We are pleased to inform you that the results of your recent breast imaging exam on 05/05/2024 are normal. Breast tissue can be either dense or not dense. Dense tissue makes it harder to find breast cancer on a mammogram and also raises the risk of developing breast cancer. Your breast tissue is dense. Insome people with dense tissue, other imaging tests in addition to a mammogram may help find cancers. Talk to your healthcare provider about breast density, risks for breast cancer, and your individual situation. Early detection of cancer is very important. We also understand recommendations regarding breast cancer screening are controversial. Please discuss with your primary care provider which strategy is best for you and whether a mammogram is right for you. Your imaging studies and report will be kept [facility] at [facility] as part of your permanent medical record and are available for your continuing care. Thank you for allowing us to help in meeting your health care needs. Sincerely, Dr. Monet Interpreting Radiologist [facility] (Normal over 40) documented in this encounterC[facility]08-01-2024 History of Present illness Narrative* Noemi Odell Mammo Tech - 05/05/2024 11:10 AM EDT Radiology Service Progress Note PATIENT NAME: Jo Valencia DATE OF SERVICE: May 05, 2024 TIME: 2:55 PM PATIENT IDENTITY VERIFICATION COMPLETED USING TWO (2) IDENTIFIERS: Name and Date of confirmedby patient verbally. FALL SCREENING: Has the patient had 2 falls in the last year or 1 fall with injury or currently using an Ambulatory Assistive Device (Walker, Cane, Wheelchair, Crutches, etc.)? No PATIENT GENDER DATA: Female. status: : No status: NO. PATIENT RELEVANT IMPLANT DATA REVIEWED: Not Applicable PATIENT PRESENTS WITH AN IMPLANTABLE OR ATTACHED USER EXPERIENCE ARCHITECT: No RADIOLOGY DEPARTMENT: Mammography PERIPHERAL IV DATA: Not applicable SIGNED BY: Montserart Brooks May 05, 2024 2:55 PM documented in this encounterC[facility]08-01-2024 NoteHNO ID: [id number] Author: NOEMI ODELL Mammo Tech Service: ? Author Type: Assembler Type Bar And Segment Type: Progress Notes Filed: 05/05/2024 14:55 Note Text: Radiology Service Progress Note PATIENT NAME: Jo Valencia DATE OF SERVICE: May 05, 2024 TIME: 2:55 PM PATIENT IDENTITY VERIFICATION COMPLETED USING TWO (2) IDENTIFIERS: Name and Date of confirmed by patient verbally. FALL SCREENING: Has the patient had 2 falls in the last year or 1 fall with injury or currently using an Ambulatory Assistive Device (Walker, Cane, Wheelchair, Crutches, etc.)? No PATIENT GENDER DATA: Female. status: : No status: NO. PATIENT RELEVANT IMPLANT DATA REVIEWED: Not Applicable PATIENT PRESENTS WITH AN IMPLANTABLE OR ATTACHED USER EXPERIENCE ARCHITECT: No RADIOLOGY DEPARTMENT: Mammography PERIPHERAL IV DATA: Not applicable SIGNED BY: Noemi Odell FittingRoom May 05, 2024 2:55 [facility]07-02-2024 Telephone encounter Note* Telephone Encounter - Murphy Henley MD - 04/05/2024 5:10 PM EDT Filed [facility]07-02-2024 Miscellaneous Notes* Telephone Encounter - Murphy Henley MD - 04/05/2024 5:10 PM EDT Filed documented in this encounterC[facility]06-18-2024 NoteHNO ID: [id number] Author: MURPHY HENLEY MD Service: ? Author Type: Physician Type: Progress Notes Filed: 04/28/2024 12:16 Note Text: This note was created using [employer]. Subjective Jo Valencia is a 58 year old female. Patient presents with: F/U 6 months: Labs prior SUBJECTIVE: Jo Valencia is a 58 year old year old lady here today for 6 month follow up appointment for review of medical conditions. Discussed derm for screening. Mother had basal cell cancer. Clinically euthyroid. Taking extra 15mg some days had helped but pharmacy would not fill the way it was written (probably since RX said self adjusts). Some weeks might need 3 days and other days one per week. Takes 60 mg daily. Noted felt better with getting TSH closer to 2 range. Will see rheumatology in May. Follow up on elevated HARVINDER. Doing acupuncture--has helped with renal function. 64 ounces of water at least. Knee pain. After in uncomfortable position for a while. PAST MEDICAL HISTORY Diagnosis Date Anemia 02/03/2012 [...] ORAL) Take by mouth once daily. Ipratropium [place] (ATROVENT) 21 mcg (0.03 %) nasal spray Use 2 Sprays in the nose every 12 hours as needed. Miscellaneous Medical Supply Hbw-Miv-Bhdnspu D capsules--takes several per day to get adequate calcium and magnesium dose high enough to control leg cramps B Complex Vitamins capsule Take 1 capsule by mouth once daily. thyroid (ARMOUR THYROID) 15 mg tablet Take this once daily per week. Take this in additon to the 60 mg daily. Self decreased. clonazePAM orally disintegrating (KLONOPIN WAFER) 0.125 mg disintegrating tablet Take 1 tablet by mouth once daily as needed for up to 14 days. No current facility-administered medications for this visit. Review of Systems Objective BP 112/62 Pulse 68 Temp 36.4 ?C (97.5 ?F) Resp 18 Wt 64 kg (141 lb) LMP 07/03/2022 (Approximate) SpO2 98% BMI 21.13 kg/m? Physical Exam Constitutional: Appearance: Normal appearance. HENT: Head: Normocephalic. Eyes: Conjunctiva/sclera: Conjunctivae normal. Cardiovascular: Rate and Rhythm: Normal rate and regular rhythm. Heart sounds: Normal heart sounds. Pulmonary: Effort: Pulmonary effort is normal. Breath sounds: Normal breath sounds. Musculoskeletal: Right lower leg: No edema. Left lower leg: No edema. Skin: General: Skin is warm and dry. Neurological: General: No focal deficit present. Mental Status: She is alert and oriented to person, place, and time. Psychiatric: Mood and Affect: Mood normal. Behavior: Behavior normal. Thought Content: Thought content normal. Judgment: Judgment normal. Latest Ref Rng 03/14/2024 TSH 0.270 - 4.200 mIU/L 2.990 Free T4 0.9 - 1.7 ng/dL 0.9 Free T3 2.3 - 4.1 pg/mL 3.6 [address] labs done at [facility] for other provider. eGFR 52 Latest Ref Rng 05/30/2019 03/27/2020 02/05/2022 04/09/2022 06/02/2022 10/01/2022 09/01/2023 12/10/2023 Protein, Total 6.3 - 8.0 g/dL 7.2 7.2 7.1 Albumin 3.9 - 4.9 g/dL 4.5 4.7 4.6 Calcium 8.5 - 10.2 mg/dL 9.6 9.3 9.7 9.6 9.5 9.6 9.4 9.7 Bilirubin, Total 0.2 - 1.3 mg/dL 0.4 0.4 0.2 Alkaline Phosphatase 34 - 123 U/L 42 48 56 AST 13 - 35 U/L 22 21 19 Glucose 74 - 99 mg/dL 76 97 92 96 91 103 (H) 88 88 BUN 7 - 21 mg/dL 13 12 16 23 (H) 18 14 15 16 Creatinine 0.58 - 0.96 mg/dL 0.98 (H) 0.91 1.14 (H) 1.11 (H) 1.12 (H) 1.18 (H) 1.06 (H) 0.96 Sodium 136 - 144 mmol/L 139 140 138 141 138 140 141 139 Potassium 3.7 - 5.1 mmol/L 4.0 4.3 4.2 4.2 4.5 4.3 4.0 3.9 Chloride 97 - 105 mmol/L 103 101 101 101 103 103 103 101 CO2 22 - 30 mmol/L 25 26 30 26 27 30 29 27 Anion Gap 9 - 18 mmol/L 11 13 7 (L) 14 8 (L) 7 (L) 9 11 ALT 7 - 38 U/L 14 13 14 eGFR- >60 >60 eGFR-All Other Races . 59 >60 eGFR >=60 mL/min/1.73m? 57 (L) 58 (L) 58 (L) 54 (L) 61 69 Legend: (H) High (L) Low Assessment and Plan Encounter Diagnosis ICD-10-CM 1. Acquired hypothyroidism E03.9 THYROID STIMULATING HORMONE T4 FREE/FREE THYROXINE T3, FREE Continue present management. Noted felt better when TSH closer to 2 range.Adjust dose as indicated by labs and symptoms 2. Vitamin D deficiency E55.9 VITAMIN D 25 HYDROXY 3. Iron deficiency anemia, unspecified iron deficiency anemia type D50.9 COMPLETE BLOOD COUNT Continue follow up labs and iron supplement--adjust dose as needed 4. AN (more content not included)...[facility]06-18-[facility] History of Present illness Narrative* Murphy Henley MD - 03/22/2024 4:26 PM EDT This note was created using [employer]. Subjective Jo Valencia is a 58 year old female. Patient presents with: F/U 6 months: Labs prior SUBJECTIVE: Jo Valencia is a 58 year old year old lady here today for 6 month follow up appointment for review of medical conditions. Discussed derm for screening. Mother had basal cell cancer. Clinically euthyroid. Taking extra 15mg some days had helped but pharmacy would not fill the way itwas written (probably since RX said self adjusts). Some weeks might need 3 days and other days one per week. Takes 60 mg daily. Noted felt better with getting TSH closer to 2 range. Will see rheumatology in May. Follow up on elevated HARVINDER. Doing acupuncture--has helped with renal function. 64 ounces of water at least. Knee pain. After in uncomfortable position for a while. PAST MEDICAL HISTORY Diagnosis Date Anemia 02/03/2012 [...] ORAL) Take by mouth once daily. Ipratropium [place] (ATROVENT) 21 mcg (0.03 %) nasal spray Use 2 Sprays in the nose every 12 hours as needed. Miscellaneous Medical Supply Xox-Vxx-Qdobcax D capsules--takes several per day to get adequate calcium and magnesium dose high enough to control leg cramps B Complex Vitamins capsule Take 1 capsule by mouth once daily. thyroid (ARMOUR THYROID) 15 mg tablet Take this once daily per week. Take this in additon to the 60mg daily. Self decreased. clonazePAM orally disintegrating (KLONOPIN WAFER) 0.125 mg disintegrating tablet Take 1 tablet by mouth once daily as needed for up to 14 days. No current facility-administered medications for this visit. Review of Systems Objective BP 112/62 Pulse 68 Temp 36.4 C (97.5 F) Resp 18 Wt 64 kg (141 lb) LMP 07/03/2022 (Approximate) SpO2 98% BMI 21.13 kg/m Physical Exam Constitutional: Appearance: Normal appearance. HENT: Head: Normocephalic. Eyes: Conjunctiva/sclera: Conjunctivae normal. Cardiovascular: Rate and Rhythm: Normal rate and regular rhythm. Heart sounds: Normal heart sounds. Pulmonary: Effort: Pulmonary effort is normal. Breath sounds: Normal breath sounds. Musculoskeletal: Right lower leg: No edema. Left lower leg: No edema. Skin: General: Skin is warm and dry. Neurological: General: No focal deficit present. Mental Status: She is alert and oriented to person, place, and time. Psychiatric: Mood and Affect: Mood normal. Behavior: Behavior normal. Thought Content: Thought content normal. Judgment: Judgment normal. Latest Ref Rng 03/14/2024 TSH 0.270 - 4.200 mIU/L 2.990 Free T4 0.9 - 1.7 ng/dL 0.9 Free T3 2.3 - 4.1 pg/mL 3.6 [address] done at [facility] for other provider. eGFR 52 Latest Ref Rng 05/30/2019 03/27/2020 02/05/2022 04/09/2022 06/02/2022 10/01/2022 09/01/2023 12/10/2023 Protein, Total 6.3 - 8.0 g/dL 7.2 7.2 7.1 Albumin 3.9 - 4.9 g/dL 4.5 4.7 4.6 Calcium 8.5 - 10.2 mg/dL 9.6 9.3 9.7 9.6 9.5 9.6 9.4 9.7 Bilirubin, Total 0.2 - 1.3 mg/dL 0.4 0.4 0.2 Alkaline Phosphatase 34 - 123 U/L 42 48 56 AST 13 - 35 U/L 22 21 19 Glucose 74 - 99 mg/dL 76 97 92 96 91 103 (H) 88 88 BUN 7 - 21 mg/dL 13 12 16 23 (H) 18 14 15 16 Creatinine 0.58 - 0.96 mg/dL 0.98 (H) 0.91 1.14 (H) 1.11 (H) 1.12 (H) 1.18 (H) 1.06 (H) 0.96 Sodium 136 - 144 mmol/L 139 140 138 141 138 140 141 139 Potassium 3.7 - 5.1 mmol/L 4.0 4.3 4.2 4.2 4.5 4.3 4.0 3.9 Chloride 97 - 105 mmol/L 103 101 101 101 103 103 103 101 CO2 22 - 30 mmol/L 25 26 30 26 27 30 29 27 Anion Gap 9 - 18 mmol/L 11 13 7 (L) 14 8 (L) 7 (L) 9 11 ALT 7 - 38 U/L 14 13 14 eGFR- >60 >60 eGFR-All Other Races . 59 >60 eGFR >=60 mL/min/1.73m 57 (L) 58 (L) 58 (L) 54 (L) 61 69 Legend: (H) High (L) Low Assessment and Plan Encounter Diagnosis ICD-10-CM 1. Acquired hypothyroidism E03.9 THYROID STIMULATING HORMONE T4 FREE/FREE THYROXINE T3, FREE Continue present management. Noted felt better when TSH closer to 2 range.Adjust dose as indicated by labs and symptoms 2. Vitamin D deficiency E55.9 VITAMIN D 25 HYDROXY 3. Iron deficiency anemia, unspecified iron deficiency anemia type D50.9 COMPLETE BLOOD COUNT Continue follow up labs and iron supplement--adjust dose as needed 4. HARVINDER positive R76.8 Has appointment with rheumatology in May. 5. Encounter for long-term current use of medication Z79.899 COMPLETE BLOOD COUNT COMPREHENSIVE METABOLIC PANEL THYROID STIMULATING HORMONE T4 FREE/FREE THYROXINE T3, FREE Above issues addressed with patient. Patient involved [...] and regular exercise and adequate sleep. Murphy Henley MD documented in this encounterC[facility] Instructions* Patient Instructions* Stuart Ponce APRN.RESEARCH ENGINEER - 01/12/2024 1:55 PM EDT Advised: Liberalize your sodium intake, try to get about 3 g of sodium in your diet daily. Maintain adequate fluid intake, get at least 64 ounces of fluid daily. Consider adding a sports drink such as Gatorade or 8 ounces of broth daily. Wear knee-high jodc-qbi-iblkxoi compression socks when sitting or standing for prolonged periods oftime. documented in this encounterC[facility]04-09-2024 History of Present illness Narrative* Stuart Ponce APRN.RESEARCH ENGINEER - 01/12/2024 1:20 PM EDT SUBJECTIVE: Covid-19 Vaccine( season) Never done Mammogram Screening due on 03/27/2024 HPI Jo Valencia is a 58 year old female. PMH significant for ACTIVE PROBLEM LIST Celiac Disease Vitamin D Deficiency Acquired Hypothyroidism Iron Deficiency Anemia Depression With Anxiety Migraine With Aura and Without Status Migrainosus, Not Intractable History of Orthostatic Hypotension Stage 3a Chronic Kidney Disease (Hcc) Presents today for routine follow up visit. She notes she is in her usual state of health. She is without chest pain, shortness of breath palpitations edema presyncope or syncope. She is active, no change in functional capacity. Notes she has a liberalize sodium intake, natural sources of sodium. Last 14 Encounter BP Readings: Date: BP: 12/10/2023 90/59 09/01/2023 102/64 07/28/2023 111/70 03/10/2023 126/72 10/03/2022 108/78 04/14/2022 104/70 02/05/2022 94/60 09/13/2021 100/70 03/05/2021 132/82 09/17/2020 111/61 05/17/2019 90/60 01/11/2019 86/58 09/14/2018 100/68 04/27/2018 76/50 Creatinine Date Value Ref Range Status 12/10/2023 0.96 0.58 - 0.96 mg/dL Final 09/01/2023 1.06 (H) 0.58 - 0.96 mg/dL Final 07/28/2023 1.11 (H) 0.58 - 0.96 mg/dL Final 10/01/2022 1.18 (H) 0.58 - 0.96 mg/dL Final Hypothyroidism. She is doing well on her current dose of Synthroid. She continues on 60 mg of [place] Thyroid daily. Decreased from two 15 mg doses additionally per week to one due due to feeling jittery when taking 2 additional 15mg doses per week. TSH Date Value 12/10/2023 4.570 mIU/L 09/01/2023 1.710 mIU/L 08/05/2021 4.260 uU/mL 05/03/2021 4.680 uU/mL ) She had follow-up lab work completed at [facility]. This showed positive thyroid antibodies. TSH was within normal limits. Vitamin D within normal limits. She was HARVINDER positive. She notes chronic hand pain. 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 Review of Systems Constitutional: Negative. Endocrine: Negative. Objective BP 110/68 Pulse 69 Resp 16 Wt 65.3 kg (144 lb) LMP 07/03/2022 (Approximate) SpO2 97% BMI 21.58 kg/m Physical Exam Vitals and nursing note reviewed. Constitutional: Appearance: Normal appearance. HENT: Head: Normocephalic and atraumatic. Eyes: Conjunctiva/sclera: Conjunctivae normal. Cardiovascular: Rate and Rhythm: Normal rate and regular rhythm. Heart sounds: Normal heart sounds. Pulmonary: Effort: Pulmonary effort is normal. Breath sounds: Normal breath sounds. Abdominal: General: Bowel sounds are normal. Palpations: Abdomen is soft. Skin: General: Skin is warm. Neurological: General: No focal deficit present. Mental Status: She is alert and oriented to person, place, and time. ALLERGIES Allergen Reactions Flat Top Other: See Comments migraine Ciclopirox Hives Hives MEDICATIONS thyroid (ARMOUR THYROID) 15 mg tablet Take this once daily per week. Take this in additon to the 60mg daily. Self decreased. Lactobac no.41/Bifidobact no.7 (PROBIOTIC-10 ORAL) Take by mouth once daily. Ipratropium [place] (ATROVENT) 21 mcg (0.03 %) nasal spray Use 2 Sprays in the nose every 12 hours as needed. Miscellaneous Medical Supply Gje-Aoa-Bzpsgda D capsules--takes several per day to get adequate calcium and magnesium dose high enough to control leg cramps clonazePAM orally disintegrating (KLONOPIN WAFER) 0.125 mg disintegrating tablet Take 1 tablet by mouth once daily as needed for up to 14 days. B Complex Vitamins capsule Take 1 capsule by mouth once daily. thyroid, pork, (ARMOUR THYROID) 60 mg tablet Take 1 tablet by mouth once daily. PAST MEDICAL HISTORY Diagnosis Date Anemia 02/03/2012 Bilateral carpal tunnel syndrome Chronic fatigue Fibromyalgia History of orthostatic hypotension Had work up for POTS; tilt test was negative. Had worse symptoms when was anemic.Symptoms respondedto same measures as for treating POTS (fluids with electrolytes) Migraine with aura and without status migrainosus, not intractable Unspecified hypothyroidism Unspecified vitamin D deficiency 03/06/2008 Social History Tobacco Use Smoking status: Never Smokeless tobacco: Never Substance Use Topics Alcohol use: No Drug use: No STRESS ECHO TREADMILL CONCLUSIONS: - Exam indication: CP, Detection of CAD - The exercise stress echo was negative for ischemia at 105 % of MPHR (8.3 METS). No regional wall motion abnormality seen at heart rate achieved. - The left ventricle is normal in size. Left ventricular systolic function is normal. EF = 65 5% (2D biplane). Normal left ventricular diastolic function. - The right ventricle is normal in size. Right ventricular systolic function is normal. - Mild (1+) tricuspid valve regurgitation. - Exam was compared with the prior echocardiographic exam performed on 09/25/2009. There is no significant change. ASSESSMENT/PLAN: 1. Exertional chest pain - ICD9: 786.50, ICD10: R07.9 (primary diagnosis) No further chest pain. She believes this may have been caused by a supplement she was taking for sleep. She is no longer taking this. Stress echocardiogram was negative for ischemia. 2. Acquired hypothyroidism - ICD9: 244.9, ICD10: E03.9 Continue current thyroid dose for now. - TSH BLD 3. HARVINDER positive - ICD9: 795.79, ICD10: R76.8 - CONSULT TO RHEUM/IMMUN DISEASE 4. Bilateral hand pain - ICD9: 729.5, ICD10: M79.641, M79.642 - CONSULT TO RHEUM/IMMUN DISEASE Advised: Liberalize your sodium intake, try to get about 3 g of sodium in your diet daily. Maintain adequate fluid intake, get at least 64 ounces of fluid daily. Consider adding a sports drink such as Gatorade or 8 ounces of broth daily. Wear knee-high nhja-bmp-ouptrwp compression socks when sitting or standing for prolonged periods oftime. Keep Murphy Henley MD appt. Stuart Ponce APRN.CNS Medical Decision Making: Problems: Moderate: 2+ stable chronic illnesses Data: Unique test(s) ordered: 3+ Risk: Moderate: Drug management Medical Decision Making Level: 4 - Moderate documented in this encounterC[facility]04-03-2024 Miscellaneous Notes* Telephone Encounter - Samantha Lyle RN - 01/06/2024 2:05 PM EDT Left message regarding reminder for stress test tomorrow and given instructions. documented in this encounterC[facility]03-12-2024 Miscellaneous Notes* Telephone Encounter - Stuart Ponce APRN.CNS - 12/15/2023 8:49 AM EDT OK * Telephone Encounter - Ibis Bland LPN - 12/14/2023 4:27 PM EDT Pharmacy needs new prescription for thyroid medication. She was increased to 65 mg and the sig has pt taking 60 mg. Please see below. Ibis Bland LPN documented in this [facility]03-11-[facility] Miscellaneous Notes* Telephone Encounter - Stuart Ponce APRN.CNS - 12/14/2023 3:53 PM EDT ok * Telephone Encounter - Kassy Walls MA - 12/14/2023 1:47 PM EDT Copied from duplicate MC message, I take my medication regularly every morning 30 to 60 minutes before eating. The increase is definitely not due to missed meds or not waiting long enough before eating. I don't take iron supplements and calcium only right before bedtime. I need to know how much increase. Thanks for your help! Jo Valencia * Telephone Encounter - Kassy Walls MA - 12/14/2023 11:40 AM EDT Stuart, please review and advise on TSH results. Kassy Walls MA documented in this encounterC[facility]03-11-2024 Miscellaneous Notes* Telephone Encounter - Kassy Walls MA - 12/14/2023 1:45 PM EDT Duplicate. Will address in other MC message from today documented in this [facility]03-07-[facility] Instructions* Patient Instructions* Stuart Ponce APRN.CNS - 12/10/2023 10:29 AM EST Liberalize your sodium intake, try to get about 3 g of sodium in your diet daily. Maintain adequate fluid intake, get at least 64 ounces of fluid daily. Consider adding a sports drink such as Gatorade or 8 ounces of broth daily. Wear knee-high xukj-cao-dgstwnu compression socks when sitting or standing for prolonged periods oftime. documented in this encounterC[facility]03-07-2024 History of Present illness Narrative* Stuart Ponce APRN.CNS - 12/10/2023 10:00 AM EST SUBJECTIVE: There are no preventive care reminders to display for this patient. HPI Jo Valencia is a 56 year old female. PMH significant for ACTIVE PROBLEM LIST Celiac Disease Vitamin D Deficiency Acquired Hypothyroidism Iron Deficiency Anemia Depression With Anxiety Migraine With Aura and Without Status Migrainosus, Not Intractable History of Orthostatic Hypotension Stage 3a Chronic Kidney Disease (Hcc) Presents today for emergency department follow up visit. Nephrology: Mariam Pham PA-C, seen in office 07/2023. She was seen at [facility] on December 07, 2023 for chest pain. She reported acute midsternal chest pain radiating to the jaw prior to arrival with exertion. No prior cardiac testing noted. Notes indicate she became hypotensive during her ER visit. EKG completed showed sinus bradycardiawith no ischemic changes. Chest x-ray unremarkable. Magnesium CBC troponin all in acceptable range.BMP showed mild hypokalemia. Impression in the emergency department was dehydration chest pain and hypokalemia. Review of outside labs shows BUN within normal limits, creatinine 1.3, glucose 151. Potassium 3.4 chloride 109. Review of care everywhere shows she was seen in emergency department August 09, 2023 for left footinjury and chest pain. Today reports she had 1 prior episode of mild chest discomfort before this emergency department visit. She has not had any subsequent chest discomfort after being seen in the emergency department. She reports prior to going to emergency department that she was having chest pain when she was walking her dog. She noted low back pain as well. She reports the pain was across right and left sides of her chest and persisted for hours. She notes associated shortness of breath. No palpitations. Did feel presyncopal or dizzy. No edema. She notes very active without symptoms, hikes 5 days/week. She is a non-smoker. No alcohol use. Notes mother had atrial fibrillation and TIA later in life, 70s. Dad had hypertension and chest pain treated with nitroglycerin. No current symptoms other than stating she feels weak. Last 14 Encounter BP Readings: Date: BP: 09/01/2023 102/64 07/28/2023 111/70 03/10/2023 126/72 10/03/2022 108/78 04/14/2022 104/70 02/05/2022 94/60 09/13/2021 100/70 03/05/2021 132/82 09/17/2020 111/61 05/17/2019 90/60 01/11/2019 86/58 09/14/2018 100/68 04/27/2018 76/50 12/29/2017 92/60 Creatinine Date Value Ref Range Status 09/01/2023 1.06 (H) 0.58 - 0.96 mg/dL Final 07/28/2023 1.11 (H) 0.58 - 0.96 mg/dL Final 10/01/2022 1.18 (H) 0.58 - 0.96 mg/dL Final 06/02/2022 1.12 (H) 0.58 - 0.96 mg/dL Final Hypothyroidism. She isdoing well on her current dose of Synthroid. TSH Date Value 09/01/2023 1.710 mIU/L 10/01/2022 2.590 mIU/L 08/05/2021 4.260 uU/mL 05/03/2021 4.680 uU/mL ) Review of Systems Constitutional: Negative. Endocrine: Negative. Objective BP 90/59 Pulse 79 Resp 16 Wt 65.3 kg (144 lb) LMP 07/03/2022 (Approximate) SpO2 97% BMI21.58 kg/m Physical Exam Vitals and nursing note reviewed. Constitutional: Appearance: Normal appearance. HENT: Head: Normocephalic and atraumatic. Eyes: Conjunctiva/sclera: Conjunctivae normal. Cardiovascular: Rate and Rhythm: Normal rate and regular rhythm. Heart sounds: Normal heart sounds. Pulmonary: Effort: Pulmonary effort is normal. Breath sounds: Normal breath sounds. Abdominal: General: Bowel sounds are normal. Palpations: Abdomen is soft. Skin: General: Skin is warm. Neurological: General: No focal deficit present. Mental Status: She is alert and oriented to person, place, and time. ALLERGIES Allergen Reactions [place] Other: See Comments migraine Ciclopirox Hives Hives MEDICATIONS thyroid, pork, (ARMOUR THYROID) 60 mg tablet Take 1 tablet by mouth once daily. Lactobac no.41/Bifidobact no.7 (PROBIOTIC-10 ORAL) Take by mouth once daily. Ipratropium [place] (ATROVENT) 21 mcg (0.03 %) nasal spray Use 2 Sprays in the nose every 12 hours as needed. Miscellaneous Medical Supply Cdl-Jet-Grqmxow D capsules--takes several per day to get adequate calcium and magnesium dose high enough to control leg cramps B Complex Vitamins capsule Take 1 capsule by mouth once daily. clonazePAM orally disintegrating (KLONOPIN WAFER) 0.125 mg disintegrating tablet Take 1 tablet by mouth once daily as needed for up to 14 days. PAST MEDICAL HISTORY Diagnosis Date Anemia 02/03/2012 Bilateral carpal tunnel syndrome Chronic fatigue Fibromyalgia History of orthostatic hypotension Had work up for POTS; tilt test was negative. Had worse symptoms when was anemic.Symptoms respondedto same measures as for treating POTS (fluids with electrolytes) Migraine with aura and without status migrainosus, not intractable Unspecified hypothyroidism Unspecified vitamin D deficiency 03/06/2008 Social History Tobacco Use Smoking status: Never Smokeless tobacco: Never Substance Use Topics Alcohol use: No Drug use: No 08/03/2023 US KIDNEY/BLADDER IMPRESSION: NORMAL SONOGRAPHIC APPEARANCE OF KIDNEYS AND BLADDER. Component Latest Ref Rng & Units 07/28/2023 09/01/2023 Color Yellow Yellow Clarity Clear Clear Glucose, Urine Negative Negative Bilirubin, Urine Negative Negative Ketones, Urine Negative Negative Specific [place], Ur 1.005 - 1.030 1.008 Hemoglobin/Blood,Ur Negative Negative pH, Urine <8.5 7.5 Protein, Urine Negative Negative Urobilinogen 0.2-1.0 EU/dL 0.2 EU/dL Nitrites Negative Negative Leukest Negative Negative WBC, Urine 0-5 /HPF 0-5 /HPF RBC, Urine 0-2 /HPF 0-2 /HPF Bacteria Negative /HPF Negative Epithelial Cells /HPF None Seen Hyaline Cast 0 /LPF 0 /LPF Protein, Total 6.3 - 8.0 g/dL 7.1 Albumin 3.9 - 4.9 g/dL 4.7 4.6 Calcium 8.5 - 10.2 mg/dL 9.8 9.4 Bilirubin, Total 0.2 - 1.3 mg/dL 0.2 Alkaline Phosphatase 34 - 123 U/L 56 AST 13 - 35 U/L 19 ALT 7 - 38 U/L 14 Glucose 74 - 99 mg/dL 93 88 BUN 7 - 21 mg/dL 17 15 Creatinine 0.58 - 0.96 mg/dL 1.11 (H) 1.06 (H) Sodium 136 - 144 mmol/L 141 141 Potassium 3.7 - 5.1 mmol/L 4.2 4.0 Chloride 97 - 105 mmol/L 103 103 CO2 22 - 30 mmol/L 29 29 Anion Gap 9 - 18 mmol/L 9 9 eGFR >=60 mL/min/1.73m 58 (L) 61 GLUCOSE UA (POCT) Negative mg/dL Negative BILIRUBIN UA (POCT) Negative Negative KETONE UA (POCT) Negative mg/dL Negative SPECIFIC GRAVITY UA (POCT) 1.005 - 1.030 1.010 HEMOGLOBIN/BLOOD UA (POCT) Negative Negative PH UA (POCT) 4.5 - 8.0 7.5 PROTEIN UA (POCT) Negative mg/dL Negative UROBILINOGEN UA (POCT) Normal E.U./dL 0.2 NITRITE UA (POCT) Negative Negative LEUKOCYTES UA (POCT) Negative Moderate (A) COLOR UA (POCT) Yellow CLARITY UA (POCT) Clear Phosphorus 2.7 - 4.8 mg/dL 3.7 WBC 3.70 - 11.00 k/uL 5.39 RBC 3.90 - 5.20 m/uL 4.43 Hemoglobin 11.5 - 15.5 g/dL 13.4 Hematocrit 36.0 - 46.0 % 40.8 MCV 80.0 - 100.0 fL 92.1 MCH 26.0 - 34.0 pg 30.2 MCHC 30.5 - 36.0 g/dL 32.8 RDW-CV 11.5 - 15.0 % 12.7 Platelet Count 150 - 400 k/uL 195 MPV 9.0 - 12.7 fL 11.3 Absolute nRBC <0.01 k/uL <0.01 Protein, Urine Random 0 - 20 mg/dL <4 Creatinine, Ur Random (UCRR) 20.0 - 300.0 mg/dL 35.9 Protein/Creat Ratio <0.15 mg/mg <0.11 Iron 41 - 186 ug/dL 99 TIBC 232 - 386 ug/dL 283 Transferrin Saturation 15.0 - 57.0 % 35.0 Result ([facility]) No M protein is identified. No M protein is identified. Staff Review ([facility]) Reviewed by Juan Man M.D. TSH 0.270 - 4.200 mIU/L 1.710 Free T4 0.9 - 1.7 ng/dL 0.9 Free T3 2.3 - 4.1 pg/mL 3.1 Vitamin D 25 Hydroxy 31.0 - 80.0 ng/mL 39.4 Ferritin 14.7 - 205.1 ng/mL 171.0 ASSESSMENT/PLAN: 1. Exertional chest pain - ICD9: 786.50, ICD10: R07.9 (primary diagnosis) Chest pain of unclear etiology, patient with significant risk factor(s) of family history of early coronary heart disease and postmenopausal Recommend stress echocardiogram - STRESS ECHO TREADMILL - PERFLUTREN LIPID MICROSPHERES 1.1 MG/ML INJECTION IN NS 10 ML - SODIUM CHLORIDE 0.9 % (FLUSH) INJECTION SYRINGE 2. Elevated glucose - ICD9: 790.29, ICD10: R73.09 Elevated glucose noted in the emergency department, recheck - HGB A1C 3. Acquired hypothyroidism - ICD9: 244.9, ICD10: E03.9 Continue current thyroid dose for now. - TSH BLD 4. Stage 3a chronic kidney disease (HCC) - ICD9: 585.3, ICD10: N18.31 Noted to be dehydrated in the emergency department. Recommend recheck BUN and creatinine today. - BASIC METABOLIC PNL Advised: Liberalize your sodium intake, try to get about 3 g of sodium in your diet daily. Maintain adequate fluid intake, get at least 64 ounces of fluid daily. Consider adding a sports drink such as Gatorade or 8 ounces of broth daily. Wear knee-high likr-gse-fviyubd compression socks when sitting or standing for prolonged periods oftime. Stuart Ponce APRN.RESEARCH ENGINEER Medical Decision Making: Problems: Moderate: New problem with uncertain prognosis Data: Unique source(s) for external note(s) reviewed: 1 Unique test result(s) reviewed: 3+ Unique test(s) ordered: 3+ Risk: Low: Low risk from testing/treatment Medical Decision Making Level: 4 - Moderate documented in this encounterC[facility]03-04-[facility]24 Discharge summary Author Tomer King [facility] December 07, 2023 6:48pm Note Date/Time December 07, 2023 2:11 pm [facility] Medical Records Department [address] [place] [address] Emergency Department Summary 12/07/23 MR#: [id number] Acct: [id number] Name: JO VALENCIA Rep #:[id number] : 1965 58 From: Tomer Chaparro PCP: Dr. Murphy Henley MD Status:RE G ER Location: ED HPI History of Present Illness Chief Complaint: Chest Pain PFSH PFSH Allergy/AdvReac Type Severity Reaction Status Date / Time almond oil Allergy Unknown Verified 12/07/23 14:05 clotrimazole Allergy Hives Verified 12/07/23 14:05 coconut Allergy NEEDS Verified 12/07/23 14:05 FOLLOW-UP egg Allergy Unknown Verified 12/07/23 14:05 gluten Allergy Unknown Verified 12/07/23 14:05 Milk Containing Products Allergy NEEDS Verified 12/07/23 14:05 (Dairy) FOLLOW-UP [Milk Containing Products] sesame seed Allergy Unknown Verified 12/07/23 14:05 Sugars, Metabolically Active Allergy NEEDS Verified 12/07/23 14:05 FOLLOW-UP Social History Smoking Status: Never smoker EXAM Physical Exam Const Vital Signs: 12/07/23 14:05 12/07/23 14:13 12/07/23 14:30 Temperature 97.6 F L Temperature Source Temporal Pulse Rate 58 L 54 L Respiratory Rate 18 11 L Blood Pressure 114/76 99/55 L Blood Pressure Mean 88 70 Pulse Ox 100 Oxygen Delivery Method Room Air Room Air 12/07/23 14:45 12/07/23 15:00 12/07/23 15:15 Temperature Temperature Source Pulse Rate 62 60 54 L Respiratory Rate 18 16 10 L Blood Pressure 100/63 84/55 L 90/57 L Blood Pressure Mean 75 65 68 Pulse Ox Oxygen Delivery Method 12/07/23 16:00 12/07/23 17:00 12/07/23 18:16 Temperature 97.7 F L Temperature Source Pulse Rate 81 75 76 Respiratory Rate 14 14 13 Blood Pressure 97/54 L 102/57 L 114/68 Blood Pressure Mean 67 71 83 Pulse Ox 98 Oxygen Delivery Method 12/07/23 17:15 12/07/23 18:00 Temperature 97.7 F L Temperature Source Temporal Pulse Rate 86 76 Respiratory Rate 17 13 Blood Pressure 126/95 H 114/68 Blood Pressure Mean 104 82 Pulse Ox Oxygen Delivery Method Room Air MDM MDM MDM Narrative Medical decision making narrative: HISTORY OF PRESENT ILLNESS: 58-year-old presents with chest pain. She states she developed acute midsternalchest pain radiating to the jaw prior to arrival as she was exerting herself. Denies history of heart attacks. Denies any recent bleeding diathesis. Denies any vomiting. Denies any cough fever or chills. Denies any lower extremity edema. Denies family history of early cardiac . Denies history of type 2 diabetes, hyperlipidemia or hypertension. Denies loss of consciousness Patient denies sudden onset of pain, no tearing sensation, no migratory symptoms, no new numbness, weakness or loss of sensation. Patient denies family history or personal history of Marfan syndrome or Kelly-Danlos. The patient denies recent surgery in the last 4 weeks or immobilization in the last 3 days, denies previous diagnosis of DVT or PE, hemoptysis, unilateral leg swelling or malignancy with treatment the last 6 months. No estrogen use noted. REVIEW OF SYSTEMS: All other systems reviewed and are negative except as noted in the history of present illness. At least 10 review of systems reviewed and are negative except as noted in history of present illness. PHYSICAL EXAM: Nursing triage notes reviewed, Vital signs reviewed Constitutional: please see mdm HENT: MMM Eyes: Pupils equal round and reactive to light, Extraocular muscles intact Neck: No stridor, no JVD, full neck ROM Lungs: Clear to auscultation, No wheezing or rales. No increased work of breathing, no conversational dyspnea, no accessory muscle use, no nasal flaring.No respiratory distress noted Heart: Regular rate and rhythm, No murmurs, No rubs and No gallops, 2+ distal pulses (radial, femoral, posterior tibial) in all extremities Abdomen: Soft, there is no tenderness, rigidity, rebound or guarding, no obviousperitoneal signs, no palpable pulsatile abdominal masses, no auscultated abdominal bruit : No CVAT Extremities: No edema Neuro: No focal neurological deficits, cranial nerves II through XII intact, 5/5strength in all extremities. Intact sensation to light touch in all extremities,2+ reflexes bilateral patella tendons. Normal gait. No ataxia. Skin: No rash or lesions noted MEDICAL DECISION MAKING: Chief Complaint: Chest pain External records reviewed: No recent cardiac catheterizations, stress test or echocardiograms noted in the chart Factors affecting care:No reported past medical history in [facility] Social determinants of health: None History obtained from others: None Consults: none [facility] Narrative: Patient was hemodynamically stable, afebrile, nontoxic-appearing. Exam without focal cardiopulmonary normalities. During the patient's ED course he became hypotensive. She noted increasing painwith hypotension. This was resuscitated with 2 L normal saline. I considered the following differential diagnosis: ACS, arrhythmia, anemia, electrolyte abnormality, pneumonia, pneumothorax, GI etiology, PE ALL IMAGES (IF OBTAINED) HAVE BEEN PERSONALLY REVIEWED AND INTERPRETED BY MYSELF. EKG with sinus bradycardia, normal axis, normal intervals, no STEMI I have personally reviewed the patient's chest x-ray. Chest x-ray is unremarkable for pulmonary edema, pneumothorax, pneumonia or focal cardiopulmonary abnormality. Magnesium within normal limits CBC without leukocytosis, severe anemia, no thrombocytopenia. High-sensitivity troponin is negative, no evidence of myocardial ischemiax2 BMP with mild hypokalemia, no anion gap to suggest endorgan hypoperfusion, no evidence of metabolic acidosis, stable kidney function I also considered the following differential without there were less likely. PE less likely given low risk Wells score. Aortic dissection is thought to be less likely given no sudden ripping or tearing pain, migratory pain, palpable pulse inequalities, no focal neurologic deficits concurrent with chest pain. Chance of dissection less than 10/1999. Pericarditis less likely given no pathognomonic EKG changes (no diffuse ST elevations, NE depressions). GI etiology (i.e. Boerhaave syndrome) less likely given no chest or neck crepitus, no vomiting or forced retching. I completed a HEART Score to screen for Major Adverse Cardiac Event (MACE) in this patient. The evidence indicates that the patient is very low risk for MACE and this is consistent with my clinical intuition. The risk of further workup or hospitalization for MACE is likely higher than therisk of the patient having a MACE. It is, therefore, in the patient?s best interest not to do additional emergent testing or to be hospitalized for MACE atthis time. Shared Decision-Making No hospitalization indicated I have discussed with the patient my clinical impression and the result of the HEART Score to screen for MACE, as well as the risks of further testing and hospitalization. The HEART Score shows that the risk for MACE is less than 1%. Although the risk of MACE has not been completely eliminated, the risks of further testing or hospitalization for MACE likely exceed any potential benefit,and the patient agrees with not pursuing further emergent evaluation or hospitalization for MACE at this time. The synthesis of the patient's history, physical exam, labs images suggest no acute life-limiting pathology. She is low risk heart score is appropriate discharge home with close outpatient follow-up. Suspect the patient was dehydrated given response to fluids. Complete resolution of symptoms. The patient and/or family, caregivers express understanding. The patient and/or family, caregivers agrees with the plan. Total critical care time today provided was at least 0 minutes. This excludes separately billable procedures. Critical care time (if documented) is secondary to the patient having high probability of clinically significant/life threatening deterioration in the patient's condition which required my urgent intervention. Impression: 1. Dehydration 2. Chest pain 3. Hypokalemia Disposition: Discharge home Tomer King, Lab Data Labs: Laboratory Results - last 24 hr 12/07/23 12/07/23 13:45 16:25 WBC 6.3 RBC 4.32 Hgb 12.7 Hct 39.7 MCV 91.9 MCH 29.4 MCHC 32.0 RDW Std Deviation 44.6 H RDW Coeff of Forrest 13.2 Plt Count 204 MPV 11.6 Immature Gran % (Auto) 0.300 Neut % (Auto) 54.0 Lymph % (Auto) 34.7 [place] % (Auto) 7.3 Eos % (Auto) 3.2 Baso % (Auto) 0.5 Absolute Neuts (auto) 3.4 Absolute Lymphs (auto) 2.18 Nucleated RBC % 0 Sodium 141 Potassium 3.4 L Chloride 109 H Carbon Dioxide 25.0 Anion Gap 7 BUN 17 Creatinine 1.31 H Est GFR (MDRD) Af Amer 54 L Est GFR (MDRD) Non-Af 44 L BUN/Creatinine Ratio 13.0 Glucose 151 H Calcium 8.9 Magnesium 2.2 Troponin I High Sens 5 4 Radiography Diagnostic Testing: Clinical Impression(s) from Imaging Studies Chest X-Ray 12/07/23 14:30 IMPRESSION: No radiographic evidence of acute cardiopulmonary disease. Electronically Signed: Subhash Curtis MD at 15:01 EST , Discharge Plan Triage Chief Complaint: Chest Pain ED Provider: Tomer King Dx/Rx/DC Orders Primary Care Provider: Murphy Henley Referrals: Murphy Henley MD [Primary Care Provider] - What to do if you have Problems For any increased pain, shortness of breath, bleeding, nausea or vomiting, chestpain, or any unexpected problems, contact your Primary Care Provider. Call [facility] ([phone]) or report to the closest Emergency Room. Call 911 if necessary. 12/07/23 184 <Electronically signed by Tomer King DO> Cosigner Signature (if applicable): CC: Dr. Murphy Henley MD ~ Signed [facility] Work Phone: [phone]) 339-577811-05-2023 Evaluation note* Diagnosis Stage 3a chronic kidney disease (HCC) documented in this encounter [facility]11-05-2023 Reason for referral (narrative)* Diagnostic Procedure Only (Routine) - Closed Specialty Diagnoses / Procedures Referred By Contac t Referred To Contact US IMAGING Diagnoses Stage 3a chronic kidney disease (HCC) Procedures US KIDNEY/BLADDER US RETROPERITONEAL REAL TIME W/IMAGE COMPLETE Mariam Pham PA-C [address] [place] [address] [place] [address] Referral ID Status Reason Start Date Expiration Date V isits Requested Visits Authorized [id number] Closed Auto-Generate d Referral 07/28/2023 08/26/2024 1 1 [facility]10-30-2023 History of Present illness Narrative* Padmaja Núñez RDMS - 08/03/2023 10:00 AM EDT Radiology Service Progress Note PATIENT NAME: Jo Valencia DATE OF SERVICE: August 03, 2023 [...] 03, 2023 1:33 PM documented in this encounterC[facility]10[facility]29-[facility] Evaluation note* Diagnosis Stage 3a chronic kidney disease (HCC)- Primary documented in this encounter [facility]10-24-2023 History of Present illness Narrative* Mariam Pham PA-C - 07/28/2023 8:00 AM EDT 57-yo woman seen in consultation at the request of Dr. Henley regarding CKD. My thoughts and recommendations will be communicated via the shared electronic medical record. HPI: Review of [facility] records which date back to 2012 indicates that her serum creatininehas fluctuated in the of 0.9 to 1.1mg/dl for the past 10+ years. On June 23 2023 her serum creatinine, performed at a non [facility] lab, was noted to be 1.3mg/dl. She [...] thyroid replacement. Migraines. Degenerative disc disease Anxiety Hypoglycemia, not documented. Sinus and nasal congestion PAST MEDICAL HISTORY: She reports that for many years she did not feel well. Her symptoms were characterized by headaches, fatigue, weakness, dizziness, irritable bowel, decreased concentration, palpitations, and nausea(denies vomiting). She reports that she feels much better now that she is being followed in functional medicine and is receiving accupuncture. SURGERY: [place] teeth extraction FAMILY HISTORY: negative for kidney [...] or treatment is warranted. documented in this encounterC[facility]10[facility]-2023 Evaluation note* Diagnosis Acquired hypothyroidism- Primary Unspecified hypothyroidism Stage 3a chronic kidney disease (HCC) documented in this encounter [facility]10-24-2023 Reason for referral (narrative)* Diagnostic Procedure Only (Routine) - Authorized Specialty Diagnoses / Procedures Referred By Harika t Referred To Contact US IMAGING Diagnoses Stage 3a chronic kidney disease (HCC) Procedures US KIDNEY/BLADDER US RETROPERITONEAL REAL TIME W/IMAGE COMPLETE Mariam Pham PA-C [address] [place] [id number] [facility] [place] [address] Referral ID Status Reason Start Date Expiration Date Visits Requested Visits Authorized [id number] Authorized Auto-Generat ed Referral 08/26/2024 1 1 [facility]10-11-2023 Miscellaneous Notes* Telephone Encounter - Murphy Henley MD - 07/15/2023 8:55 PM EDT Order filed. See if has a preferred site for seeing automation application engineer Found the [place] labs she was referring to with the higher Cr and lower eGFR. * Telephone Encounter - Bassem River MA - 07/09/2023 9:22 AM EDT Spoke to patient. Advised patient PCP was referring to previous labs completed on 01/05/23. Patient would like a referral for nephrology. Asking on any [facility] recommendations as she does not want to establish with any automation application engineer locally. Patient would like PCP to review UA completed 07/08/23 & advise on results & if patient should see urology. Provided results below via blue link. Please review & advise. View External Labs - Cytology [ID [id number]] * Telephone Encounter - Murphy Henley MD - 07/05/2023 4:45 PM EDT Reviewed results of labs from [facility] and prior labs done here at [facility]. See MyChart reply Over the past years, eGFR has been up and down but most in CKD3 level. Sometimes would be over 60 but usually in CKD3 range. Will await her reply regarding which kidney specialist she wants to see. documented in [facility] encounterC[facility] Evaluation note* Diagnosis Stage 3a chronic kidney disease (HCC)- Primary documented in this encounter [facility]10-06-2023 Miscellaneous Notes* Telephone Encounter - Romi Sterling RN - 07/10/2023 10:53 AM EDT Appt 07/28 with nephrology in [place]. * Telephone Encounter - Romi Sterling RN - 07/10/2023 8:51 AM EDT Pt given below information from Dr. Henley. Note to scheduling to set up appt for a automation application engineer as close to [place] as possible. * Telephone Encounter - Murphy Henley MD - 07/10/2023 8:23 AM EDT Filed consult order. See if has a preference for site UA was unremarkable. Though leuk esterase was 25, there were no significant numbers of WBC on microscopic. Cloudy is a nonspecific finding. If develops symptoms, would repeat UAWMIC and do a culture. I reviewed her labs done here in [facility] lab over the past several years. * Telephone Encounter - Romi Sterling RN - 07/09/2023 8:37 AM EDT Pt calling to follow up with Dr. Henley on her recent lab results as well [...] 06/23. Pt is also concerned as Dr. Henley sent pt a [employer] msg saying the following: Jo Lopez, Saw lab results--they were scanned in from [facility]. Noted BUN 21 and Cr 1.14 with eGFR 52. She is confused where Dr. Henley got those #'s. She states her results were BUN of 17, creatinine1.33 and GFR non AA was 44 (which matches labwork scanned in on 06/23) Pt would like a referral to a [facility] automation application engineer and is aware she will have to go out of town for this. Unless Dr. Henley feels she should see a urologist instead of a automation application engineer. documented in this encounterC[facility]07[facility]23 History of Present illness Narrative* Belen Pham MD - 04/10/2023 4:04 PM EDT UNIVERSAL [...] without being seen by Physician. Laura Duarte feed mill lab technician Belen Pham MD Staff, [facility] Electronically signed April 10, 2023 4:07 PM documented in this encounterC[facility]06-26-2023 Miscellaneous Notes* Letter - Mammography Coordinator - 03/30/2023 7:49 AM EDT March 30, 2023 PID: [id number] Jo Valencia [address] [place] [address] Dear Ms. Valencia, We are pleased to [...] report will be kept on file at [facility] as part of your permanent medical record and are available for your continuing care. Thank you for allowing us to help in meeting your health care needs. Sincerely, Dr. Cr Interpreting Radiologist [facility] (Normal over 40) documented in this encounterC[facility]06-23-2023 Miscellaneous Notes* Result Encounter Note - Stuart Ponce APRN.CNS - 03/27/2023 1:30 PM EDT Negative. 1 year screening advised documented in this encounterC[facility]06-06-2023 History of Present illness Narrative* Murphy Henley MD - 03/10/2023 5:02 PM EDT This note was created using [employer]. Subjective Jo Valencia is a 57 year old female. Patient presents with: Follow Up SUBJECTIVE: Jo Valencia is a 57 year old year [...] 1 tablet by mouth once daily. Ipratropium [place] (ATROVENT) 21 mcg (0.03 %) nasal spray Use 2 Sprays in the nose every 12 hours as needed. Miscellaneous Medical Supply Aer-Rga-Nzxpbbg D capsules--takes several per day to get [...] D50.9 CBC Last CBC in August at [facility] were good. 2. Carpal tunnel syndrome of left wrist G56.02 EMG(NEURO/NI) COCK-UP WRIST SPLINT 3. Right hand pain M79.641 EMG(NEURO/NI) 4. Left arm pain M79.602 EMG(NEURO/NI) 5. Stiffness of joints of both hands M25.641 EMG(NEURO/NI) M25.642 6. Breast cancer screening by mammogram Z12.31 GEOVANNI SCREENING W [place] 7. Dense breasts R92.2 GEOVANNI SCREENING W MO Above issues addressed with [...] and regular exercise and adequate sleep. Murphy Henley MD documented in this encounterC[facility]05-15-2023 Miscellaneous Notes* Telephone Encounter - Murphy Henley MD - 02/16/2023 1:01 PM EDT The following approved medication requests have been transmitted electronically. Requested Prescriptions Signed Prescriptions Disp Refills thyroid, pork, (ARMOUR THYROID) 60 mg tablet 90 tablet 1 Sig: Take 1 tablet by mouth once daily. Authorizing Provider: MURPHY HENLEY Ipratropium [place] (ATROVENT) 21 mcg (0.03 %) nasal spray 30 mL 2 Sig: Use 2 Sprays in the nose every 12 hours as needed. Authorizing Provider: MURPHY HENLEY MD * Telephone Encounter - Martha Huitron LPN - 02/16/2023 12:12 PM EDT Patient has been identified by name and date of : Yes, Provider Ceferino Date 02/16/23 Time 12:13PM Patient phones for refill(s): Requested Prescriptions Pending Prescriptions Disp Refills thyroid, pork, (ARMOUR THYROID) 60 mg tablet 90 tablet 1 Sig: Take 1 tablet by mouth once daily. Ipratropium [place] (ATROVENT) 21 mcg (0.03 %) nasal spray [...] you. Martha Huitron LPN documented in this encounterC[facility]12-10-2022 Miscellaneous Notes* Telephone Encounter - Murphy Henley MD - 09/13/2022 1:37 AM EST See MyChart reply Pended order for rheumatology evaluation Await reply to file if wants to pursue. documented in this encounterC[facility]07-11-2022 History of Present illness Narrative* Murphy Henley MD - 04/14/2022 4:10 PM EDT This note was created using [email or web address]. Subjective Jo Valencia is a 56 year old female. Patient presents with: F/U 6 months SUBJECTIVE: Jo Valencia is a 56 year old year [...] 8 hours as needed (muscle spasms). Ipratropium [place] (ATROVENT) 21 mcg (0.03 %) nasal spray [...] Height as of 09/13/21: 174 cm (5' 8.5). Weight as of this encounter: 62.1 kg [...] resolved. Continue present management. - CBC Murphy Henley MD documented in this encounterC[facility]07-06-2022 Miscellaneous Notes* Telephone Encounter - Olinda Malcolm Ma - 04/09/2022 2:26 PM EDT Left detailed message on [employer]. * Telephone Encounter - Ricky He RN - 04/09/2022 10:10 AM EDT Patient asking pcp to add lab orders for TSH and hgb. Reports she is on a specialized diet and has noticed symptoms that may be related to overactive thyroid: weight loss- more than wanted and hot flashes, and her thyroid tends to fluctuate. Pended. Please advise patient. documented in this encounterC[facility]06-29-2022 Miscellaneous Notes* Telephone Encounter - Ana Paula Tavares APRN.CNP - 04/02/2022 3:02 PM EDT Answered in telephone encounter Ana Paula Tavares APRN.CNP documented in this encounterC[facility]06-13-2022 Miscellaneous Notes* Telephone Encounter - Carolyn Packer Ma - 03/17/2022 1:37 PM EDT Addressed in 03/04 phone encounter documented in this encounterC[facility]06-02-2022 Miscellaneous Notes* Telephone Encounter - Marla Ariza [...] 400 units. * Telephone Encounter - Murphy Henley MD - 03/05/2022 7:30 PM EDT Okay [...] low dose? * Telephone Encounter - Murphy Henley MD - 03/05/2022 1:16 AM EDT I [...] advise, Sophia Hilton RN documented in this encounterC[facility]05-05-2022 Miscellaneous Notes* Telephone Encounter - Marielle Yi [...] topical gel Class: Normal Route: TOPICAL Order: [id number] E-Prescribing Status: Receipt confirmed by pharmacy (02/05/2022 10:10 AM EDT) Prior authorization: Denied Message left to pt with this info. documented in this encounterCleveland [facility]05-04-2022 History of Present illness Narrative* Murphy Henley MD - 02/05/2022 9:34 AM EDT This note was created using [employer]. Subjective Jo Valencia is a 56 year old female. Patient presents with: Recheck: Follow up, lab work SUBJECTIVE: Jo Valencia is a 56 year old year [...] stretching exercises. Went to chiropractor. Going to [facility]. Trying lidocaine and Icy Hot spray. [...] 03/06/2008 Current Outpatient Medications Medication Sig Ipratropium [place] (ATROVENT) 21 mcg (0.03 %) nasal spray [...] tablet by mouth Sat, Sun, Mon, , Wed. Take two tablets on & Thursday. peg [...] 726.0, ICD10: M75.02 Continue present management. Murphy Henley MD documented in this encounterC[facility]06-01-2021 History of Present illness Narrative* Lorne Thomas, RT(R) - 03/05/2021 3:30 PM EDT Radiology Service Progress Note PATIENT NAME: Jo Valencia DATE OF SERVICE: March 05, 2021 TIME: 3:15 PM PATIENT IDENTITY VERIFICATION COMPLETED USING TWO [...] IMPLANT DATA REVIEWED: Not Applicable RADIOLOGY DEPARTMENT: General X-ray: Exam(s) Completed: Lower Extremity X- Ray(s): Foot, Left and Wt. Bearing PERIPHERAL IV DATA: Not applicable SIGNED BY: RT Mary(R) March 05, 2021 3:15 PM documented in this encounterCleveland Clinic [facility]09-24-2013 History of Past illness Narrative* Problem Noted Date Resolved Date POTS (postural orthostatic tachycardia syndrome) 06/28/2013 11/15/2020 Thickened endometrium 06/22/2012 08/19/2016 Menorrhagia 02/03/2012 08/19/2016 Orthostatic hypotension 09/14/2009 08/19/20 16 documented as of this encounter (statuses as of 12/23/2021) [facility] of Past illness Narrative* Problem Noted Date Resolved Date POTS (postural orthostatic tachycardia syndrome) 06/28/2013 11/15/2020 Thickened endometrium 06/22/2012 08/19/2016 Menorrhagia 02/03/2012 08/19/2016 Orthostatic hypotension 09/14/2009 08/19/20 16 documented as of this encounter (statuses as of 02/06/2022) [facility] of Past illness Narrative* Problem Noted Date Resolved Date POTS (postural orthostatic tachycardia syndrome) 06/28/2013 11/15/2020 Thickened endometrium 06/22/2012 08/19/2016 Menorrhagia 02/03/2012 08/19/2016 Orthostatic hypotension 09/14/2009 08/19/20 16 documented as of this encounter (statuses as of 03/06/2022) [facility] of [facility] illness Narrative* Problem Noted Date Resolved Date POTS (postural orthostatic tachycardia syndrome) 06/28/2013 11/15/2020 Thickened endometrium 06/22/2012 08/19/2016 Menorrhagia 02/03/2012 08/19/2016 Orthostatic hypotension 09/14/2009 08/19/20 16 documented as of this encounter (statuses as of 03/17/2022) [place] [id number] History of Past illness Narrative* Problem Noted Date Resolved Date POTS (postural orthostatic tachycardia syndrome) 06/28/2013 11/15/2020 Thickened endometrium 06/22/2012 08/19/2016 Menorrhagia 02/03/2012 08/19/2016 Orthostatic hypotension 09/14/2009 08/19/20 16 documented as of this encounter (statuses as of 04/02/2022) [facility] Narrative* Problem Noted Date Resolved Date POTS (postural orthostatic tachycardia syndrome) 06/28/2013 11/15/2020 Thickened endometrium 06/22/2012 08/19/2016 Menorrhagia 02/03/2012 08/19/2016 Orthostatic hypotension 09/14/2009 08/19/20 16 documented as of this encounter (statuses as of 04/03/2022) [facility] of [facility] Narrative* Problem Noted Date Resolved Date POTS (postural orthostatic tachycardia syndrome) 06/28/2013 11/15/2020 Thickened endometrium 06/22/2012 08/19/2016 Menorrhagia 02/03/2012 08/19/2016 Orthostatic hypotension 09/14/2009 08/19/20 16 documented as of this encounter (statuses as of 06/13/2022) [facility] Narrative* Problem Noted Date Resolved Date POTS (postural orthostatic tachycardia syndrome) 06/28/2013 11/15/2020 Thickened endometrium 06/22/2012 08/19/2016 Menorrhagia 02/03/2012 08/19/2016 Orthostatic hypotension 09/14/2009 08/19/20 16 documented as of this encounter (statuses as of 08/13/2022) [facility] illness Narrative* Problem Noted Date Resolved Date POTS (postural orthostatic tachycardia syndrome) 06/28/2013 11/15/2020 Thickened endometrium 06/22/2012 08/19/2016 Menorrhagia 02/03/2012 08/19/2016 Orthostatic hypotension 09/14/2009 08/19/20 16 documented as of this encounter (statuses as of 02/16/2023) [facility] illness Narrative* Problem Noted Date Resolved Date POTS (postural orthostatic tachycardia syndrome) 06/28/2013 11/15/2020 Thickened endometrium 06/22/2012 08/19/2016 Menorrhagia 02/03/2012 08/19/2016 Orthostatic hypotension 09/14/2009 08/19/20 16 documented as of this encounter (statuses as of 02/17/2023) [facility] Narrative* Problem Noted Date Resolved Date POTS (postural orthostatic tachycardia syndrome) 06/28/2013 11/15/2020 Thickened endometrium 06/22/2012 08/19/2016 Menorrhagia 02/03/2012 08/19/2016 Orthostatic hypotension 09/14/2009 08/19/20 16 documented as of this encounter (statuses as of 04/01/2023) [facility]2013 History of Past illness Narrative* Problem Noted Date Resolved Date POTS (postural orthostatic tachycardia syndrome) 06/28/2013 11/15/2020 Thickened endometrium 06/22/2012 08/19/2016 Menorrhagia 02/03/2012 08/19/2016 Orthostatic hypotension 09/14/2009 08/19/20 16 documented as of this encounter (statuses as of 04/08/2023) [facility] History of Past illness Narrative* Problem Noted Date Resolved Date POTS (postural orthostatic tachycardia syndrome) 06/28/2013 11/15/2020 Thickened endometrium 06/22/2012 08/19/2016 Menorrhagia 02/03/2012 08/19/2016 Orthostatic hypotension 09/14/2009 08/19/20 16 documented as of this encounter (statuses as of 04/11/2023) [facility] History of Past illness Narrative* Problem Noted Date Diagnosed Date Resolved Date POTS (postural orthostatic t achycardia syndrome) 06/28/2013 11/15/2020 Thickened endometrium 06/22/20122015 Menorrhagia 02/03/2012 08/19/2016 Orthostatic hypotension 09/14/200908/05 documented as of this encounter (statuses as of 04/27/2023) [facility] History of Past illness Narrative* Problem Noted Date Diagnosed Date Resolved Date POTS (postural orthostatic t achycardia syndrome) 06/28/2013 11/15/2020 Thickened endometrium 06/22/20122015 Menorrhagia 02/03/2012 08/19/2016 Orthostatic hypotension 09/14/200908/05 documented as of this encounter (statuses as of 07/11/2023) [facility] History of Past illness Narrative* Problem Noted Date Diagnosed Date Resolved Date POTS (postural orthostatic t achycardia syndrome) 06/28/2013 11/15/2020 Thickened endometrium 06/22/20122015 Menorrhagia 02/03/2012 08/19/2016 Orthostatic hypotension 09/14/200908/05 documented as of this encounter (statuses as of 07/28/2023) [facility] History of Past illness Narrative* Problem Noted Date Diagnosed Date Resolved Date POTS (postural orthostatic t achycardia syndrome) 06/28/2013 11/15/2020 Thickened endometrium 06/22/20122015 Menorrhagia 02/03/2012 08/19/2016 Orthostatic hypotension 09/14/200908/05 documented as of this encounter (statuses as of 08/02/2023) [facility] History of Past illness Narrative* Problem Noted Date Diagnosed Date Resolved Date POTS (postural orthostatic t achycardia syndrome) 06/28/2013 11/15/2020 Thickened endometrium 06/22/20122015 Menorrhagia 02/03/2012 08/19/2016 Orthostatic hypotension 09/14/200908/05 documented as of this encounter (statuses as of 08/09/2023) [facility] History of Past illness Narrative* Problem Noted Date Diagnosed Date Resolved Date POTS (postural orthostatic t achycardia syndrome) 06/28/2013 11/15/2020 Thickened endometrium 06/22/20122015 Menorrhagia 02/03/2012 08/19/2016 Orthostatic hypotension 09/14/200908/05 documented as of this encounter (statuses as of 08/09/2023) [facility] History of Past illness Narrative* Problem Noted Date Diagnosed Date Resolved Date POTS (postural orthostatic t achycardia syndrome) 06/28/2013 11/15/2020 Thickened endometrium 06/22/20122015 Menorrhagia 02/03/2012 08/19/2016 Orthostatic hypotension 09/14/200908/05 documented as of this encounter (statuses as of 12/10/2023) [facility] History of Past illness Narrative* Problem Noted Date Diagnosed Date Resolved Date POTS (postural orthostatic t achycardia syndrome) 06/28/2013 11/15/2020 Thickened endometrium 06/22/20122015 Menorrhagia 02/03/2012 08/19/2016 Orthostatic hypotension 09/14/200908/05 documented as of this encounter (statuses as of 12/14/2023) [facility] History of Past illness Narrative* Problem Noted Date Diagnosed Date Resolved Date POTS (postural orthostatic t achycardia syndrome) 06/28/2013 11/15/2020 Thickened endometrium 06/22/20122015 Menorrhagia 02/03/2012 08/19/2016 Orthostatic hypotension 09/14/200908/05 documented as of this encounter (statuses as of 12/14/2023) [facility] History of Past illness Narrative* Problem Noted Date Diagnosed Date Resolved Date POTS (postural orthostatic t achycardia syndrome) 06/28/2013 11/15/2020 Thickened endometrium 06/22/20122015 Menorrhagia 02/03/2012 08/19/2016 Orthostatic hypotension 09/14/200908/05 documented as of this encounter (statuses as of 12/15/2023) [facility] History of Past illness Narrative* Problem Noted Date Diagnosed Date Resolved Date POTS (postural orthostatic t achycardia syndrome) 06/28/2013 11/15/2020 Thickened endometrium 06/22/20122015 Menorrhagia 02/03/2012 08/19/2016 Orthostatic hypotension 09/14/200908/05 documented as of this encounter (statuses as of 12/22/2023) [place] [address]-24-2013 History of Past illness Narrative* Problem Noted Date Diagnosed Date Resolved Date POTS (postural orthostatic t achycardia syndrome) 06/28/2013 11/15/2020 Thickened endometrium 06/22/20122015 Menorrhagia 02/03/2012 08/19/2016 Orthostatic hypotension 09/14/200908/05 documented as of this encounter (statuses as of 01/07/2024) [facility] History of Past illness Narrative* Problem Noted Date Diagnosed Date Resolved Date POTS (postural orthostatic t achycardia syndrome) 06/28/2013 11/15/2020 Thickened endometrium 06/22/20122015 Menorrhagia 02/03/2012 08/19/2016 Orthostatic hypotension 09/14/200908/05 documented as of this encounter (statuses as of 01/08/2024) [facility] History of Past illness Narrative* Problem Noted Date Diagnosed Date Resolved Date POTS (postural orthostatic t achycardia syndrome) 06/28/2013 11/15/2020 Thickened endometrium 06/22/20122015 Menorrhagia 02/03/2012 08/19/2016 Orthostatic hypotension 09/14/200908/05 documented as of this encounter (statuses as of 01/13/2024) [facility] Diagnosis Nasal congestion Other diseases of nasal cavity and sinuses Angular cheilitis/perleche Diseases of lips [facility] Diagnosis Vitamin D deficiency- Primary Unspecified vitamin D deficiency Hypervitaminosis D Elevated serum creatinine Other nonspecific findings on examination of blood Encounter for long-term current use of medication documented in this encounter [facility] Diagnosis Acquired hypothyroidism- Primary Unspecified hypothyroidism [...] capsulitis of shoulder [facility] Diagnosis Vitamin D deficiency- Primary Unspecified vitamin D deficiency Nasal congestion Other diseases of nasal cavity and sinuses Acquired hypothyroidism Unspecified hypothyroidism Vaginal dryness, menopausal Symptomatic menopausal or female climacteric states Encounter for long-term current use of medication Iron deficiency anemia, unspecified iron deficiency anemia type [facility] Diagnosis Acquired hypothyroidism- Primary Unspecified hypothyroidism Primary hypertension Unspecified essential hypertension [facility] noteNo assessment information availableWSheltering Arms [facility] Work Phone: [facility]* Diagnosis Nasal congestion Other diseases of nasal cavity and sinuses documented in this encounter [facility]* Diagnosis Acquired hypothyroidism Unspecified hypothyroidism Nasal congestion Other diseases of nasal cavity and sinuses documented in this encounter [facility] note* Diagnosis Iron deficiency anemia, unspecified iron deficiency anemia type- Primary Carpal tunnel syndrome of left wrist Carpal tunnel syndrome Right hand pain Pain in limb Left arm pain Pain in limb Stiffness of joints of both hands Breast cancer screening by mammogram Dense breasts Inconclusive mammogram documented in this encounter [facility] note* Diagnosis Paresthesia of skin- Primary Disturbance of skin sensation Carpal tunnel syndrome of left wrist Carpal tunnel syndrome Right hand pain Pain in limb Left arm pain Pain in limb Stiffness of joints of both hands documented in this encounter [facility] note* Diagnosis Elevated antinuclear antibody (HARVINDER) level- Primary Other and unspecified nonspecific immunological findings documented in this encounter [facility] note* Diagnosis Breast cancer screening by mammogram Dense breasts Inconclusive mammogram documented in this encounter [facility] note* Diagnosis Exertional chest pain- Primary Chest pain, unspecified Elevated glucose Other abnormal glucose Acquired hypothyroidism Unspecified hypothyroidism Stage 3a chronic kidney disease (HCC) documented in this encounter [facility] note* Diagnosis Acquired hypothyroidism Unspecified hypothyroidism documented in this encounter [facility] Diagnosis Acquired hypothyroidism Unspecified hypothyroidism documented in this encounter [facility] note* Diagnosis Acquired hypothyroidism Unspecified hypothyroidism documented in this encounter [facility] note* Diagnosis Exertional chest pain Chest pain, unspecified documented in this encounter [facility] Diagnosis Exertional chest pain- Primary Chest pain, unspecified Acquired hypothyroidism Unspecified hypothyroidism HARVINDER positive Other and unspecified nonspecific immunological findings Bilateral hand pain Pain in limb documented in this encounter [facility] note* Diagnosis Screening mammogram for breast cancer- Primary documented in this encounter [facility] Diagnosis Acquired hypothyroidism- Primary Unspecified hypothyroidism Vitamin D deficiency Unspecified vitamin D deficiency Iron deficiency anemia, unspecified iron deficiency anemia type HARVINDER positive Other and unspecified nonspecific immunological findings Encounter for long-term current use of medication documented in this encounter [facility] note* Diagnosis Screening mammogram for breast cancer documented in this encounter [facility] note* Diagnosis Sicca syndrome (HCC)- Primary Sicca syndrome HARVINDER positive Other and unspecified nonspecific immunological findings Bilateral hand pain Pain in limb 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 Polyarthralgia Pain in joint, multiple sites [facility] Diagnosis Bilateral hand pain- Primary Pain in limb HARVINDER positive Other and unspecified nonspecific immunological findings documented in this encounter [facility] Diagnosis Polyarthralgia Pain in joint, multiple sites HARVINDER positive Other and unspecified nonspecific immunological findings Bilateral hand pain Pain in limb Sicca syndrome (HCC) Sicca syndrome 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 [facility]* Diagnosis Malaise and fatigue- Primary Other malaise and fatigue documented in this encounter [facility] Diagnosis Acquired hypothyroidism- Primary Unspecified hypothyroidism Primary osteoarthritis of both feet Vitamin D deficiency Unspecified vitamin D deficiency Renal insufficiency, mild Unspecified disorder of kidney and ureter Iron deficiency anemia, unspecified iron deficiency anemia type Postorgasmic illness syndrome Encounter for screening mammogram for breast cancer documented in this encounter [facility]* Diagnosis Chest tightness- Primary Other chest pain Chest pain, unspecified type Palpitations Fatigue, unspecified type documented in this encounter [facility]* Diagnosis Other fatigue- Primary Sleep disturbance Sleep disturbance, unspecified Loud snoring documented in this encounter [facility] note* Diagnosis Palpitations- Primary Chest tightness Other chest pain SOBOE (shortness of breath on exertion) Shortness of breath Nasal congestion Other diseases of nasal cavity and sinuses Sleep disturbance Sleep disturbance, unspecified documented in this encounter [facility]* Diagnosis Chronic nasal congestion- Primary Other diseases of nasal cavity and sinuses Nasal congestion Other diseases of nasal cavity and sinuses Environmental and seasonal allergies Nasal valve collapse Other diseases of nasal cavity and sinuses documented in this encounter [facility] note* Diagnosis At risk for obstructive sleep apnea- Primary Snoring Other dyspnea and respiratory abnormality Other fatigue Sleep disturbance Sleep disturbance, unspecified Palpitation Palpitations documented in this encounter [facility]* Diagnosis Sleep disturbance- Primary Sleep disturbance, unspecified Other fatigue Loud snoring documented in this encounter [facility] Discharge instructions Additional Instructions Thank you for trusting us with your care today! Please take Tylenol (2 pills, 650 mg), ibuprofen (2 pills, 400 mg) every 6 hours as needed for pain and fever control. Please return to the emergency department if your symptoms change or worsen. Please follow with your Orthopedic surgery (Dr. Rose) for further outpatient evaluation and management.[facility] Work Phone: Hospital Discharge instructions Additional Instructions Thank you for trusting us with your care today! Please take Tylenol (2 pills, 650 mg), ibuprofen (2 pills, 400 mg) every 6 hours as needed for pain and fever control. Please take a daily aspirin. Please drink plenty of fluids by mouth I recommend body armor, Pedialyte or Gatorade. Please return to the emergency department if your symptoms change or worsen. Please follow with your primary care physician for further outpatient evaluation and management.[facility] Work Phone: Reason for referral (narrative)* Diagnostic Procedure Only (Routine) - Closed Specialty Diagnoses / Procedures Referred By Harika taylor Referred To Contact [facility] Diagnoses Breast cancer screening by mammogram Dense breasts Procedures GEOVANNI SCREENING W MO SCREENING DIGITAL BREAST TOMOSYNTHESIS BI SCREENING MAMMOGRAPHY BI 2-VIEW BREAST INC CAD Murphy Henley MD [address] [place] [address] [facility] [address] [place] [address] Referral ID Status Reason Start Date Expiration Date V isits Requested Visits Authorized [id number] Closed Auto-Generate d Referral 03/10/2023 04/08/2024 1 1 * Outpatient Procedure (Routine) - Authorized Specialty Diagnoses / Procedures Referred By Harika taylor Ref[facility] Diagnoses Carpal tunnel syndrome of left wrist Right hand pain Left arm pain Stiffness of joints of both hands Procedures EMG(NEURO/NI) NERVE CONDUCTION STUDIES 9-10 STUDIES Murphy Henley MD [address] [place] [address] [facility] [address] [place] [address] Referral ID Status Reason Start Date Expiration Date Visits Requested Visits Authorized [id number] Authorized Auto-Generat ed Referral 04/01/2023 10/04/2023 1 1 [facility] for referral (narrative)* Diagnostic Procedure Only (Routine) - Closed Specialty Diagnoses / Procedures Referred By Harika t Referred To Contact [facility] Diagnoses Breast cancer screening by mammogram Dense breasts Procedures GEOVANNI SCREENING W MO SCREENING DIGITAL BREAST TOMOSYNTHESIS BI SCREENING MAMMOGRAPHY BI 2-VIEW BREAST INC CAD Murphy Henley MD [address] [place] [address] [facility] [address] [place] [address] Referral ID Status Reason Start Date Expiration Date V isits Requested Visits Authorized [id number] Closed Auto-Generate d Referral 03/10/2023 04/08/2024 1 1 [facility] for referral (narrative)* Outpatient Procedure (Routine) - Pending Review Specialty Diagnoses / Procedures Referred By Harika t Referred To Contact [facility] Diagnoses Exertional chest pain Procedures STRESS ECHO TREADMILL ECHO TTHRC R-T 2D W/WO M-MODE COMPLETE REST&ST Ponce, [facility], SUPERVISORY TRAINING SPECIALIST.RESEARCH ENGINEER [address] [place] [address] [facility] [address] [place] [address] Referral ID Status Reason Start Date Expiration Date Visits Requested Visits Authorized [id number] Pending Review Auto-Generat ed Referral 12/10/2023 12/09/2024 1 1 [facility] for referral (narrative)* Outpatient Procedure (Routine) - Closed Specialty Diagnoses / Procedures Referred By [place] t Referred To Contact [facility] Diagnoses Exertional chest pain Procedures STRESS ECHO TREADMILL ECHO TTHRC R-T 2D W/WO M-MODE COMPLETE REST&ST Ponce, Stuart, SUPERVISORY TRAINING SPECIALIST.RESEARCH ENGINEER [address] [place] [address] [facility] [address] [place] [address] Referral ID Status Reason Start Date Expiration Date V isits Requested Visits Authorized [id number] Closed Auto-Generate d Referral 12/31/2023 10/04/2024 1 1 [facility] for referral (narrative)* Diagnostic Procedure Only (Routine) - Pending Review Specialty Diagnoses / Procedures Referred By Contac t Referred To Contact [facility] Diagnoses Screening mammogram for breast cancer Procedures GEOVANNI SCREENING W MO SCREENING DIGITAL BREAST TOMOSYNTHESIS BI SCREENING MAMMOGRAPHY BI 2-VIEW BREAST INC CAD Murphy Henley MD [address] [place] [address] [facility] [address] [place] [address] Referral ID Status Reason Start Date Expiration Date Visits Requested Visits Authorized [id number] Pending Review Auto-Generat ed Referral 04/05/2024 05/01/2025 1 1 [facility] for referral (narrative)* Diagnostic Procedure Only (Routine) - Closed Specialty Diagnoses / Procedures Referred By Contac t Referred To Contact [facility] Diagnoses Polyarthralgia Procedures XR KNEE GENERAL 4V AP BOTH/PA BOTH/LAT/MERC BILATERAL RADIOLOGIC EXAM KNEE COMPLETE 4/[place] [address] [place] [address] [place] [address] Referral ID Status Reason Start Date Expiration Date V isits Requested Visits Authorized [id number] Closed Auto-Generate d Referral 05/13/2024 06/12/2025 1 1 * Diagnostic Procedure Only (Routine) - Closed Specialty Diagnoses / Procedures Referred By Contac t Referred To Contact [facility] Diagnoses HARVINDER positive Bilateral hand pain 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 Procedures XR SACROILIAC JOINTS 2V AP PELVIS/FERGUESON RADIOLOGIC EXAMINATION SACROILIAC JNTS <3 [place]IEWS [place], [place] [address] [place] [address] [place] [address] Referral ID Status Reason Start Date Expiration Date V isits Requested Visits Authorized [id number] Closed Auto-Generate d Referral 05/13/2024 06/12/2025 1 1 * Diagnostic Procedure Only (Routine) - Closed Specialty Diagnoses / Procedures Referred By Contac t Referred To Contact [facility] Diagnoses HARVINDER positive Bilateral hand pain 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 Procedures XR HAND GENERAL 3V PA/LAT/OBL BILATERAL RADEX HAND MINIMUM 3 VIEWS [place] Pablo [place] [id number] [place] [address] [place] [address] Referral ID Status Reason Start Date Expiration Date V isits Requested Visits Authorized [id number] Closed Auto-Generate d Referral 05/13/2024 06/12/2025 1 1 * Diagnostic Procedure Only (Routine) - Closed Specialty Diagnoses / Procedures Referred By Contac t Referred To Contact [facility] Diagnoses HARVINDER positive Bilateral hand pain 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 Procedures XR FOOT GENERAL 3V AP/LAT/OBL BILATERAL RADEX FOOT COMPLETE MINIMUM 3 [place] [address] [place] [address] [place] [address] Referral ID Status Reason Start Date Expiration Date V isits Requested Visits Authorized [id number] Closed Auto-Generate d Referral 05/13/2024 06/12/2025 1 1 [facility] for referral (narrative)* Diagnostic Procedure Only (Routine) - New Request Specialty Diagnoses / Procedures Referred By Contac t Referred To Contact [facility] Diagnoses Bilateral hand pain HARVINDER positive Procedures US HAND/WRIST SYNOVIAL SCREEN LEFT US COMPL JOINT R-T W/[place] [address] [place] [address] [place] [address] Referral ID Status Reason Start Date Expiration Date Visits Requested Visits Authorized [id number] New Request Auto-Generat ed Referral 06/07/2024 07/07/2025 1 1 * Diagnostic Procedure Only (Routine) - New Request Specialty Diagnoses / Procedures Referred By Contac t Referred To Contact [facility] Diagnoses Bilateral hand pain HARVINDER positive Procedures US HAND/WRIST SYNOVIAL SCREEN RIGHT US COMPL JOINT R-T W/[place] [address] [place] [address] [place] [address] Referral ID Status Reason Start Date Expiration Date Visits Requested Visits Authorized [id number] New Request Auto-Generat ed Referral 06/07/2024 07/07/2025 1 1 [facility] for referral (narrative)* Diagnostic Procedure Only (Routine) - Closed Specialty Diagnoses / Procedures Referred By Contac t Referred To Contact [facility] Diagnoses HARVINDER positive Bilateral hand pain 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 Procedures XR SACROILIAC JOINTS 2V AP PELVIS/FERGUESON RADIOLOGIC EXAMINATION SACROILIAC JNTS <3 [place] [address] [place] [id number] [place] [address] Referral ID Status Reason Start Date Expiration Date V isits Requested Visits Authorized [id number] Closed Auto-Generate d Referral 05/13/2024 06/12/2025 1 1 * Diagnostic Procedure Only (Routine) - Closed Specialty Diagnoses / Procedures Referred By Contac t Referred To Contact [facility] Diagnoses HARVINDER positive Bilateral hand pain 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 Procedures XR HAND GENERAL 3V PA/LAT/OBL BILATERAL RADEX HAND MINIMUM 3 [place] [address] [place] [address] [place] [address] Referral ID Status Reason Start Date Expiration Date V isits Requested Visits Authorized [id number] Closed Auto-Generate d Referral 05/13/2024 06/12/2025 1 1 * Diagnostic Procedure Only (Routine) - Closed Specialty Diagnoses / Procedures Referred By Contac t Referred To Contact [facility] Diagnoses HARVINDER positive Bilateral hand pain 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 Procedures XR FOOT GENERAL 3V AP/LAT/OBL BILATERAL RADEX FOOT COMPLETE MINIMUM 3 [place] [address] [place] [address] [place] [id number] Referral ID Status Reason Start Date Expiration Date V isits Requested Visits Authorized [id number] Closed Auto-Generate d Referral 05/13/2024 06/12/2025 1 1 * Diagnostic Procedure Only (Routine) - Closed Specialty Diagnoses / Procedures Referred By Contac t Referred To Contact XR IMAGING Diagnoses Polyarthralgia Procedures XR KNEE GENERAL 4V AP BOTH/PA BOTH/LAT/MERC BILATERAL RADIOLOGIC EXAM KNEE COMPLETE 4/[place] [address] [place] [address] [place] [address] Referral ID Status Reason Start Date Expiration Date V isits Requested Visits Authorized [id number] Closed Auto-Generate d Referral 05/13/2024 06/12/2025 1 1 [facility]No reason for referral information [facility] Work Phone: Reason for visit Narrative* Diagnostic Procedure Only (Routine) - Closed Specialty Diagnoses / Procedures Referred By Contac t Referred To Contact BR IMAGING Diagnoses Breast cancer screening by mammogram Dense breasts Procedures GEOVANNI SCREENING W MO SCREENING DIGITAL BREAST TOMOSYNTHESIS BI SCREENING MAMMOGRAPHY BI 2-VIEW BREAST INC Murphy Massey MD [address] [place] [address] Br Imaging [address] [place] [address] Referral ID Status Reason Start Date Expiration Date V isits Requested Visits Authorized [id number] Closed Auto-Generate d Referral 03/10/2023 04/08/2024 1 1 [facility] for visit Narrative* Outpatient Procedure (Routine) - Closed Specialty Diagnoses / Procedures Referred By Harika t Referred To Contact [facility] Diagnoses Exertional chest pain Procedures STRESS ECHO TREADMILL ECHO TTHRC R-T 2D W/WO M-MODE COMPLETE REST&ST Ponce, Stuart, SUPERVISORY TRAINING SPECIALIST.RESEARCH ENGINEER [address] [place] [id number] [facility] [address] [place] [address] Referral ID Status Reason Start Date Expiration Date V isits Requested Visits Authorized [id number] Closed Auto-Generate d Referral 12/31/2023 10/04/2024 1 1 [facility] for visit Narrative* Diagnostic Procedure Only (Routine) - Closed Specialty Diagnoses / Procedures Referred By Harika t Referred To Contact BR IMAGING Diagnoses Screening mammogram for breast cancer Procedures GEOVANNI SCREENING W MO SCREENING DIGITAL BREAST TOMOSYNTHESIS BI SCREENING MAMMOGRAPHY BI 2-VIEW BREAST INC Murphy Massey MD [address] [place] [address] Br Imaging [address] [place] [phone] Referral ID Status Reason Start Date Expiration Date V isits Requested Visits Authorized [id number] Closed Auto-Generate d Referral 04/05/2024 05/01/2025 1 1 [facility] for visit Narrative* Diagnostic Procedure Only (Routine) - Closed Specialty Diagnoses / Procedures Referred By Ducac t Referred To Contact XR IMAGING Diagnoses Polyarthralgia Procedures XR KNEE GENERAL 4V AP BOTH/PA BOTH/LAT/MERC BILATERAL RADIOLOGIC EXAM KNEE COMPLETE /[place] [address] [place] [address] Xr Imaging [place] [address] Referral ID Status Reason Start Date Expiration Date V isits Requested Visits Authorized [id number] Closed Auto-Generate d Referral 05/13/2024 06/12/2025 1 1 [facility] Advance Directives No Advanced Directives Records FoundDocuments on File Type Date Recorded 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 Advance Directive(s) 11/19/2020 7:50 AM Advance Directive(s) 10/24/2020 10:50 AM Documents on File Type Date Recorded 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 Advance Directive(s) 11/19/2020 7:50 AM Advance Directive(s) 10/24/2020 10:50 AM Advance Directive Response Recorded Date/ Time Name of Medical Power of Milk Route Deliverer Ryan Early August 09, 2023 11:56pm Living Will Yes August 09 11:56pm Power of Milk Route Deliverer Yes August 09, 2023 11:56pm Advance Directive Response Recorded Date/ Time Name of Medical Power of Milk Route Deliverer Ryan Jose Mbroderick August 09, 2023 11:56pm Name of Medical Power of Milk Route Deliverer Montse Valencia December 07, 2023 2:14pm Living Will Yes December 07, 2023 2:14pm Power of Milk Route Deliverer Yes December 06 2:14pm Advance Directive Response Recorded Date/ Time Living Will Yes December 07, 2023 3:14pm Power of Milk Route Deliverer Yes December 06 3:14pm Name of Medical Power of Milk Route Deliverer Montse Valencia December 07, 2023 3:14pm Reason for Referral Specialty Diagnoses / Procedures Referred By Contac t Referred To Contact Murphy Henley MD [address] [place] [address] Referral ID Status Reason Start Date Expiration Date Visits Re quested Visits Authorized [id number] Denied 1 1 Specialty Diagnoses / Procedures Referred By Contac t Referred To Contact Rheumatology Diagnoses Elevated antinuclear antibody (HARVINDER) level Procedures CONSULT TO RHEUM/IMMUN DISEASE OFFICE/OUTPATIENT [facility] 60-74 MINUTES Kevin Perales APRN.CRAYON MOLDING MACHINE OPERATOR [address] [place] [address] [place] [address] [place] [address] Referral ID Status Reason Start Date Expiration Date Visits Requested Visits Authorized [id number] Authorized PCP Requested Referral 04/27/2023 09/13/2023 1 1 Specialty Diagnoses / Procedures Referred By Contac t Referred To Contact Nephrology Diagnoses Stage 3a chronic kidney disease (HCC) Procedures CONSULT TO NEPHROLOGY OFFICE/OUTPATIENT [facility] 60-74 MINUTES Murphy Henley MD [address] [place] [address] Referral ID Status Reason Start Date Expiration Date Visits Requested Visits Authorized [id number] Authorized PCP Requested Referral 07/10/2023 07/09/2024 1 1 Referral ID Status Reason Start Date Expiration Date Visits Requested Visits Authorized [id number] Authorized PCP Requested Referral 07/14/2024 1 1 Specialty Diagnoses / Procedures Referred By Contac t Referred To Contact Rheumatology Diagnoses HARVINDER positive Bilateral hand pain Procedures CONSULT TO RHEUM/IMMUN DISEASE OFFICE/OUTPATIENT [facility] 60 MINUTES Stuart Ponce APRN.CNS [address] [place] [phone] Referral ID Status Reason Start Date Expiration Date Visits Requested Visits Authorized [id number] Authorized PCP Requested Referral 01/12/2024 01/11/2025 1 1 Chief Complaint and Reason for Visit Chief Complaint NEED Nadiya BELL WAS CALLING OFFICE Chief Complaint NEED Nadiya BELL WAS CALLING OFFICE URINALYSIS left foot injury Chief Complaint left foot injury chest pain Chief Complaint chest pain Chief Complaint Admit Date CP/PALPS (DIAZ) February 22, 2025 12:51 pm Chief Complaint Admit Date CP/PALPS (DIAZ) February 22, 2025 12:51 pm E-ORDER NEED ORDER February 22, 2025 1:57p m Reason for Visit Admit Date Palpitations February 22, 2025 12:51 pm SOB (shortness of breath) February 22, 2025 12:51pm Summary Purpose Family History No Family History Records Found Relationship Condition Age at Onset Recorded Date/T supa mother Atrial fibrillation Unknown father Congestive heart failure Unknown Additional Source Comments Source Comments (unrecognize d section and content) In the event this informatio n is protected by the Federal Confidentiality of Alcohol and Drug Abuse Patient Records regulations: The Federal rules restrict any use of the information to criminally investigate or prosecute any alcohol or drug abuse patient.[facility] the event this information is protected by the Federal Confidentiality of Alcohol and Drug Abuse Patient Records regulations: The Federal rules restrict any use of the information to criminally investigate or prosecute any alcohol or drug abuse patient.[facility] the event this information is protected by the Federal Confidentiality of Alcohol and Drug Abuse Patient Records regulations: The Federal rules restrict any use of the information to criminally investigate or prosecute any alcohol or drug abuse patient.[facility] the event this information is protected by the Federal Confidentiality of Alcohol and Drug Abuse Patient Records regulations: The Federal rules restrict any use of the information to criminally investigate or prosecute any alcohol or drug abuse patient.[facility] the event this information is protected by the Federal Confidentiality of Alcohol and Drug Abuse Patient Records regulations: The Federal rules restrict any use of the information to criminally investigate or prosecute any alcohol or drug abuse patient.[facility] the event this information is protected by the Federal Confidentiality of Alcohol and Drug Abuse Patient Records regulations: The Federal rules restrict any use of the information to criminally investigate or prosecute any alcohol or drug abuse patient.[facility] Hospital[facility] the event this information is protected by the Federal Confidentiality of Alcohol and Drug Abuse Patient Records regulations: The Federal rules restrict any use of the information to criminally investigate or prosecute any alcohol or drug abuse patient.[facility] Hospital[facility] the event this information is protected by the Federal Confidentiality of Alcohol and Drug Abuse Patient Records regulations: The Federal rules restrict any use of the information to criminally investigate or prosecute any alcohol or drug abuse patient.[facility] Hospital[facility] the event this information is protected by the Federal Confidentiality of Alcohol and Drug Abuse Patient Records regulations: The Federal rules restrict any use of the information to criminally investigate or prosecute any alcohol or drug abuse patient.[facility] Hospital[facility] the event this information is protected by the Federal Confidentiality of Alcohol and Drug Abuse Patient Records regulations: The Federal rules restrict any use of the information to criminally investigate or prosecute any alcohol or drug abuse patient.[facility] HospitalIn the event this information is protected by the Federal Confidentiality of Alcohol and Drug Abuse Patient Records regulations: The Federal rules restrict any use of the information to criminally investigate or prosecute any alcohol or drug abuse patient.[facility] Hospital[facility] the event this information is protected by the Federal Confidentiality of Alcohol and Drug Abuse Patient Records regulations: The Federal rules restrict any use of the information to criminally investigate or prosecute any alcohol or drug abuse patient.[facility] HospitalIn the event this information is protected by the Federal Confidentiality of Alcohol and Drug Abuse Patient Records regulations: The Federal rules restrict any use of the information to criminally investigate or prosecute any alcohol or drug abuse patient.[facility] HospitalIn the event this information is protected by the Federal Confidentiality of Alcohol and Drug Abuse Patient Records regulations: The Federal rules restrict any use of the information to criminally investigate or prosecute any alcohol or drug abuse patient.[facility] Hospital[facility] the event this information is protected by the Federal Confidentiality of Alcohol and Drug Abuse Patient Records regulations: The Federal rules restrict any use of the information to criminally investigate or prosecute any alcohol or drug abuse patient.[facility] HospitalIn the event this information is protected by the Federal Confidentiality of Alcohol and Drug Abuse Patient Records regulations: The Federal rules restrict any use of the information to criminally investigate or prosecute any alcohol or drug abuse patient.[facility] HospitalIn the event this information is protected by the Federal Confidentiality of Alcohol and Drug Abuse Patient Records regulations: The Federal rules restrict any use of the information to criminally investigate or prosecute any alcohol or drug abuse patient.[facility] HospitalIn the event this information is protected by the Federal Confidentiality of Alcohol and Drug Abuse Patient Records regulations: The Federal rules restrict any use of the information to criminally investigate or prosecute any alcohol or drug abuse patient.[facility] HospitalIn the event this information is protected by the Federal Confidentiality of Alcohol and Drug Abuse Patient Records regulations: The Federal rules restrict any use of the information to criminally investigate or prosecute any alcohol or drug abuse patient.[facility] HospitalIn the event this information is protected by the Federal Confidentiality of Alcohol and Drug Abuse Patient Records regulations: The Federal rules restrict any use of the information to criminally investigate or prosecute any alcohol or drug abuse patient.[facility] HospitalIn the event this information is protected by the Federal Confidentiality of Alcohol and Drug Abuse Patient Records regulations: The Federal rules restrict any use of the information to criminally investigate or prosecute any alcohol or drug abuse patient.[facility] HospitalIn the event this information is protected by the Federal Confidentiality of Alcohol and Drug Abuse Patient Records regulations: The Federal rules restrict any use of the information to criminally investigate or prosecute any alcohol or drug abuse patient.[facility] HospitalIn the event this information is protected by the Federal Confidentiality of Alcohol and Drug Abuse Patient Records regulations: The Federal rules restrict any use of the information to criminally investigate or prosecute any alcohol or drug abuse patient.[facility] HospitalIn the event this information is protected by the Federal Confidentiality of Alcohol and Drug Abuse Patient Records regulations: The Federal rules restrict any use of the information to criminally investigate or prosecute any alcohol or drug abuse patient.[facility] HospitalIn the event this information is protected by the Federal Confidentiality of Alcohol and Drug Abuse Patient Records regulations: The Federal rules restrict any use of the information to criminally investigate or prosecute any alcohol or drug abuse patient.[facility] HospitalIn the event this information is protected by the Federal Confidentiality of Alcohol and Drug Abuse Patient Records regulations: The Federal rules restrict any use of the information to criminally investigate or prosecute any alcohol or drug abuse patient.[facility] HospitalIn the event this information is protected by the Federal Confidentiality of Alcohol and Drug Abuse Patient Records regulations: The Federal rules restrict any use of the information to criminally investigate or prosecute any alcohol or drug abuse patient.[facility] HospitalIn the event this information is protected by the Federal Confidentiality of Alcohol and Drug Abuse Patient Records regulations: The Federal rules restrict any use of the information to criminally investigate or prosecute any alcohol or drug abuse patient.[facility] HospitalIn the event this information is protected by the Federal Confidentiality of Alcohol and Drug Abuse Patient Records regulations: The Federal rules restrict any use of the information to criminally investigate or prosecute any alcohol or drug abuse patient.[facility] HospitalIn the event this information is protected by the Federal Confidentiality of Alcohol and Drug Abuse Patient Records regulations: The Federal rules restrict any use of the information to criminally investigate or prosecute any alcohol or drug abuse patient.[facility] HospitalIn the event this information is protected by the Federal Confidentiality of Alcohol and Drug Abuse Patient Records regulations: The Federal rules restrict any use of the information to criminally investigate or prosecute any alcohol or drug abuse patient.[facility] HospitalIn the event this information is protected by the Federal Confidentiality of Alcohol and Drug Abuse Patient Records regulations: The Federal rules restrict any use of the information to criminally investigate or prosecute any alcohol or drug abuse patient.[facility] HospitalIn the event this information is protected by the Federal Confidentiality of Alcohol and Drug Abuse Patient Records regulations: The Federal rules restrict any use of the information to criminally investigate or prosecute any alcohol or drug abuse patient.[facility] HospitalIn the event this information is protected by the Federal Confidentiality of Alcohol and Drug Abuse Patient Records regulations: The Federal rules restrict any use of the information to criminally investigate or prosecute any alcohol or drug abuse patient.[facility] HospitalIn the event this information is protected by the Federal Confidentiality of Alcohol and Drug Abuse Patient Records regulations: The Federal rules restrict any use of the information to criminally investigate or prosecute any alcohol or drug abuse patient.[facility] HospitalIn the event this information is protected by the Federal Confidentiality of Alcohol and Drug Abuse Patient Records regulations: The Federal rules restrict any use of the information to criminally investigate or prosecute any alcohol or drug abuse patient.[facility] HospitalIn the event this information is protected by the Federal Confidentiality of Alcohol and Drug Abuse Patient Records regulations: The Federal rules restrict any use of the information to criminally investigate or prosecute any alcohol or drug abuse patient.[facility] HospitalIn the event this information is protected by the Federal Confidentiality of Alcohol and Drug Abuse Patient Records regulations: The Federal rules restrict any use of the information to criminally investigate or prosecute any alcohol or drug abuse patient.[facility] HospitalIn the event this information is protected by the Federal Confidentiality of Alcohol and Drug Abuse Patient Records regulations: The Federal rules restrict any use of the information to criminally investigate or prosecute any alcohol or drug abuse patient.[facility] HospitalIn the event this information is protected by the Federal Confidentiality of Alcohol and Drug Abuse Patient Records regulations: The Federal rules restrict any use of the information to criminally investigate or prosecute any alcohol or drug abuse patient.[facility] HospitalIn the event this information is protected by the Federal Confidentiality of Alcohol and Drug Abuse Patient Records regulations: The Federal rules restrict any use of the information to criminally investigate or prosecute any alcohol or drug abuse patient.[facility] HospitalIn the event this information is protected by the Federal Confidentiality of Alcohol and Drug Abuse Patient Records regulations: The Federal rules restrict any use of the information to criminally investigate or prosecute any alcohol or drug abuse patient.[facility] HospitalIn the event this information is protected by the Federal Confidentiality of Alcohol and Drug Abuse Patient Records regulations: The Federal rules restrict any use of the information to criminally investigate or prosecute any alcohol or drug abuse patient.[facility] HospitalIn the event this information is protected by the Federal Confidentiality of Alcohol and Drug Abuse Patient Records regulations: The Federal rules restrict any use of the information to criminally investigate or prosecute any alcohol or drug abuse patient.[facility] HospitalIn the event this information is protected by the Federal Confidentiality of Alcohol and Drug Abuse Patient Records regulations: The Federal rules restrict any use of the information to criminally investigate or prosecute any alcohol or drug abuse patient.[facility] HospitalIn the event this information is protected by the Federal Confidentiality of Alcohol and Drug Abuse Patient Records regulations: The Federal rules restrict any use of the information to criminally investigate or prosecute any alcohol or drug abuse patient.[facility] HospitalIn the event this information is protected by the Federal Confidentiality of Alcohol and Drug Abuse Patient Records regulations: The Federal rules restrict any use of the information to criminally investigate or prosecute any alcohol or drug abuse patient.[facility] Care Teams (unrecognized sec tion and content) Cutter Machine Tender Relationship Specialty Start Date End Date Murphy Henley MD [address] [place] [phone] PCP - General 02/21/08 Cutter Machine Tender Relationship Specialty Start Date End Date Murphy Henley MD [address] [place] [phone] PCP - General 02/21/08 Cutter Machine Tender Relationship Specialty Start Date End Date Murphy Henley MD [address] [place] [phone] PCP - General 02/21/08 Cutter Machine Tender Relationship Specialty Start Date End Date Murphy Henley MD [address] [place] [phone] PCP - General 02/21/08 Cutter Machine Tender Relationship Specialty Start Date End Date Murphy Henley MD [address] [place] [address] [place] [address] PCP - General 02/21/08 Cutter Machine Tender Relationship Specialty Start Date End Date Murphy Henley MD [address] [place] [address] [place] [address] PCP - General 02/21/08 Cutter Machine Tender Relationship Specialty Start Date End Date Murphy Henley MD [address] [place] [address] PCP - General 02/21/08 Team Status: Active Member Role Status Dates Dr. Murphy Henley MD Family Provider Active Dr. Murphy Henley MD Primary Care Provider Active Team Status: Inactive Member Role Status Dates Dr. Murphy Henley MD Primary Care Provider Active JESSICA PEARCE Attending Provider, Referring Provide r Active Cutter Machine Tender Relationship Specialty Start Date End Date Murphy Henley MD [address] [place] [address] PCP - General 02/21/08 Cutter Machine Tender Relationship Specialty [place] [address] [place] [id number] PCP - General 02/21/08 Cutter Machine Tender Relationship Specialty Start Date End Date Murphy Henley MD [address] [place] [address] PCP - General 02/21/08 Cutter Machine Tender Relationship Specialty Start Date End Date Murphy Henley MD [address] [place] [address] PCP - General 02/21/08 Cutter Machine Tender Relationship Specialty Start Date End Date Murphy Henley MD [address] [place] [address] PCP - General 02/21/08 Cutter Machine Tender Relationship Specialty Start Date End Date Murphy Henley MD [address] [place] [id number] PCP - General 02/21/08 Cutter Machine Tender Relationship Specialty Start Date End Date Murphy Henley MD [address] [place] [phone] PCP - General 02/21/08 Cutter Machine Tender Relationship Specialty Start Date End Date Murphy Henley MD [address] [place] [address] PCP - General 02/21/08 Cutter Machine Tender Relationship Specialty Start Date End Date Murphy Henley MD [address] [place] [address] PCP - General 02/21/08 Cutter Machine Tender Relationship Specialty [place] [address] [place] [id number] PCP - General 02/21/08 Cutter Machine Tender Relationship Specialty Start Date End Date Murphy Henley MD [address] [place] [address] PCP - General 02/21/08 Team Status: Inactive Member Role Status Dates Dr. Murphy Henley MD Primary Care Provider Active Dr. Tomer King DO Emergency Provider Active Team Status: Inactive Member Role Status Dates Dr. Murphy Henley MD Primary Care Provider Active Dr. Tomer King DO Attending Provider, Emergency P nathaniel Active Cutter Machine Tender Relationship Specialty Start Date End Date Murphy Henley MD [address] [place] [address] PCP - General 02/21/08 Cutter Machine Tender Relationship Specialty Start Date End Date Murphy Henley MD [address] [place] [address] PCP - General 02/21/08 Cutter Machine Tender Relationship Specialty Start Date End Date Murphy Henley MD [address] [facility] [place] [address] PCP - General 02/21/08 Cutter Machine Tender Relationship Specialty Start Date End Date Murphy Henley MD [address] [facility] [place] [address] PCP - General 02/21/08 Cutter Machine Tender Relationship Specialty Start Date End Date Murphy Henley MD [address] [place] [address] PCP - General 02/21/08 Cutter Machine Tender Relationship Specialty Start Date End Date Murphy Henley MD [address] [place] [address] PCP - General 02/21/08 Cutter Machine Tender Relationship Specialty Start Date End Date Murphy Henley MD [address] [place] [address] PCP - General 02/21/08 Cutter Machine Tender Relationship Specialty Start Date End Date Murphy Henley MD [address] [place] [address] PCP - General 02/21/08 Cutter Machine Tender Relationship Specialty Start Date End Date Murphy Henley MD [address] [place] [address] PCP - General 02/21/08 Cutter Machine Tender Relationship Specialty Start Date End Date Murphy Henley MD [address] [place] [address] PCP - General 02/21/08 Cutter Machine Tender Relationship Specialty Start Date End Date Murphy Henley MD [address] [facility] [place] [address] PCP - General 02/21/08 Cutter Machine Tender Relationship Specialty Start Date End Date Murphy Henley MD [address] [place] [address] PCP - General 02/21/08 Cutter Machine Tender Relationship Specialty Start Date End Date Murphy Henley MD [address] [place] [address] PCP - General 02/21/08 Stuart Ponce, SUPERVISORY TRAINING SPECIALIST.RESEARCH ENGINEER [address] [place] [address] [facility] Internal Medicine 09/12/24 Kevin Perales SUPERVISORY TRAINING SPECIALIST.CRAYON MOLDING MACHINE OPERATOR [address] [place] [address] Laboratory [facility] Internal Medicine 09/12/24 Cutter Machine Tender Relationship Specialty Start Date End Date Murphy Henley MD [address] [place] [address] PCP - General 02/21/08 Stuart Ponce, SUPERVISORY TRAINING SPECIALIST.RESEARCH ENGINEER [address] [place] [address] Laboratory Apparatus [facility] Internal Medicine 09/12/24 Kevin Perales SUPERVISORY TRAINING SPECIALIST.CRAYON MOLDING MACHINE OPERATOR [address] [place] [address] Laboratory Apparatus [facility] Internal Medicine 12/27/24 Cutter Machine Tender Relationship Specialty Start Date End Date Murphy Henley MD [address] [place] [address] PCP - General 02/21/08 Stuart Ponce, SUPERVISORY TRAINING SPECIALIST.RESEARCH ENGINEER [address] [facility] [place] [address] Laboratory Apparatus [facility] Internal Medicine 09/12/24 Kevin Perales SUPERVISORY TRAINING SPECIALIST.CRAYON MOLDING MACHINE OPERATOR [address] [facility] [place] [address] Laboratory Apparatus [facility] Internal Medicine 12/27/24 Cutter Machine Tender Relationship Specialty Start Date End Date Murphy Henley MD [address] [facility] [place] [address] PCP - General 02/21/08 Stuart Ponce, SUPERVISORY TRAINING SPECIALIST.RESEARCH ENGINEER [address] [facility] [place] [address] Laboratory Apparatus [facility] Internal Medicine 09/12/24 Kevin Perales SUPERVISORY TRAINING SPECIALIST.CRAYON MOLDING MACHINE OPERATOR [address] [facility] [place] [address] Laboratory Apparatus [facility] Internal Medicine 12/27/24 Cutter Machine Tender Relationship Specialty Start Date End Date Murphy Henley MD [address] [facility] [place] [address] PCP - General 02/21/08 Stuart Ponce, SUPERVISORY TRAINING SPECIALIST.RESEARCH ENGINEER [address] [facility] [place] [address] Laboratory Apparatus [facility] Internal Medicine 09/12/24 Kevin Perales SUPERVISORY TRAINING SPECIALIST.CRAYON MOLDING MACHINE OPERATOR [address] [facility] [place] [address] Laboratory Apparatus [facility] Internal Medicine 12/27/24 Cutter Machine Tender Relationship Specialty Start Date End Date Murphy Henley MD [address] [facility] [place] [address] PCP - General 02/21/08 Stuart Ponce, SUPERVISORY TRAINING SPECIALIST.RESEARCH ENGINEER [address] [facility] [place] [address] Laboratory Apparatus [facility] Internal Medicine 09/12/24 Kevin Perales SUPERVISORY TRAINING SPECIALIST.CRAYON MOLDING MACHINE OPERATOR [address] [facility] [place] [address] [facility] Internal Medicine 12/27/24 Cutter Machine Tender Relationship Specialty Start Date End Date Murphy Henley MD [address] [facility] [place] [address] PCP - General 02/21/08 Stuart Ponce, SUPERVISORY TRAINING SPECIALIST.RESEARCH ENGINEER [address] [facility] [place] [address] Laboratory Apparatus [facility] Internal Medicine 09/12/24 Kevin Perales SUPERVISORY TRAINING SPECIALIST.CRAYON MOLDING MACHINE OPERATOR [address] [facility] [place] [address] [facility] Internal Medicine 12/27/24 Cutter Machine Tender Relationship Specialty Start Date End Date Murphy Henley MD [address] [facility] [place] [address] PCP - General 02/21/08 Stuart Ponce, SUPERVISORY TRAINING SPECIALIST.RESEARCH ENGINEER [address] [facility] [place] [address] Laboratory Appar[facility] Internal Medicine 09/12/24 Diaz, Kevin, SUPERVISORY TRAINING SPECIALIST.CRAYON MOLDING MACHINE OPERATOR [address] [facility] [place] [address] Laboratory [facility] Internal Medicine 12/27/24 Team Status: Inactive Member Role Status Dates Dr. Murphy Henley MD Primary Care Provider Active Start: February 22, 2025 End: February 22, 2025 Dr. Murphy Henley MD Referring Provider Active Start: February 22, 2025 End: February 22, 2025 Dr. Manan Brown MD Attending Provider Active S tart: February 22, 2025 End: February 22, 2025 Team Status: Active Member Role Status Dates Dr. Murphy Henley MD Primary Care Provider Active Team Status: Inactive Member Role Status Dates Dr. Murphy Henley MD Primary Care Provider Active Start: February 22, 2025 End: February 22, 2025 Manan TORREZ MD Attending Provider Active St art: February 22, 2025 End: February 22, 2025 Dr. Manan Brown MD Referring Provider Active S tart: February 22, 2025 End: February 22, 2025 Cutter Machine Tender Relationship Specialty Start Date End Date Murphy Henley MD [address] [facility], [place] [address] PCP - General 02/21/08 Kevin Perales, SUPERVISORY TRAINING SPECIALIST.CRAYON MOLDING MACHINE OPERATOR [address] [facility] [place] [address] Laboratory Apparatus [facility] Internal Medicine 12/27/24 Stuart Ponce, SUPERVISORY TRAINING SPECIALIST.RESEARCH ENGINEER [address] [facility], [place] [address] [facility] Internal Medicine 02/22/25 Cutter Machine Tender Relationship Specialty Start Date End Date Murphy Henley MD [address] [facility], [place] [address] PCP - General 02/21/08 Kevin Perales SUPERVISORY TRAINING SPECIALIST.CRAYON MOLDING MACHINE OPERATOR [address] [place], [place] [address] Laboratory [facility] Internal Medicine 12/27/24 Stuart Ponce APRN.RESEARCH ENGINEER [address] [place], [place] [address] [facility] Internal Medicine 02/22/25 Cutter Machine Tender Relationship Specialty Start Date End Date Murphy Henley MD [address] [place], [place] [id number] PCP - General 02/21/08 Kevin Perales APRN.CRAYON MOLDING MACHINE OPERATOR [address] [place], [place] [address] [facility] Internal Medicine 12/27/24 Stuart Ponce APRN.RESEARCH ENGINEER [address] [place], [place] [address] [facility] Internal Medicine 02/22/25 Reason for Visit (unrecogniz ed section and content) Reason Comments Insurance Authorization Reason Comments Results Reason Comments Recheck Follow up, lab work Reason Comments F/U 6 months Reason Comments Lab order request Reason Onset Date Comments Refill Request 02/15/2023 Reason Comments Follow Up Reason Onset Date Comments EMG 04/10/2023 Specialty Diagnoses / Procedures Referred By Harika taylor Referred To Contact [facility] Diagnoses Carpal tunnel syndrome of left wrist Right hand pain Left arm pain Stiffness of joints of both hands Procedures EMG(NEURO/NI) NERVE CONDUCTION STUDIES 9-10 STUDIES Murphy Henley MD [address] [place] [address] [facility] [address] [place] [address] Referral ID Status Reason Start Date Expiration Date V isits Requested Visits Authorized [id number] Closed Auto-Generate d Referral 04/01/2023 10/04/2023 1 1 Reason Comments Results Consult Reason Comments Consult Specialty Diagnoses / Procedures Referred By Contac t Referred To Contact Nephrology Diagnoses Stage 3a chronic kidney disease (HCC) Procedures CONSULT TO NEPHROLOGY OFFICE/OUTPATIENT [facility] 60-74 MINUTES Murphy Henley MD [address] [place] [address] Referral ID Status Reason Start Date Expiration Date V isits Requested Visits Authorized [id number] Closed PCP Requested Referral 07/10/2023 07/09/2024 1 1 Reason Comments Radiology US Specialty Diagnoses / Procedures Referred By Contac t Referred To Contact US IMAGING Diagnoses Stage 3a chronic kidney disease (HCC) Procedures US KIDNEY/BLADDER US RETROPERITONEAL REAL TIME W/IMAGE COMPLETE Mariam Pham, RANDI [address] [place] [address] [facility] [place] [address] Referral ID Status Reason Start Date Expiration Date V isits Requested Visits Authorized [id number] Closed Auto-Generate d Referral 07/28/2023 08/26/2024 1 1 Reason Comments Hospital F/U Reason Comments Medication Problem Reason Comments Reminder Call Reason Comments Follow Up Reason Comments F/U 6 months Labs prior Reason Comments New Patient Specialty Diagnoses / Procedures Referred By Contac t Referred To Contact Rheumatology Diagnoses HARVINDER positive Bilateral hand pain Procedures CONSULT TO RHEUM/IMMUN DISEASE OFFICE/OUTPATIENT [facility] 60 MINUTES Stuart Ponce APRN.CNS [address] [place] [address] Referral ID Status Reason Start Date Expiration Date V isits Requested Visits Authorized [id number] Closed PCP Requested Referral 01/12/2024 01/11/2025 1 1 Reason Comments Joint Pain Reason Comments F/U 6 months Labs prior Reason Comments chest tightness has had 3 episodes t he first episode did go to [facility] ER and cardiac was ruled outstates she does drink about 8 or more glasses of water a day and did take two electrolyte tablet and glasses of water which did helpNot sure if symptoms are related to thyroid or muscle strain from working out with weight twice a week. Reason Comments Sleep Problem Concerned about slee p apnea, has had 2 sleep studies done Reason Comments FMLA Paperwork Reason Comments Sinusitis Patient is here for sinus congestion that has been going on for years but has gotten worse after menopause. She does use a nose spray that used to help but not so much anymore. She also feels that she is now having problems with sleep apnea, she has appointments upcoming to determine if she has sleep apnea. Sinus issues mostly happen on the right side. She has woken up where she just can't breathe. Her biggest issue is just not being able to breathe through her nose, her throat feels like its closing. Specialty Diagnoses / Procedures Referred By Harika taylor Referred To Contact Ent - Otolaryngology Diagnoses Nasal congestion Procedures CONSULT TO ENT OFFICE/OUTPATIENT [facility] 60 MINUTES Stuart Ponce, SUPERVISORY TRAINING SPECIALIST.RESEARCH ENGINEER [address] [place] [address] Phone: tel: fax: Referral ID Status Reason Start Date Expiration Date V isits Requested Visits Authorized [id number] Closed PCP Requested Referral 01/19/2025 01/19/2026 1 1 Reason Comments Apnea Specialty Diagnoses / Procedures Referred By Harika taylor Referred To Contact Diagnoses Other fatigue Sleep disturbance Loud snoring Procedures CONSULT TO SLEEP MEDICINE - ADULT OFFICE/OUTPATIENT [facility] 60 MINUTES Stuart Ponce, SUPERVISORY TRAINING SPECIALIST.RESEARCH ENGINEER [address] [place] [address] Phone: tel: fax: Referral ID Status Reason Start Date Expiration Date V isits Requested Visits Authorized [id number] Closed PCP Requested Referral 01/13/2025 01/13/2026 1 1 Reason Comments Fax over OV notes Home Sleep Test Reason Comments Received Outside Medical Records Reason Onset Date Comments Refill Request 03/09/2025 Goals (unrecognized section and content) Goals may be documented in a n alternate sectionGoals may be documented in an alternate sectionGoals may be documented in an alternate sectionGoals may be documented in an alternate sectionGoals may be documented in an alternate sectionGoals may be documented in an alternate sectionGoals may be documented in an alternate sectionGoals may be documented in an alternate sectionGoals may be documented in an alternate section INFORMATION SOURCE (unrecogn ized section and content) DATE CREATED AUTHOR 01/07/2024 [facility] DATE CREATED AUTHOR AUTHOR'S KENNY ISAAC 03/12/2025 [facility] DATE CREATED AUTHOR AUTHOR'S ORGANSCOTT ATION 03/14/2025 [facility] FOR RECORDS PERTAINING TO PATIENTS WHO ARE [...] BE BASED ON THE PRIMARY CLINICAL RECORDS. [facility]. provides no warranty or guarantee of the accuracy or completeness of information in this document.
[2025-03-17] MEDS: Zaleplon 5 MG Capsule PO (21:34)
== END | disposition home or self-care (01) ==
LOC: SL 19:54
PROVIDERS: PCP Internal Medicine
DX: R06.83 Snoring (principal); R53.83 Other fatigue; R00.2 Palpitations
CPT/HCPCS: 95810

== ENCOUNTER → 2025-03-23 | Outpatient (CLI) | payer BC, SELFPAY ==
--- NOTE | 2025-03-23 14:55 | CT_ITS ---
PROCEDURE: LIMITED CHEST CT CARDIAC ONLY 03/23/2025 REASON FOR EXAM: SCREEN TECHNIQUE: LIMITED CHEST CT CARDIAC ONLY One or more dose reduction techniques were used (e.g., Automated exposure control, adjustment of the mA and/or kV according to patient size, use of iterative reconstruction technique). RADIATION DOSE SUMMARY: CTDlvol: 7.6 mGy DLP: 360.06 mGycm COMPARISON: None FINDINGS: The heart is nonenlarged. No significant coronary artery calcification is seen. The lungs are clear. CT/Limited Chest CT Cardiac Only IMPRESSION: No evidence of coronary artery calcification. Reading Location: [place] [address]
--- NOTE | 2025-03-23 16:28 | CA.SCORE ---
Calcium Scoring Date of Study:: 03/23/25 Indications Indications: Family history Coronary Calcium Scoring: High-resolution Computed Tomographic imaging of the chest was performed on [03/23/2025], with particular attention paid to the coronary arteries. Images from the examination were analyzed for the presence and extent of coronary artery calcification , using coronary calcium quantification software. The patient tolerated the procedure well and there were no complications. The results of the coronary calcification analysis are provided below. Findings Coronary Artery Left Main (LM): 0 Left Anterior Descending (LAD): 0 Left Circumflex (LCX): 0 Right Coronary Artery (RCA): 0 Total Agatston Score: 0 Percentile Rankinth percentile Calcium Scoring Interpretation: Different methods to categorize the overall amount of coronary plaque. Overall amount CAC SIS Visual of coronary plaque P1 Mild -100 <2 1-2 vessels with mild amount of plaque P2 Moderate 101-300 3-4 1-2 vessels with moderate amount, 3 vessels with mild amount of plaque P3 Severe 301-999 5-7 3 vessels with moderate amount, 1 vessel with severe amount of plaque P4 Extensive >1000 >8 2-3 vessels with severe amount of plaque Conclusion: No atherosclerotic plaquing noted.
[2025-03-23 16:30] LABS: Magnesium 2.3 mg/dL (1.5-2.2)
== END | disposition home or self-care (01) ==
PROVIDERS: Student in an Organized Health Care Education/Training Program; PCP Internal Medicine; Referring Provider Internal Medicine Cardiovascular Disease; Visit Provider Internal Medicine Cardiovascular Disease
DX: R06.02 Shortness of breath (principal); I25.10 Atherosclerotic heart disease of native coronary artery without angina pectoris; E83.41 Hypermagnesemia
CPT/HCPCS: 36415; 75571; 76380; 83735

== ENCOUNTER → 2025-03-27 | Outpatient (CLI) | payer BC, SELFPAY ==
--- NOTE | 2025-03-27 09:01 | ECHOD_ITS ---
Reason For Study Reason For Study: ARRHYTHMIA Procedure This was a 2D Doppler, Color Flow transthoracic echocardiogram. Exam performed in department. Left Ventricle Normal LV size. The left ventricular ejection fraction is 60 %. No regional wall motion abnormalities noted. Right Ventricle Normal RV size. Normal systolic function. Atria Normal left atrium. Normal right atrium. Mitral Valve Normal mitral valve. Tricuspid Valve Normal tricuspid valve. Mild tricuspid valve insufficiency. Aortic Valve Trisinus/trileaflet aortic valve. Pulmonic Valve Normal pulmonic valve. Great Vessels Normal aortic root. The pulmonary artery is normal size. Inferior vena cava collapse with respiration. Pericardium/Pleural No pericardial effusion. MMode/2D Measurements & Calculations LVIDd: 4.2 cm IVSd: 0.70 cm LVOT diam: 2.1 cm LVIDs: 2.7 cm LVPWd: 0.80 cm LVOT area: 3.3 cm2 RVDd: 3.2 cm FS: 36.4 % asc Aorta Diam: 3.0 cm LAV(MOD-bp): 30.6 ml LVAd ap4: 22.7 cm2 LAV(MOD-bp) Indexed: 17.5 ml/m2 LVLd ap4: 7.7 cm LAV(MOD-sp2): 33.5 ml EDV(MOD-sp4): 56.9 ml LAV(MOD-sp4): 27.5 ml EDV(sp4-el): 56.5 ml LVAs ap4: 12.3 cm2 LVLs ap4: 5.8 cm ESV(MOD-sp4): 21.5 ml ESV(sp4-el): 22.2 ml EF(MOD-sp4): 62.2 % EF(sp4-el): 60.7 % LVAd ap2: 23.4 cm2 SV(MOD-sp4): 35.4 ml SV(MOD-sp2): 40.7 ml LVLd ap2: 7.5 cm SI(MOD-sp4): 20.2 ml/m2 SI(MOD-sp2): 23.2 ml/m2 EDV(MOD-sp2): 61.2 ml EDV(sp2-el): 62.3 ml LVAs ap2: 12.2 cm2 LVLs ap2: 6.0 cm ESV(MOD-sp2): 20.5 ml ESV(sp2-el): 21.2 ml EF(MOD-sp2): 66.5 % SV(sp4-el): 34.3 ml Ao sinus diam: 2.[address] Junction: 2.5 cm LA dimension(2D): 3.1 cm LA A4 area: 13.0 cm2 RA A4 area: 10.0 cm2 TAPSE: 1.9 cm Time Measurements MV dec time: 0.18 sec Doppler Measurements & Calculations MV E max speedy: 90.1 cm/sec Lat Peak E' Speedy: 9.3 cm/sec Med Peak E' Speedy: 12.9 cm/sec MV A max speedy: 78.5 cm/sec E/E' lat: 9.7 E/E' med: 7.0 MV E/A: 1.1 MV dec slope: 492.4 cm/sec2 Ao V2 max: 113.7 cm/sec PA V2 max: 59.6 cm/sec Ao max P.2 mmHg Ao V2 mean: 83.6 cm/sec Ao mean P.0 mmHg Ao V2 VTI: 28.2 cm TR max speedy: 152.9 cm/sec TR max P.3 mmHg ECHO/Echo Complete Interpretation Summary The left ventricular ejection fraction is 60 %. Normal LV size. Mild tricuspid valve insufficiency. Ordering Physician: Manan Brown Referring Physician: Rina De La Vega M.D. Performed By: Gloria Freeman RDCS
== END | disposition home or self-care (01) ==
LOC: CVS 08:58
PROVIDERS: PCP Internal Medicine; Referring Provider Internal Medicine Cardiovascular Disease; Visit Provider Internal Medicine Cardiovascular Disease
DX: R06.02 Shortness of breath (principal)
CPT/HCPCS: 93306

== ENCOUNTER → 2025-04-05 | Outpatient (CLI) | payer BC, SELFPAY ==
--- NOTE | 2025-04-05 09:41 | STE_ITS ---
Reason For Study Reason For Study: Dyspnea Stress Results Protocol: Geovanni Protocol Maximum Predicted HR: 161 bpm Target HR: 137 bpm % Maximum Predicted HR: 102 % DurationHeart Rate Stage (mm:ss) (bpm) BP Comment Baseline 64 116/78No Chest Pain Geovanni Protocol Stage I 3:00 115 130/72No Chest Pain Geovanni Protocol Stage II 3:00 141 148/70No Chest Pain; Mild Dyspnea Geovanni Protocol Stage III 2:15 164 160/72No Chest Pain; Moderate Dyspnea Recovery 90 128/70No Chest Pain; No Dyspnea Stress Duration: 8:15 mm:ss Maximum Stress HR: 164 bpm METS: 10 Baseline Echocardiogram Findings Stress Echo Wall motion Data Resting WM Intermediate WM Stress WM ECHO/Stress Test Echo w/o Contrast Interpretation Summary Stress echocardiogram. Resting EKG demonstrates normal sinus rhythm with a rate of 95 bpm. The resting blood pressure was 116/78 mmHg. The patient exercised according to regular Geovanni protocol for 8 and quarter minutes attaining a maximum heart rate of 169 bpm 104% of max heart rate. At rest there were nonspecific ST-T wave changes an d at peak exercise upsloping ST changes were noted we did not meet the criteria for ischemia. The peak blood pressure i s 160/72 which was a good blood pressure response to exercise the test was terminated due to dyspnea. Stress echocardiogram. The resting echocardiogram demonstrated ejection fractio n of 60% and at peak exercise there was thickening of all damon reduction of the ventricular cavity size peaking of eje ction fraction of 70%. No wall motion abnormalities were noted. Conclusion: Exercise stress echo with no evidence of ischemia noted at a high workload of 1 0 metabolic equivalents. Good blood pressure response to exercise. Good functional capacity. Ordering Physician: Manan Brown Referring Physician: Manan Brown Performed By: Gloria Freeman RDCS
== END | disposition home or self-care (01) ==
LOC: CVS 09:40
PROVIDERS: PCP Internal Medicine; Referring Provider Internal Medicine Cardiovascular Disease; Visit Provider Internal Medicine Cardiovascular Disease
DX: R06.02 Shortness of breath (principal)
CPT/HCPCS: 93017; 93350

== ENCOUNTER → 2025-04-21 | Outpatient (CLI) | payer BC, SELFPAY | END | disposition home or self-care (01) | LOC: LAB 09:59 | PROVIDERS: PCP Internal Medicine; Referring Provider Internal Medicine; Visit Provider Internal Medicine | DX: E03.9 Hypothyroidism, unspecified (principal); E55.9 Vitamin D deficiency, unspecified ==

== ENCOUNTER → 2025-04-25 | Outpatient (CLI) | payer BC, SELFPAY ==
[2025-04-21 10:45] LABS: Hematocrit 39.4 % (37-47); Hemoglobin 13.2 g/dL (12.0-15.0); Mean Corp Hgb Conc 33.5 g/dL (32-36); Mean Corpuscular Volume 92.1 fL (81-99); Mean Platelet Vol. 10.7 fl (6.2-12.0); Platelet Count 161 K/mm3 (150-450); RBC Distribution Width CV 12.6 % (11.6-14.6); RBC Distribution Width SD 42.7 fl (35.1-43.9); Red Blood Count 4.28 M/mm3 (4.2-5.4); White Blood Count 4.3 K/mm3 (4.4-11.0)
[2025-04-21 11:24] LABS: Anion Gap 9 (5-15); BUN 15 mg/dL (4-19); BUN/Creat Ratio 15.9 RATIO (10-20); Calcium,Total 9.2 mg/dL (7.6-11.0); Carbon Dioxide 25.7 mmol/L (21.0-32.0); Chloride 101 mmol/L (98-108); Glucose 93 mg/dL (70-99); Magnesium 2.3 mg/dL (1.5-2.2); Potassium 4.0 mmol/L (3.3-5.1)
[2025-04-21 13:08] LABS: Vitamin D,25 Hydroxy 38.8 ng/mL (30-100)
--- NOTE | 2025-04-25 13:34 | PCM.TILTTABL ---
Staff Staff: Kassy Mcguire and Yanni Watson Summary Pre Test Resting HR: 64 Pre Test Resting BP: 122/73 Minimum Test HR: 62 Maximum Test HR: 110 Minimum Test BP: 100/68 Maximum Test BP: 129/89 Reason for Test Termination: Reached Maximum Test Time Physician Tilt Table Report Patient's Physicians Primary Care Physician: Rina De La Vega Indications/Diagnosis: palpitations Procedure Comments: The patient was brought to the noninvasive lab in the postabsorptive nonsedated state. Informed consent was obtained. Initial heart rate was noted to be 64 bpm EKG demonstrated the same in sinus rhythm. Initial blood pressure was 122/73 mmHg. The patient was then placed in the 70 degree head upright tilt position. Full duration of 30 minutes. Patient maintained adequate blood pressure and heart rate. The initial heart rate went up from 64 to 96 bpm with a drop in the blood pressure from 120 to 105 mmHg. There is mild shortness of breath jaw pain lightheadedness and dizziness. The heart rate stayed in the upper 90s to 80s. On conclusion of the test the patient had no symptomatology. The patient was then put in the recumbent position. Summary: Head upright tilt table test with mild orthostatic changes only noted.
[2025-04-25 13:40] VITALS: BP 100/68; BP 122/73; BP 129/89
== END | disposition home or self-care (01) ==
LOC: CVS 09:12
PROVIDERS: Nurse Practitioner Gerontology; PCP Internal Medicine; Referring Provider Internal Medicine Cardiovascular Disease; Visit Provider Internal Medicine Cardiovascular Disease
DX: E83.41 Hypermagnesemia (principal); R00.2 Palpitations
CPT/HCPCS: 36415; 80048; 82306; 83735; 84443; 85027; 93660

== ENCOUNTER → 2025-06-09 | Outpatient (CLI) | payer BC, SELFPAY | END | disposition home or self-care (01) | LOC: SL 20:15 | PROVIDERS: PCP Internal Medicine | DX: G47.33 Obstructive sleep apnea (adult) (pediatric) (principal) | CPT/HCPCS: 95811 ==